=== PATIENT | female | born 1980 | race Caucasian/White ===

== ENCOUNTER 2024-04-02 07:48 | Emergency (ER) | payer MEDICAID, SELFPAY ==
--- NOTE | ~2024-04-02 | XR_ITS ---
EXAMINATION: PELVIS AND LEFT HIP AND LEFT KNEE CLINICAL INFORMATION: Pain and swelling COMPARISON: None available. TECHNIQUE: Single view pelvis with 2 additional views left hip, 4 views left knee FINDINGS: Some minimal degenerative changes are present in both hip joints with some mild suprapatellar acetabular sclerotic change. There is some subchondral cysts, right greater than left. Minimal sclerotic changes are seen at the SI joints. No fractures. There is some minimal narrowing of the medial compartment otherwise the radiographs are unremarkable. No joint effusion, fractures or chondrocalcinosis. XR/XR hip LT w PEL1V IMPRESSION: Mild degenerative changes in the hips and SI joints. No acute finding. Electronically signed by: Maicol Faulkner MD 04/02/2024 10:27 AM EDT
--- NOTE | ~2024-04-02 | XR_ITS ---
EXAMINATION: PELVIS AND LEFT HIP AND LEFT KNEE CLINICAL INFORMATION: Pain and swelling COMPARISON: None available. TECHNIQUE: Single view pelvis with 2 additional views left hip, 4 views left knee FINDINGS: Some minimal degenerative changes are present in both hip joints with some mild suprapatellar acetabular sclerotic change. There is some subchondral cysts, right greater than left. Minimal sclerotic changes are seen at the SI joints. No fractures. There is some minimal narrowing of the medial compartment otherwise the radiographs are unremarkable. No joint effusion, fractures or chondrocalcinosis. XR/XR knee LT 4V IMPRESSION: Mild degenerative changes in the hips and SI joints. No acute finding. Electronically signed by: Maicol Faulkner MD 04/02/2024 10:27 AM EDT
[2024-04-02 07:52] VITALS: BP 113/58; PULSE 91; RESP 18; TEMP 35.7; O2SAT 96; BMI 25.9
--- NOTE | 2024-04-02 09:04 | ED_ITS ---
HPI - General Adult General Chief complaint: General Medical Stated complaint: Hip pain Time Seen by Provider: 04/02/24 09:03 Source: patient Mode of arrival: ambulatory Limitations: no limitations History of Present Illness ED Provider: Julia Boswell PA-C HPI narrative: 43 yo female with history of fibromyalgia, opioid use disorder on Suboxone, history of hip arthritis who presents to the ER for evaulation of acute on chronic left lateral hip pain along with left knee pain. She reports the pain has been worsening over the last few weeks without any recent injury. She states she had x-rays done a few months ago that showed arthritis in her left hip. Her primary care was trying to get her a rolling walker because she was homeless and walking several miles per day. She now has a home as of last week and is walking much less. She states the pain in the left lateral hip radiates down the outside of the leg to the left knee. It is worse with flexion of the leg. She denies any swelling of the knee or leg. No weakness, numbness or tingling of the leg. Pain is worse with ambulation and when lying on the left side. She is not taking any medications for pain MD complaint: left hip pain and left knee pain Onset (ago): day(s) Location: left and lower extremity Radiation: distal Severity: severe Quality: aching and sharp Pain Consistency: constant Relieving factors: rest Exacerbating factors: movement Associated symptoms: denies other symptoms Treatments prior to arrival: none Related Data Previous Rx's ?Medication ?Instructions ?Recorded cyclobenzaprine 10 mg tablet 10 mg PO TID PRN muscle spasm #14 04/02/24 tabs ibuprofen 600 mg tablet 600 mg PO Q8H PRN pain #14 tabs 04/02/24 lidocaine 5 % topical patch 1 patch topical DAILY #15 ea 04/02/24 Allergies Allergy/AdvReac Type Severity Reaction Status Date / Time cephalexin [From Keflex] Allergy Anaphylaxis Verified 04/02/24 07:55 sulfamethoxazole Allergy Anaphylaxis Verified 04/02/24 07:55 [From Bactrim] trimethoprim [From Bactrim] Allergy Anaphylaxis Verified 04/02/24 07:55 Review of Systems Review of Systems: Yes all other systems are reviewed and are negative PMFSH Social History Social History Advance Directives: Yes Advance Directives Information Provided: Yes Advance Directives on File: No Do you have a plan to hurt others: No Plan Physical Exam ED Vital Signs: Vital Signs - 24 hr 04/02/24 07:52 04/02/24 10:59 04/02/24 11:24 Temperature 96.3 F L 0 F L Pulse Rate 91 53 53 Respiratory Rate 18 16 16 Blood Pressure 113/58 L 98/60 98/60 Pulse Oximetry 96 95 95 Oxygen Delivery Method Room Air Room Air Room Air BMI result Body Mass Index 25.9 Appearance: Alert. Oriented X3. No acute distress. HEENT: normal inspection CVS: Normal heart rate and rhythm. Pulses normal. Respiratory: No respiratory distress. Skin: Skin warm and dry. Normal skin color. Normal skin turgor. hyperpigmented scattered scarring on the lateral aspect of the left upper thigh, no erythema or tenderness. Extremities: no deformity. full passive ROM of the left hip with tenderness both anteriorly and laterally. tenderness of the left lateral thigh with palpable spasm. FROM of the left knee with pain upon full extension. no appreciated joint laxiety. tenderness along lateral joint line Neuro: Oriented X 3. No motor deficit. No sensory deficit. Medications Administered Discontinued Medications Generic Name Dose Route Start Last Admin Trade Name Freq PRN Reason Stop Dose Admin Acetaminophen 975 mg 04/02/24 09:31 04/02/24 11:00 Acetaminophen 325 Mg Tablet PO 04/02/24 09:32 975 mg ONCE ONE Administration Cyclobenzaprine HCl 10 mg 04/02/24 09:31 04/02/24 11:00 Cyclobenzaprine Hcl 10 Mg Tablet PO 04/02/24 09:32 10 mg ONCE ONE Administration Ketorolac Tromethamine 30 mg 04/02/24 09:31 04/02/24 11:00 Ketorolac Tromethamine 30 Mg/Ml Vial IM 04/02/24 09:32 30 mg ONCE ONE Administration Medical Decision Making Medical Decision Making MDM Narrative: 43 yo female with history of opiois use disorder on suboxone who presents to the ER for evaluation of atraumatic left hip pain radiating down to the knee for the last several weeks. FROM on exam today w/ soft tissue tenderness of left lateral thigh, possible IT band syndrome. XR showing mild OA of the hip. unremarkable left knee. will plan to start muscle relaxer, NSAID, foam rolling exercises to IT band and ortho follow up as well as PCP. stable for d/c home Differential Diagnosis Differential Diagnoses: The differential diagnosis associated with the presentation includes OA, RA, IT band syndrome, AVN, ligamentous injury to the knee Independent Interpretation I performed an independent interpretation of an: Plain X-Ray Interpretation: no acute fracture, agree w/ radiology read Radiology Impression Discussion of test interpretation with radiology: I have reviewed the radiologist's reading. Radiologist Impression: EXAMINATION: PELVIS AND LEFT HIP AND LEFT KNEE CLINICAL INFORMATION: Pain and swelling COMPARISON: None available. TECHNIQUE: Single view pelvis with 2 additional views left hip, 4 views left knee FINDINGS: Some minimal degenerative changes are present in both hip joints with some mild suprapatellar acetabular sclerotic change. There is some subchondral cysts, right greater than left. Minimal sclerotic changes are seen at the SI joints. No fractures. There is some minimal narrowing of the medial compartment otherwise the radiographs are unremarkable. No joint effusion, fractures or chondrocalcinosis. XR/XR knee LT 4V IMPRESSION: Mild degenerative changes in the hips and SI joints. No acute finding. Independent Historian Clinical information obtained from an independent historian. History obtained from or confirmed by: Spouse Prescription Management I considered prescription management with: Pain Medication Chronic Conditions Patient?s care impacted by: Other (OA) Critical Care Time Critical Care Time Critical Care Time: No Discharge Plan Discharge Clinical Impression: Hip pain, left Acute knee pain Qualifiers: Laterality: left Qualified Code(s): M25.562 - Pain in left knee Patient Disposition: Home, Self-Care Instructions: Knee Pain (ED), Hip Pain (ED) Additional Instructions: Follow-up with orthopedics for further evaluation and treatment. Call for an appointment. Name and number below Take the prescribed medications as needed for your symptoms. Recommend stretching and foam rolling of your IT band (band from the side of your hip down to your knee) Follow-up with your primary care doctor EXAMINATION: PELVIS AND LEFT HIP AND LEFT KNEE CLINICAL INFORMATION: Pain and swelling COMPARISON: None available. TECHNIQUE: Single view pelvis with 2 additional views left hip, 4 views left knee FINDINGS: Some minimal degenerative changes are present in both hip joints with some mild suprapatellar acetabular sclerotic change. There is some subchondral cysts, right greater than left. Minimal sclerotic changes are seen at the SI joints. No fractures. There is some minimal narrowing of the medial compartment otherwise the radiographs are unremarkable. No joint effusion, fractures or ch ondrocalcinosis. XR/XR knee LT 4V IMPRESSION: Mild degenerative changes in the hips and SI joints. No acute finding. Prescriptions: New cyclobenzaprine 10 mg tablet 10 mg PO TID PRN (Reason: muscle spasm) Qty: 14 0RF ibuprofen 600 mg tablet 600 mg PO Q8H PRN (Reason: pain) Qty: 14 0RF lidocaine 5 % adhesive patch,medicated 1 patch topical DAILY Qty: 15 0RF Rx Instructions: leave on most painful area for up to 12 hrs Referrals: [facility] [place] [place] [facility] [Provider Group] Stand Alone Forms: Work/School Release Interventions: ED Discharge Assessment Last Done: 04/02/24 11:24 Discharge Date/Time: 04/02/24 11:25 Print Language: Tristanian
--- NOTE | 2024-04-02 09:10 | PC.NURSE ---
Pt eating a burger and drinking leandra shantel at this time. Awaiting xray.
[2024-04-02 10:59] VITALS: BP 98/60; PULSE 53; RESP 16; O2SAT 95
[2024-04-02] MEDS: Cyclobenzaprine HCl 10 MG TABLET PO (11:00)
[2024-04-02] MEDS: Acetaminophen 325 MG TABLET 975 MG PO (11:00)
[2024-04-02] MEDS: Ketorolac Tromethamine 30 MG/ML VIAL IM (11:00)
[2024-04-02 11:24] VITALS: BP 98/60; PULSE 53; RESP 16; TEMP -17.7; TEMP 0; O2SAT 95
== END 2024-04-02 11:25 | disposition home or self-care (01) ==
PROVIDERS: Emergency Provider Emergency Medicine Emergency Medical Services
DX: M25.552 Pain in left hip (principal); M25.562 Pain in left knee
CPT/HCPCS: 73502; 73564; 96372; 99283; 99284; J1885

== ENCOUNTER 2024-05-21 09:42 | Emergency (ER) | payer MEDICAID, SELFPAY ==
[2024-05-21 09:50] VITALS: BP 136/78; PULSE 69; O2SAT 98
[2024-05-21 10:00] VITALS: BP 123/57; PULSE 51; RESP 16; TEMP 37; O2SAT 100; BMI 25.7
[2024-05-21] MEDS: Ondansetron ODT 4 MG TAB.RAPDIS TRANSLINGU (10:06)
== END 2024-05-21 18:20 | disposition left against medical advice (07) ==
PROVIDERS: Emergency Provider Emergency Medicine
DX: R11.2 Nausea with vomiting, unspecified (principal)
CPT/HCPCS: 99281

== ENCOUNTER 2024-07-05 14:03 | Emergency (ER) | payer MEDICAID, SELFPAY ==
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
--- NOTE | 2024-07-05 14:09 | ED.GENADULT ---
HPI - General Adult General Chief complaint: Extremity Injury, Upper Stated complaint: R Hand Swollen Fingers Injury 07/05/24 Related Data Previous Rx's ?Medication ?Instructions ?Recorded cyclobenzaprine 10 mg tablet 10 mg PO TID PRN muscle spasm #14 04/02/24 tabs ibuprofen 600 mg tablet 600 mg PO Q8H PRN pain #14 tabs 04/02/24 lidocaine 5 % topical patch 1 patch topical DAILY #15 ea 04/02/24 Allergies Allergy/AdvReac Type Severity Reaction Status Date / Time cephalexin [From Keflex] Allergy Anaphylaxis Verified 07/05/24 14:12 sulfamethoxazole Allergy Anaphylaxis Verified 07/05/24 14:12 [From Bactrim] trimethoprim [From Bactrim] Allergy Anaphylaxis Verified 07/05/24 14:12 [facility] Social History Social History Advance Directives: No Advance Directives Information Provided: No Do you have a plan to hurt others: No Plan Physical Exam ED Vital Signs: BMI result Body Mass Index 26.6 Course Course Course Narrative: This is an RME: Additional HPI, ROS, PE not included below will be deferred to primary provider. RME assessment and note performed by: Saundra Sullivan PA-C This is a [id number]-female who presents to the ER with a complaint of right hand pain s/p punching wall. Pt reports that she was previously prescribed lyrica and has missed several appointments and has been trying to wean herself down, reports that this has caused increased anger. She is here with partner. Reports that she would like to speak to someone about med management. Plan: xr hand, care team Reevaluation(s) Reevaluation #1: Patient left without completing treatment. Discharge Plan Discharge Clinical Impression: Hand pain Patient Disposition: Left W/O Completing Treatment Prescriptions: No Action cyclobenzaprine 10 mg tablet 10 mg PO TID PRN (Reason: muscle spasm) Qty: 14 0RF ibuprofen 600 mg tablet 600 mg PO Q8H PRN (Reason: pain) Qty: 14 0RF lidocaine 5 % adhesive patch,medicated 1 patch topical DAILY Qty: 15 0RF Rx Instructions: leave on most painful area for up to 12 hrs Discharge Date/Time: 07/05/24 21:25
[2024-07-05 14:10] VITALS: BP 127/78; PULSE 110; RESP 16; TEMP 36.7; O2SAT 94; BMI 26.6
--- OUTSIDE RECORDS SUMMARY | 2024-07-05 21:25 | XMS_ITS ---
Author Organization [facility] Address [address] [place], [place] [id number] Care Team Providers Care Block Operator Name Role Phone Vikki Spicer Primary Care Provider [facility], Nursing Unavailable [phone] Medications Medication SIG (Take, Route, Frequency, Duration) [...] Not-Taking Encounters Encounter Location Date Provider Diagnosis [facility] [address] [place], [place] [phone] 05/22/2024 Nursing [facility] Encounter for screening for COVID-19 Z11.52 Assessments Encounter Date Diagnosis (ICD Code) Assessment Notes Treatment Notes Treatment Clinical Notes 05/22/2024 Encounter for screening for COVID-19 [...] COVID-19. Progress Notes * Bello YUNGOB: [birth year] (43 yo F)Acc No.[id number]:05/22/2024 Progress Notes Patient:?Connie YUNG Provider:?Provider [facility] :1980???Age:43 Y???Sex:Female D ate:05/22/2024 Address:[address] [place], [place] [phone] Pcp:Vikki Spicer Subjective: * Chief Complaints: * ??? * HPI: ???General:? Symptom Screen: - Fever in the last [...] days? If so where and why?. * Medications:?Taking diclofen ac topical 3% gel 1 amanda applied topically [...] tab(s) orally twice a day Objective: * Vitals:? Assessment: * Assessment: 1.?Encounter for screening f or COVID-19 - Z11.52 (Primary)??? Plan: * Treatment: * Images: Billing Information: * Visit Code:? * Procedure Codes:? * Electronic signature of Buck jain [facility] on 07/05/2024 at 09:25 PM EST Sign off status: Pending * Provider:?Provider [facility] Date:?05/22/2024 Generated for Marilin johnson/Olivia/Beni on:?07/05/2024 09:25 PM EST
--- OUTSIDE RECORDS SUMMARY | 2024-07-05 21:26 | XMS_ITS | Patient Health Record ---
Author Organization [facility] Address [address], [place] [id number] Care Team Providers [facility] Manager Name Role Phone Kwame Spicer Primary Care Provider Jessie Ferrera Unavailable [phone] [facility], Nursing Unavailable [phone] No, PCP Unavailable Unavailable Niyah Maynard Unavailable [phone] Ingris Covarrubias Unavailable [phone] [facility], CHW Unavailable [phone] Allergies Allergen (clinical drug ingredient) Drug/Non Drug Allergy documented on EMR Reaction Allergy Type Onset Date Status Shellfish shellfish (uncoded) Unknown Allergy Active keflex (uncoded) anaphylaxis Allergy A ctive Results Component Value Reference Range Notes CBC Reviewed date:02/16/2024 09:29:41 AM Interpretation:Abnormal Performing Lab: Notes/Report: Original Ordering Provider: KWAME SPICER APRN WBC 5.5 4.8-10.8 x10-3/uL RBC 5.0 3.8-4.8 x10-6/uL HEMOGLOBIN 14.0 11.5-16.0 g/dL HEMATOCRIT 43.0 35-47 % MCV 86.9 79-98 fL MCH 28.3 27-32 pg MCHC 32.6 32-37 g/dL RDW 13.2 11-15 % PLT COUNT 292 130-400 x10-3/uL MEAN PLATELET VOLUME 10.3 7-11 fL NRBC % AUTO 0.0 <1 % NRBC # AUTO 0.00 <0.1 x10-3/uL COMPREHENSIVE METABOLIC PANE L Reviewed date:02/16/2024 09:29:29 AM Interpretation:Normal Performing Lab: Notes/Report: GLUCOSE 86 70-100 mg/dL Reference range applicable to fasting specimens only BUN 8 5-25 mg/dL CREAT 1.07 0.5-1.1 mg/dL GLOMERULAR FILTRATION RATE 67 >60 This eGFR result was calculated using the CKD-EPI 2020 Creatinine Equation SODIUM 140 135-145 mEq/L POTASSIUM 3.8 3.5-5.5 mmol/L CHLORIDE 105 96-110 mmol/L CO2 27 21-32 mmol/L ANION GAP 8 3-11 CALCIUM 10.2 8.5-10.5 mg/dL ALBUMIN 4.3 3.2-5.0 G/dL SGPT 37 10-60 U/L TOTAL PROTEIN 7.0 6.0-8.0 G/dL BILI,TOTAL 0.3 0.0-1.4 mg/dL SGOT 33 10-42 U/L ALK PHOS 68 42-121 U/L GLYCOHEMOGLOBIN PROFILE Reviewed date:02/16/2024 09:29:17 AM Interpretation:High Performing Lab: Notes/Report: Original Ordering Provider: KWAME SPICER APRN [employer], a member of [address] [address] Equipment Associate - Xin Guzman MD GLYCATED HEMOGLOBIN A1C 5.9 <6.5 % ESTIMATED AVERAGE GLUCOSE 123 HCV VIRAL LOAD Reviewed date:02/16/2024 12:05:03 PM Interpretation:detected Performing Lab: Notes/Report: Original Ordering Provider: KWAME SPICER APRN [employer], a member of [address] [address] Equipment Associate - Xin Guzman MD HCV VIRAL LOAD QUAL DETECTED NOT DETECT. HCV VIRAL LOAD QUANT 87472 <12 HCV VIRAL LOAD LOG 4.61 <1.08 HIV 1 AND 2 ANTIBODY SCREEN Reviewed date:02/16/2024 09:30:01 AM Interpretation:Negative Performing Lab: Notes/Report: [employer], a member of [address] [address] Equipment Associate - Xin Guzman MD HIV 1 AND 2 SCREEN NEGATIVE NEGATIVE This assay is a 4th generation assay allowing for earlier detection of HIV infection by detecting the presence of the HIV-1 p24 antigen as well as the traditional antibodies to HIV type 1 (including group O) and type 2. Use of a 4th generation assay is the current CDC recommendation for HIV screening. LEVETIRACETAM KEPPRA Reviewed date:02/19/2024 09:15:36 AM Interpretation:Normal Performing Lab: Notes/Report: Original Ordering Provider: KWAME SPICER APRN [employer] [address] Equipment Associate - Xin Guzman MD LEVETIRACETAM KEPPRA 47.5 3.0-60.0 ug/mL Steady state trough serum or plasma levels following doses of 1000 to 3000 mg/Day: 3 to 37 ug/mL. The same dosage regimen will typically result in peak levels of 10 to 60 ug/mL, at approximately 1.5 hours post dose. If applicable, any drug confirmation testing reported here was developed and the performance characteristics determined by [facility]. This confirmation testing has not been cleared or approved by the FDA. The laboratory is regulated under CLIA as qualified to perform high-complexity testing. This test is used for patient testing purposes. It should not be regarded as investigational or for research. Test performed at [facility], [facility] [place] [address] Marcia Raphael MD, PhD - Equipment Associate LIPID PROFILE Reviewed date:02/16/2024 10:01:24 AM Interpretation:2.7 % ASCVD 10-yr risk Performing Lab: Notes/Report: CHOLESTEROL 219 0-200 mg/dL TRIGLYCERIDES 173 0-150 mg/dL HDL CHOLESTEROL 53 >40 mg/dL LDL CALCULATED 132 0-100 mg/dL TC-HDLC RATIO 4.1 0-4.4 mg/dL TSH CASCADE Reviewed date:02/16/2024 09:29:48 AM Interpretation:Normal Performing Lab: Notes/Report: TSH CASCADE 1.22 0.40-4.00 uIU/ml QUANTIFERON(R)-TB GOLD PLUS, 1 TUBE Reviewed date:02/20/2024 09:09:40 PM Interpretation:Negative Performing Lab:NL2, [facility] [id number] Wil Veronica Notes/Report: NON-FASTING QUANTIFERON(R)-TB GOLD PLUS, 1 TUBE NEGATIVE NEGATIVE Negative test result. M. tuberculosis complex infection unlikely. NIL 0.10 MITOGEN-NIL 8.99 TB1-NIL 0.03 TB2-NIL 0.05 The Nil tube value reflects the background interferon gamma immune response of the patient's blood sample. This value has been subtracted from the patient's displayed TB and Mitogen results. Lower than expected results with the Mitogen tube prevent false-negative Quantiferon readings by detecting a patient with a potential immune suppressive condition and/or suboptimal pre-analytical specimen handling. The TB1 Antigen tube is coated with the M. tuberculosis-specific antigens designed to elicit responses from TB antigen primed CD4+ helper T-lymphocytes. The TB2 Antigen tube is coated with the M. tuberculosis-specific antigens designed to elicit responses from TB antigen primed CD4+ helper and CD8+ cytotoxic T-lymphocytes. For additional information, please refer to [email or web address] (This link is being provided for informational/ educational purposes only.) HEPATITIS A B C PROFILE Reviewed date:02/16/2024 09:28:37 AM Interpretation:+HCV;no hep A immunity Performing Lab: Notes/Report: HEPATITIS B SURFACE ANTIBODY POSITIVE NEGATIVE HEPATITIS B SURFACE ANTIGEN NEGATIVE NEGATIVE Over the counter supplements containing high doses of biotin may interfere with this assay. If interference is suspected, patients shoud be retested after refraining from biotin supplements for 72 hours. HEPATITIS C VIRUS DIAGNOSTIC POSITIVE NEGATIVE If confirmation of this positive HCV Ab screening test is needed, please redraw and order HCV Viral Load. Note--> This test may not be added on due to different specimen requirements. HEPATITIS B CORE ANTIBODY NEGATIVE NEGATIVE HEPATITIS A ANTIBODY TOTAL NEGATIVE NEGATIVE Over the counter supplements containing high doses of biotin may interfere with this assay. If interference is suspected, patients shoud be retested after refraining from biotin supplements for 72 hours. CBC Reviewed date:03/05/2024 09:51:06 PM Interpretation:Normal Performing Lab: Notes/Report: Normal HEMATOCRIT 39 HEMOGLOBIN 12.6 MCV 87 PLT COUNT 202 WBC 4.7 BASIC METABOLIC PANEL Reviewed date:03/05/2024 09:52:16 PM Interpretation:Glu 118 Performing Lab: Notes/Report: Glu 118 GLUCOSE 118 UREA NITROGEN (BUN) 19 CREATININE 0.9 SODIUM 139 POTASSIUM 4.4 CHLORIDE 105 CARBON DIOXIDE 22 CALCIUM 9.3 TSH Reviewed date:03/05/2024 09:53:26 PM Interpretation:Normal Performing Lab: Notes/Report: Normal TSH 1.14 CKMB PROFILE Reviewed date:03/05/2024 09:54:19 PM Interpretation:Normal Performing Lab: Notes/Report: Normal CREATINE KINASE (CK) 112 US Doppler Limited Study Reviewed date:03/05/2024 09:55:22 PM Interpretation:Negative Performing Lab: Notes/Report: Negative Reason For Referral Reason HS Dental routine exam Diagnosis 1 Unsheltered homeless ness (Z59.02) Referral Organization [facility] Referring Provider First Name CHW Referring Provider Last Name [facility] Referring Provider Speciality Family Pra ctice Referred Provider [facility], . Referral Priority Routine Reason [facility] [address] [facility] [place] [phone] evaluate for abnormal uterine bleeding Diagnosis 1 Abnormal uterine and vaginal bleeding, unspecified (N93.9) Referral Organization [facility] Referring Provider First Name Kwame Referring Provider Last Name Nayan Referring Provider Speciality Nurse Liana vitale Referred Provider [facility] Referred Provider Specialty OB - Gynecol ogy General Notes Amanda Polo 02/16/2024 03:36:21 PM > p/w faxed pending appt Desire Eric 02/29/2024 02:05:39 PM > pt is scheduled for 05/14/2024 @ 1pm with arrival of 12:45 at [facility], Desire Eric 05/13/2024 01:22:04 PM > pt wants to reschedule, she will call today and let us know after she have another date.Christ Katelyn 06/19/2024 09:39:20 AM EST > sent fax to check status of apptChrist Katelyn 06/19/2024 12:24:55 PM > pt no showed appt Referral Priority Routine Referral Appointment Date 05/14/2024 Reason Needs Wheeled Walker with Seat. Referral Organization [facility] Referring Provider First Name Kwame Referring Provider Last Name Nayan Referring Provider Speciality Nurse Liana vitale Referred Provider [facility] General Notes Kristen Mckay 2023 10:08:37 AM >Given to client with walker script. Referral Priority Routine Reason evaluate for lef t hip and left knee pain Diagnosis 1 Unilateral primary o steoarthritis, left hip (M16.12) Diagnosis 2 Pain in left knee (M 25.562) Referral Organization [facility] Referring Provider First Name Kwame Referring Provider Last Name Nayan Referring Provider Speciality Nurse Prac titioner Referred Provider [facility] Referred Provider Specialty Orthopedic S urgery General Notes Rhiannon Ferrer 02/2024 01:10:28 PM > Faxed notes to [phone],phone [phone], Brigitte Ayoub 05/13/2024 09:44:21 AM > received referral, contacted pt. on 03/16/24 with no response, Called and spoke with patient to call [facility] to schedule, pt. agrees Referral Priority Routine Medications Medication SIG (Take, Route, Frequency, Duration) Notes Start Date End Date Status Melatonin 5 mg 2 caps orally once a day (at bedtime) pt states its 3 tabs Active furosemide 20 mg 1 tab(s) orally twice a day Not-Taking buprenorphine-naloxone 8 mg-2 mg 2 film(s) sublingually daily Active propranolol 10 mg 1 tab(s) orally 2 times a day for 90 days Active Imitrex 25 mg 1 tab(s) orally once for 30 days As needed 02/16/2024 Active levothyroxine 25 mcg (0.025 mg) 1 tab(s) orally once a day for 90 days Active traZODone 50 mg 1 tab orally at bedtime As needed Not-Taking pantoprazole 40 mg 1 tab(s) orally once a day for 90 days Active hydrOXYzine hydrochloride 50 mg 2 tabs orally twice a day PRN Not-Taking Keppra 750 mg 1 tab(s) orally 2 times a day for 90 days Active ondansetron 4 mg 1 tab(s) orally twice a day PRN do not take more than 2 in a 24 hour period Not-Taking Lyrica 150 mg 1 cap(s) orally 2 times a day for 30 days 05/21/2024 Active omeprazole 20 mg 2 caps orally once a day pt states its BID Not-Taking naloxone 4 mg/0.1 mL 1 spray(s) intranasally once Not-Taking mirtazapine 15 mg 1 tab(s) orally once a day (at bedtime) Not-Taking diclofenac topical 3% 1 maanda applied topically 2 times a day for 30 days As needed 02/15/2024 Active cyclobenzaprine 10 mg 1 tab(s) orally every 8 hours PRN Not-Taking acetaminophen 500 mg 2 tab(s) orally every 8 hours As needed Active gabapentin 400 mg 1 cap(s) orally 3 times a day Not-Taking Immunizations Vaccine Route Administration Date Status Comme nts Moderna Covid-19 Vaccine Administration - First Dose (Single Dose 100MCG/0.5ML 1ST) Unknown 09/24/2020 Administered Moderna Covid-19 Vaccine Administration - Second Dose (Single Dose 100 MCG/0.5ML 2ND) Unknown 10/22/2020 Administered PCV 20 Unknown 03/06/2023 Administered MMR Unknown 03/10/1983 Administered PPSV 23 Unknown 08/04/2016 Administered Tdap Unknown 09/04/2014 Administered Social History Tobacco Use: Social History Observation Description Date Details (start date - stop date) Former Smoker NA - NA Tobacco Use Assessment MU Question Answer Notes What is your current smoking status? former smok er How long has it been since you last smoked? > 10 years Problems Problem Type SNOMED Code ICD Code Onset Dates Problem Status W/U Status Risk Notes Problem Chronic hepatitis C (439623105) Chronic viral hepatitis C (B18.2) Active confirmed Problem Hypothyroidism (31410045) Hypothyroidism, unspecified (E03.9) Active confirmed Problem Overweight (354951285) Overweight (E66.3) Active confirmed Problem Tobacco user (658180761) Nicotine dependence, cigarettes, uncomplicated (F17.210) Active confirmed Problem Anxiety disorder (041222583) Anxiety disorder, unspecified (F41.9) Active confirmed Problem Insomnia (157823259) Insomnia, unspecified (G47.00) Active confirmed Problem Gastro-esophageal reflux disease without esophagitis (010628635) Gastro-esophagea l reflux disease without esophagitis (K21.9) Active confirmed Problem Localized, primary osteoarthritis of the pelvic region and thigh (662015233) Unilateral primary osteoarthritis, left hip (M16.12) Active confirmed Problem Pain of left knee joint (finding) (861673308010062) Pain in left knee (M25.562) Active confirmed Problem Fibromyalgia (239780029) Fibromyalgia (M79.7) Active confirmed Problem Abnormal uterine bleeding (62876163561507) Abnormal uterine and vaginal bleeding, unspecified (N93.9) Active confirmed Problem Seizure (08820746) Unspecified convulsions (R56.9) Active confirmed Problem Nondependent opioid abuse in remission (488450008) Opioid abuse, in remission (F11.11) Active confirmed Problem Headache (77021626) Headache, unspecified (R51.9) Active confirmed Problem Unsheltered homelessness (443749702062640) Unsheltered homelessness (Z59.02) Active confirmed Problem Pain in unspecified knee (M25.569) Inactive confirmed Vital Signs Temperature 97.5 degrees Fahrenheit 02/15/2024 Blood pressure diastolic 87 02/15/2024 Oximetry 97 02/15/2024 Height 63 in 02/15/2024 Blood pressure systolic 118 02/15/2024 Weight 147.6 lbs 02/15/2024 BMI 26.14 kg/m2 02/15/2024 Encounters Encounter Location Date Provider Diagnosis [facility] [address] [place] [address] FOR [place]EL[place] [id number] 01/10/[address] [facility] Other specified counseling Z71.89 ; Unsheltered homelessness Z59.02 and Encounter for screening for depression Z13.[address] [id number] 02/15/2024 Kwame Spicer Encounter for general adult medical examination with abnormal findings Z00.01 ; Nicotine dependence, cigarettes, uncomplicated F17.210 ; Overweight E66.3 ; Encounter for screening mammogram for malignant neoplasm of breast Z12.31 ; Encounter for screening for infectious and parasitic diseases, unspecified Z11.9 ; Encounter for screening for cardiovascular disorders Z13.6 ; Pain in unspecified knee M25.569 ; Hypothyroidism, unspecified E03.9 ; Headache, unspecified R51.9 ; Opioid abuse, in remission F11.11 ; Unsheltered homelessness Z59.02 ; Unspecified convulsions R56.9 ; Abnormal uterine and vaginal bleeding, unspecified N93.9 and Gastro-esophageal reflux disease without esophagitis K21.9 [employer] [address] [place] [id number] 02/19/2024 Ingris Covarrubias [address] [id number] 02/29/2024 Eddieliza Casionan Fibromyalgia M79.7 ; Chronic viral hepatitis C B18.2 ; Person consulting for explanation of examination or test findings Z71.2 ; Unilateral primary osteoarthritis, left hip M16.12 and Pain in left knee M25.[address] [id number] 12/05/[address] [id number] 01/08/[address] [address] [id number] 01/10/[address] [id number] 01/10/2024 Eddieliza Casionan [address] [id number] 02/07/2024 Eddieliza Casionan [address] [id number] 02/07/2024 Jessie Ferrera Insomnia, unspecifie d G47.00 and Anxiety disorder, unspecified F41.9 [facility] [address] [address] 02/09/2024 Eddieliza Casionan [address] [id number] 02/09/2024 Eddieliza Casionan [address] [id number] 02/19/2024 Eddieliza Casionan Anxiety disorder, unspecified F41.[address] [id number] 02/26/2024 Eddieliza Casionan [address] [id number] 02/28/2024 Eddieliza Casionan [address] [id number] 03/05/2024 Eddieliza Casionan [address] [id number] 03/06/2024 Eddieliza Casionan [address] [id number] 03/15/2024 Eddieliza Casionan [address] [id number] 04/01/2024 Eddieliza Casionan [address] [id number] 04/03/2024 Eddieliza Casionan [address] [id number] 04/18/2024 Eddieliza Casionan Anxiety disorder, unspecified F41.[address] [id number] 04/22/2024 Eddieliza Casionan Anxiety disorder, unspecified F41.[address] [id number] 05/16/2024 Eddieliza Casionan Unspecified convulsions R56.9 ; Hypothyroidism, unspecified E03.9 and Gastro-esophageal reflux disease without esophagitis K21.[address] [id number] 12/27/2023 PCP No Assessments Encounter Date Diagnosis (ICD Code) Assessment Notes Treat ment Notes Treatment Clinical Notes 01/10/2024 Other specified counseling (ICD-10 - Z71.89) Discussed in detail with patient how to practice social distancing and reduce risk of manuela devi virus. This included avoiding public spaces, crowds, washing hands frequently, and limiting visitors at this time. Patient was encouraged wash hand frequently, cough into their elbow, and contact the clinic if they develop cough/SOB/Fever or have direct contact with someone with these symptoms. 01/10/2024 Unsheltered homelessness (ICD-10 - Z59.02) Medical, social and psych history reviewed and documented in ecw. [facility] records obtained and immunization history updated. Requested records from [facility] to update med list, once received will update. Pt scheduled to establish care with provider, encouraged to contact clinic with any issues or concerns prior to scheduled appt. 02/15/2024 Nicotine dependence, cigarettes, uncomplicated (ICD-10 - F17.210) vaping 02/15/2024 Encounter for general adult medical examination with abnormal findings (ICD-10 - Z00.01) Annual PE performed.General recommendation for good health made: brush/floss your teeth 2x per day. Eat a healthy diet and obtain 30 minutes of aerobic exercise 5/7 days per week. Maintain high in take of water and avoid soda and energy drinks. Get 8 hours of sleep every night. 02/29/2024 Chronic viral hepatitis C (ICD-10 - B18.2) denies past treatment. Agrees to come for lab draw for treatment 02/29/2024 Fibromyalgia (ICD-10 - M79.7) wrote a script for walker with seater Requests Iván restart 02/07/2024 Anxiety disorder, unspecified (ICD-10 - F41.9) 02/07/2024 Insomnia, unspecified (ICD-10 - G47.00) Client needs to return call so we can verify what she is taking for sleep, trazosone ids prn and not clear if she is taking melatonin. 02/19/2024 Anxiety disorder, unspecified (ICD-10 - F41.9) 04/18/2024 Anxiety disorder, unspecified (ICD-10 - F41.9) 04/22/2024 Anxiety disorder, unspecified (ICD-10 - F41.9) 05/16/2024 Unspecified convulsions (ICD-10 - R56.9) 01/10/2024 Encounter for screening for depression (ICD-10 - Z13.31) PHQ-9 assessed score was 11 moderate depression - pt currently not receiving tx but would like to be, TE sent to Niyah Maynard to initiate tx. Pt informed that staff will be contacting her by phone to schedule an appt. 02/15/2024 Overweight (ICD-10 - E66.3) Engaged discussion on maintaining healthy lifestyle: healthy diet low on fats and simple carbohydrates, and regular physical exercise of at least 30 minutes daily 02/29/2024 Person consulting for explanation of examination or test findings (ICD-10 - Z71.2) Reviewed results of recent diagnostic testing with client. Testing was (ab)normal. Future plan of action discussed. 05/16/2024 Hypothyroidism, unspecified (ICD-10 - E03.9) 02/15/2024 Encounter for screening mammogram for malignant neoplasm of breast (ICD-10 - Z12.31) Will have routine mammogram screening appt set up 02/29/2024 Unilateral primary osteoarthritis, left hip (ICD-10 - M16.12) agrees to see ortho 05/16/2024 Gastro-esophageal reflux disease without esophagitis (ICD-10 - K21.9) 02/15/2024 Encounter for screening for infectious and parasitic diseases, unspecified (ICD-10 - Z11.9) Covid screening is negative. Discussed in detail with patient how to practice social distancing by avoiding public spaces and crowds now, wearing a mask in public to keep nose and mouth covered, and washing hands frequently especially before eating and after using the bathroom. Return to clinic if you develop any symptoms of concern to be rescreened or go to the emergency room if you are having concerning symptoms for COVID-19. Screen for STI. TB and hepatitis 02/29/2024 Pain in left knee (ICD-10 - M25.562) agrees to see ortho 02/15/2024 Encounter for screening for cardiovascular disorders (ICD-10 - Z13.6) Screen for CV disorders 02/15/2024 Pain in unspecified knee (ICD-10 - M25.569) will trial NSAID cream 02/15/2024 Hypothyroidism, unspecified (ICD-10 - E03.9) will check thyroid profile 02/15/2024 Headache, unspecified (ICD-10 - R51.9) encouraged hydration 02/15/2024 Opioid abuse, in remission (ICD-10 - F11.11) reports staying on remission 02/15/2024 Unsheltered homelessness (ICD-10 - Z59.02) reports trying to get into a intermediate in [place] 02/15/2024 Unspecified convulsions (ICD-10 - R56.9) Appears stable on present treatment which we will continue. Will refer to neuro if seizures reoccur 02/15/2024 Abnormal uterine and vaginal bleeding, unspecified (ICD-10 - N93.9) wants referral to a [facility] 02/15/2024 Gastro-esophageal reflux disease without esophagitis (ICD-10 - K21.9) 02/20/2024 Other 02/27/2024 Other 03/13/2024 Other 05/07/2024 Other 05/14/2024 Other 05/22/2024 Other 01/10/2024 Other Pt agrees to dental referral - referral submitted to [facility] dental NOTE : TIME SPENT ON VISIT: 40 mins 02/15/2024 Other 02/29/2024 Other Time spent in visit: 10 minutes Plan Of Treatment Pending Test Test Name Order Date Homero Screening Digital 02/15/2024 HEPATITIS A,B,C PROFILE 02/15/2024 Insurance Providers Payer Name Payer Address Payer Phone Subscriber Number Group Number Insured Name Patient Relationship to Insured Coverage Start Date Coverage End Date [place] C3 [address] [place], [place] [id number] [employer] sushil Connie Self - patient is the insured 4 Medical (General) History Medical History History ICD Code stage 3 kidney disease hep c fibromyalgia degenerative disk disease depression anxiety seizures - has not had one in 2 years acid relux insomnia opiate abuse history Surgical History Surgery Date(Month/Year) exploratory surgeries of abd x 3 appendectomy in her 20's breast implants 13 years ago right foot - 2 procedures 11 years ago Hospitalization History Reason Date(Month/Year) Psych admit - [facility] 2023 Multiple psych admits when younger detox x 2 - [facility] stomach issues? 01/2024
--- OUTSIDE RECORDS SUMMARY | 2024-07-05 21:26 | XMS_ITS ---
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 Name Role Phone Vikki Spicer Primary Care Provider Jessie Ferrera Unavailable [phone] REASON FOR VISIT BH: initial intake, Symptom screening by [facility] staff pre entrance to clinic Encounters Encounter Location Date Provider Diagnosis [facility] [address], [place] [id number] 05/14/2024 Jessie Ferrera Encounter for screening for COVID-19 Z11.52 Assessments Encounter Date Diagnosis (ICD Code) Assessment Notes Treatment Notes Treatment Clinical Notes 05/14/2024 Encounter for screening for COVID-19 [...] * Bello YUNGOB: [birth year] (43 yo F)Acc No.[id number]:05/14/2024 Progress Notes Patient:?Connie YUNG Provider:?Jessie Ferrera PMHNP-BC :1980???Age:43 Y???Sex:Female D ate:05/14/2024 Address:[address] [place], [place] [id number] Pcp:Vikki Spicer Subjective: * Chief Complaints: * ???1. BH: initial intake. 2. Symptom screening by [facility] staff pre entrance to clinic. * HPI: ???General:? Symptom Screen: - Fever [...] days? If so where and why?. * ROS:?No acute C/P no acute SOB, No problem with urine, No heartburn or abdominal pain. Endorses being able to climb one fight of stairs without stopping due to SOB, Mood: stable, appetite: good, sleeping well. Denies new skin rashes. * Medical History:? Objective: * Vitals:? * Examination: ???Psychiatry: ?Assessment? Filled? Written? Sold? ID? Drug? QTY? Days? Prescriber? RX #? Dispenser? Refill? Daily Dose*? Pymt Type? 02/29/20 24 4 2 Preg abal in 150 Mg Caps ule 60 30 Ed Jered [id number] [facility] ( 05) 0/0 2.01 LMET Medicai d [place] .? Assessment: * Assessment: 1.?Encounter for screening f or COVID-19 - Z11.52 (Primary)??? Plan: * Treatment: * Images: Billing Information: * Visit Code:? * Procedure Codes:? Care Plan Details* * Electronic signature of JENNIFER Corrales on 07/05/2024 at 09:26 PM EST Sign off status: Pending * Provider:?SPENCER Walker Date:?1 Generated for Marilin johnson/Olivia/Beni on:?07/05/2024 09:26 PM EST History and Physical Notes * Examination Category Sub-Category Detail Notes Psychiatry Assessment Filled Written S old ID Drug QTY Days Prescriber RX # Dispenser Refill Daily Dose* Pymt Type SPRING FITTER //[id number] 150 Mg [id number] [id number] (9606) [place]
--- OUTSIDE RECORDS SUMMARY | 2024-07-05 21:26 | XMS_ITS ---
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 Role Phone Vikki Spicer Primary Care Provider REASON FOR VISIT Refill request Medications Medication SIG (Take, Route, Frequency, Duration) Notes Start Date End Date Status pantoprazole 40 mg 1 tab(s) orally once a day for 90 days Active levothyroxine 25 mcg (0.025 mg) 1 tab(s) orally once a day for 90 days Active Keppra 750 mg 1 tab(s) orally 2 ti mes a day for 90 days Active Encounters Encounter Location Date Provider Diagnosis [address] [id number] 05/16/2024 Vikki Spicer Unspecified convulsions R56.9 ; Hypothyroidism, unspecified E03.9 and Gastro-esophageal reflux disease without esophagitis K21.9 Assessments Encounter Date Diagnosis (ICD Code) Assessment Notes Treat ment Notes Treatment Clinical Notes 05/16/2024 Unspecified convulsions (ICD-10 - R56.9) 05/16/2024 Hypothyroidism, unspecified (ICD-10 - E03.9) 05/16/2024 Gastro-esophageal reflux disease without esophagitis (ICD-10 - K21.9) Plan Of Treatment Medication Medication Name Sig Start Date Stop Date Notes pantoprazole 40 mg 1 tab(s) orally once a day for 90 days levothyroxine 25 mcg (0.025 mg) 1 tab(s) orally once a day for 90 days Keppra 750 mg 1 tab(s) orally 2 ti mes a day for 90 days Progress Notes * Bello YUNGOB: [birth year] (43 yo F)Acc No.[id number]:05/16/2024 Patient:?LaurieroxyasmineConnie :1980???Age:43 Y???Sex:Female Address:[address] [place] [address] * Refills? Refill Keppra tablet, 750 mg, orally, 180, 1 tab(s), 2 times a day, 90 days, Refills=0 Refill levothyroxine tablet, 25 mcg (0.025 mg), orally, 90, 1 tab(s), once a day, 90 days, Refills=0 Refill pantoprazole delayed release tablet, 40 mg, orally, 90, 1 tab(s), once a day, 90 days, Refills=0 * true * Date:? Generated for Marilin johnson/Olivia/Javyitting on:?07/05/2024 09:25 PM EST
== END 2024-07-05 21:25 | disposition left against medical advice (07) ==
LOC: HO.ED 21:24
PROVIDERS: Emergency Provider Emergency Medicine
DX: S69.91XA Unspecified injury of right wrist, hand and finger(s), initial encounter (principal); M79.641 Pain in right hand; X58.XXXA Exposure to other specified factors, initial encounter; Y93.89 Activity, other specified; Y92.89 Other specified places as the place of occurrence of the external cause; Y99.8 Other external cause status
CPT/HCPCS: 73130; 99281; 99283

== ENCOUNTER 2024-08-14 09:58 | Emergency (ER) | payer MEDICAID, SELFPAY ==
--- NOTE | ~2024-08-14 | US_ITS ---
EXAMINATION: US LOWER EXTREMITY VEINS LIMITED FOLLOW UP LEFT HISTORY: pain and swelling to thigh COMPARISON: There are no prior studies for comparison. TECHNIQUE: Duplex and color Doppler sonographic examination of the deep venous system of the left lower extremity was performed. FINDINGS: The common femoral, superficial femoral, and popliteal veins are patent demonstrating normal compressibility, spontaneous flow, and augmentation. There is a normal color and spectral Doppler waveform appearance of the visualized deep venous system above the knee. The posterior tibial and peroneal veins are patent. Incidental note is made of a cystic structure in the right groin measuring 2.4 x 2.8 x 0.8 cm when imaging the right common femoral vein. US/US venous duplex LE LT IMPRESSION: No evidence of acute DVT in the left lower extremity. Electronically signed by: Arie Mack MD 08/14/2024 03:00 PM [facility]
[2024-08-14 10:22] VITALS: BP 139/92; PULSE 125; RESP 16; TEMP 36.1; O2SAT 97; BMI 25.9
--- NOTE | 2024-08-14 10:30 | ED_ITS ---
HPI - General Adult General Chief complaint: General Medical Stated complaint: Vomiting L Side Leg Pain Time Seen by Provider: 08/14/24 10:29 Source: patient, RN notes reviewed and old records reviewed Mode of arrival: ambulatory Limitations: no limitations History of Present Illness ED Provider: Andria MIRANDA narrative: Patient is a 43-year-old female with history of hepatitis-C, CKD stage 3, seizures, hypothyroidism presenting to the emergency department stating that she recently moved to the area, does not have a primary care provider. She is currently living at [facility] and they have been unable to help her establish care with a PCP. She states she is about to run out of her Keppra and levothyroxine as well as pantoprazole. Also reports that she was prescribed promethazine by her PCP in the past for ulcers. Is requesting prescription for this as well. States that beginning last week she has been having intermittent nausea and vomiting with associated diaphoresis. Has been able to tolerate some fluids. Denies diarrhea. Denies hematemesis. Boyfriend sick with similar symptoms as well. She denies fevers, chills, body aches. Also complaining of left thigh pain for the past few months. States pain is worse at night and causes difficulty sleeping. Requesting test as well, unsure LMP. MD complaint: nausea and vomiting, leg pain Related Data Previous Rx's ?Medication ?Instructions ?Recorded cyclobenzaprine 10 mg tablet 10 mg PO TID PRN muscle spasm #14 04/02/24 tabs ibuprofen 600 mg tablet 600 mg PO Q8H PRN pain #14 tabs 04/02/24 lidocaine 5 % topical patch 1 patch topical DAILY #15 ea 04/02/24 cyclobenzaprine 10 mg tablet 10 mg PO TID PRN muscle spasm #10 08/14/24 tabs levetiracetam 750 mg tablet 750 mg PO BID 30 days #60 tabs 08/14/24 levothyroxine 25 mcg capsule 25 mcg PO DAILY #30 caps 08/14/24 lidocaine 5 % topical patch 1 patch topical DAILY #30 ea 08/14/24 pantoprazole 40 mg tablet,delayed 40 mg PO DAILY #30 tabs 08/14/24 release promethazine 12.5 mg tablet 12.5 mg PO Q6H PRN nausea and 08/14/24 vomiting #30 tabs Allergies Allergy/AdvReac Type Severity Reaction Status Date / Time cephalexin [From Keflex] Allergy Anaphylaxis Verified 08/14/24 10:25 sulfamethoxazole Allergy Anaphylaxis Verified 08/14/24 10:25 [From Bactrim] trimethoprim [From Bactrim] Allergy Anaphylaxis Verified 08/14/24 10:25 Review of Systems 2 Review of Systems: As per HPI Yes all other systems are reviewed and are negative Constitutional: Constitutional: Reports as per HPI [facility] Social History Social History Advance Directives: No Advance Directives Information Provided: Yes Do you have a plan to hurt others: No Plan Physical Exam ED Vital Signs: Vital Signs - 24 hr 08/14/24 10:22 Temperature 97 F Pulse Rate 125 H Respiratory Rate 16 Blood Pressure 139/92 H Pulse Oximetry 97 Oxygen Delivery Method Room Air BMI result Body Mass Index 25.9 Vital signs have been reviewed and appear to be correct. Blood pressure normal. Heart rate tachycardic. Respiratory rate normal. Temperature normal. Oxygen saturation normal. Const General: cooperative, healthy appearing and no acute distress Orientation/consciousness: oriented to person, oriented to place, oriented to time and patient oriented x3 Limitations: no limitations [facility] Head: Yes normocephalic and Yes atraumatic Ears: external ears normal General nose exam: Normal external nose present Face and sinus: Yes face symmetric Mouth: oropharynx normal and moist mucous membranes Throat: Yes uvula midline Eyes Pupils: Equal, round and reactive pupils present Neck Neck: Yes normal visual inspection and Yes supple Resp Effort & Inspection: normal respiratory effort and able to speak in complete sentences Auscultation: clear to auscultation bilaterally Cardio Rate: regular rate Rhythm: regular rhythm Heart sounds: S1 normal heart sound present and S2 normal heart sound present GI Palpation (GI): Soft to palpation and nontender Auscultation: normoactive bowel sounds General: Yes no CVA tenderness Back/Spine/Pelvis Back: no CVA tenderness Skin General skin exam: elasticity normal and turgor normal Neuro General: oriented to person, oriented to place, oriented to time, patient oriented x3, moves all extremities, no focal motor deficits and CN's II-XI intact bilaterally Cranial nerves: Yes Equal, round and reactive pupils present Cognition (Neuro): normal cognition Extrem General: Yes full ROM, Yes no pedal edema and Yes no calf tenderness Left lower extremity: hip/thigh Details: tenderness Location: of the mid upper leg Location: laterally, swelling (mild swelling to lateral thigh) and normal ROM; no unusual warmth and foot Details: vascular exam Details: dorsalis pedis pulse present, posterior tibial pulse present and normal capillary refill Psych Mental Status: mental status grossly normal Affect: normal affect Thought process: Normal thought process present Medical Decision Making Medical Decision Making [facility] Narrative: Patient is a 43-year-old female with history of hepatitis-C, CKD stage 3, seizures, hypothyroidism presenting to the emergency department stating that she recently moved to the area, does not have a primary care provider. On exam patient is awake, A+Ox3, VS WNL, afebrile, normal neurological exam without focal deficits, physical exam findings as above. Given reported symptoms and physical exam findings, initial differential includes but is not limited to left lower extremity DVT, viral illness, gastroenteritis, electrolyte abnormality, NAWAF, . Labs notable for no leukocytosis, no anemia, no significant electrolyte abnormalities, no evidence of NAWAF, normal transaminases. Urine negative. Urinalysis notable for trace leukocytes, 11-20 wbc's, 3+ bacteria, however greater than 20 epithelials. Will wait for culture prior to treatment with antibiotics as patient denies urinary symptoms. Viral serology negative. Ultrasound of left lower extremity notable for no evidence of DVT. My interpretation is in agreement with the radiologist's interpretation. Patient updated on results and all questions answered. Will send 30 day refills of prescriptions. Patient provided with resources for establishing care with a primary care provider. Return precautions discussed. Patient verbalized understanding of and agreement with plan. Differential Diagnosis Differential Diagnoses: The differential diagnosis associated with the presentation includes As per [facility] Admission/Observation Consideration of admission/observation: Escalation of care including admission/observation considered Patient would have been admitted to the hospital had their work up had any findings where hospital admission was appropriate and their clinical presentation warranted hospital admission. Lab Data [facility] Lab Attestation statement: I reviewed the patient's lab results. As per [facility] 08/14/24 14:34 08/14/24 14:34 Labs: Lab Results 08/14/24 08/14/24 Range/Units 11:10 14:34 WBC 10.6 (4.8-10.8) X10*3/uL RBC 4.90 (4.20-5.50) X10*6/uL Hgb 14.4 (12.0-16.0) g/dl Hct 41.9 (37.0-47.0) % MCV 85.5 (80.0-98.0) fL MCH 29.4 (27.0-33.0) pg MCHC 34.4 (31.0-35.0) g/dl RDW 13.2 (11.0-16.0) % Plt Count 224 (160-400) X10*3/uL MPV 10.0 (9.4-12.3) fL Immature Gran % (Auto) 0.3 (0.0-0.4) % Neut % (Auto) 63.4 (45-73) % Lymph % (Auto) 26.8 (20-40) % [place] % (Auto) 8.6 (2-11) % Eos % (Auto) 0.6 (0-4) % Baso % (Auto) 0.3 (0-2) % Lymph # (Auto) 2.8 (1.2-4.9) X10*3/uL [place] # (Auto) 0.9 (0.1-1.2) X10*3/uL Eos # (Auto) 0.1 (0.0-0.4) X10*3/uL Baso # (Auto) 0.0 (0.0-0.2) X10*3/uL Abs Immat Gran (auto) 0.03 (0.00-0.03) X10*3/uL Absolute Neuts (auto) 6.7 (2.0-8.3) x10*3/uL Absolute Nucleated RBC 0.000 (0.0-0.012) X10*3/uL Nucleated RBC % (auto) 0.0 (0.0-0.2) /100WBC PT 11.9 (10.9-12.4) SEC INR 1.0 (0.9-1.1) Sodium 139 (135-145) mmol/L Potassium 3.9 (3.3-5.1) mmol/L Chloride 108 (96-108) mmol/L Carbon Dioxide 21 L (22-29) mmol/L Anion Gap 14 (12-20) BUN 17 H (9-16) mg/dL Creatinine 0.97 (0.5-1.4) mg/dL Estim Creat Clear Calc 69.0 Estimated GFR > 60 Random Glucose 96 (60-115) mg/dL Calcium 8.9 (8.4-10.2) mg/dL Total Bilirubin 0.3 (0.0-1.0) mg/dL AST 24 (5-31) U/L ALT 31 (0-31) U/L Alkaline Phosphatase 50 (39-117) U/L Total Protein 6.9 (6.5-8.0) g/dL Albumin 4.1 (3.5-5.0) g/dL Urine Color Dark Yellow Urine Appearance Cloudy Urine pH 5.5 (5.0-9.0) Ur Specific [place] >= 1.030 H (1.005-1.025) Urine Protein 300 (3+) H (Neg-Trace) mg/dL Urine Glucose (UA) Negative (Negative) mg/dL Urine Ketones Trace (Negative) mg/dL Urine Blood Trace H (Negative) Urine Nitrite Negative (Negative) Ur Leukocyte Esterase Trace H (Negative) Urine RBC 3-5 H (0-2) /HPF Urine WBC 11-20 H (0-5) /HPF Ur Squamous Epith Cells >20 (0-2) /HPF Calcium Oxalate Crystal Present Urine Bacteria 3+ (None Seen) Hyaline Casts >20 (0-2) /LPF Urine Test NEGATIVE (NEGATIVE) Influenza Type A (PCR) NEGATIVE (Negative) Influenza Type B (PCR) NEGATIVE (Negative) RSV RNA Qual (PCR) NEGATIVE (Negative) SARS-CoV-2 RNA (RT-PCR) NEGATIVE (Negative) Independent Interpretation I performed an independent interpretation of an: Ultrasound Interpretation: No evidence of DVT left lower extremity Radiology Impression Discussion of test interpretation with radiology: I have reviewed the radiologist's reading. Radiologist Impression: US/US venous duplex LE LT IMPRESSION: No evidence of acute DVT in the left lower extremity. Independent Historian Clinical information obtained from an independent historian. History obtained from or confirmed by: Spouse External Record Review External record reviewed: Inpatient record, Office record and Outpatient record Prescription Management I considered prescription management with: Other Discharge Plan Discharge Clinical Impression: Medication refill, Nausea & vomiting Patient Disposition: Home, Self-Care Instructions: Acute Nausea and Vomiting (ED) Additional Instructions: You were evaluated in the emergency department today for multiple complaints. Your ultrasound did not show evidence of a DVT, also known as a blood clot, in your leg. Your nausea and vomiting is likely due to a viral illness. Be sure to get plenty of rest and drink plenty of fluids. Your labs were reassuring. Your test was negative. Your urine is being sent out for further testing and you will be contacted if any treatment is needed. Your medication refills were sent to the pharmacy. You are also being prescribed topical lidocaine patches for your leg pain. Use the attached list of primary care offices to attempt to establish care with a primary care provider. Return to the emergency department with any new or concerning symptoms. Prescriptions: New levothyroxine 25 mcg capsule 25 mcg PO DAILY Qty: 30 0RF levetiracetam 750 mg tablet 750 mg PO BID 30 Days Qty: 60 0RF pantoprazole 40 mg tablet,delayed release (DR/EC) 40 mg PO DAILY Qty: 30 0RF promethazine 12.5 mg tablet 12.5 mg PO Q6H PRN (Reason: nausea and vomiting) Qty: 30 0RF lidocaine 5 % adhesive patch,medicated 1 patch topical DAILY Qty: 30 0RF Rx Instructions: leave on most painful area for up to 12 hrs cyclobenzaprine 10 mg tablet 10 mg PO TID PRN (Reason: muscle spasm) Qty: 10 0RF No Action cyclobenzaprine 10 mg tablet 10 mg PO TID PRN (Reason: muscle spasm) Qty: 14 0RF ibuprofen 600 mg tablet 600 mg PO Q8H PRN (Reason: pain) Qty: 14 0RF lidocaine 5 % adhesive patch,medicated 1 patch topical DAILY Qty: 15 0RF Rx Instructions: leave on most painful area for up to 12 hrs Referrals: [facility] Family Medicine [Provider Group] [facility] Primary Care, Young [Provider Group] [facility] Primary Care,Ray [Provider Group] [facility] Walk In Care [Provider Group] Print Language: Tamazight
[2024-08-14 11:18] LABS: Appearance Urine Cloudy; Color Urine Dark Yellow; Glucose Urine UA Negative (Negative); Leukocyte Esterase Urine Trace (Negative); Nitrite Urine Negative (Negative); PH 5.5 (5.0-9.0); Specific Gravity - Urine >= 1.030 (1.005-1.025); UMIC TRIGGER UACC YES; Urine Blood Trace (Negative); Urine Ketones Trace mg/dL (Negative); Urine Protein 300 (3+) mg/dL (Neg-Trace)
[2024-08-14 11:20] LABS: UPreg QC Valid YES; Urine Pregnancy NEGATIVE (NEGATIVE)
[2024-08-14 11:32] LABS: Bacteria Urine 3+ (None Seen); Calcium Oxalate Crystals Urine Present; Hyaline Casts Urine >20 /LPF (0-2); Squamous Epithelial Cell Urine >20 /HPF (0-2); UACC Culture Trigger YES
--- NOTE | 2024-08-14 14:26 | PC.NURSE ---
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
[2024-08-14 14:39] LABS: MANUAL DIFF FLAG NO
[2024-08-14 14:41] LABS: Basophils Percent Auto 0.3 % (0-2); Eosinophils Absolute Auto 0.1 X10*3/uL (0.0-0.4); Eosinophils Percent Auto 0.6 % (0-4); Hematocrit 41.9 % (37.0-47.0); Hemoglobin 14.4 g/dl (12.0-16.0); Imm Gran Abs Auto 0.03 X10*3/uL (0.00-0.03); Imm Gran Pct Auto 0.3 % (0.0-0.4); Lymphocytes Absolute Auto 2.8 X10*3/uL (1.2-4.9); Lymphocytes Percent Auto 26.8 % (20-40); Mean Corpuscular HGB Conc 34.4 g/dl (31.0-35.0); Mean Corpuscular Hemoglobin 29.4 pg (27.0-33.0); Mean Corpuscular Volume 85.5 fL (80.0-98.0); Monocytes Absolute Auto 0.9 X10*3/uL (0.1-1.2); Monocytes Percent Auto 8.6 % (2-11); Neutrophils Absolute Auto 6.7 x10*3/uL (2.0-8.3); Neutrophils Percent Auto 63.4 % (45-73); Platelet Count 224 X10*3/uL (160-400); Red Cell Distribution Width 13.2 % (11.0-16.0); White Blood Count 10.6 X10*3/uL (4.8-10.8)
[2024-08-14 14:47] LABS: Prothrombin Time 11.9 SEC (10.9-12.4)
[2024-08-14 14:55] LABS: Alanine Aminotransferase 31 U/L (0-31); Albumin Level 4.1 g/dL (3.5-5.0); Alkaline Phosphatase 50 U/L (39-117); Anion Gap 14 (12-20); Aspartate Amino Transferase 24 U/L (5-31); Bilirubin Total 0.3 mg/dL (0.0-1.0); Blood Urea Nitrogen 17 mg/dL (9-16); Calcium 8.9 mg/dL (8.4-10.2); Carbon Dioxide 21 mmol/L (22-29); Chloride 108 mmol/L (96-108); Estimated Glomerular Filt Rate > 60; Glucose Random 96 mg/dL (60-115); Potassium 3.9 mmol/L (3.3-5.1); Sodium 139 mmol/L (135-145); Total Protein 6.9 g/dL (6.5-8.0)
[2024-08-14 15:20] LABS: Influenza A PCR NEGATIVE (Negative); Influenza B PCR NEGATIVE (Negative); Resp Syncy Virus RNA Qual PCR NEGATIVE (Negative); SARS COV2 PCR INHOUSE NEGATIVE (Negative)
[2024-08-14 15:36] VITALS: BP 132/82; PULSE 90; RESP 18; TEMP 36.3; O2SAT 95
[2024-08-14 15:37] VITALS: BP 132/82; PULSE 90; RESP 18; TEMP 36.3; O2SAT 95
== END 2024-08-14 15:37 | disposition home or self-care (01) ==
PROVIDERS: Registered Nurse Emergency; Emergency Provider Student in an Organized Health Care Education/Training Program
DX: R11.2 Nausea with vomiting, unspecified (principal); M79.605 Pain in left leg; R60.0 Localized edema; Z03.818 Encounter for observation for suspected exposure to other biological agents ruled out; Z76.0 Encounter for issue of repeat prescription; Z79.899 Other long term (current) drug therapy
CPT/HCPCS: 0241U; 36415; 80053; 81001; 81025; 85025; 85610; 87086; 93971; 99284

== ENCOUNTER → 2024-08-14 13:12 | Outpatient (BNV) | payer MEDICAID, SELFPAY | PROVIDERS: Emergency Provider Student in an Organized Health Care Education/Training Program; Visit Provider Radiology Diagnostic Radiology | DX: R22.42 Localized swelling, mass and lump, left lower limb (principal) | CPT/HCPCS: 93971 ==

== ENCOUNTER 2024-10-24 09:22 | Emergency (ER) | payer MEDICAID, SELFPAY ==
--- NOTE | ~2024-10-24 | CT_ITS ---
EXAMINATION: CT ABDOMEN AND PELVIS WITH CONTRAST CLINICAL INFORMATION: Lower abdominal pain. Nausea, vomiting, diarrhea. COMPARISON: None available. TECHNIQUE: Multidetector volumetric images were obtained from the superior aspect of the liver through the pubic symphysis following administration 85 mL of Omnipaque 350 intravenous contrast. Sagittal and coronal reformatted images were obtained on the technologist's workstation. Oral contrast: No This CT examination was performed using dose optimization techniques as appropriate, variously including the following: *Automated exposure control *Adjustment of mA and/or kV according to patient size (this includes techniques or standardized protocols for targeted exams where dose is matched to indication/reason for exam; i.e. extremities or head) *Use of iterative reconstruction technique. DLP: 509 mGy centimeter. FINDINGS: LUNG BASES: No acute airspace disease or discrete pulmonary nodules. LIVER, GALLBLADDER, AND BILIARY TREE: Liver measures 17 cm. No focal lesion. Portal veins, hepatic veins and intrahepatic portion of the IVC are patent. No intrahepatic biliary ductal dilatation. No pericholecystic fluid collection or gallbladder wall thickening. Common bile duct measures 4 mm. PANCREAS: No focal lesion. Ductal dilatation. No peripancreatic fluid collections. SPLEEN: 11 cm. No focal lesion. ADRENAL GLANDS: No nodular lesions mild soft tissue fullness left adrenal gland. KIDNEYS AND URETERS: No hydronephrosis. No gross nephrolithiasis. No gross renal mass. Subcentimeter cyst, left kidney. BLADDER: Fluid-filled. GASTROINTESTINAL TRACT: Status post appendectomy. Abundant stool. No intestinal obstruction pattern. There are 3 cm gas and fluid-filled large diverticula in the second portion of the duodenum. No ascites. No pneumatosis intestinalis. No pneumoperitoneum. ABDOMINAL WALL: Small fat-containing umbilical hernia. LYMPH NODES: No lymphadenopathy, mesenteric or retroperitoneal. VASCULAR: No aneurysm or dissection, abdominal aorta. Focal calcified plaques in the infrarenal distal abdominal aorta. Retroaortic trajectory of the left main renal vein. PELVIC VISCERA: There is a 4 cm heterogeneously enhancing mass in the subserosal right side of the uterine body. OSSEOUS STRUCTURES: Degenerative changes in the coxofemoral joints. Mild multilevel lower thoracic and lower lumbar spine. CT/CT abdomen pelvis w IV con IMPRESSION: No intestinal obstruction pattern. 4 cm uterine fibroid. Duodenum diverticula. Hepatomegaly, mild. Fleischner guidelines were followed. Electronically signed by: Justice Garcia MD 10/24/2024 12:27 PM EDT RP
[2024-10-24 09:41] VITALS: BP 112/85; PULSE 107; RESP 16; TEMP 36.9; O2SAT 98; BMI 26.7
[2024-10-24 10:05] LABS: MANUAL DIFF FLAG NO
[2024-10-24 10:07] LABS: UPreg QC Valid YES; Urine Pregnancy NEGATIVE (NEGATIVE)
[2024-10-24 10:09] LABS: Appearance Urine Clear; Color Urine Yellow; Glucose Urine UA Negative (Negative); Leukocyte Esterase Urine Negative (Negative); Nitrite Urine Negative (Negative); Urine Blood Negative (Negative); Urine Ketones Negative (Negative); Urine Protein Negative (Neg-Trace)
[2024-10-24 10:19] LABS: Basophils Absolute Auto 0.1 X10*3/uL (0.0-0.2); Basophils Percent Auto 1.1 % (0-2); Eosinophils Absolute Auto 0.3 X10*3/uL (0.0-0.4); Eosinophils Percent Auto 5.7 % (0-4); Hematocrit 40.6 % (37.0-47.0); Hemoglobin 13.7 g/dl (12.0-16.0); Imm Gran Abs Auto 0.01 X10*3/uL (0.00-0.03); Imm Gran Pct Auto 0.2 % (0.0-0.4); Lymphocytes Absolute Auto 1.2 X10*3/uL (1.2-4.9); Lymphocytes Percent Auto 24.4 % (20-40); Mean Corpuscular HGB Conc 33.7 g/dl (31.0-35.0); Mean Corpuscular Hemoglobin 30.4 pg (27.0-33.0); Mean Corpuscular Volume 90.2 fL (80.0-98.0); Mean Platelet Volume 9.7 fL (9.4-12.3); Monocytes Absolute Auto 0.3 X10*3/uL (0.1-1.2); Monocytes Percent Auto 5.7 % (2-11); Neutrophils Percent Auto 62.9 % (45-73); Platelet Count 233 X10*3/uL (160-400); Red Cell Distribution Width 12.8 % (11.0-16.0); White Blood Count 4.8 X10*3/uL (4.8-10.8)
[2024-10-24 10:22] LABS: Alanine Aminotransferase 43 U/L (0-31); Albumin Level 4.4 g/dL (3.5-5.0); Alkaline Phosphatase 55 U/L (39-117); Anion Gap 10 (12-20); Aspartate Amino Transferase 42 U/L (5-31); Bilirubin Direct 0.1 mg/dL (0.0-0.5); Bilirubin Total 0.4 mg/dL (0.0-1.0); Blood Urea Nitrogen 11 mg/dL (9-16); Calcium 9.2 mg/dL (8.4-10.2); Carbon Dioxide 28 mmol/L (22-29); Chloride 107 mmol/L (96-108); Estimated Glomerular Filt Rate 59; Glucose Random 87 mg/dL (60-115); Lipase 9 U/L (8-78); Potassium 4.5 mmol/L (3.3-5.1); Sodium 140 mmol/L (135-145); Total Protein 7.6 g/dL (6.5-8.0)
--- NOTE | 2024-10-24 10:58 | ED.ABDPAIN ---
HPI - Abdominal Pain General Chief Complaint: Abdominal Pain Stated Complaint: vomiting and diarrhea Time Seen by Provider: 10/24/24 10:57 Source: patient, RN notes reviewed and old records reviewed Mode of arrival: ambulatory History of Present Illness ED Provider: Mariangel Amos PA-C HPI narrative: 43-year-old female with a past medical history of CKD presenting to the ED complaining of lower abdominal pain, nausea, nonbloody vomiting, and diarrhea since yesterday. States currently reside in [facility] prison and the water is yellow, supposed to receive bottled water however they are having difficulty with housing staff. State they are being discriminated against by prison, and has been without fresh water for few days. Denies fever, chills, travel, dysuria /hematuria, melena Related Data Previous Rx's ?Medication ?Instructions ?Recorded cyclobenzaprine 10 mg tablet 10 mg PO TID PRN muscle spasm #14 04/02/24 tabs ibuprofen 600 mg tablet 600 mg PO Q8H PRN pain #14 tabs 04/02/24 lidocaine 5 % topical patch 1 patch topical DAILY #15 ea 04/02/24 cyclobenzaprine 10 mg tablet 10 mg PO TID PRN muscle spasm #10 08/14/24 tabs levetiracetam 750 mg tablet 750 mg PO BID 30 days #60 tabs 08/14/24 levothyroxine 25 mcg capsule 25 mcg PO DAILY #30 caps 08/14/24 lidocaine 5 % topical patch 1 patch topical DAILY #30 ea 08/14/24 pantoprazole 40 mg tablet,delayed 40 mg PO DAILY #30 tabs 08/14/24 release promethazine 12.5 mg tablet 12.5 mg PO Q6H PRN nausea and 08/14/24 vomiting #30 tabs Allergies Allergy/AdvReac Type Severity Reaction Status Date / Time cephalexin [From Keflex] Allergy Anaphylaxis Verified 10/24/24 09:48 sulfamethoxazole Allergy Anaphylaxis Verified 10/24/24 09:48 [From Bactrim] trimethoprim [From Bactrim] Allergy Anaphylaxis Verified 10/24/24 09:48 Review of Systems Review of Systems Yes all other systems are reviewed and are negative Constitutional: Reports as per HPI [facility] Past Medical History Attestation statement: The following information was validated with the patient. Source: old records reviewed Social History Social History Advance Directives: No Advance Directives Information Provided: Yes Physical Exam ED Vital Signs: Vital Signs - 24 hr 10/24/24 09:41 10/24/24 12:48 Temperature 98.4 F 98.1 F Pulse Rate 107 H 61 Respiratory Rate 16 16 Blood Pressure 112/85 122/92 H Pulse Oximetry 98 100 Oxygen Delivery Method Room Air Room Air BMI result Body Mass Index 26.7 Const General: cooperative, healthy appearing and no acute distress Orientation/consciousness: patient oriented x3 Limitations: no limitations HENMT Head: Yes normal to inspection and Yes atraumatic Ears: hearing grossly normal bilaterally General nose exam: Normal external nose present Face and sinus: Yes normal facial exam Eyes General: appearance normal, both eyes and all related structures EOM: EOMs intact bilaterally Neck Neck: Yes normal visual inspection and Yes no meningeal signs Resp Effort & Inspection: normal respiratory effort and no respiratory distress Cardio Rate: regular rate GI Inspection: Yes normal to inspection Palpation (GI): Soft to palpation, Tenderness to palpation present (GI) in the LLQ and in the RLQ; with no rebound tenderness, no guarding and not rigid General: Yes no CVA tenderness Back/Spine/Pelvis Back: no CVA tenderness Skin Rashes: no rashes Wounds: no wounds Neuro General: patient oriented x3, tone normal and no meningeal signs Cranial nerves: Yes CN's II-XII intact bilaterally Gait exam (Neuro): Normal gait present Extrem General: Yes normal to inspection Course Course Course Narrative: -1234-- labs reassuring. Viral testing negative - UA and negative CT abdomen pelvis w IV con IMPRESSION: No intestinal obstruction pattern. 4 cm uterine fibroid. Duodenum diverticula. Hepatomegaly, mild. Fleischner guidelines were followed. -1330-- C diff testing unable to be performed as patient provided formed stool. Stool culture/ steady sent. Those will not result today. Patient is safe for discharge home at this time Results discussed with patient including worrisome signs and symptoms and strict return precautions, and when to return to the emergency department. They verbalized understanding and feel safe for discharge at this time. Medical Decision Making Medical Decision Making MDM Narrative: 43-year-old female with a past medical history of CKD presenting to the ED complaining of lower abdominal pain, nausea, vomiting, and diarrhea since yesterday. on exam mildly tachycardic, NAD, nontoxic appearing, abdomen is soft with lower tenderness, no rebound or guarding, no CVAT. Concern for gastroenteritis vs contaminated water source vs food poisoning vs appendicitis/diverticulitis. Lower suspicion for renal stone, ovarian torsion/ TOA or pancreatitis/cholecystitis / lithiasis Plan: Labs, UA, , CT AP, IVF, stool studies, C diff Please refer to course for remaining clinical decision making, interpretation of labs/imaging results, and discussions with consultants and/or family members. Differential Diagnosis Differential Diagnoses: The differential diagnosis associated with the presentation includes As above Admission/Observation Consideration of admission/observation: Escalation of care including admission/observation considered Lab Data MDM Lab Attestation statement: I reviewed the patient's lab results. 10/24/24 09:58 10/24/24 09:58 Labs: Lab Results 10/24/24 10/24/24 10/24/24 Range/Units 09:58 11:18 13:04 WBC 4.8 (4.8-10.8) X10*3/uL RBC 4.50 (4.20-5.50) X10*6/uL Hgb 13.7 (12.0-16.0) g/dl Hct 40.6 (37.0-47.0) % MCV 90.2 (80.0-98.0) fL MCH 30.4 (27.0-33.0) pg MCHC 33.7 (31.0-35.0) g/dl RDW 12.8 (11.0-16.0) % Plt Count 233 (160-400) X10*3/uL MPV 9.7 (9.4-12.3) fL Immature Gran % (Auto) 0.2 (0.0-0.4) % Neut % (Auto) 62.9 (45-73) % Lymph % (Auto) 24.4 (20-40) % [place] % (Auto) 5.7 (2-11) % Eos % (Auto) 5.7 H (0-4) % Baso % (Auto) 1.1 (0-2) % Lymph # (Auto) 1.2 (1.2-4.9) X10*3/uL [place] # (Auto) 0.3 (0.1-1.2) X10*3/uL Eos # (Auto) 0.3 (0.0-0.4) X10*3/uL Baso # (Auto) 0.1 (0.0-0.2) X10*3/uL Abs Immat Gran (auto) 0.01 (0.00-0.03) X10*3/uL Absolute Neuts (auto) 3.0 (2.0-8.3) x10*3/uL Absolute Nucleated RBC 0.000 (0.0-0.012) X10*3/uL Nucleated RBC % (auto) 0.0 (0.0-0.2) /100WBC Sodium 140 (135-145) mmol/L Potassium 4.5 (3.3-5.1) mmol/L Chloride 107 (96-108) mmol/L Carbon Dioxide 28 (22-29) mmol/L Anion Gap 10 L (12-20) BUN 11 (9-16) mg/dL Creatinine 1.03 (0.5-1.4) mg/dL Estim Creat Clear Calc 66.0 Estimated GFR 59 Random Glucose 87 (60-115) mg/dL Calcium 9.2 (8.4-10.2) mg/dL Magnesium 2.0 (1.6-2.6) mg/dL Total Bilirubin 0.4 (0.0-1.0) mg/dL Direct Bilirubin 0.1 (0.0-0.5) mg/dL AST 42 H (5-31) U/L ALT 43 H (0-31) U/L Alkaline Phosphatase 55 (39-117) U/L Total Protein 7.6 (6.5-8.0) g/dL Albumin 4.4 (3.5-5.0) g/dL Lipase 9 (8-78) U/L Beta HCG, Quant < 2 mIU/mL Urine Color Yellow Urine Appearance Clear Urine pH 6.0 (5.0-9.0) Ur Specific [place] 1.010 (1.005-1.025) Urine Protein Negative (Neg-Trace) mg/dL Urine Glucose (UA) Negative (Negative) mg/dL Urine Ketones Negative (Negative) mg/dL Urine Blood Negative (Negative) Urine Nitrite Negative (Negative) Ur Leukocyte Esterase Negative (Negative) Urine Test NEGATIVE (NEGATIVE) C. difficile Tox B Gene TNP Influenza Type A (PCR) NEGATIVE (Negative) Influenza Type B (PCR) NEGATIVE (Negative) RSV RNA Qual (PCR) NEGATIVE (Negative) SARS-CoV-2 RNA (RT-PCR) NEGATIVE (Negative) Radiology Impression Discussion of test interpretation with radiology: I have reviewed the radiologist's reading. External Record Review External record reviewed: Inpatient record, Office record, Outpatient record, Prior outpatient labs, Prior outpatient radiology, Primary care record and Outside ED record Tests considered The following testing was considered but not selected: As above Medications Administered Discontinued Medications Generic Name Dose Route Start Last Admin Trade Name Freq PRN Reason Stop Dose Admin Acetaminophen 650 mg 10/24/24 12:10 10/24/24 12:22 Acetaminophen 325 Mg Tablet PO 10/24/24 12:11 650 mg ONCE ONE Administration Sodium Chloride 1,000 mls @ 999 mls/hr 10/24/24 11:15 10/24/24 11:56 Ns IV 10/24/24 12:15 999 mls/hr .Q1H1M CHRIS Administration Iohexol 85 ml 10/24/24 12:08 10/24/24 12:08 Iohexol 350 Mg/Ml 75 Ml Infus..Btl IV 10/24/24 12:09 85 ml ONCE ONE Administration Discharge Plan Discharge Clinical Impression: Uterine fibroid, Gastroenteritis Patient Disposition: Home, Self-Care Prescriptions: No Action levothyroxine 25 mcg capsule 25 mcg PO DAILY Qty: 30 0RF levetiracetam 750 mg tablet 750 mg PO BID 30 Days Qty: 60 0RF pantoprazole 40 mg tablet,delayed release (DR/EC) 40 mg PO DAILY Qty: 30 0RF promethazine 12.5 mg tablet 12.5 mg PO Q6H PRN (Reason: nausea and vomiting) Qty: 30 0RF lidocaine 5 % adhesive patch,medicated 1 patch topical DAILY Qty: 30 0RF Rx Instructions: leave on most painful area for up to 12 hrs cyclobenzaprine 10 mg tablet 10 mg PO TID PRN (Reason: muscle spasm) Qty: 10 0RF cyclobenzaprine 10 mg tablet 10 mg PO TID PRN (Reason: muscle spasm) Qty: 14 0RF ibuprofen 600 mg tablet 600 mg PO Q8H PRN (Reason: pain) Qty: 14 0RF lidocaine 5 % adhesive patch,medicated 1 patch topical DAILY Qty: 15 0RF Rx Instructions: leave on most painful area for up to 12 hrs Print Language: Belarusian
[2024-10-24 11:47] LABS: HCG Quantitative < 2 mIU/mL
[2024-10-24] MEDS: 0.9 % Sodium Chloride 1,000 ML 999 ML IV (11:56)
[2024-10-24] MEDS: iohexoL 350 MG/ML 75 ML INFUS..BTL 85 ML IV (12:08)
[2024-10-24 12:19] LABS: Influenza A PCR NEGATIVE (Negative); Influenza B PCR NEGATIVE (Negative); Resp Syncy Virus RNA Qual PCR NEGATIVE (Negative); SARS COV2 PCR INHOUSE NEGATIVE (Negative)
[2024-10-24] MEDS: Acetaminophen 325 MG TABLET 650 MG PO (12:22)
[2024-10-24 12:48] VITALS: BP 122/92; PULSE 61; RESP 16; TEMP 36.7; O2SAT 100
[2024-10-24 14:01] VITALS: BP 122/92; PULSE 61; RESP 16; TEMP 36.7; O2SAT 100
[2024-10-24 15:10] LABS: Adenovirus F 40/41 Not Detected (Not Detect.); Astrovirus Not Detected (Not Detect.); Campylobacter Not Detected (Not Detect.); Cryptosporidium Not Detected (Not Detect.); Cyclospora cayetanensis Not Detected (Not Detect.); E. coli EAEC Not Detected (Not Detect.); E. coli EPEC Not Detected (Not Detect.); E. coli ETEC Not Detected (Not Detect.); E. coli STEC Not Detected (Not Detect.); Entamoeba histolytica Not Detected (Not Detect.); Giardia lamblia Not Detected (Not Detect.); Norovirus GI/GII Not Detected (Not Detect.); Plesiomonas shigelloides Not Detected (Not Detect.); Rotavirus A Not Detected (Not Detect.); Salmonella Not Detected (Not Detect.); Sapovirus Not Detected (Not Detect.); Shigella sp./EIEC Not Detected (Not Detect.); Vibrio Not Detected (Not Detect.); Vibrio Cholerae Not Detected (Not Detect.); Yersinia enterocolitica Not Detected (Not Detect.)
== END 2024-10-24 14:01 | disposition home or self-care (01) ==
PROVIDERS: Physician Assistant; Emergency Provider Emergency Medicine
DX: D25.2 Subserosal leiomyoma of uterus (principal); K52.9 Noninfective gastroenteritis and colitis, unspecified; R11.2 Nausea with vomiting, unspecified; R00.0 Tachycardia, unspecified; Z79.899 Other long term (current) drug therapy; Z03.818 Encounter for observation for suspected exposure to other biological agents ruled out
CPT/HCPCS: 0241U; 36415; 74177; 80048; 80076; 81003; 81025; 83690; 83735; 84702; 85025; 87507; 99284; Q9967

== ENCOUNTER → 2024-10-24 11:07 | Outpatient (BNV) | payer MEDICAID, SELFPAY | PROVIDERS: Emergency Provider Emergency Medicine; Visit Provider Radiology Diagnostic Radiology | DX: D25.9 Leiomyoma of uterus, unspecified (principal); K57.10 Diverticulosis of small intestine without perforation or abscess without bleeding | CPT/HCPCS: 74177 ==

== ENCOUNTER 2025-01-31 08:23 | Emergency (ER) | payer MEDICAID, SELFPAY ==
--- OUTSIDE RECORDS SUMMARY | 2024-05-14 10:00 | XMS_ITS ---
Author Organization [facility] Address [address] [place], [place] [phone] Care Team Providers Care Steamer Operator Name Role Phone Vikki Spicer Primary Care Provider Jessie Ferrera Unavailable [phone] REASON FOR VISIT BH: initial intake, Symptom screening by [facility] staff pre entrance to clinic Encounters Encounter Location Date Provider Diagnosis [facility] [address] [place], [place] [phone] 05/14/2024 Jessie Ferrera Encounter for screening for [...] * Bello YUNGOB: [birth year] (44 yo F)Acc No.[id number]:05/14/2024 Progress Notes Patient: Connie MENDEZ Provider: Evangelista Ferrera PMHNP-BC :1980 A ge:43 Y S ex:Female Date:05/14/2024 Address:[address] [place] [address] Pcp:Vikki Spicer Subjective: * Chief Complaints: * 1 . BH: initial intake. 2. Symptom screening by [facility] staff pre entrance to clinic. * [...] Mg Caps ule 60 30 Ed Jered [id number] Wal (26 05) 0/0 2.01 LMET Medicai d [place] .? Assessment: * Assessment: 1. E ncounter for screening for COVID-19 - Z11.52 (Primary) Plan: * Treatment: * Images: Billing Information: * Visit Code: * Procedure Codes: Care Plan Details* * Electronic signature of JENNIFER Corrales on 01/31/2025 at 09:55 AM EDT Sign off status: Pending * Provider: Evangelista Ferrera PMHNP-BC Date: 1 Generated for Marilin johnson/Olivia/Javyitting on: 0 01/31/2025 09:55 AM EDT History and Physical Notes * Examination Category Sub-Category Detail Notes Category Not es Psychiatry Assessment Filled Written S old ID Drug QTY Days Prescriber RX # Dispenser Refill Daily Dose* Pymt Type SAND CUTTING MACHINE OPERATOR //95847Jutjwdhfji 150 Mg [id number] (2605) [place]icaid[place]
--- NOTE | ~2025-01-31 | XR_ITS ---
EXAMINATION: XR BILATERAL HIPS WITH AP PELVIS CLINICAL INFORMATION: known OA, worsening pain COMPARISON: 04/02/2024. TECHNIQUE: AP view of the pelvis and 2 views of each hip were obtained. FINDINGS: No fracture, dislocation, or suspicious bone lesion. Pelvis is intact. The sacrum and SI joints appear normal. The lower lumbar spine appears normal. Right hip demonstrates normal alignment. There is mild to moderate osteoarthrosis present with mild joint space narrowing, subchondral sclerosis and mild cystic changes. There are small subcapital osteophytes present. Normal femoral head contour. No evidence of AVN. Left hip demonstrates normal alignment. There is mild osteoarthrosis present. Normal femoral head contour. No evidence of AVN. No soft tissue abnormalities. XR/XR hip BI w PEL1V IMPRESSION: 1. No acute bony abnormalities. 2. Mild to moderate right and mild left hip joint osteoarthrosis. No significant progression from 04/02/2024. Electronically signed by: Bryon Guzman MD 01/31/2025 10:40 AM EDT
[2025-01-31 08:34] VITALS: BP 176/101; PULSE 88; RESP 16; TEMP 36.2; O2SAT 96; BMI 25.9
--- NOTE | 2025-01-31 09:21 | ED.GENADULT ---
HPI - General Adult General Chief complaint: General Medical Stated complaint: throat pain/ swelling, Arthritis in hip and knee Time Seen by Provider: 01/31/25 09:21 Source: patient, RN notes reviewed and old records reviewed Mode of arrival: ambulatory Limitations: no limitations History of Present Illness ED Provider: Andria HPI narrative: Patient is a 44-year-old female with history of hepatitis-C, CKD stage 3, seizures, hypothyroidism presenting to the emergency department with complaint of right submandibular pain as well as foul tasting discharge in her mouth for the past few days. Denies sore throat or difficulty swallowing. States she was recently treated for a dental infection around a month ago with a penicillin but felt this did not improve her symptoms. Also complaining of acute on chronic hip pain with known osteoarthritis. Difficulty sleeping last night due to pain. Also requesting prescription for her keppra, states she is almost out. MD complaint: submandibular pain, hip pain Related Data Previous Rx's ?Medication ?Instructions ?Recorded cyclobenzaprine 10 mg tablet 10 mg PO TID PRN muscle spasm #14 04/02/24 tabs ibuprofen 600 mg tablet 600 mg PO Q8H PRN pain #14 tabs 04/02/24 lidocaine 5 % topical patch 1 patch topical DAILY #15 ea 04/02/24 cyclobenzaprine 10 mg tablet 10 mg PO TID PRN muscle spasm #10 08/14/24 tabs levetiracetam 750 mg tablet 750 mg PO BID 30 days #60 tabs 08/14/24 levothyroxine 25 mcg capsule 25 mcg PO DAILY #30 caps 08/14/24 lidocaine 5 % topical patch 1 patch topical DAILY #30 ea 08/14/24 pantoprazole 40 mg tablet,delayed 40 mg PO DAILY #30 tabs 08/14/24 release promethazine 12.5 mg tablet 12.5 mg PO Q6H PRN nausea and 08/14/24 vomiting #30 tabs amoxicillin 875 mg-potassium 1 tab PO BID #14 tabs 01/31/25 clavulanate 125 mg tablet diclofenac sodium 1 % topical gel 4 g topical QID #50 grams 01/31/25 levetiracetam 750 mg tablet 750 mg PO BID #14 tabs 01/31/25 Allergies Allergy/AdvReac Type Severity Reaction Status Date / Time cephalexin (From Keflex) Allergy Anaphylaxis Verified 01/31/25 08:34 sulfamethoxazole (From Allergy Anaphylaxis Verified 01/31/25 08:34 Bactrim) trimethoprim (From Bactrim) Allergy Anaphylaxis Verified 01/31/25 08:34 Review of Systems Review of Systems: As per MDM Yes all other systems are reviewed and are negative Constitutional: Constitutional: Reports as per HPI [facility] Social History Social History Substance Use Type: Marijuana Physical Exam ED Vital Signs: Vital Signs - 24 hr 01/31/25 08:34 01/31/25 09:27 Temperature 97.2 F Pulse Rate 88 73 Respiratory Rate 16 16 Blood Pressure 176/101 H 107/66 Pulse Oximetry 96 100 Oxygen Delivery Method Room Air Room Air BMI result Body Mass Index 25.9 Vital signs have been reviewed and appear to be correct. Blood pressure elevated. Heart rate normal. Respiratory rate normal. Temperature normal. Oxygen saturation normal. Const General: cooperative, healthy appearing and no acute distress Orientation/consciousness: oriented to person, oriented to place, oriented to time and patient oriented x3 Limitations: no limitations [facility]: Yes normocephalic and Yes atraumatic Ears: external ears normal General nose exam: Normal external nose present Face and sinus: Yes face symmetric Mouth: Normal oral and palatal mucosa present, lip normal, tongue normal, oropharynx normal, moist mucous membranes, no audible dysphonia, no drooling, Abnormal salivary glands and ducts right Schuyler's (submandibular) discharge (small amount of purulent discharge); no masses and not occluded and no trismus Teeth and gingiva: abnormal tooth and associated gingiva lower right and poor dentition Teeth image:  1. significant caries, no gingival erythema, edema, fluctuance or drainage Throat: Yes posterior oropharynx normal, Yes uvula midline and No uvular edema Eyes Pupils: Equal, round and reactive pupils present Neck Neck: Yes normal visual inspection, Yes no lymphadenopathy and Yes supple Resp Effort & Inspection: normal respiratory effort and able to speak in complete sentences Auscultation: clear to auscultation bilaterally Cardio Rate: regular rate Rhythm: regular rhythm Heart sounds: S1 normal heart sound present and S2 normal heart sound present GI Palpation (GI): Soft to palpation and nontender Auscultation: normoactive bowel sounds General: Yes no CVA tenderness Back/Spine/Pelvis Back: no CVA tenderness Skin General skin exam: elasticity normal and turgor normal Neuro General: oriented to person, oriented to place, oriented to time, patient oriented x3, moves all extremities, no focal motor deficits and CN's II-XI intact bilaterally Cranial nerves: Yes Equal, round and reactive pupils present Cognition (Neuro): normal cognition Extrem General: Yes full ROM, Yes no pedal edema and Yes no calf tenderness Right lower extremity: hip/thigh Details: normal to inspection and normal ROM (pain with ROM); no tenderness and no unusual warmth Left lower extremity: hip/thigh Details: normal to inspection and normal ROM (pain with ROM); no tenderness, no deformity and no unusual warmth Psych Mental Status: mental status grossly normal Affect: normal affect Thought process: Normal thought process present Medical Decision Making Medical Decision Making MDM Narrative: Patient is a 44-year-old female with history of hepatitis-C, CKD stage 3, seizures, hypothyroidism presenting to the emergency department with complaint of right submandibular pain as well as foul tasting discharge in her mouth for the past few days. On exam patient is awake, A+Ox3, VS WNL, afebrile, normal neurological exam without focal deficits, physical exam findings as above. Given reported symptoms, initial differential includes but is not limited to sialadenitis, dental infection, dental abscess, osteoarthritis of hips. Do not suspect Aron's angina. Do not suspect hip fracture or dislocation. Do not suspect dental abscess or infection after physical exam. Labs unremarkable. X-ray hips and pelvis notable for [id number] osteoarthritis unchanged from prior exam. My interpretation is in agreement with the radiologist's interpretation. Strep and viral serology negative. Results discussed with patient all questions answered. Will treat for sialoadenitis with Augmentin. Will prescribe diclofenac gel for acute exacerbation of osteoarthritis of hips. Will send 7 day prescription for Keppra and advised patient to follow up with her PCP today. Will provide patient with list of dental clinics as tooth number 32 likely needs removal. Return precautions discussed. Patient verbalized understanding of and agreement with plan. Differential Diagnosis Differential Diagnoses: The differential diagnosis associated with the presentation includes as per mdm Admission/Observation Consideration of admission/observation: Escalation of care including admission/observation considered Patient would have been admitted to the hospital had their work up had any findings where hospital admission was appropriate and their clinical presentation warranted hospital admission. Lab Data MDM Lab Attestation statement: I reviewed the patient's lab results. as per [facility] 01/31/25 09:22 01/31/25 09:22 Labs: Lab Results 01/31/25 Range/Units 09:22 WBC 6.4 (4.8-10.8) X10*3/uL RBC 4.03 L (4.20-5.50) X10*6/uL Hgb 12.5 (12.0-16.0) g/dl Hct 36.6 L (37.0-47.0) % MCV 90.8 (80.0-98.0) fL MCH 31.0 (27.0-33.0) pg MCHC 34.2 (31.0-35.0) g/dl RDW 12.6 (11.0-16.0) % Plt Count 259 (160-400) X10*3/uL MPV 9.5 (9.4-12.3) fL Immature Gran % (Auto) 0.2 (0.0-0.4) % Neut % (Auto) 60.8 (45-73) % Lymph % (Auto) 24.4 (20-40) % [place] % (Auto) 6.1 (2-11) % Eos % (Auto) 7.3 H (0-4) % Baso % (Auto) 1.2 (0-2) % Lymph # (Auto) 1.6 (1.2-4.9) X10*3/uL [place] # (Auto) 0.4 (0.1-1.2) X10*3/uL Eos # (Auto) 0.5 H (0.0-0.4) X10*3/uL Baso # (Auto) 0.1 (0.0-0.2) X10*3/uL Abs Immat Gran (auto) 0.01 (0.00-0.03) X10*3/uL Absolute Neuts (auto) 3.9 (2.0-8.3) x10*3/uL Absolute Nucleated RBC 0.000 (0.0-0.012) X10*3/uL Nucleated RBC % (auto) 0.0 (0.0-0.2) /100WBC Sodium 139 (135-145) mmol/L Potassium 4.0 (3.3-5.1) mmol/L Chloride 109 H (96-108) mmol/L Carbon Dioxide 23 (22-29) mmol/L Anion Gap 11 L (12-20) BUN 18 H (9-16) mg/dL Creatinine 1.06 (0.5-1.4) mg/dL Estim Creat Clear Calc 62.6 Estimated GFR 57 Random Glucose 63 (60-115) mg/dL Calcium 9.2 (8.4-10.2) mg/dL Total Bilirubin 0.2 (0.0-1.0) mg/dL AST 27 (5-31) U/L ALT 25 (0-31) U/L Alkaline Phosphatase 48 (39-117) U/L Total Protein 6.5 (6.5-8.0) g/dL Albumin 4.2 (3.5-5.0) g/dL Influenza Type A (PCR) NEGATIVE (Negative) Influenza Type B (PCR) NEGATIVE (Negative) RSV RNA Qual (PCR) NEGATIVE (Negative) SARS-CoV-2 RNA (RT-PCR) NEGATIVE (Negative) S. pyogenes GrpA JOSÉ MIGUEL Negative (Negative) Radiology Impression Discussion of test interpretation with radiology: I have reviewed the radiologist's reading. Radiologist Impression: XR/XR hip BI w PEL1V IMPRESSION: 1. No acute bony abnormalities. 2. Mild to moderate right and mild left hip joint osteoarthrosis. No significant progression from 04/02/2024. External Record Review External record reviewed: Inpatient record, Office record and Outpatient record Prescription Management I considered prescription management with: Pain Medication and Antibiotic Discharge Plan Discharge Clinical Impression: Acute sialoadenitis, Dental caries Osteoarthritis Qualifiers: Osteoarthritis location: hip Osteoarthritis type: unspecified Laterality: bilateral Qualified Code(s): M16.0 - Bilateral primary osteoarthritis of hip Patient Disposition: Home, Self-Care Instructions: Osteoarthritis (DC), Sialoadenitis (ED) Additional Instructions: You are being treated for an infection of your salivary gland with antibiotics, complete the full course as prescribed. Your x-ray showed mild to moderate osteoarthritis of both hips, unchanged from prior x-ray imaging. You are being prescribed diclofenac gel which you can apply as directed to painful areas. Follow up with your primary care provider as needed. Return to the emergency department with new or concerning symptoms. Follow up with one of the dentists listed for further evaluation of your tooth. Call or visit any of the clinics below to establish care with a dentist: [facility] [address] [place] [address] [facility] [address] [facility], [address] [address] [place] [address] [facility] [address] [facility] [address] [place] [address] [facility] [address] [place] [address] [place] [address] [place] [address] Prescriptions: New diclofenac sodium 1 % gel 4 g topical QID Qty: 50 0RF Rx Instructions: apply to hips amoxicillin-pot clavulanate 875-125 mg tablet 1 tab PO BID Qty: 14 0RF levetiracetam 750 mg tablet 750 mg PO BID Qty: 14 0RF No Action levothyroxine 25 mcg capsule 25 mcg PO DAILY Qty: 30 0RF levetiracetam 750 mg tablet 750 mg PO BID 30 Days Qty: 60 0RF pantoprazole 40 mg tablet,delayed release (DR/EC) 40 mg PO DAILY Qty: 30 0RF promethazine 12.5 mg tablet 12.5 mg PO Q6H PRN (Reason: nausea and vomiting) Qty: 30 0RF lidocaine 5 % adhesive patch,medicated 1 patch topical DAILY Qty: 30 0RF Rx Instructions: leave on most painful area for up to 12 hrs cyclobenzaprine 10 mg tablet 10 mg PO TID PRN (Reason: muscle spasm) Qty: 10 0RF cyclobenzaprine 10 mg tablet 10 mg PO TID PRN (Reason: muscle spasm) Qty: 14 0RF ibuprofen 600 mg tablet 600 mg PO Q8H PRN (Reason: pain) Qty: 14 0RF lidocaine 5 % adhesive patch,medicated 1 patch topical DAILY Qty: 15 0RF Rx Instructions: leave on most painful area for up to 12 hrs Referrals: [facility] [Provider Group] Print Language: Azeri
[2025-01-31 09:27] VITALS: BP 107/66; PULSE 73; RESP 16; O2SAT 100
[2025-01-31 09:28] LABS: MANUAL DIFF FLAG NO
[2025-01-31 09:30] LABS: Basophils Absolute Auto 0.1 X10*3/uL (0.0-0.2); Basophils Percent Auto 1.2 % (0-2); Eosinophils Absolute Auto 0.5 X10*3/uL (0.0-0.4); Eosinophils Percent Auto 7.3 % (0-4); Hematocrit 36.6 % (37.0-47.0); Hemoglobin 12.5 g/dl (12.0-16.0); Imm Gran Abs Auto 0.01 X10*3/uL (0.00-0.03); Imm Gran Pct Auto 0.2 % (0.0-0.4); Lymphocytes Absolute Auto 1.6 X10*3/uL (1.2-4.9); Lymphocytes Percent Auto 24.4 % (20-40); Mean Corpuscular HGB Conc 34.2 g/dl (31.0-35.0); Mean Corpuscular Volume 90.8 fL (80.0-98.0); Mean Platelet Volume 9.5 fL (9.4-12.3); Monocytes Absolute Auto 0.4 X10*3/uL (0.1-1.2); Monocytes Percent Auto 6.1 % (2-11); Neutrophils Absolute Auto 3.9 x10*3/uL (2.0-8.3); Neutrophils Percent Auto 60.8 % (45-73); Platelet Count 259 X10*3/uL (160-400); Red Blood Count 4.03 X10*6/uL (4.20-5.50); Red Cell Distribution Width 12.6 % (11.0-16.0); White Blood Count 6.4 X10*3/uL (4.8-10.8)
--- NOTE | 2025-01-31 09:33 | PC.NURSE ---
Patient presents from home with several complaints. States she had a right tooth issue several months ago and was prescribed PCN which did not work. c/o throat pain, sob and bilat hip pain from what patient states is arthritis. Per radiology exam, patient has some degenerative changes to bilat hips and SI joint. Alert and oriented. Lungs clear bilat. Respirations even and non-labored. Abdomen soft, non-tender with positive bowel sounds. Positive pedal pulses with no edema.
[2025-01-31 09:43] LABS: Alanine Aminotransferase 25 U/L (0-31); Albumin Level 4.2 g/dL (3.5-5.0); Alkaline Phosphatase 48 U/L (39-117); Anion Gap 11 (12-20); Aspartate Amino Transferase 27 U/L (5-31); Bilirubin Total 0.2 mg/dL (0.0-1.0); Blood Urea Nitrogen 18 mg/dL (9-16); Calcium 9.2 mg/dL (8.4-10.2); Carbon Dioxide 23 mmol/L (22-29); Chloride 109 mmol/L (96-108); Creatinine Clr Calc Pharmacy 62.6; Estimated Glomerular Filt Rate 57; Glucose Random 63 mg/dL (60-115); Sodium 139 mmol/L (135-145); Total Protein 6.5 g/dL (6.5-8.0)
[2025-01-31 10:06] LABS: IDNOW Serial# 55D5AD1C; Strep A Nucleic Acid Negative (Negative)
[2025-01-31 10:08] LABS: Influenza A PCR NEGATIVE (Negative); Influenza B PCR NEGATIVE (Negative); Resp Syncy Virus RNA Qual PCR NEGATIVE (Negative); SARS COV2 PCR INHOUSE NEGATIVE (Negative)
[2025-01-31 11:18] VITALS: BP 118/89; PULSE 70; RESP 15; TEMP 36.9; O2SAT 100
[2025-01-31 11:20] VITALS: BP 118/89; PULSE 70; RESP 15; TEMP 36.9; O2SAT 100
== END 2025-01-31 11:21 | disposition home or self-care (01) ==
PROVIDERS: Emergency Provider Emergency Medicine; PCP Emergency Medicine
DX: K11.21 Acute sialoadenitis (principal); M16.0 Bilateral primary osteoarthritis of hip; M25.552 Pain in left hip; M25.551 Pain in right hip; K02.9 Dental caries, unspecified; Z03.818 Encounter for observation for suspected exposure to other biological agents ruled out
CPT/HCPCS: 0241U; 73521; 80053; 85025; 87651; 99283; 99284

== ENCOUNTER → 2025-01-31 09:54 | Outpatient (BNV) | payer MEDICAID, SELFPAY | PROVIDERS: Emergency Provider Emergency Medicine; PCP Emergency Medicine; Visit Provider Radiology Diagnostic Radiology | DX: M16.0 Bilateral primary osteoarthritis of hip (principal) | CPT/HCPCS: 73521 ==

== ENCOUNTER 2025-02-06 08:00 | Emergency (ER) | payer MEDICAID, SELFPAY ==
--- NOTE | 2025-02-06 08:11 | ED.GENADULT ---
HPI - General Adult General Chief complaint: General Medical Stated complaint: Infection, facial swelling Time Seen by Provider: 02/06/25 08:11 Source: patient Mode of arrival: ambulatory Limitations: no limitations History of Present Illness ED Provider: ROSITA DUNCAN PA-C HPI narrative: 44 year old female with pmhx significant for hepatitic-C, stage 3 CKD, seizures, hypothyroidism presents to the ED today for evaluation of worsening facial swelling/ pain x24 hours. Patient was evaluated at our facility on 01/31/25 for right submandibular pain. She was diagnosed with sialodenitis and discharged home on Augmentin. She has been taking this as prescribed without much improvement. She took her last dose this morning. She reports facial swelling/ pain worsened yesterday. Denies any odynophagia, dysphagia, fever, chills, shortness of breath. Related Data Previous Rx's ?Medication ?Instructions ?Recorded cyclobenzaprine 10 mg tablet 10 mg PO TID PRN muscle spasm #14 04/02/24 tabs ibuprofen 600 mg tablet 600 mg PO Q8H PRN pain #14 tabs 04/02/24 lidocaine 5 % topical patch 1 patch topical DAILY #15 ea 04/02/24 cyclobenzaprine 10 mg tablet 10 mg PO TID PRN muscle spasm #10 08/14/24 tabs levetiracetam 750 mg tablet 750 mg PO BID 30 days #60 tabs 08/14/24 levothyroxine 25 mcg capsule 25 mcg PO DAILY #30 caps 08/14/24 lidocaine 5 % topical patch 1 patch topical DAILY #30 ea 08/14/24 pantoprazole 40 mg tablet,delayed 40 mg PO DAILY #30 tabs 08/14/24 release promethazine 12.5 mg tablet 12.5 mg PO Q6H PRN nausea and 08/14/24 vomiting #30 tabs amoxicillin 875 mg-potassium 1 tab PO BID #14 tabs 01/31/25 clavulanate 125 mg tablet diclofenac sodium 1 % topical gel 4 g topical QID #50 grams 01/31/25 levetiracetam 750 mg tablet 750 mg PO BID #14 tabs 01/31/25 acetaminophen 300 mg-codeine 30 mg 1 tab PO Q8H PRN pain (scale score 02/06/25 tablet 7-10) #9 tabs clindamycin HCl 150 mg capsule 450 mg (3 x 150 mg) PO Q8H 7 days 02/06/25 (Cleocin HCl) #63 caps Allergies Allergy/AdvReac Type Severity Reaction Status Date / Time cephalexin (From Keflex) Allergy Anaphylaxis Verified 02/06/25 08:17 sulfamethoxazole (From Allergy Anaphylaxis Verified 02/06/25 08:17 Bactrim) trimethoprim (From Bactrim) Allergy Anaphylaxis Verified 02/06/25 08:17 Review of Systems Review of Systems: Constitutional: No fever, chills, fatigue, night sweats, weight changes ENT/Mouth: No ear pain, hearing loss, nasal congestion, sinus pain, rhinorrhea, sore throat, +dental pain Eyes: No eye pain, swelling, redness, vision changes, discharge Cardio: No chest pain, palpitations, RAMIREZ, orthopnea, peripheral edema Pulm: No SOB, cough, sputum, wheezing, dyspnea, hemoptysis GI: No nausea, vomiting, hematemesis, abdominal pain, diarrhea, constipation, hematochezia, melena : No irregular bleeding, dysuria, frequency, urgency, hesitancy, hematuria, flank pain, urinary flow changes, urinary incontinence or retention MSK: No back pain, neck pain, joint pain, myalgias Skin: No lesions, rashes Neuro: No weakness, numbness, paresthesias, LOC, dizziness, headache Psych: No anxiety/panic, depression, SI/HI, AH/VH All other systems reviewed and are negative. [facility] Past Medical History Attestation statement: The following information was validated with the patient. Source: old records reviewed and nursing notes reviewed Social History Social History Smoked in Last 30 Days: No Use of substances other than those prescribed or required for medical reasons: No Substance Use Type: Marijuana Advance Directives: No Advance Directives Information Provided: Yes Do you have a plan to hurt others: No Plan Patient : No Physical Exam ED Vital Signs: Vital Signs - 24 hr 02/06/25 08:16 02/06/25 10:18 02/06/25 10:18 Temperature 98.0 F 98.0 F 98.0 F Pulse Rate 80 67 67 Respiratory Rate 18 18 18 Blood Pressure 100/54 L 95/59 L 95/59 L Pulse Oximetry 97 96 96 Oxygen Delivery Method Room Air Room Air Room Air BMI result Body Mass Index 25.7 Vital signs stable, afebrile General: Well appearing, in no acute distress. Skin: Warm, dry, intact. No rashes or lesions. Head: Normocephalic, atraumatic. EENT: Hearing is intact b/l. Conjunctiva clear. Sclera is anicteric. PERRLA. EOM intact. Moist mucous membranes.? + No facial edema or overlying skin changes. Tongue and lips wnl + multiple dental caries and poor dentition and missing teeth. Minimal swelling to gingiva of right lower mouth. No pointing. No active bleeding/ discharge. TTP. No palpable fluctuance. + No edema to buccal mucosa. posterior oropharynx without erythema/edema. Uvula midline. Controlling secretions and speaking in complete sentences + No submandublar, submental or cervical LAD. no anterior neck swelling. Cardiac: Chest wall symmetric. RRR Lungs: Normal respiratory effort without accessory muscle use. CTA bilaterally Back: No midline spinous or paraspinal tenderness. No step off deformity. Ext: Upper and lower extremities atraumatic, without tenderness, deformity, swelling or erythema Neuro: AOx3. Normal speech. Ambulating with steady gait Course Course Course Narrative: Patient noted to have dental infection. Labs are unremarkable. There is no evidence of abscess that warrants drainage at this time. No need for imaging. Will treat patient's pain and patient will be discharged home on clindamycin to ensure there is no worsening infection for follow-up with dentist. Patient advised to follow up with dentist this week. A referral has been provided. Patient has remained stable throughout ED visit today. I discussed worrisome signs and symptoms and when to return to the ED. All questions answered at this time. Patient is agreeable with disposition and stable for discharge. Medical Decision Making Medical Decision Making MDM Narrative: 44 year old female with pmhx significant for hepatitic-C, stage 3 CKD, seizures, hypothyroidism presents to the ED today for evaluation of worsening facial swelling/ pain x24 hours. Afebrile, vitals stable. on exam, No facial edema or overlying skin changes. Tongue and lips wnl, multiple dental caries and poor dentition and missing teeth. Minimal swelling to gingiva of right lower mouth. No pointing. No active bleeding/ discharge. TTP. No palpable fluctuance. No edema to buccal mucosa. posterior oropharynx without erythema/edema. Uvula midline. Controlling secretions and speaking in complete sentences. No submandublar, submental or cervical LAD. no anterior neck swelling. Differential includes dental/ periapical abscess/infection. Unlikely mono, herpes, sialadenitis, sialolithiasis, [employer], retropharyngeal abscess, deep neck infection, osteomyelitis, facial cellulitis/ abscess, lymphoma. Plan for pain control and discharge home with antibiotics and dentist follow up. Differential Diagnosis Differential Diagnoses: The differential diagnosis associated with the presentation includes sialodenitis, dental infection, ludwigs angina, cellultis, tooth ache Admission/Observation not indicated. Lab Data MDM Lab Attestation statement: I reviewed the patient's lab results. as above. 02/06/25 08:51 02/06/25 08:51 Labs: Lab Results 02/06/25 Range/Units 08:51 WBC 5.1 (4.8-10.8) X10*3/uL RBC 3.65 L (4.20-5.50) X10*6/uL Hgb 11.3 L (12.0-16.0) g/dl Hct 33.4 L (37.0-47.0) % MCV 91.5 (80.0-98.0) fL MCH 31.0 (27.0-33.0) pg MCHC 33.8 (31.0-35.0) g/dl RDW 12.6 (11.0-16.0) % Plt Count 181 D (160-400) X10*3/uL MPV 9.7 (9.4-12.3) fL Immature Gran % (Auto) 0.0 (0.0-0.4) % Neut % (Auto) 49.2 (45-73) % Lymph % (Auto) 30.0 (20-40) % [place] % (Auto) 5.8 (2-11) % Eos % (Auto) 13.8 H (0-4) % Baso % (Auto) 1.2 (0-2) % Lymph # (Auto) 1.5 (1.2-4.9) X10*3/uL [place] # (Auto) 0.3 (0.1-1.2) X10*3/uL Eos # (Auto) 0.7 H (0.0-0.4) X10*3/uL Baso # (Auto) 0.1 (0.0-0.2) X10*3/uL Abs Immat Gran (auto) 0.00 (0.00-0.03) X10*3/uL Absolute Neuts (auto) 2.5 (2.0-8.3) x10*3/uL Absolute Nucleated RBC 0.000 (0.0-0.012) X10*3/uL Nucleated RBC % (auto) 0.0 (0.0-0.2) /100WBC Sodium 140 (135-145) mmol/L Potassium 4.3 (3.3-5.1) mmol/L Chloride 114 H (96-108) mmol/L Carbon Dioxide 23 (22-29) mmol/L Anion Gap 7 L (12-20) BUN 16 (9-16) mg/dL Creatinine 1.25 (0.5-1.4) mg/dL Estim Creat Clear Calc 52.9 Estimated GFR 47 Random Glucose 84 (60-115) mg/dL Calcium 8.1 L D (8.4-10.2) mg/dL Total Bilirubin 0.1 (0.0-1.0) mg/dL AST 25 (5-31) U/L ALT 20 (0-31) U/L Alkaline Phosphatase 51 (39-117) U/L Total Protein 5.5 L (6.5-8.0) g/dL Albumin 3.6 (3.5-5.0) g/dL Independent Historian Clinical information obtained from an independent historian. History obtained from or confirmed by: Spouse External Record Review External record reviewed: Inpatient record Tests considered The following testing was considered but not selected: I considered obtaining a CT of the soft tissues neck however these is no evidence of ludwigs angina or concern for deep tissue infection. Not warranted at this time. Prescription Management I considered prescription management with: Pain Medication and Antibiotic (Clindamycin) Chronic Conditions Patient?s care impacted by: Other (Dental caries) Social Determinants Patient?s care significantly limited by Social Determinants of Health including: Other Social Determinant of Health Critical Care Time Critical Care Time Critical Care Time: No Discharge Plan Discharge Clinical Impression: Dental infection Patient Disposition: Home, Self-Care Instructions: Toothache (ED) Additional Instructions: You have a dental infection. Your blood work is reassuring. Clindamycin is an antibiotic that has been sent to your pharmacy for treatment. Take this as prescribed and do not skip any doses. Take this to completion or the infection may persist or worsen. Tylenol 3 is a pain medication that has been sent to your pharmacy for you to take for break-through pain. Use this with caution. YOU NEED TO FOLLOW UP WITH A DENTIST. You have been provided with a referral to [facility]. They are currently taking new clients. Call them to make an appointment. They will not call you. Follow up with your primary care provider as scheduled on March 11. Return with new or worsening symptoms. In the case of an emergency call 241. [facility]: [phone] [id number] [facility] [id number] Prescriptions: New acetaminophen-codeine 300-30 mg tablet 1 tab PO Q8H PRN (Reason: pain (scale score 7-10)) Qty: 9 0RF clindamycin HCl [Cleocin HCl] 150 mg capsule 450 mg PO Q8H 7 Days Qty: 63 0RF No Action levothyroxine 25 mcg capsule 25 mcg PO DAILY Qty: 30 0RF levetiracetam 750 mg tablet 750 mg PO BID 30 Days Qty: 60 0RF pantoprazole 40 mg tablet,delayed release (DR/EC) 40 mg PO DAILY Qty: 30 0RF promethazine 12.5 mg tablet 12.5 mg PO Q6H PRN (Reason: nausea and vomiting) Qty: 30 0RF lidocaine 5 % adhesive patch,medicated 1 patch topical DAILY Qty: 30 0RF Rx Instructions: leave on most painful area for up to 12 hrs cyclobenzaprine 10 mg tablet 10 mg PO TID PRN (Reason: muscle spasm) Qty: 10 0RF cyclobenzaprine 10 mg tablet 10 mg PO TID PRN (Reason: muscle spasm) Qty: 14 0RF ibuprofen 600 mg tablet 600 mg PO Q8H PRN (Reason: pain) Qty: 14 0RF lidocaine 5 % adhesive patch,medicated 1 patch topical DAILY Qty: 15 0RF Rx Instructions: leave on most painful area for up to 12 hrs diclofenac sodium 1 % gel 4 g topical QID Qty: 50 0RF Rx Instructions: apply to hips amoxicillin-pot clavulanate 875-125 mg tablet 1 tab PO BID Qty: 14 0RF levetiracetam 750 mg tablet 750 mg PO BID Qty: 14 0RF Referrals: Morteza Chaudhary MD [Primary Care Provider, Medical] Interventions: ED Discharge Assessment Last Done: 02/06/25 10:18 Discharge Date/Time: 02/06/25 10:19 Print Language: Ukrainian
[2025-02-06 08:16] VITALS: BP 100/54; PULSE 80; RESP 18; TEMP 36.7; O2SAT 97; BMI 25.7
[2025-02-06 08:54] LABS: MANUAL DIFF FLAG NO
[2025-02-06 08:57] LABS: Hematocrit 33.4 % (37.0-47.0); Hemoglobin 11.3 g/dl (12.0-16.0); Imm Gran Abs Auto 0.00 X10*3/uL (0.00-0.03); Imm Gran Pct Auto 0.0 % (0.0-0.4); Lymphocytes Absolute Auto 1.5 X10*3/uL (1.2-4.9); Mean Corpuscular HGB Conc 33.8 g/dl (31.0-35.0); Mean Corpuscular Hemoglobin 31.0 pg (27.0-33.0); Mean Corpuscular Volume 91.5 fL (80.0-98.0); NRBC Abs Auto 0.000 X10*3/uL (0.0-0.012); NRBC Pct Auto 0.0 /100WBC (0.0-0.2); Platelet Count 181 X10*3/uL (160-400); Red Blood Count 3.65 X10*6/uL (4.20-5.50); White Blood Count 5.1 X10*3/uL (4.8-10.8)
--- NOTE | 2025-02-06 09:14 | PC.NURSE ---
Pt brought back to room 15 from ED waiting room. A/ox3, respirations even and unlabored, speaking in full sentences, airway patent, maintaining O2 sats >92% on RA. No signs of respiratory distress. Call brown within reach, all needs met at this time.
[2025-02-06 09:17] LABS: Alanine Aminotransferase 20 U/L (0-31); Albumin Level 3.6 g/dL (3.5-5.0); Alkaline Phosphatase 51 U/L (39-117); Anion Gap 7 (12-20); Aspartate Amino Transferase 25 U/L (5-31); Blood Urea Nitrogen 16 mg/dL (9-16); Calcium 8.1 mg/dL (8.4-10.2); Carbon Dioxide 23 mmol/L (22-29); Chloride 114 mmol/L (96-108); Creatinine Clr Calc Pharmacy 52.9; Estimated Glomerular Filt Rate 47; Potassium 4.3 mmol/L (3.3-5.1); Sodium 140 mmol/L (135-145); Total Protein 5.5 g/dL (6.5-8.0)
[2025-02-06 10:18] VITALS: BP 95/59; PULSE 67; RESP 18; TEMP 36.7; O2SAT 96
== END 2025-02-06 10:19 | disposition home or self-care (01) ==
PROVIDERS: Physician Assistant Medical; Emergency Provider Emergency Medicine Emergency Medical Services; PCP Internal Medicine
DX: K04.7 Periapical abscess without sinus (principal); K11.5 Sialolithiasis
CPT/HCPCS: 36415; 80053; 85025; 99283; 99284

== ENCOUNTER 2025-03-13 18:33 | Emergency (ER) | payer MEDICAID, SELFPAY ==
--- NOTE | ~2025-03-13 | CT_ITS ---
CLINICAL HISTORY: diffusely tender abdomen CT ABDOMEN AND PELVIS WITH CONTRAST COMPARISON: 10/24/2024. FINDINGS: Images of the lung bases demonstrate no acute infiltrate or pleural effusion. Breast implants are noted. Deformity of the right breast implant is partially visualized on axial image 1. No focal liver lesion. Focal fatty infiltration is noted adjacent to the falciform ligament and gallbladder fossa. No visible gallstone. No pericholecystic inflammation. Stomach is underdistended which precludes accurate assessment. Duodenal diverticula are again noted. No CT evidence of acute pancreatitis. Spleen is unremarkable. Thickening of the right adrenal gland is again noted. Thickening/nodularity of the left adrenal gland is again noted. Some contrast is noted within the proximal renal collecting systems, limiting assessment. Subcentimeter low-attenuation lesion in the left kidney is too small to characterize. Both kidneys are otherwise unremarkable. No hydronephrosis. Urinary bladder is unremarkable. Approximately 4.1 cm subserosal fibroid arises from the right aspect of the uterine body and does not appear to be significantly changed. Follicle in the left ovary measures 1.7 cm on axial image 566 of series 4. There is a tiny amount of pelvic free fluid, likely physiologic. Abdominal aorta is normal in caliber without evidence of an aneurysm or dissection. No evidence of a bowel obstruction or free air. Portions of the colon are underdistended which limits assessment. No pericolonic inflammation. Colonic diverticula are noted without evidence of acute diverticulitis. Post appendectomy changes are noted. No lymphadenopathy or loculated fluid collection. No evidence of a bowel containing hernia. Tiny fat containing umbilical hernia is again noted. Bone windows demonstrate no acute abnormalities. Mild degenerative changes are noted in the bilateral hips. IMPRESSION: 1. Unremarkable CT abdomen/pelvis. This document has been electronically signed by: Jeffery Sofia M.D. on 03/14/2025 01:34:14
--- NOTE | ~2025-03-13 | XR_ITS ---
CLINICAL HISTORY: chest pain Chest Radiographs, 2 views Comparison: None available Findings: No cardiomegaly. Normal mediastinal contours. No pneumothorax. No opacity. No pleural effusion. Normal upper abdomen. No acute fracture. Impression: No acute findings. This document has been electronically signed by: Dulce Maria Berkowitz MD on 03/13/2025 19:15:45
[2025-03-13 18:43] VITALS: BP 130/90; PULSE 70; PULSE 83; RESP 20; O2SAT 100; O2SAT 93; BMI 26.6
--- NOTE | 2025-03-13 18:45 | ECG_ITS ---
Test Reason : CP Blood Pressure : */* mmHG Vent. Rate : 68 BPM Atrial Rate : 68 BPM P-R Int : 102 ms QRS Dur : 86 ms QT Int : 410 ms P-R-T Axes : 40 75 57 degrees QTcB Int : 435 ms Sinus rhythm with sinus arrhythmia with short MO T wave abnormality, consider anterior ischemia Abnormal ECG No previous ECGs available Referred By: Florencia Hernandez Electronically Signed By: DARRIN SALAZAR
[2025-03-13 18:50] VITALS: BP 118/97; PULSE 83; RESP 20; TEMP 37.7; O2SAT 93
--- NOTE | 2025-03-13 19:12 | ED.CHESTPAIN ---
HPI - Chest Pain General Chief Complaint: Chest Pain Stated Complaint: Chest pressure x1 hour Time Seen by Provider: 03/13/25 18:55 Source: patient, RN notes reviewed and old records reviewed Mode of arrival: ambulatory Limitations: no limitations History of Present Illness ED Provider: Ginny Griffiths PA-C HPI narrative: 44-year-old female with history of hepatitis-C, CKD stage 3, seizures, hypothyroidism, gastric ulcers diagnosed few years ago, GERD, opiate dependence on suboxone presenting for evaluation of epigastric pain that has been present for the last 2 days. Reports use of marijuana vape pen which helps usually calm her stomach but it has not. She reports several episodes of vomiting and diarrhea for the last 2 days. She did see her PCP 2 days ago before this all started when she got home she did not go for any blood work instead she felt nauseous entirely experiences episodes. Today when she vomited she noticed specks of blood in the vomit. She has not seen a shredded filler hopper feeder but does report that when she saw her PCP on Monday she was referred and reestablishing with a local salvage inspector as well as Gastroenterology. Patient denies any fevers or chills T-max of 99.5 degrees today. She denies any respiratory symptoms. Denies any EtOH use. Patient reports being on Suboxone but if I ?wanted to give (me) her any only by pain medications (I) she can have it . Reports history of cyclic vomiting years ago and feel strongly that this is not what is happening now. She denies any travel or sick contacts. She reports tolerating fluids to some degree. She tried eating earlier today and slept for a few hours but then when she woke back up vomited again. Pt admits to smoking marijuana prior to arrival. MD complaint: chest pain Related Data Previous Rx's ?Medication ?Instructions ?Recorded cyclobenzaprine 10 mg tablet 10 mg PO TID PRN muscle spasm #14 04/02/24 tabs ibuprofen 600 mg tablet 600 mg PO Q8H PRN pain #14 tabs 04/02/24 lidocaine 5 % topical patch 1 patch topical DAILY #15 ea 04/02/24 cyclobenzaprine 10 mg tablet 10 mg PO TID PRN muscle spasm #10 08/14/24 tabs levetiracetam 750 mg tablet 750 mg PO BID 30 days #60 tabs 08/14/24 levothyroxine 25 mcg capsule 25 mcg PO DAILY #30 caps 08/14/24 lidocaine 5 % topical patch 1 patch topical DAILY #30 ea 08/14/24 pantoprazole 40 mg tablet,delayed 40 mg PO DAILY #30 tabs 08/14/24 release promethazine 12.5 mg tablet 12.5 mg PO Q6H PRN nausea and 08/14/24 vomiting #30 tabs amoxicillin 875 mg-potassium 1 tab PO BID #14 tabs 01/31/25 clavulanate 125 mg tablet diclofenac sodium 1 % topical gel 4 g topical QID #50 grams 01/31/25 levetiracetam 750 mg tablet 750 mg PO BID #14 tabs 01/31/25 acetaminophen 300 mg-codeine 30 mg 1 tab PO Q8H PRN pain (scale score 02/06/25 tablet 7-10) #9 tabs clindamycin HCl 150 mg capsule 450 mg (3 x 150 mg) PO Q8H 7 days 02/06/25 (Cleocin HCl) #63 caps acetaminophen 500 mg capsule 1,000 mg (2 x 500 mg) PO .q8 PRN 03/14/25 fever or pain #30 caps ibuprofen 600 mg tablet 600 mg PO Q8H PRN fever or pain 03/14/25 #30 tabs ondansetron 4 mg disintegrating 4 mg PO Q8H PRN nausea and 03/14/25 tablet vomiting #14 tabs Allergies Allergy/AdvReac Type Severity Reaction Status Date / Time cephalexin (From Keflex) Allergy Anaphylaxis Verified 03/13/25 18:45 sulfamethoxazole (From Allergy Anaphylaxis Verified 03/13/25 18:45 Bactrim) trimethoprim (From Bactrim) Allergy Anaphylaxis Verified 03/13/25 18:45 Review of Systems Review of Systems: Yes all other systems are reviewed and are negative PMFSH Past Medical History Attestation statement: The following information was validated with the patient. Source: old records reviewed and nursing notes reviewed Social History Social History Substance Use Type: Marijuana Physical Exam Exam: Exam: General: Appears in no acute distress, appears well nourished body habitus is normal, appears stated age. No septic or ill-appearing but appears disshelved. Vitals reviewed normal, PMH/Social and Surgical hx reviewed including allergies and current medications. Head: Normocephalic, no obvious trauma or skin lesions noted. Eyes: EOMI, pupils dilated, word salad present, rocking side to side but speech is coherent ENMT: dry oral mucosa Neck: trachea midline Cardiovascular: peripheral perfusion normal, Regular heart rate, regular rate Respiratory: no respiratory distress, lungs ctab Abdomen: nondistended, diffusely tender Extremities: warm and moving without difficulty Psych: Cooperative, anxious Neuro: Alert and oriented. Vital Signs: Vital Signs: Last Vital Signs Temp 98.6 F 03/14/25 02:13 Pulse 86 03/14/25 02:13 Resp 16 03/14/25 02:13 BP 121/73 03/14/25 02:13 Pulse Ox 97 03/14/25 02:13 O2 Del Method Room Air 03/14/25 02:13 BMI result Body Mass Index 26.6 Course Reevaluation(s) Reevaluation #1: 9:52 PM 03/13/2025 (Nimisha DIAMOND): Patient was signed out to this provider at shift change, in summary the patient is a 44-year-old female presenting to the ED for evaluation of chest pressure with associated nausea and vomiting with a history of cannabis hyperemesis syndrome. The patient's initial laboratory evaluation is reassuring, patient was signed out pending repeat troponin and CT abdomen and pelvis to rule out acute intra-abdominal pathology. At this time RN has advised patient is having persistent vomiting in his requesting Haldol for abdominal pain and vomiting as it has been effective for her previously. We will give 10 mg IM Haldol and reassess. 1:43 AM 03/14/2025 (Nimisha DIAMOND): The patient's CT abdomen and pelvis has resulted and shows no acute intra-abdominal pathology. Review of the patient's workup reveals no leukocytosis, anemia, electrolyte abnormality, NAWAF, or significant LFT abnormality. Lipase is normal. Patient is not . Viral swabs are negative. Chest x-ray negative. Troponin negative. Patient's vital signs are currently stable, no hypotension, tachycardia, or hypoxia. Patient is afebrile. Patient likely suffering from viral GI illness versus cannabis hyperemesis, patient will be discharged with supportive care. Medications Administered Discontinued Medications Generic Name Dose Route Start Last Admin Trade Name Freq PRN Reason Stop Dose Admin Al Hydroxide/Mg Hydroxide 30 ml 03/14/25 00:24 03/14/25 00:33 Magnesium Hydrox/Alum Hydrox 30 Ml Oral.Susp PO 03/14/25 00:25 30 ml ONCE ONE Administration Diphenhydramine HCl 50 mg 03/13/25 19:24 03/13/25 20:03 Diphenhydramine Hcl 50 Mg/Ml Vial IVPUSH 03/13/25 19:25 50 mg ONCE ONE Administration Famotidine 20 mg 03/14/25 00:24 03/14/25 00:33 Famotidine 20 Mg Tablet PO 03/14/25 00:25 20 mg ONCE ONE Administration Haloperidol Lactate 10 mg 03/13/25 21:50 03/13/25 22:06 Haloperidol Lactate 5 Mg/Ml Vial IM 03/13/25 21:51 10 mg STAT STA Administration Lactated Ringer's 1,000 mls @ 999 mls/hr 03/13/25 19:24 03/14/25 00:20 Lr IV 03/13/25 20:24 Infused .Q1H1M ONE Infusion Acetaminophen 1,000 mg in 100 mls @ 400 mls/hr 03/13/25 19:24 03/14/25 00:20 Ofirmev IV 03/13/25 19:38 Infused ONCE ONE Infusion Iohexol 85 ml 03/14/25 00:14 03/14/25 00:14 Iohexol 350 Mg/Ml 100 Ml Infus..Btl IV 03/14/25 00:15 85 ml ONCE ONE Administration Lidocaine HCl 15 ml 03/14/25 00:24 03/14/25 00:33 Lidocaine Hcl Viscous 2 % 15 Ml Solution PO 03/14/25 00:25 15 ml ONCE ONE Administration Ondansetron HCl 4 mg 03/14/25 00:24 03/14/25 00:33 Ondansetron Hcl 4 Mg/2 Ml Vial IVPUSH 03/14/25 00:25 4 mg ONCE ONE Administration Pantoprazole Sodium 40 mg 03/13/25 19:24 03/13/25 20:03 Pantoprazole Sodium 40 Mg/10 Ml Vial IVPUSH 03/13/25 19:25 40 mg ONCE ONE Administration Procedures Procedure Narrative Procedure Narrative: Ultrasound Guided Peripheral Intravenous Catheter Placement Indication: Intravenous Access Location: Left ??Vascular Location of Catheter Tip: Basilic Provider: Osman Silvestre MD I was approached by nursing staff and informed that multiple unsuccessful attempts had been made to establish IV access in the patient. The patients arm was surveyed with the ultrasound for verification of vessel collapsibility, patency, depth and caliber, as well as identification of nearby structures. The target area was prepped with chlorhexidine. A tourniquet was placed proximally on the extremity. Under real-time ultrasound guidance, an 20 G 2.25 inch AccuCath nontunneled catheter ? was advanced into the target vein. Dark blood was visualized in the flash chamber. The catheter was easily advanced into the vein. The catheter was evacuated of air and flushed with sterile saline. The catheter was secured in place with a tegaderm. The patient tolerated the procedure well and there were no complications. Estimated Blood Loss: 1mL Total Time for Procedure: 5min Images Stored CPT: 00106; 80813 Medical Decision Making Medical Decision Making MDM Narrative: 44-year-old female with history and physical above presenting to emergency department today for evaluation of GI symptoms including nausea vomiting diarrhea. Given her report of not emesis IV Protonix with fluids and Benadryl given in the setting of her being opioid dependent on Suboxone we will avoid stronger pain medicine at this time. She is afebrile and nontoxic or ill appearing. Abdominal labs including EKG and CT abdomen and pelvis are ordered. Differentials this time includes gastroenteritis, colitis, withdrawal, cannabis use disorder, dehydration. EKG obtained- it shows nonspecific ST-T changes. No prior for comparison here. Report of EKG from [facility] reviewed, but image not available: sinus arrhythmia with sinus rhythm 61 bpm; QTc 442 ms EKG here with 68 bpm sinus rhythm with sinus arrhythmia with short MN, T wave abnormality (appears inverted in anterior lateral leads). QTc is 435 ms. Trending troponins. No chest pain reported at this time. Chest x-ray without evidence of cardiomegaly, wide mediastinum, pleural effusion opacities pneumothorax fractures. NO luekocytosis noted or anemia. CKD III known- at baseline no NAWAF. Mild elevation of liver enzyme but not three times upper limit of normal, known Hep C. UA without evidence of infection. NO electrolyte imbalance. Initial troponin is negative. Second to be drawn at 2249. 2100: At this time patient's presentation seems ML due to viral gastroenteritis. No continuous vomiting. Will continue to monitor CT abd/pelvis pending. Case will be signed out to the evening physician talent assistant Bryon Luo pending CTabd pelvis results and 2nd trop. Ideally if CT abdomen and pelvis is unremarkable patient to be sent home with GI follow-up as she already has a planned endoscopy given she can tolerate p.o. fluids. Patient is stable at this time no changes in care at this time. Differential Diagnosis Differential Diagnoses: The differential diagnosis associated with the presentation includes See [facility] Admission/Observation Consideration of admission/observation: Escalation of care including admission/observation considered Lab Data [facility] Lab Attestation statement: I reviewed the patient's lab results. 03/13/25 19:49 03/13/25 19:49 Labs: Lab Results 03/13/25 Range/Units 19:49 WBC 9.9 (4.8-10.8) X10*3/uL RBC 5.04 D (4.20-5.50) X10*6/uL Hgb 15.2 D (12.0-16.0) g/dl Hct 45.2 D (37.0-47.0) % MCV 89.7 (80.0-98.0) fL MCH 30.2 (27.0-33.0) pg MCHC 33.6 (31.0-35.0) g/dl RDW 12.2 (11.0-16.0) % Plt Count 300 D (160-400) X10*3/uL MPV 9.8 (9.4-12.3) fL Immature Gran % (Auto) 0.3 (0.0-0.4) % Neut % (Auto) 77.2 H (45-73) % Lymph % (Auto) 16.6 L (20-40) % [place] % (Auto) 5.4 (2-11) % Eos % (Auto) 0.2 (0-4) % Baso % (Auto) 0.3 (0-2) % Lymph # (Auto) 1.6 (1.2-4.9) X10*3/uL [place] # (Auto) 0.5 (0.1-1.2) X10*3/uL Eos # (Auto) 0.0 (0.0-0.4) X10*3/uL Baso # (Auto) 0.0 (0.0-0.2) X10*3/uL Abs Immat Gran (auto) 0.03 (0.00-0.03) X10*3/uL Absolute Neuts (auto) 7.6 (2.0-8.3) x10*3/uL Absolute Nucleated RBC 0.000 (0.0-0.012) X10*3/uL Nucleated RBC % (auto) 0.0 (0.0-0.2) /100WBC Sodium 139 (135-145) mmol/L Potassium 3.8 (3.3-5.1) mmol/L Chloride 98 (96-108) mmol/L Carbon Dioxide 27 (22-29) mmol/L Anion Gap 18 (12-20) BUN 26 H (9-16) mg/dL Creatinine 1.05 (0.5-1.4) mg/dL Estim Creat Clear Calc 63.9 Estimated GFR 57 Random Glucose 143 H (60-115) mg/dL Calcium 10.0 D (8.4-10.2) mg/dL Magnesium 2.2 (1.6-2.6) mg/dL Total Bilirubin 0.5 (0.0-1.0) mg/dL AST 37 H (5-31) U/L ALT 48 H (0-31) U/L Alkaline Phosphatase 52 (39-117) U/L Troponin I High Sens < 2.7 (<3.5-17.0) ng/L Total Protein 8.4 H (6.5-8.0) g/dL Albumin 5.1 H (3.5-5.0) g/dL Lipase 10 (8-78) U/L Beta HCG, Quant < 2 mIU/mL Influenza Type A (PCR) NEGATIVE (Negative) Influenza Type B (PCR) NEGATIVE (Negative) RSV RNA Qual (PCR) NEGATIVE (Negative) SARS-CoV-2 RNA (RT-PCR) NEGATIVE (Negative) Independent Interpretation I performed an independent interpretation of an: EKG and Plain X-Ray Radiology Impression Discussion of test interpretation with radiology: I have reviewed the radiologist's reading. External Record Review External record reviewed: Inpatient record Tests considered The following testing was considered but not selected: CTA had there been concerns of dissection/ PE- not consistent with presentation Chronic Conditions Patient?s care impacted by: Other (HEP C, GERD, opiate use, correction marijuana use) Social Determinants Patient?s care significantly limited by Social Determinants of Health including: Other Social Determinant of Health Discharge Plan Discharge Clinical Impression: Atypical chest pain, Vomiting Patient Disposition: Home, Self-Care Instructions: Acute Nausea and Vomiting (ED), Noncardiac Chest Pain (ED) Additional Instructions: Thank you for choosing [facility]'s Emergency Department for your care today. Thankfully your chest x-ray, abdominal CT scan, EKG, laboratory workup, viral swab, and exam showed no evidence of any acute cardiac, pulmonary, bacterial, metabolic, or surgical intra-abdominal cause for your symptoms. At this time there is no indication for admission to the hospital or continued ED observation, and it is safe to discharge you home. The exact cause of your vomiting and pain is not entirely clear, it may be due to a viral illness or secondary to use of cannabis products. You may take alternating (staggered) doses of ibuprofen 600mg and Tylenol 1000mg every 4 hours as needed for any additional pain. Please take Zofran as needed for any additional nausea or vomiting. Please stay well hydrated and get plenty of rest. Please follow up with your primary care physician for re-evaluation, additional management of your symptoms, and continued preventative care. If you do not have a primary care physician, please call the [facility] at [phone] to establish a new primary care physician. While waiting to establish your new primary care physician, you can call our [facility] at [phone] for non-emergency needs. Please return to the emergency department if you develop a severe or sudden change in your symptoms, a fever over 100.4 that does not improve with Tylenol or Ibuprofen, recurrent vomiting, or any other new or worsening symptoms or concerns. Prescriptions: New ibuprofen 600 mg tablet 600 mg PO Q8H PRN (Reason: fever or pain) Qty: 30 0RF acetaminophen 500 mg capsule 1,000 mg PO .q8 PRN (Reason: fever or pain) Qty: 30 0RF ondansetron 4 mg tablet,disintegrating 4 mg PO Q8H PRN (Reason: nausea and vomiting) Qty: 14 0RF No Action levothyroxine 25 mcg capsule 25 mcg PO DAILY Qty: 30 0RF levetiracetam 750 mg tablet 750 mg PO BID 30 Days Qty: 60 0RF pantoprazole 40 mg tablet,delayed release (DR/EC) 40 mg PO DAILY Qty: 30 0RF promethazine 12.5 mg tablet 12.5 mg PO Q6H PRN (Reason: nausea and vomiting) Qty: 30 0RF lidocaine 5 % adhesive patch,medicated 1 patch topical DAILY Qty: 30 0RF Rx Instructions: leave on most painful area for up to 12 hrs cyclobenzaprine 10 mg tablet 10 mg PO TID PRN (Reason: muscle spasm) Qty: 10 0RF cyclobenzaprine 10 mg tablet 10 mg PO TID PRN (Reason: muscle spasm) Qty: 14 0RF ibuprofen 600 mg tablet 600 mg PO Q8H PRN (Reason: pain) Qty: 14 0RF lidocaine 5 % adhesive patch,medicated 1 patch topical DAILY Qty: 15 0RF Rx Instructions: leave on most painful area for up to 12 hrs diclofenac sodium 1 % gel 4 g topical QID Qty: 50 0RF Rx Instructions: apply to hips amoxicillin-pot clavulanate 875-125 mg tablet 1 tab PO BID Qty: 14 0RF levetiracetam 750 mg tablet 750 mg PO BID Qty: 14 0RF acetaminophen-codeine 300-30 mg tablet 1 tab PO Q8H PRN (Reason: pain (scale score 7-10)) Qty: 9 0RF clindamycin HCl [Cleocin HCl] 150 mg capsule 450 mg PO Q8H 7 Days Qty: 63 0RF Interventions: ED Discharge Assessment Last Done: 03/14/25 02:13 Discharge Date/Time: 03/14/25 02:18 Print Language: Danish
[2025-03-13 19:53] LABS: MANUAL DIFF FLAG NO
[2025-03-13] MEDS: Lactated Ringers 1,000 ML 999 ML IV (20:03)
[2025-03-13 20:10] LABS: Hematocrit 45.2 % (37.0-47.0); Hemoglobin 15.2 g/dl (12.0-16.0); Imm Gran Abs Auto 0.03 X10*3/uL (0.00-0.03); Imm Gran Pct Auto 0.3 % (0.0-0.4); Lymphocytes Absolute Auto 1.6 X10*3/uL (1.2-4.9); Mean Corpuscular HGB Conc 33.6 g/dl (31.0-35.0); Mean Corpuscular Hemoglobin 30.2 pg (27.0-33.0); Mean Corpuscular Volume 89.7 fL (80.0-98.0); NRBC Abs Auto 0.000 X10*3/uL (0.0-0.012); NRBC Pct Auto 0.0 /100WBC (0.0-0.2); Platelet Count 300 X10*3/uL (160-400); Red Blood Count 5.04 X10*6/uL (4.20-5.50); White Blood Count 9.9 X10*3/uL (4.8-10.8)
[2025-03-13 20:13] LABS: Alanine Aminotransferase 48 U/L (0-31); Albumin Level 5.1 g/dL (3.5-5.0); Alkaline Phosphatase 52 U/L (39-117); Anion Gap 18 (12-20); Aspartate Amino Transferase 37 U/L (5-31); Blood Urea Nitrogen 26 mg/dL (9-16); Calcium 10.0 mg/dL (8.4-10.2); Carbon Dioxide 27 mmol/L (22-29); Chloride 98 mmol/L (96-108); Creatinine Clr Calc Pharmacy 63.9; Estimated Glomerular Filt Rate 57; Lipase 10 U/L (8-78); Magnesium 2.2 mg/dL (1.6-2.6); Potassium 3.8 mmol/L (3.3-5.1); Sodium 139 mmol/L (135-145); Total Protein 8.4 g/dL (6.5-8.0)
[2025-03-13 20:21] LABS: Troponin-I High Sensitivity < 2.7 ng/L (<3.5-17.0)
[2025-03-13 20:33] LABS: Resp Syncy Virus RNA Qual PCR NEGATIVE (Negative); SARS COV2 PCR INHOUSE NEGATIVE (Negative)
[2025-03-13 20:41] VITALS: BP 142/95; PULSE 84; RESP 20; TEMP 37.1; O2SAT 100
[2025-03-13 22:46] VITALS: BP 137/71; PULSE 85; RESP 12; TEMP 36.7; O2SAT 98
--- NOTE | 2025-03-13 23:23 | PC.NURSE ---
notified by [employer] that pt line is not able to be flushed despite currently IV meds infusing. Awaiting provider to placed US guided line
[2025-03-14] MEDS: iohexoL 350 MG/ML 100 ML INFUS..BTL 85 ML IV (00:14)
[2025-03-14] MEDS: Magnesium Hydrox/Alum Hydrox 30 ML ORAL.SUSP PO (00:33)
[2025-03-14] MEDS: Lidocaine HCl Viscous 2 % 15 ML SOLUTION PO (00:33)
[2025-03-14 01:52] VITALS: BP 121/71; PULSE 74; RESP 16; O2SAT 97
[2025-03-14 02:13] VITALS: BP 121/73; PULSE 86; RESP 16; TEMP 37; O2SAT 97
== END 2025-03-14 02:18 | disposition home or self-care (01) ==
PROVIDERS: Physician Assistant Medical; Emergency Provider Emergency Medicine; PCP Internal Medicine
DX: R07.89 Other chest pain (principal); R11.2 Nausea with vomiting, unspecified; R10.2 Pelvic and perineal pain; I49.8 Other specified cardiac arrhythmias; F12.90 Cannabis use, unspecified, uncomplicated; Z03.818 Encounter for observation for suspected exposure to other biological agents ruled out; Z79.899 Other long term (current) drug therapy
CPT/HCPCS: 36410; 71046; 74177; 76937; 80053; 83690; 83735; 84484; 84702; 85025; 87637; 93005; 96365; 96366; 96372; 96375; 99285; J0131; J1200; J1630; J2405; J2470; J7120; Q9967

== ENCOUNTER → 2025-03-13 18:45 | Outpatient (BNV) | payer MEDICAID, SELFPAY | PROVIDERS: Emergency Provider Emergency Medicine; PCP Internal Medicine; Visit Provider Internal Medicine | DX: I49.9 Cardiac arrhythmia, unspecified (principal) | CPT/HCPCS: 93010 ==

== ENCOUNTER → 2025-03-13 18:47 | Outpatient (BNV) | payer MEDICAID, SELFPAY | PROVIDERS: Emergency Provider Emergency Medicine; PCP Internal Medicine; Visit Provider Radiology Diagnostic Radiology | DX: R07.9 Chest pain, unspecified (principal) | CPT/HCPCS: 71046 ==

== ENCOUNTER → 2025-03-14 23:13 | Outpatient (BNV) | payer MEDICAID, SELFPAY | PROVIDERS: Emergency Provider Emergency Medicine; PCP Internal Medicine; Visit Provider Radiology Diagnostic Radiology | DX: D25.2 Subserosal leiomyoma of uterus (principal) | CPT/HCPCS: 74177 ==

== ENCOUNTER 2025-04-11 07:37 | Emergency (ER) | payer MEDICAID, SELFPAY ==
--- OUTSIDE RECORDS SUMMARY | 2024-04-24 07:45 | XMS_ITS ---
Author Organization [facility] Address [address] [place] [address] Care Team Providers Care Bioinformatics Technician Name Role Phone Vikki Spicer Primary Care Provider REASON FOR VISIT Office: [facility] paperwork Medications Medication SIG (Take, Route, Frequency, Duration) Notes Start Date End Date Status furosemide 20 mg 1 tab(s) orally twice a day Not-Taking gabapentin 400 mg 1 cap(s) orally 3 times a day Not-Taking cyclobenzaprine 10 mg 1 tab(s) orally every 8 hours PRN Not-Taking propranolol 10 mg 1 tab(s) orally 2 times a day for 90 days Active Lyrica 150 mg 1 cap(s) orally 2 times a day for 30 days 02/29/2024 Active omeprazole 20 mg 2 caps orally once a day pt states its BID Not-Taking ondansetron 4 mg 1 tab(s) orally twice a day PRN do not take more than 2 in a 24 hour period Not-Taking mirtazapine 15 mg 1 tab(s) orally once a day (at bedtime) Not-Taking naloxone 4 mg/0.1 mL 1 spray(s) intranasally once Not-Taking hydrOXYzine hydrochloride 50 mg 2 tabs orally twice a day PRN Not-Taking levothyroxine 25 mcg (0.025 mg) 1 tab(s) orally once a day for 90 days Active Imitrex 25 mg 1 tab(s) orally once for 30 days As needed 02/16/2024 Active Lyrica 150 mg 1 cap(s) orally 2 times a day Not-Taking pantoprazole 40 mg 1 tab(s) orally once a day for 90 days Active traZODone 50 mg 1 tab orally at bedtime As needed Not-Taking Keppra 750 mg 1 tab(s) orally 2 times a day for 90 days Active acetaminophen 500 mg 2 tab(s) orally every 8 hours As needed Active diclofenac topical 3% 1 amanda applied topically 2 times a day for 30 days As needed 02/15/2024 Active buprenorphine-naloxone 8 mg-2 mg 2 film(s) sublingually daily Active Melatonin 5 mg 2 caps orally once a day (at bedtime) pt states its 3 tabs Active Encounters Encounter Location Date Provider Diagnosis [address] [address] 04/24/2024 Vikki Spicer Chronic viral hepatitis C [...] * Bello YUNGOB: [birth year] (44 yo F)Acc No.[id number]:04/24/2024 Progress Notes Patient: Claudia ESTRELLA Connie Provider: NIKOS Saunders :1980 A ge:43 Y S ex:Female Date:04/24/2024 Address:[address] [place] [address] Subjective: * Chief Complaints: * 1 . Office: [facility] paperwork. * Medical History: * Medications: T aking diclofenac topical 3% gel 1 amanda applied topically 2 times a day As needed, Taking acetaminophen 500 mg tablet 2 tab(s) orally every 8 hours As needed, Taking Melatonin 5 mg capsule 2 caps orally once a day (at bedtime) , Notes to Pharmacist: pt states its 3 tabs, Taking buprenorphine-naloxone 8 mg-2 mg film 2 film(s) sublingually daily , Taking Keppra 750 mg tablet 1 tab(s) orally 2 times a day , Taking levothyroxine 25 mcg (0.025 mg) tablet 1 tab(s) orally once a day , Taking Imitrex 25 mg tablet 1 tab(s) orally once As needed, Taking pantoprazole 40 mg delayed release tablet 1 tab(s) orally once a day , Taking Lyrica 150 mg capsule 1 cap(s) orally 2 times a day , Taking propranolol 10 mg tablet 1 tab(s) orally 2 times a day , Not-Taking/PRN Lyrica 150 mg capsule 1 cap(s) orally 2 times a day , Not-Taking/PRN traZODone 50 mg tablet 1 tab orally at bedtime As needed, Not-Taking/PRN hydrOXYzine hydrochloride 50 mg tablet 2 tabs orally twice a day PRN , Not-Taking/PRN ondansetron 4 mg tablet 1 tab(s) orally twice a day PRN do not take more than 2 in a 24 hour period , Not-Taking/PRN omeprazole 20 mg delayed release capsule 2 caps orally once a day , Notes to Pharmacist: pt states its BID, Not-Taking/PRN naloxone 4 mg/0.1 mL spray 1 spray(s) intranasally once , Not-Taking/PRN mirtazapine 15 mg tablet 1 tab(s) orally once a day (at bedtime) , Not-Taking/PRN cyclobenzaprine 10 mg tablet 1 tab(s) orally every 8 hours PRN , Not-Taking/PRN gabapentin 400 mg capsule 1 cap(s) orally 3 times a day , Not-Taking/PRN furosemide 20 mg tablet 1 tab(s) orally twice a day Objective: * Vitals: Assessment: * Assessment: 1. C hronic viral hepatitis C - B18.2 Plan: * Treatment: * Images: Billing Information: * Visit Code: * Procedure Codes: Care Plan Details* * Electronic signature of Zaire Spicer on 04/11/2025 at 09:02 AM EDT Sign off status: Pending * Provider: NIKOS Saunders Date: 04/24/2024 Generated for Marilin johnson/Olivia/Beni on: 04/11/2025 09:02 AM EDT
--- OUTSIDE RECORDS SUMMARY | 2024-05-07 06:00 | XMS_ITS ---
Author Organization [facility] Address [address] [place] [address] Care Team Providers Care Tire Rebuilder Name Role Phone Vikki Spicer Primary Care Provider [phone] REASON FOR VISIT [facility] paperwork Encounters Encounter Location Date Provider Diagnosis [facility] [address] [place], [place] [phone] 05/07/2024 Vikki Spicer Encounter for screening for [...] * Bello YUNGOB: [birth year] (44 yo F)Acc No.[id number]:05/07/2024 Progress Notes Patient: Connie MENDEZ Provider: NIKOS Saunders :1980 A ge:43 Y S ex:Female Date:05/07/2024 Address:[address] [place] [address] Subjective: * Chief Complaints: * 1 . [facility] paperwork. * HPI: G eneral: [...] signature of Zaire Spicer on 04/11/2025 at 09:03 AM EDT Sign off status: Pending * Provider: NIKOS Saunders Date: 1 Generated for Marilin johnson/Olivia/Beni on: 0 04/11/2025 09:03 AM EDT
--- OUTSIDE RECORDS SUMMARY | 2024-05-14 10:00 | XMS_ITS ---
Author Organization [facility] Address [address] [place] [address] Care Team Providers Care Club Steward Name Role Phone Vikki Spicer Primary Care Provider Jessie Ferrera Unavailable [phone] REASON FOR VISIT BH: initial intake, Symptom screening by [facility] staff pre entrance to clinic Encounters Encounter Location Date Provider Diagnosis [facility] [address] [place] [address] 05/14/2024 Jessie Ferrera Encounter for screening for [...] * Bello YUNGOB: [birth year] (44 yo F)Acc No.[id number]:05/14/2024 Progress Notes Patient: Connie MENDEZ Provider: DANIEL MooreHNP-BC :1980 A ge:43 Y S ex:Female Date:05/14/2024 Address:[address] [place], [place] [address] Pcp:Vikki Spicer Subjective: * Chief Complaints: * 1 . BH: initial intake. 2. Symptom screening by [facility] staff pre entrance to clinic. * HPI: [...] Mg Caps ule 60 30 Ed Jered [id number] Wal (30 12) 0/0 2.01 LMET Medicai d [place] .? Assessment: * Assessment: 1. E ncounter for screening for COVID-19 - Z11.52 (Primary) Plan: * Treatment: * Images: Billing Information: * Visit Code: * Procedure Codes: Care Plan Details* * Electronic signature of JENNIFER Corrales on 04/11/2025 at 09:02 AM EDT Sign off status: Pending * Provider: Evangelista Ferrera PMHNP-BC Date: 1 Generated for Marilin johnson/Olivia/Javyitting on: 0 04/11/2025 09:02 AM EDT History and Physical Notes * Examination Category Sub-Category Detail Notes Category Not es Psychiatry Assessment Filled Written S old ID Drug QTY Days Prescriber RX # Dispenser Refill Daily Dose* Pymt Type REFRACTIVE SURGEON //66877Faajvywmzk 150 Mg [id number] (2605) [place]Medicaid[place]
--- OUTSIDE RECORDS SUMMARY | 2024-05-22 07:00 | XMS_ITS ---
Author Organization [facility] Address [address] [place] [address] Care Team Providers Care Commercial Real Estate Broker Name Role Phone Vikki Spicer Primary Care Provider [phone] [facility], Nursing Unavailable [phone] Medications Medication SIG (Take, Route, Frequency, Duration) Notes Start Date End Date Status Melatonin 5 mg 2 caps orally once a day (at bedtime) pt states its 3 tabs Active buprenorphine-naloxone 8 mg-2 mg 2 film(s) sublingually daily Active Imitrex 25 mg 1 tab(s) orally once for 30 days As needed 02/16/2024 Active diclofenac topical 3% 1 amanda applied topically 2 times a day for 30 days As needed 02/15/2024 Active acetaminophen 500 mg 2 tab(s) orally every 8 hours As needed Active propranolol 10 mg 1 tab(s) orally 2 times a day for 90 days Active levothyroxine 25 mcg (0.025 mg) 1 tab(s) orally once a day for 90 days Active pantoprazole 40 mg 1 tab(s) orally once a day for 90 days Active Keppra 750 mg 1 tab(s) orally 2 times a day for 90 days Active Lyrica 150 mg 1 cap(s) orally 2 times a day for 30 days 05/21/2024 Active furosemide 20 mg 1 tab(s) orally twice a day Not-Taking naloxone 4 mg/0.1 mL 1 spray(s) intranasally once Not-Taking mirtazapine 15 mg 1 tab(s) orally once a day (at bedtime) Not-Taking cyclobenzaprine 10 mg 1 tab(s) orally every 8 hours PRN Not-Taking gabapentin 400 mg 1 cap(s) orally 3 times a day Not-Taking traZODone 50 mg 1 tab orally at bedtime As needed Not-Taking hydrOXYzine hydrochloride 50 mg 2 tabs orally twice a day PRN Not-Taking ondansetron 4 mg 1 tab(s) orally twice a day PRN do not take more than 2 in a 24 hour period Not-Taking omeprazole 20 mg 2 caps orally once a day pt states its BID Not-Taking Encounters Encounter Location Date Provider Diagnosis [facility] [address] [place] [address] 05/22/2024 Nursing [facility] Encounter for screening for COVID-19 Z11.52 [...] * Bello YUNGOB: [birth year] (44 yo F)Acc No.[id number]:05/22/2024 Progress Notes Patient: Claudia Connie DE LA ROSA Provider: Chavez giles [facility] :1980 A ge:43 Y S ex:Female Date:05/22/2024 Address:[address] [place], [place] [id number] Pcp:Vikki Spicer Subjective: * Chief Complaints: * [...] where and why?. * Medications: T aking diclofenac topical 3% [...] film 2 film(s) sublingually daily , Taking Imitrex 25 mg tablet 1 tab(s) orally once As needed, Taking propranolol 10 mg tablet 1 tab(s) orally 2 times a day , Taking levothyroxine 25 mcg (0.025 mg) tablet 1 tab(s) orally once a day , Taking pantoprazole 40 mg delayed release tablet 1 tab(s) orally once a day , Taking Keppra 750 mg tablet 1 tab(s) orally 2 times a day , Taking Lyrica 150 mg [...] Codes: * Electronic signature of Buck jain [facility] on 04/11/2025 at 09:03 AM EDT Sign off status: Pending * Provider: Chavez giles [facility] Date: 1 Generated for Marilin johnson/Olivia/Beni on: 0 04/11/2025 09:03 AM EDT
--- NOTE | ~2025-04-11 | CT_ITS ---
EXAMINATION: CT HEAD WITHOUT CONTRAST CLINICAL INFORMATION: severe worsening headache, hx of seizure COMPARISON: None available. TECHNIQUE: Contiguous axial imaging was performed from the skull base to vertex without intravenous administration of contrast. This CT examination was performed using dose optimization techniques as appropriate, variously including the following: *Automated exposure control *Adjustment of mA and/or kV according to patient size (this includes techniques or standardized protocols for targeted exams where dose is matched to indication/reason for exam; i.e. extremities or head) *Use of iterative reconstruction technique DLP: 558 mGy-cm FINDINGS: No acute intracranial hemorrhage, mass effect, midline shift, hydrocephalus or herniation. Hollis-white matter differentiation is normal. Sellar/suprasellar region demonstrated no gross masses. Posterior cranial fossa contents demonstrated no gross masses or hemorrhage. Normal position of the cerebellar tonsils. 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 No air-fluid levels in the paranasal sinuses. Tympanic cavities and mastoid cells are aerated. CT/CT head/brain wo IV con IMPRESSION: No acute brain abnormality by CT. Electronically signed by: Justice Garcia MD 04/11/2025 10:27 AM EDT
[2025-04-11 07:41] VITALS: BP 130/88; BP 134/86; PULSE 102; PULSE 98; RESP 18; TEMP 36.8; O2SAT 97; O2SAT 98; BMI 26.6
--- NOTE | 2025-04-11 07:44 | ED.GENADULT ---
HPI - General Adult General Chief complaint: General Medical Stated complaint: SMITH X2D,H/O SZ & MIGRAINES PER EMS Time Seen by Provider: 04/11/25 07:43 Source: patient, EMS, RN notes reviewed and old records reviewed Mode of arrival: EMS Limitations: no limitations History of Present Illness ED Provider: Cornelio Tate PA-C HPI narrative: 44-year-old female with history of hepatitis-C, CKD stage 3, seizures, hypothyroidism, gastric ulcers diagnosed few years ago, GERD, cyclical vomiting, opiate dependence on suboxone since ED due to 2 days of constant migraine headache. Patient states she has been experiencing flu-like symptoms including nausea, vomiting and diarrhea that began on Monday but has been steadily improving. Patient states headache started Monday on the right side of her head with her flu-like symptoms and has been intermittent throbbing ache. Patient reports 2 days ago headache became constant and has now traveled to the left side behind the eye and restorationist and is exacerbated by light and denies aura. Patient states she was laying down resting when SMITH started on monday, denies injury/trauma/falls. Patient reports taking 3 extra strength Tylenol/caffeine without effect. Denies fevers, chills, chest pain, black/tarry stool, urinary symptoms, lightheadedness, dizziness, syncope MD complaint: migraine headache Related Data Previous Rx's ?Medication ?Instructions ?Recorded cyclobenzaprine 10 mg tablet 10 mg PO TID PRN muscle spasm #14 04/02/24 tabs ibuprofen 600 mg tablet 600 mg PO Q8H PRN pain #14 tabs 04/02/24 lidocaine 5 % topical patch 1 patch topical DAILY #15 ea 04/02/24 cyclobenzaprine 10 mg tablet 10 mg PO TID PRN muscle spasm #10 08/14/24 tabs levetiracetam 750 mg tablet 750 mg PO BID 30 days #60 tabs 08/14/24 levothyroxine 25 mcg capsule 25 mcg PO DAILY #30 caps 08/14/24 lidocaine 5 % topical patch 1 patch topical DAILY #30 ea 08/14/24 pantoprazole 40 mg tablet,delayed 40 mg PO DAILY #30 tabs 08/14/24 release promethazine 12.5 mg tablet 12.5 mg PO Q6H PRN nausea and 08/14/24 vomiting #30 tabs amoxicillin 875 mg-potassium 1 tab PO BID #14 tabs 01/31/25 clavulanate 125 mg tablet diclofenac sodium 1 % topical gel 4 g topical QID #50 grams 01/31/25 levetiracetam 750 mg tablet 750 mg PO BID #14 tabs 01/31/25 acetaminophen 300 mg-codeine 30 mg 1 tab PO Q8H PRN pain (scale score 02/06/25 tablet 7-10) #9 tabs clindamycin HCl 150 mg capsule 450 mg (3 x 150 mg) PO Q8H 7 days 02/06/25 (Cleocin HCl) #63 caps acetaminophen 500 mg capsule 1,000 mg (2 x 500 mg) PO .q8 PRN 03/14/25 fever or pain #30 caps ibuprofen 600 mg tablet 600 mg PO Q8H PRN fever or pain 03/14/25 #30 tabs ondansetron 4 mg disintegrating 4 mg PO Q8H PRN nausea and 03/14/25 tablet vomiting #14 tabs sumatriptan succinate 50 mg tablet 50 mg PO Q2-4H PRN migraine 04/11/25 headache #16 tabs Allergies Allergy/AdvReac Type Severity Reaction Status Date / Time cephalexin (From Keflex) Allergy Anaphylaxis Verified 04/11/25 07:45 sulfamethoxazole (From Allergy Anaphylaxis Verified 04/11/25 07:45 Bactrim) trimethoprim (From Bactrim) Allergy Anaphylaxis Verified 04/11/25 07:45 acetaminophen (From Vicodin) AdvReac Nausea and Verified 04/11/25 07:46 Vomiting hydrocodone (From Vicodin) AdvReac Nausea and Verified 04/11/25 07:46 Vomiting Review of Systems Review of Systems: CONST: Negative for fever, body aches and chills. HENT: Negative for neck pain/stiffness, headache, congestion, sore throat, swelling. POS L sided throbbing headache EYES: Negative for discharge/pain or vision changes. RESP: Negative for cough/hemoptysis and shortness of breath. CV: Negative chest pain, difficulty breathing, palpitations. ABD: Negative pain, nausea, vomiting. POS nausea : Negative increase frequency, dysuria, blood in urine or stool. MUSC: Negative for muscle aches, edema. SKIN: Negative rash, lesions/sores. NEURO: Negative headache, dizziness, weakness. Yes all other systems are reviewed and are negative PMFSH Past Medical History Attestation statement: The following information was validated with the patient. Source: old records reviewed and nursing notes reviewed Social History Social History Unable to assess alcohol history related to: Unknown Substance Use Type: Marijuana Physical Exam ED Vital Signs: Vital Signs - 24 hr 04/11/25 07:41 04/11/25 09:27 04/11/25 09:48 Temperature 98.3 F 98.9 F Pulse Rate 98 64 65 Respiratory Rate 18 13 Blood Pressure 130/88 149/67 H 142/85 H Pulse Oximetry 98 99 Oxygen Delivery Method Room Air Room Air BMI result Body Mass Index 26.6 GENERAL APPEARANCE: ?AxOx4, no acute distress. HEENT: ?NC, AT. MMM. EOMI, clear conjunctiva, oropharynx clear. NECK: ?Supple without lymphadenopathy.? No stiffness or restricted ROM. Negative Kernig's and Brudzinski sign HEART:? Normal rate and regular rhythm, normal S1/S2, no m/r/g LUNGS:? CTAB, moving air well. No crackles or wheezes are heard. ABDOMEN: ?Soft, no rigidity, no guarding, nondistended, negative Lovell's sign, no rebound tenderness, TTP of the suprapubic region, no overlying skin changes BACK: No CVAT, no obvious deformity. EXTREMITIES: ?Without cyanosis, clubbing or edema. NEUROLOGICAL: ?Grossly nonfocal. Alert and oriented, moving all 4 extremities. Observed to ambulate with normal gait. Skin: ?Warm and dry without any rash. Medications Administered Discontinued Medications Generic Name Dose Route Start Last Admin Trade Name Freq PRN Reason Stop Dose Admin Diphenhydramine HCl 25 mg 04/11/25 07:57 04/11/25 08:32 Diphenhydramine Hcl 50 Mg/Ml Vial IVPUSH 04/11/25 07:58 25 mg ONCE ONE Administration Lactated Ringer's 1,000 mls @ 999 mls/hr 04/11/25 07:57 04/11/25 11:26 Lr IV 04/11/25 08:57 Infused .Q1H1M ONE Infusion Metoclopramide HCl 10 mg 04/11/25 07:57 04/11/25 08:32 Metoclopramide Hcl 10 Mg/2 Ml Vial IVPUSH 04/11/25 07:58 10 mg ONCE ONE Administration Sumatriptan Succinate 6 mg 04/11/25 08:42 04/11/25 09:11 Sumatriptan Succinate 6 Mg/0.5 Ml Vial SUBCUT 04/11/25 08:43 6 mg ONCE ONE Administration Medical Decision Making Medical Decision Making [facility] Narrative: 44-year-old female with history of hepatitis-C, CKD stage 3, seizures, hypothyroidism, gastric ulcers diagnosed few years ago, GERD, cyclical vomiting, opiate dependence on suboxone since ED due to 2 days of constant migraine headache. VS on initial observation-normotensive with BP 130/88, pulse rate of 98, respiratory rate of 18, afebrile with oral temp of 98.3?, O2 saturation 98% on room air. Physical exam without focal neurological deficits, patient without antalgic/ataxic gait. Patient is wearing dark sunglasses and sleeping mask due to the light aggravating her headache. Abdomen is soft, nonrigid, nondistended, is a mildly tender of the suprapubic region. No rashes present. This headache not associated with any red flag symptoms- started while patient was resting, not worst headache of life and has not changed in quality or intensity of past migraines, afebrile, patient with history of opiate use by means of fentanyl patch, no history of IVDU, no meningeal signs, this headache is not associated with seizure, patient states her last seizure was ?years ago?. I do not think advanced imaging is necessary at this time.- less likely meningitis, SAH There is no rash on the head or temporal region, no erythema or tenderness to palpation of the temporal or scalp- less likely herpes zoster/temporal arteritis Plan: Labs, viral serology, UA Patient being medicated with IV fluids, 10 mg metoclopramide, 25 mg diphenhydramine for relief of headache. Patient already took 3 extra strength Tylenol/caffeine medication, has history of gastric ulcers can not medicate with Toradol. Course 11:09- Labs without leukocytosis/leukopenia, H&H stable, no electrolyte abnormality, labs completely unremarkable. Viral serology negative. Patient was medicated with metoclopramide, diphenhydramine, and IV fluids without effect on headache. Patient was given 6 mg subcu sumatriptan and stated her headache was now worse and moving to the right side. I ordered CT head/brain to evaluate for ICH or mass which was negative for any acute intracranial processes. Patient now states she is feeling somewhat better, it is ready to go home for self-care. I encouraged patient to follow up with her primary care, patient states she also has follow up with [facility] next month for further evaluation. Patient is in agreement with the plan, I counseled her on strict return precautions. Differential Diagnosis Differential Diagnoses: The differential diagnosis associated with the presentation includes Meningitis Subarachnoid hemorrhage Herpes Zoster Temporal arteritis Electrolyte abnormality Dehydration Migraine Admission/Observation Consideration of admission/observation: Escalation of care including admission/observation considered Lab Data MDM Lab Attestation statement: I reviewed the patient's lab results. 04/11/25 08:26 04/11/25 09:27 Labs: Lab Results 04/11/25 04/11/25 04/11/25 Range/Units 08:26 08:29 09:27 WBC 8.0 (4.8-10.8) X10*3/uL RBC 4.44 (4.20-5.50) X10*6/uL Hgb 13.3 (12.0-16.0) g/dl Hct 38.2 (37.0-47.0) % MCV 86.0 (80.0-98.0) fL MCH 30.0 (27.0-33.0) pg MCHC 34.8 (31.0-35.0) g/dl RDW 12.4 (11.0-16.0) % Plt Count 317 (160-400) X10*3/uL MPV 9.4 (9.4-12.3) fL Immature Gran % (Auto) 0.4 (0.0-0.4) % Neut % (Auto) 52.5 (45-73) % Lymph % (Auto) 34.3 (20-40) % Mcintosh % (Auto) 5.9 (2-11) % Eos % (Auto) 6.2 H (0-4) % Baso % (Auto) 0.7 (0-2) % Lymph # (Auto) 2.8 (1.2-4.9) X10*3/uL Mcintosh # (Auto) 0.5 (0.1-1.2) X10*3/uL Eos # (Auto) 0.5 H (0.0-0.4) X10*3/uL Baso # (Auto) 0.1 (0.0-0.2) X10*3/uL Abs Immat Gran (auto) 0.03 (0.00-0.03) X10*3/uL Absolute Neuts (auto) 4.2 (2.0-8.3) x10*3/uL Absolute Nucleated RBC 0.000 (0.0-0.012) X10*3/uL Nucleated RBC % (auto) 0.0 (0.0-0.2) /100WBC Sodium 140 (135-145) mmol/L Potassium 3.7 (3.3-5.1) mmol/L Chloride 107 (96-108) mmol/L Carbon Dioxide 25 (22-29) mmol/L Anion Gap 12 (12-20) BUN 11 (9-16) mg/dL Creatinine 0.96 (0.5-1.4) mg/dL Estim Creat Clear Calc 70.0 Estimated GFR > 60 Random Glucose 94 (60-115) mg/dL Calcium 9.1 D (8.4-10.2) mg/dL Magnesium 1.9 (1.6-2.6) mg/dL Total Bilirubin 0.3 (0.0-1.0) mg/dL AST 31 (5-31) U/L ALT 31 (0-31) U/L Alkaline Phosphatase 48 (39-117) U/L Total Protein 6.9 (6.5-8.0) g/dL Albumin 4.5 (3.5-5.0) g/dL Urine Color Yellow Urine Appearance Clear Urine pH 6.0 (5.0-9.0) Ur Specific [place] >= 1.030 H (1.005-1.025) Urine Protein Trace (Neg-Trace) mg/dL Urine Glucose (UA) Negative (Negative) mg/dL Urine Ketones Trace (Negative) mg/dL Urine Blood Negative (Negative) Urine Nitrite Negative (Negative) Ur Leukocyte Esterase Negative (Negative) COVID-19 (HEBER) Negative (Negative) COVID-19 Clin Com See Note Influenza Type A (JOSÉ MIGUEL) Negative (Negative) Influenza Type B (JOSÉ MIGUEL) Negative (Negative) Influenza A & B Note See Note Independent Interpretation I performed an independent interpretation of an: CT Scan Interpretation: I personally interpreted the CT head/brain which was negative for any acute intracranial abnormality, I agree with the radiologist's interpretation Radiology Impression Discussion of test interpretation with radiology: I have reviewed the radiologist's reading. Radiologist Impression: CT head/brain FINDINGS: No acute intracranial hemorrhage, mass effect, midline shift, hydrocephalus or herniation. Hollis-white matter differentiation is normal. Sellar/suprasellar region demonstrated no gross masses. Posterior cranial fossa contents demonstrated no gross masses or hemorrhage. Normal position of the cerebellar tonsils. 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 No air-fluid levels in the paranasal sinuses. Tympanic cavities and mastoid cells are aerated. CT/CT head/brain wo IV con IMPRESSION: No acute brain abnormality by CT. Electronically signed by: Justice Gacria MD 04/11/2025 10:27 AM EDT RP Independent Historian Clinical information obtained from an independent historian. History obtained from or confirmed by: Spouse (Significant other at bedside corroborating history) External Record Review External record reviewed: Inpatient record Prescription Management I considered prescription management with: Other (Toradol, Tylenol) I considered treating with Toradol but patient has history of gastric ulcers and hepatitis, this is an contraindication. I considered treated with Tylenol however patient took 3 extra strength Tylenol prior to arrival for pain management. Chronic Conditions Patient?s care impacted by: Other (CKD, hepatitis-C, hypothyroidism, gastric ulcers, GERD, cyclical vomiting, opiate dependence on Suboxone) Social Determinants Patient?s care significantly limited by Social Determinants of Health including: Other Social Determinant of Health Discharge Plan Discharge Clinical Impression: Migraine Patient Disposition: Home, Self-Care Instructions: Migraine Headache (ED) Additional Instructions: You were evaluated in the ED due to nausea, vomiting, migraine headache today. Your labs were reassuring as they were completely unremarkable without any abnormalities. The CT head/brain was negative for bleed, fracture, masses. You stated you were out of your home sumatriptan, I will prescribe you 30 day supply. I encourage you to follow up with your primary care provider and make sure you go to your appointment with [facility] for further evaluation and intervention of your migraine headaches. Please return to the emergency department if you experience worsening headache, changes in vision, fevers over 100.4?, or any new/concerning/worsening symptoms Prescriptions: New sumatriptan succinate 50 mg tablet 50 mg PO Q2-4H PRN (Reason: migraine headache) Qty: 16 0RF Rx Instructions: do not exceed 4 doses per 24 hrs No Action levothyroxine 25 mcg capsule 25 mcg PO DAILY Qty: 30 0RF levetiracetam 750 mg tablet 750 mg PO BID 30 Days Qty: 60 0RF pantoprazole 40 mg tablet,delayed release (DR/EC) 40 mg PO DAILY Qty: 30 0RF promethazine 12.5 mg tablet 12.5 mg PO Q6H PRN (Reason: nausea and vomiting) Qty: 30 0RF lidocaine 5 % adhesive patch,medicated 1 patch topical DAILY Qty: 30 0RF Rx Instructions: leave on most painful area for up to 12 hrs cyclobenzaprine 10 mg tablet 10 mg PO TID PRN (Reason: muscle spasm) Qty: 10 0RF cyclobenzaprine 10 mg tablet 10 mg PO TID PRN (Reason: muscle spasm) Qty: 14 0RF ibuprofen 600 mg tablet 600 mg PO Q8H PRN (Reason: pain) Qty: 14 0RF lidocaine 5 % adhesive patch,medicated 1 patch topical DAILY Qty: 15 0RF Rx Instructions: leave on most painful area for up to 12 hrs diclofenac sodium 1 % gel 4 g topical QID Qty: 50 0RF Rx Instructions: apply to hips amoxicillin-pot clavulanate 875-125 mg tablet 1 tab PO BID Qty: 14 0RF levetiracetam 750 mg tablet 750 mg PO BID Qty: 14 0RF acetaminophen-codeine 300-30 mg tablet 1 tab PO Q8H PRN (Reason: pain (scale score 7-10)) Qty: 9 0RF clindamycin HCl [Cleocin HCl] 150 mg capsule 450 mg PO Q8H 7 Days Qty: 63 0RF ibuprofen 600 mg tablet 600 mg PO Q8H PRN (Reason: fever or pain) Qty: 30 0RF acetaminophen 500 mg capsule 1,000 mg PO .q8 PRN (Reason: fever or pain) Qty: 30 0RF ondansetron 4 mg tablet,disintegrating 4 mg PO Q8H PRN (Reason: nausea and vomiting) Qty: 14 0RF Interventions: ED Discharge Assessment Last Done: 04/11/25 11:36 Discharge Date/Time: 04/11/25 11:39 Print Language: Kosovan
--- NOTE | 2025-04-11 07:52 | PC.NURSE ---
Pt BIBA for c/o migraine x 2 days. Pt reports hx of migraines and sz. Sz precautions in place, pads to bed rails. Pt A/O x 3, ambulating with steady gait. Reports stomach bug since Monday with N/V and abd pain. #22 placed to R hand.
[2025-04-11] MEDS: Lactated Ringers 1,000 ML 999 ML IV (08:32)
[2025-04-11 08:35] LABS: MANUAL DIFF FLAG NO
[2025-04-11 08:38] LABS: Appearance Urine Clear; Glucose Urine UA Negative (Negative); PH 6.0 (5.0-9.0); Specific Gravity - Urine >= 1.030 (1.005-1.025)
[2025-04-11 08:42] LABS: Hematocrit 38.2 % (37.0-47.0); Hemoglobin 13.3 g/dl (12.0-16.0); Imm Gran Abs Auto 0.03 X10*3/uL (0.00-0.03); Imm Gran Pct Auto 0.4 % (0.0-0.4); Lymphocytes Absolute Auto 2.8 X10*3/uL (1.2-4.9); Mean Corpuscular HGB Conc 34.8 g/dl (31.0-35.0); Mean Corpuscular Hemoglobin 30.0 pg (27.0-33.0); Mean Corpuscular Volume 86.0 fL (80.0-98.0); NRBC Abs Auto 0.000 X10*3/uL (0.0-0.012); NRBC Pct Auto 0.0 /100WBC (0.0-0.2); Platelet Count 317 X10*3/uL (160-400); Red Blood Count 4.44 X10*6/uL (4.20-5.50); White Blood Count 8.0 X10*3/uL (4.8-10.8)
[2025-04-11 08:54] LABS: COVID-19 Test Negative (Negative); IDNOW Serial# 55D5AD1C; IDNOW Serial# 58CA691E; Influenza B2 Negative (Negative)
--- OUTSIDE RECORDS SUMMARY | 2025-04-11 09:02 | XMS_ITS | Encounter Summary ---
Author Organization [facility] [employer] Address [address] [place] [address] Care Team Providers Care Hooker Operator Name Role Phone Morteza Chaudhary MD Primary Care Prov ider Patrick Palacios RN Unavailable Camron Palacios Unavailable Reason for Visit * Reason Comments Care Management C3CM- initial assess ment/ enrollment. Not available. Encounter Details Date Type Department Care Team (Late st Contact Info) Description 04/10/2025 Patient Outreach [facility] [address] [place] [address] Morteza Chaudhary MD [address] [place], [place] [id number] Care Management (C3CM- initial assessment/ enrollment. Not available.) Social History Tobacco Use Types Packs/Day Years Used Date Smoking Tobacco: Every Day Smokeless Tobacco: Never Alcohol Use Standard Drinks/Week Comments Never 0 (1 standard drink = 0.6 oz pur e alcohol) Depression Answer Date Recorded Patient Health Questionnaire-9 Score 18 11/04/2024 Patient Health Questionnaire-9 Score 18 11/04/2024 Last PHQ-9: Questionnaire Data Not on file 0 11/04/2024 Housing Stability Answer Date Recorded What is your housing situation today? I have bethanie steve 11/04/[address] you li ve. Do you have problems with any of the following? None of the above 11/04/2024 Food Insecurity Answer Date Recorded Within the past 12 months, y ou worried that your food would run out before you got money to buy more: Sometimes True 2024 Within the past 12 months,th e food you bought just didn't last and you didn't have enough money to get more: Sometimes True 03/27/2025 Transportation Answer Date Recorded In the past 12 months, has l ack of transportation kept you from medical appts, meetings, work or from getting things needed for daily living? Yes, it has kept me from medical appointments or getting medications. 03/27/2025 Utilities Answer Date Recorded In the past 12 months, has t he electric, gas, oil or water company threatened to shut off services in your home? No 11/04/2024 Depression Answer Date Recorded Patient Health Questionnaire-2 Score 6 11/04/2024 Internet Access Answer Date Recorded Internet Access Q1 Yes 11/04/2024 Internet Access Q2 Not on file 11/04/2024 Comments Unknown Sex and Gender Information Value Date Recorded Sex Assigned at Female 10/30/2024 1:14 PM EDT Legal Sex Female 9:26 AM EDT Gender Identity Female 10/30/2024 1:14 PM EDT Sexual Orientation Straight 10/30/2024 1: 58 PM EDT documented as of this encounter Progress Notes * Patrick Palacios RN - 04/10/2025 2:28 PM EDT CM contacted patient for the agreed upon initial assessment/ enrollment to the C3 Care Management Program. Patient states she is not available at this time and requested to be contacted at 2:00pm. Call returned to patient as requested. Per patient, not available at this time and is requesting carito for another date/time. LYUBOV advised a message will be sent to DONNA Lyon to outreach nito. Patient agrees. documented in this encounter Plan of Treatment Not on file documented as of this encounter Visit Diagnoses Not on filedocumented in this encounter Additional Health Concerns Assessment Noted Time PHQ-9 Depression Total Score: 18 025 8:44 AM EDT documented as of this encounter Care Teams Hooker Operator Relationship Specialty Start Date End Date Morteza Chaudhary MD [address] [place] [address] [phone] PCP - General Internal Medicine 11/04/24 Patrick Palacios RN [address] [place] [id number] Registered Nurse Family Medicine 03/14/25 Camron Palacios 03/14/25 documented as of this encounter
--- OUTSIDE RECORDS SUMMARY | 2025-04-11 09:02 | XMS_ITS | Encounter Summary ---
Author Organization [employer] Address [address] [facility] [address] [place] [address] Care Team Providers Care Business Administration Teacher Name Role Phone Morteza Chaudhary MD Primary Care Prov ider Patrick Palacios RN Unavailable [phone] Camron Palacios Unavailable Reason for Visit * Reason Comments Care Coordination C3CM/MONTY NicoleLVMKUNAL Complex Care Initial Assessment Appt Reminder Encounter Details Date Type Department Care Team (Latest Contact Info) Description 04/09/2025 Patient Outreach [facility] [address] [place] [address] Morteza Chaudhary MD [address] [place] [address] Care Coordination ([place]/MONTY IbarraLVPARESH Complex Care Initial Assessment Appt Reminder) Social History Tobacco Use Types Packs/Day Years [...] is your housing situation today? I have bethanieisabella steve 11/04/[address] you [...] as of this encounter Progress Notes * Camron Palacios - 04/09/2025 4:08 PM EDT CHW Camron Palacios, placed outbound call to patient in regards to remind patient of CM Complex Care program initial assessment appt for tomorrow 04/10/2025 @10AM via telephone with CM Patrick Ga. No answer, therefore CHW LVM with appt details as well as CHW contact information [phone] r equesting call back. Patient's and address was not confirmed. documented in this encounter Plan of Treatment Not on file documented as of this encounter Visit Diagnoses Not on filedocumented in this encounter Additional Health Concerns Assessment Noted Time PHQ-9 Depression Total Score: 18 025 8:44 AM EDT documented as of this encounter Care Teams Business Administration Teacher Relationship Specialty Start Date End Date Morteza Chaudhary MD [address] [place] [address] PCP - General Internal Medicine 11/04/24 Patrick Palacios RN [address] [place] [address] Registered Nurse Family Medicine 03/14/25 Camron Palacios 03/14/25 documented as of this encounter
--- OUTSIDE RECORDS SUMMARY | 2025-04-11 09:03 | XMS_ITS ---
Author Organization [facility] Address [address] [facility] [address] [place] [address] Care Team Providers Care Rib Trim Separator Name Role Phone Morteza Chaudhary MD Primary Care Prov ider Patrick Palacios RN Unavailable [phone] Camron Palacios Unavailable CM Complex Status:Outreach In Progress (Enrolling) Start date:03/14/2025 Enrollment reason:ADT Feed Overview ED- Pt went to [facility] ED on 03/13/25. Case Team Name Relationship Phone Patrick Palacios RN(Responsible Staff) Registered Nurse [phone] Continued Care and Services Coordination
--- OUTSIDE RECORDS SUMMARY | 2025-04-11 09:03 | XMS_ITS | Clinical Summary ---
Author Organization [employer] Address [address] [place] [address] Care Team Providers Care Management Analyst Name Role Phone Morteza Chaudhary MD Primary Care Prov ider Patrick Palacios RN Unavailable Camron Palacios Unavailable Allergies Active Allergy Reactions Criticality Noted Date Comments Sulfamethoxazole-Trimethoprim Anaphylaxis High 10/30 Throat swelling Cephalexin Anaphylaxis High 10/30/2024 Throat swelling Shellfish-Derived Products Itching 5 Medications * This document contains information received from the source organization and may not represent a complete record from that organization. nicotine (Nicoderm CQ) 14 MG/24HR patch Place 1 patch on the skin 1 (one) time each day at the same time. 42 patch 10/31/19 25 Active buprenorphine- naloxone (Suboxone) 8-[address] 1 tablet under the tongue Once per day. Active propranolol (Inderal) 10 MG tablet Take 1 tablet (10 mg) by mouth 2 times daily. 180 tablet 3 11/05/19 25 026 Active levothyroxine (Synthroid, Levoxyl) 25 MCG tablet TAKE 1 TABLET BY MOUTH EVERY DAY 90 tablet 02/27/20 25 Active hydrOXYzine HCl (Atarax) 50 MG tablet TAKE 1 TABLET BY MOUTH EVERY TWELVE HOURS NEEDED FOR ANXIETY 90 tablet 03/10/20 25 Active promethazine (Phenergan) 25 MG tablet TAKE 1 TABLET BY MOUTH EVERY 6 HOURS NEEDED FOR NAUSEA AND VOMITING 90 tablet 03/10/20 25 Active Melatonin 5 MG capsule Take 2 capsules (10 mg) by mouth at bedtime. 180 capsule 3 03/10/20 25 026 Active omeprazole (PriLOSEC) [address] capsule Take 1 capsule (20 mg) by mouth Once per day. 90 capsule 3 03/11/20 25 Active ondansetron (Zofran) 4 MG tablet Take 4 mg by mouth every 8 (eight) hours if needed for nausea or vomiting. Active levETIRAcetam (Keppra) 750 MG tablet TAKE 1 TABLET BY MOUTH TWICE A DAY 180 tablet 03/31/20 25 Active nicotine polacrilex (Commit) 2 MG lozenge DISSOLVE 1 LOZENGE IN MOUTH EVERY 2 HOURS NEEDED SMOKING CESSATION 72 lozenge 04/05/20 25 Active nicotine (Nicoderm, Step 3) 7 MG/24HR patch APPLY 1 PATCH TOPICALLY TO THE SKIN IN THE MORNING *DO NOT SMOKE WHILE USING PATCH* 14 patch 04/05/20 25 Active cyclobenzaprin e (Flexeril) 10 MG tablet TAKE 1 TABLET BY MOUTH EVERY 8 HOURS NEEDED FOR MUSCLE SPASMS 30 tablet 04/05/20 25 Active SUMAtriptan (Imitrex) 50 MG tablet TAKE 1 TABLET BY MOUTH AT ONSET OF MIGRAINE. MAY REPEAT ONCE AFTER 2 HOURS IF NEEDED DO NOT EXCEED 2 DOSES IN 24 HOURS 9 tablet 04/05/20 25 Active sucralfate (Carafate) 1 g tablet TAKE 1 TABLET BY MOUTH FOUR TIMES DAILY BEFORE BREAKFAST, BEFORE LUNCH, BEFORE SUPPER FOR ABDOMINAL AT BEDTIME 120 tablet 04/09/20 25 Active mirtazapine (Remeron) 15 MG tablet TAKE 1 TABLET BY MOUTH EVERY DAY AT BEDTIME 30 tablet 04/09/20 25 Active levETIRAcetam (Keppra) 750 MG tablet TAKE 1 TABLET BY MOUTH TWICE A DAY 180 tablet 02/13/20 25 025 Discontinued(Re order (will not trigger notification to Pharmacy)) SUMAtriptan (Imitrex) 50 MG tablet TAKE 1 TABLET BY MOUTH AT ONSET OF MIGRAINE. MAY REPEAT ONCE AFTER 2 HOURS IF NEEDED. DO NOT EXCEED 2 DOSES IN 24 HOURS. 9 tablet 03/10/20 25 025 Discontinued nicotine (Nicoderm, Step 3) 7 MG/24HR patch APPLY 1 PATCH TOPICALLY TO THE SKIN IN THE MORNING. DO NOT SMOKE WHILE USING PATCH. 14 patch 03/10/20 25 025 Discontinued nicotine polacrilex (Commit) 2 MG lozenge Dissolve 1 lozenge (2 mg) in the mouth every 2 (two) hours if needed for smoking cessation. 72 lozenge 03/10/20 25 025 Discontinued cyclobenzaprin e (Flexeril) 10 MG tablet TAKE 1 TABLET(10 MG) BY MOUTH EVERY 8 HOURS NEEDED FOR MUSCLE SPASMS 30 tablet 03/10/20 025 Discontinued mirtazapine (Remeron) 15 MG tablet Take 1 tablet (15 mg) by mouth at bedtime. 30 tablet 03/11/20 025 Discontinued sucralfate (Carafate) 1 g tablet Take 1 tablet (1 g) by mouth before breakfast, before lunch, before evening meal, and at bedtime. 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 Asthma, seizures, anxiety/panic disorder, PTSD, MDD Pshx: breast augmentation 2007, foot surgery 2009, appendectomy 1999, EGD 1999, All: keflex/septra/shellfish Meds: as above Seizure disorder 10/31/2024 Assessment & Plan (03/11/2025 4:40 PM EDT): On keppra, will refer to neurology for follow up Anxiety and depression 10/31/2024 Assessment & Plan (03/11/2025 4:41 PM EDT): No suicidal/homicidal ideas, followed by Assessment & Plan (11/04/2024 10:12 AM EDT): Will refer to , no suicidal/homicidal ideas Migraines 10/31/2024 Fibromyalgia 10/31/2024 Opioid use disorder 10/31/2024 Peptic ulcer disease 10/31/2024 Assessment & Plan (03/11/2025 4:39 PM EDT): Will refer to GI for follow up Nicotine dependence, uncomplicated 10/31/2024 History of appendectomy 10/31/2024 History of augmentation of both breasts 11/01/19 25 History of esophagogastroduodenoscopy (EGD) 10/06 History of ankle surgery 10/31/2024 Encounters Date Type Department Care Team Description 04/10/2025 Patient Outreach [address] [address] Morteza Chaudhary MD Care Management (C3CM- initial assessment/ enrollment. Not available.) 04/09/2025 Patient Outreach [address] [address] Morteza Chaudhary MD Care Coordination ([place]/ZAID Ibarra-LVM-CM Complex Care Initial Assessment Appt Reminder) 04/08/[address] [facility] [address] [place] [address] Morteza Chaudhary MD 04/04/[address] [facility] [address] [place] [address] Morteza Chaudhary MD 04/03/2025 Patient Outreach [address] [address] Morteza Chaudhary MD Care Coordination (C3CM/ZAID Ibarra- Follow up on Neurology Appt) 03/27/2025 Patient Outreach [address] [address] Morteza Chaudhary MD Care Coordination (C3/W ZAID Kim-ADT Outreach-Agrees to participate in CM Complex Care Program) 03/25/2025 Telephone [facility] [address] [place] [address] Morteza Chaudhary MD Med Refill 03/24/[address] [facility] [address] [place] [phone] Mani Mojica MD 03/24/2025 Patient Outreach [address] [address] Morteza Chaudhary MD 03/18/2025 1:00 PM EDT Telemedicine [facility] [address] [place] [address] Yolanda Gutierrez RN Peptic ulcer disease [K27.9] 03/18/2025 Travel 03/14/2025 Patient Outreach [address] [address] Morteza Chaudhary MD Care Coordination (C3/W ZAID Kim#1- ADT Outreach-[facility]) 03/14/2025 Patient Outreach [address] [address] Morteza Chaudhary MD Care Coordination (C3/José Miguel Palacios, Chart Review) 03/14/2025 Patient Outreach [address] [address] Morteza Chaudhary MD 03/14/2025 Patient Outreach [address] [address] Morteza Chaudhary MD Care Management (C3- chart review) 03/14/2025 Patient Outreach [address] [address] Morteza Chaudhary MD 03/13/2025 Orders Only [facility] External Provider, [facility] 03/11/2025 1:30 PM EDT Office Visit [facility] [address] [place] [address] Morteza Chaudhary MD Migraine without status migrainosus, not intractable, unspecified migraine type (Primary Dx); Anxiety and depression; Peptic ulcer disease; Seizure disorder ([facility]/HCC); Pelvic pain; Muscle pain 03/11/2025 Travel 03/07/[address] [facility] [address] [place] [phone] Morteza Chaudhary MD Med Refill 03/06/[address] [facility] [address] [place] [address] Morteza Chaudhary MD 02/28/[address] [facility] [address] [place] [address] Morteza Chaudhary MD 02/25/[address] [facility] [address] [place] [address] Mani Mojica MD 02/14/[address] [facility] [address] [place] [address] Morteza Chaudhary MD 02/12/[address] [facility] [address] [place] [address] Morteza Chaudhary MD 02/11/2025 Population Health Risk Score [facility] () Department [address] [place] [phone] Provider, Population Health Generic 02/10/[address] [facility] [address] [place] [phone] Morteza Chaudhary MD 02/10/[address] [facility] [address] [place] [phone] Elaine Holt MD 02/10/[address] [facility] [address] [place] [address] Morteza Chaudhary MD 02/06/2025 Orders Only GENERIC EXTERNAL DATA DEPARTMENT Provider, Generic External Data 02/04/[address] [facility] [address] [place] [address] Morteza Chaudhary MD 01/31/2025 Orders Only [facility] External Provider, [facility] 01/16/2025 Refill [facility] [address] [place] [address] Mani Mojica MD 01/16/2025 Refill [facility] [address] [place] [address] Morteza Chaudhary MD from Last 3 Months Family History Medical History Relation Name Comments No Known Problems Father COPD Mother Fibromyalgia Mother Relation Name Status Comments Father Mother Social History Tobacco Use Types Packs/Day Years Used Date Smoking Tobacco: Every Day Smokeless Tobacco: Never Tobacco Cessation:Ready to Q uit: Yes; Counseling Given: Yes Alcohol Use Standard Drinks/Week Comments Never 0 [...] Orientation Straight 10/30/2024 1: 58 PM EDT Last Filed Vital Signs Vital Sign Reading Time Taken Comments Blood Pressure 115/78 03/11/2025 1:16 PM EDT Pulse 108 03/11/2025 1:16 PM EDT Temperature 36.3 C (97.3 F) 03/11/2025 1:16 PM EDT Respiratory Rate 16 03/11/2025 1:16 PM EDT Oxygen Saturation 96% 03/11/2025 1:16 PM EDT Inhaled Oxygen Concentration - - Weight 67.6 kg (149 lb) 03/11/2025 1:16 PM EDT Height 160 cm (5' 3 ) 03/11/2025 1:16 PM EDT Body Mass Index 26.39 03/11/2025 1:16 PM EDT Plan of Treatment Health Maintenance Due Date Last Done Comments HIV Screening 1980 Lipid Panel 1980 Disability Screening 1980 Family Planning (PISQ) 1996 HPV Vaccines (1 - 3-dose series) 1996 Hepatitis C Screening 11/28/1999 DTaP/Tdap/Td Vaccines (1 - Tdap) 2000 Hepatitis B Vaccines (1 of 3 - 19+ 3-dose series) 2000 Pneumococcal Vaccine: Pediatrics (0 to 5 Years) and At-Risk Patients (6 to 49) Years (1 of 2 - PCV) 2000 Pap Smear 2002 Cervical Cancer Screening 11/28/2011 HPV/Cotest 11/28/2011 Mammogram 2021 COVID-19 Vaccine (1 - 2023-2 5 season) 2025 Influenza Vaccine (#1) 2025 Depression Monitoring 05/06/2025 11/04/2024 , 11/04/2024 Alcohol/Substance Use Screening 11/04/2025 11/04/2024 Tobacco Screening 11/04/2025 11/04/2024 SDOH Screening 03/27/2026 03/27/2025 Zoster Vaccines (1 of 2) 11/28/2031 RSV Patients and Patients Aged 60 years or older (1 - 1-dose 75+ series) 2056 HIB Vaccines Aged Out No longer eligi ble based on patient's age to complete this topic Hepatitis A Vaccines Aged Out No long er eligible based on patient's age to complete this topic IPV Vaccines Aged Out No longer eligi ble based on patient's age to complete this topic Meningococcal B Vaccine Aged Out No l onger eligible based on patient's age to complete this topic Meningococcal Vaccine Aged Out No daly tean eligible based on patient's age to complete this topic RSV under 20 months Aged Out No longe r eligible based on patient's age to complete this topic Rotavirus Vaccines Aged Out No longer eligible based on patient's age to complete this topic Procedures Procedure Name Priority Date/Time Associated Diagnosis Comments CT ABDOMEN PELVIS W CONTRAST Routine 03/14/2025 1:34 AM EDT CBC WITH AUTO DIFFERENTIAL Routine 02/06/2025 8:51 AM EDT COMPREHENSIVE METABOLIC PANEL Routine 02/06/2025 8:51 AM EDT XR HIP BILATERAL WITH PELVIS 1 VIEW Routine 01/31/2025 10:20 AM EDT from Last 3 Months Results * CT Abdomen Pelvis w/ Contrast (03/14/2025 1:34 AM EDT) Anatomical Region Laterality Modality Body, Pelvis, Abdomen Computed T omography 03/14/2025 1:34 AM EDT Narrative 03/14/2025 1:36 AM EDT [address] [address] [address] Scan Report Signed Patient: Connie Valdez MR#: [id number] : 1980 Acct:[id number] Age/Sex: 44 / F ADM Date: 03/13/25 Loc: HO.ED Attending Dr: Ordering Physician: Ginny Griffiths PA-C Date of Service: 03/14/25 Procedure(s): CT abdomen pelvis w IV con Accession Number(s): [id number] cc: Morteza Chaudhary MD; Ginny Griffiths PA-C Report Number: [id number]: Total DLP = 409.00 mGy-cm CLINICAL HISTORY: diffusely tender abdomen CT ABDOMEN AND PELVIS WITH CONTRAST COMPARISON: 10/24/2024. FINDINGS: Images of the lung bases demonstrate no acute infiltrate or pleural effusion. Breast implants are noted. Deformity of the right breast implant is partially visualized on axial image 1. No focal liver lesion. Focal fatty infiltration is noted adjacent to the falciform ligament and gallbladder fossa. No visible gallstone. No pericholecystic inflammation. Stomach is underdistended which precludes accurate assessment. Duodenal diverticula are again noted. No CT evidence of acute pancreatitis. Spleen is unremarkable. Thickening of the right adrenal gland is again noted. Thickening/nodularity of the left adrenal gland is again noted. Some contrast is noted within the proximal renal collecting systems, limiting assessment. Subcentimeter low-attenuation lesion in the left kidney is too small to characterize. Both kidneys are otherwise unremarkable. No hydronephrosis. Urinary bladder is unremarkable. Approximately 4.1 cm subserosal fibroid arises from the right aspect of the uterine body and does not appear to be significantly changed. Follicle in the left ovary measures 1.7 cm on axial image 566 of series 4. There is a tiny amount of pelvic free fluid, likely physiologic. Abdominal aorta is normal in caliber without evidence of an aneurysm or dissection. No evidence of a bowel obstruction or free air. Portions of the colon are underdistended which limits assessment. No pericolonic inflammation. Colonic diverticula are noted without evidence of acute diverticulitis. Post appendectomy changes are noted. No lymphadenopathy or loculated fluid collection. No evidence of a bowel containing hernia. Tiny fat containing umbilical hernia is again noted. Bone windows demonstrate no acute abnormalities. Mild degenerative changes are noted in the bilateral hips. IMPRESSION: 1. Unremarkable CT abdomen/pelvis. This document has been electronically signed by: Jeffery Sofia M.D. 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: Procedure Note Donotuseinterpreter, Image - 03/14/[address] [address] [address] Scan Report Signed Patient: Connie Valdez AMR#: [id number] : 1980Acct:[id number] Age/Sex: 44 / FADM Date: 03/13/25 Loc: HO.ED Attending Dr: Ordering Physician: Ginny Griffiths PA-C Date of Service: 03/14/25 Procedure(s): CT abdomen pelvis w IV con Accession Number(s): [id number] cc: Morteza Chaudhary MD; Ginny Griffiths PA-C Report Number: [id number]: Total DLP = 409.00 mGy-cm CLINICAL HISTORY: diffusely tender abdomen CT ABDOMEN AND PELVIS WITH CONTRAST COMPARISON: 10/24/2024. FINDINGS: Images of the lung bases demonstrate no acute infiltrate or pleural effusion. Breast implants are noted. Deformity of the right breast implant is partially visualized on axial image 1. No focal liver lesion. Focal fatty infiltration is noted adjacent to the falciform ligament and gallbladder fossa. No visible gallstone. No pericholecystic inflammation. Stomach is underdistended which precludes accurate assessment. Duodenal diverticula are again noted. No CT evidence of acute pancreatitis. Spleen is unremarkable. Thickening of the right adrenal gland is again noted. Thickening/nodularity of the left adrenal gland is again noted. Some contrast is noted within the proximal renal collecting systems, limiting assessment. Subcentimeter low-attenuation lesion in the left kidney is too small to characterize. Both kidneys are otherwise unremarkable. No hydronephrosis. Urinary bladder is unremarkable. Approximately 4.1 cm subserosal fibroid arises from the right aspect of the uterine body and does not appear to be significantly changed. Follicle in the left ovary measures 1.7 cm on axial image 566 of series 4. There is a tiny amount of pelvic free fluid, likely physiologic. Abdominal aorta is normal in caliber without evidence of an aneurysm or dissection. No evidence of a bowel obstruction or free air. Portions of the colon are underdistended which limits assessment. No pericolonic inflammation. Colonic diverticula are noted without evidence of acute diverticulitis. Post appendectomy changes are noted. No lymphadenopathy or loculated fluid collection. No evidence of a bowel containing hernia. Tiny fat containing umbilical hernia is again noted. Bone windows demonstrate no acute abnormalities. Mild degenerative changes are noted in the bilateral hips. IMPRESSION: 1. Unremarkable CT abdomen/pelvis. This document has been electronically signed by: Jeffery Sofia M.D. 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: [facility] External Provider IMG CT PROCEDURES Final Result * (ABNORMAL) CBC auto differential (02/06/2025 8:51 AM EDT) White Blood Count 5.1 4.8 - 10.8 X10*3/uL [facility] Red Blood Count 3.65(L) 4.20 - 5.50 X10*6/uL [facility] Hemoglobin 11.3(L) 12.0 - 16.0 g/dl [facility] Hematocrit 33.4(L) 37.0 - 47.0 % [facility] Mean Corpuscular Volume 91.5 80.0 - 98.0 fL [facility] Mean Corpuscular Hemoglobin 31.0 27.0 - 33.0 pg [facility] Mean Corpuscular HGB Conc 33.8 31.0 - 35.0 g/dl [facility] Red Cell Distribution Width 12.6 11.0 - 16.0 % [facility] Platelet Count 181 160 - 400 X10*3/uL [facility] Mean Platelet Volume 9.7 9.4 - 12.3 fL [facility] Neutrophils Percent Auto 49.2 45 - 73 % [facility] Imm Gran Pct Auto 0.0 0.0 - 0.4 % [facility] Lymphocytes Percent Auto 30.0 20 - 40 % [facility] Monocytes Percent Auto 5.8 2 - 11 % [facility] Eosinophils Percent Auto 13.8(H) 0 - 4 % [facility] Basophils Percent Auto 1.2 0 - 2 % [facility] NRBC Pct Auto 0.0 0.0 - 0.2 /100WBC [facility] Neutrophils Absolute Auto 2.5 2.0 - 8.3 x10*3/uL [facility] Imm Gran Abs Auto 0.00 0.00 - 0.03 X10*3/uL [facility] Lymphocytes Absolute Auto 1.5 1.2 - 4.9 X10*3/uL [facility] Monocytes Absolute Auto 0.3 0.1 - 1.2 X10*3/uL [facility] Eosinophils Absolute Auto 0.7(H) 0.0 - 0.4 X10*3/uL [facility] Basophils Absolute Auto 0.1 0.0 - 0.2 X10*3/uL [facility] NRBC Abs Auto 0.000 0.0 - 0.012 X10*3/uL [facility] 02/06/2025 8:51 AM EDT 02/06/2025 8:53 AM EDT us Generic External Data Provider LAB BLOOD ORDERAB LES Final Result [facility] [address] [place] [address] [phone] * (ABNORMAL) Comprehensive Metabolic Panel (02/06/2025 8:51 AM EDT) Sodium 140 135 - 145 mmol/L [facility] Potassium 4.3 3.3 - 5.1 mmol/L [facility] Chloride 114(H) 96 - 108 mmol/L [facility] Carbon Dioxide 23 22 - 29 mmol/L [facility] Anion Gap 7(L) 12 - 20 [facility] Urea Nitrogen (BUN) 16 9 - 16 mg/dL [facility] Creatinine, Serum 1.25 0.5 - 1.4 mg/dL [facility] Creatinine Clr Calc Pharmacy 52.9 [facility] Comment:Provided height and weight: 160.02 cm,65.771 kg.eGFR (calculated from the MDRD study equation) and eCrCl(calculated from the Cockcroft-Gault equation) are based ondifferent parameters and may not yield comparable results.If eCrCl result is absurd, please check patient'sheight/weight. Estimated Glomerular Filt Rate 47 [facility] Comment:Chronic Kidney Disea se: Estimated GFR < 60 mL/min/1.32f8Bcpnho Kidney Disease: Estimated GFR < 15 mL/min/1.73m2 Glucose 84 60 - 115 mg/dL [facility] Calcium 8.1(L) 8.4 - 10.2 mg/dL [facility] Bilirubin, Total 0.1 0.0 - 1.0 mg/dL [facility] Aspartate Amino Transferase 25 5 - 31 U/L [facility] Alanine Aminotransferase 20 0 - 31 U/L [facility] Total Protein 5.5(L) 6.5 - 8.0 g/dL [facility] Albumin Level 3.6 3.5 - 5.0 g/dL [facility] Alkaline Phosphatase 51 39 - 117 U/L [facility] 02/06/2025 8:51 AM EDT 02/06/2025 8:53 AM EDT us Generic External Data Provider LAB BLOOD ORDERAB LES Final Result [facility] [address] [place] [phone] * XR Hips Bilateral with Pelvis 1 view (01/31/2025 10:20 AM EDT) Anatomical Region Laterality Modality Lower Extremities, Hip Bilateral Radiograp hic Imaging 01/31/2025 10:2 0 AM EDT Narrative 01/31/2025 10:42 AM EDT [address] [address] XRay Report Signed Patient: Connie Valdez MR#: [id number] : 1980 Acct:[id number] Age/Sex: 44 / F ADM Date: 01/31/25 Loc: HO.ED Attending Dr: Ordering Physician: Mimi Ayers NP Date of Service: 01/31/25 Procedure(s): XR hip BI w PEL1V Accession Number(s): [id number] cc: MANI MOJICA MD; Mimi Ayers NP EXAMINATION: XR BILATERAL HIPS WITH AP PELVIS CLINICAL INFORMATION: known OA, worsening pain COMPARISON: 04/02/2024. TECHNIQUE: AP view of the pelvis and 2 views of each hip were obtained. FINDINGS: No fracture, dislocation, or suspicious bone lesion. Pelvis is intact. The sacrum and SI joints appear normal. The lower lumbar spine appears normal. Right hip demonstrates normal alignment. There is mild to moderate osteoarthrosis present with mild joint space narrowing, subchondral sclerosis and mild cystic changes. There are small subcapital osteophytes present. Normal femoral head contour. No evidence of AVN. Left hip demonstrates normal alignment. There is mild osteoarthrosis present. Normal femoral head contour. No evidence of AVN. No soft tissue abnormalities. XR/XR hip BI w PEL1V IMPRESSION: 1. No acute bony abnormalities. 2. Mild to moderate right and mild left hip joint osteoarthrosis. No significant progression from 04/02/2024. 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 TECHNIQUE: AP view of the pelvis and 2 views of each hip were obtained. FINDINGS: No fracture, dislocation, or suspicious bone lesion. Pelvis is intact. The sacrum and SI joints appear normal. The lower lumbar spine appears normal. Right hip demonstrates normal alignment. There is mild to moderate osteoarthrosis present with mild joint space narrowing, subchondral sclerosis and mild cystic changes. There are small subcapital osteophytes present. Normal femoral head contour. No evidence of AVN. Left hip demonstrates normal alignment. There is mild osteoarthrosis present. Normal femoral head contour. No evidence of AVN. No soft tissue abnormalities. XR/XR hip BI w PEL1V IMPRESSION: 1. No acute bony abnormalities. 2. Mild to moderate right and mild left hip joint osteoarthrosis. No significant progression from 04/02/2024. 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
--- OUTSIDE RECORDS SUMMARY | 2025-04-11 09:03 | XMS_ITS | Encounter Summary ---
Author Organization [employer] Address [address] [place] [address] Care Team Providers Care Utility Worker [employer] Name Role Phone Morteza Chaudhary MD Primary Care Prov ider Patrick Palacios RN Unavailable [phone] Camron Palacios Unavailable Reason for Visit * Reason Comments Med Refill Encounter Details Date Type Department Care Team ([facility] st Contact Info) Description 02/14/2025 Refill [facility] [address] [place] [address] Morteza Chaudhary MD [address] [place], [place] [phone] Social History Tobacco Use Types Packs/Day Years [...] your housing situation today? I have bethanie power 11/04/[address] you li ve. Do you have problems with any of the following? None of the above 11/04/2024 Food Insecurity Answer Date Recorded Within the past 12 months, y ou worried that your food would run out before you got money to buy more: Never True 11/04/2024 Within the past 12 months,th e food you bought just didn't last and you didn't have enough money to get more: Never True Transportation Answer Date Recorded In the past 12 months, has l ack of transportation kept you from medical appts, meetings, work or from getting things needed for daily living? No 11/04/2024 Utilities Answer Date Recorded In the past [...] PM EDT documented as of this encounter Plan of Treatment Not on file documented as of this encounter Visit Diagnoses Not on filedocumented in this encounter Additional Health Concerns Assessment Noted Time PHQ-9 Depression Total Score: 18 025 8:44 AM EDT documented as of this encounter Care Teams Utility Worker [employer] Relationship Specialty Start Date End Date Morteza Chaudhary MD [address] [place] [address] PCP - General Internal Medicine 11/04/24 Patrick Palacios RN [address] [place] [address] Registered Nurse Family Medicine 03/14/25 Camron Palacios 03/14/25 documented as of this encounter
--- OUTSIDE RECORDS SUMMARY | 2025-04-11 09:03 | XMS_ITS | Patient Health Record ---
Author Organization [facility] Address [address] [place] [address] Care Team Providers Care Section Hand Helper Name Role Phone Vikki Spicer Primary Care Provider Jessie Ferrera Unavailable [phone] [facility], Nursing Unavailable [phone] Allergies Allergen (clinical drug ingredient) Drug/Non Drug Allergy documented on EMR Reaction Allergy Type Onset Date Status Shellfish shellfish (uncoded) Unknown Allergy Active keflex (uncoded) anaphylaxis Allergy A ctive Reason For Referral No Information Medications Medication SIG (Take, Route, Frequency, Duration) [...] (at bedtime) Not-Taking diclofenac topical 3% 1 amanda applied topically [...] Status Risk Notes Problem Chronic hepatitis C (344327194) Chronic viral hepatitis C (B18.2) Active confirmed Problem Hypothyroidism (70510391) Hypothyroidism, unspecified (E03.9) Active confirmed Problem Overweight (238435868) Overweight (E66.3) Active confirmed Problem Tobacco user (883755480) Nicotine dependence, cigarettes, uncomplicated (F17.210) Active confirmed Problem Anxiety disorder (529107895) Anxiety disorder, unspecified (F41.9) Active confirmed Problem Insomnia (198918122) Insomnia, unspecified (G47.00) Active confirmed Problem Gastro-esophageal reflux disease without esophagitis (935659982) Gastro-esophagea l reflux disease without esophagitis (K21.9) Active confirmed Problem Localized, primary osteoarthritis of the pelvic region and thigh (478307646) Unilateral primary osteoarthritis, left hip (M16.12) Active confirmed Problem Pain of left knee joint (finding) (672721875857050) Pain in left knee (M25.562) Active confirmed Problem Fibromyalgia (159553629) Fibromyalgia (M79.7) Active confirmed Problem Abnormal uterine bleeding (25819924024344) Abnormal uterine and vaginal bleeding, unspecified (N93.9) Active confirmed Problem Seizure (09030548) Unspecified convulsions (R56.9) Active confirmed Problem Nondependent opioid abuse in remission (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) Opioid abuse, in remission (F11.11) Active confirmed Problem Headache (75245795) Headache, unspecified (R51.9) Active confirmed Problem Unsheltered homelessness (842021252587928) Unsheltered homelessness (Z59.02) Active confirmed Problem Pain of knee region (finding) (4106028391) Pain in unspecified knee (M25.569) Inactive confirmed Encounters Encounter Location Date Provider Diagnosis [address] [address] 04/18/2024 Eddieliza Casionan Anxiety disorder, unspecified F41.[address] [address] 04/22/2024 Eddieliza Casionan Anxiety disorder, unspecified F41.[address] [address] 05/16/2024 Eddieliza Casionan Unspecified convulsions R56.9 ; Hypothyroidism, unspecified E03.9 and Gastro-esophageal reflux disease without esophagitis K21.9 Assessments Encounter Date Diagnosis (ICD Code) Assessment Notes Treatment Notes Treatment Clinical Notes Section Notes 04/18/2024 Anxiety disorder, unspecified (ICD-10 - F41.9) 04/22/2024 Anxiety disorder, unspecified (ICD-10 - F41.9) 05/16/2024 Unspecified convulsions (ICD-10 - R56.9) 05/16/2024 Hypothyroidism, unspecified (ICD-10 - E03.9) 05/16/2024 Gastro-esophagea l reflux disease without esophagitis (ICD-10 - K21.9) 05/07/2024 Other 05/14/2024 Other 05/22/2024 Other Plan Of Treatment Pending Test Test Name Order Date Homero Screening Digital 02/15/2024 HEPATITIS A,B,C PROFILE 02/15/2024 Insurance Providers Payer Name Payer Address Payer Phone Subscriber Number Group Number Insured Name Patient Relationship to Insured Coverage Start Date Coverage End Date [place] Medicaid C3 [address] [place], [place] [id number] Isela ling Connie Self - patient is the insured [...] Hospitalization History Reason Date(Month/Year) Psych admit - [facility] 2023 Multiple psych admits when younger detox x 2 - [facility] stomach issues? 01/2024
--- OUTSIDE RECORDS SUMMARY | 2025-04-11 09:03 | XMS_ITS ---
Author Organization [employer] Address [address] [place] [address] Care Team Providers Care Solar Installation Foreman Name Role Phone Morteza Chaudhary MD Primary Care Prov ider Patrick Palacios RN Unavailable [phone] Camron Palacios Unavailable [facility] Status:Outreach In Progress (Enrolling) Start date:03/14/2025 Enrollment reason:ADT Feed Overview ED- Pt went to [facility] ED on 03/13/25 Please outreach for enrollment. Case Team Name Relationship Phone Camron Palacios(Responsible Staff) [phone] Continued Care and Services Coordination
--- OUTSIDE RECORDS SUMMARY | 2025-04-11 09:03 | XMS_ITS | Encounter Summary ---
Author Organization [employer] Address [address] [place] [address] Care Team Providers Care Rivet Catcher Name Role Phone Morteza Chaudhary MD Primary Care Prov ider Patrick Palacios RN Unavailable Camron Palacios Unavailable Reason for Visit * Reason Comments Med Refill Encounter Details Date Type Department Care Team ([facility] st Contact Info) Description 02/28/[address] [facility] [address] [place] [address] Morteza Chaudhary MD [address] [place], [place] [phone] Social History Tobacco Use Types Packs/Day Years [...] documented as of this encounter Care Teams Rivet Catcher Relationship Specialty Start Date End Date Morteza Chaudhary MD [address] [place] [address] PCP - General Internal Medicine 11/04/24 Patrick Palacios RN [address] [place] [address] Registered Nurse Family Medicine 03/14/25 Camron Palacios 03/14/25 documented as of this encounter
--- OUTSIDE RECORDS SUMMARY | 2025-04-11 09:03 | XMS_ITS | Encounter Summary ---
Author Organization [employer] Address [address] [place] [address] Care Team Providers Care District Manager Major Accounts Sales Name Role Phone Morteza Chaudhary MD Primary Care Prov ider Patrick Palacios RN Unavailable [phone] Camron Palacios Unavailable Reason for Visit * Reason Onset Date Comments Med Refill 03/25/2025 Encounter Details Date Type Department Care Team ([facility] st Contact Info) Description 03/25/2025 Telephone [facility] [address] [place], [place] [phone] Morteza Chaudhary MD [address] [place], [place] [phone] Med Refill Social History Tobacco Use Types Packs/Day Years [...] PM EDT documented as of this encounter Miscellaneous Notes * Telephone Encounter - Sobeida Gamboa LPN - 03/25/2025 9:47 AM EDT Medication to soon for refill script was sent to [facility] #[id number] on 02/12/25 90 day supply. * Telephone Encounter - Evelyn Brantley - 03/25/2025 9:44 AM EDT TC from pt requesting medication refill. Medications needing refill : levETIRAcetam (Keppra) 750 MG tablet To be sent to: [id number] - [place]UZ [address] [facility] Pt stated has upcoming appointment with neurologist documented in this encounter Plan of Treatment Not on file documented as of this encounter Visit Diagnoses Not on filedocumented in this encounter Additional Health Concerns Assessment Noted Time PHQ-9 Depression Total Score: 18 025 8:44 AM EDT documented as of this encounter Care Teams District Manager Major Accounts Sales Relationship Specialty Start Date End Date Morteza Chaudhary MD [address] [place] [address] PCP - General Internal Medicine 11/04/24 Patrick Palacios RN [address] [place] [address] Registered Nurse Family Medicine 03/14/25 Camron Palacios 03/14/25 documented as of this encounter
--- OUTSIDE RECORDS SUMMARY | 2025-04-11 09:03 | XMS_ITS | Encounter Summary ---
Author Organization [employer] Address [address] [place] [address] Care Team Providers Care Residential Instructor Name Role Phone Morteza Chaudhary MD Primary Care Prov ider Patrick Palacios RN Unavailable [phone] Camron Palacios Unavailable Reason for Visit * Reason Comments Med Refill Encounter Details Date Type Department Care Team ([facility] st Contact Info) Description 04/08/2025 Refill [facility] [address] [place], [place] [phone] Morteza Chaudhary MD [address] [place], [place] [phone] Social History Tobacco Use Types Packs/Day Years [...] documented as of this encounter Care Teams Residential Instructor Relationship Specialty Start Date End Date Morteza Chaudhary MD [address] [place] [address] PCP - General Internal Medicine 11/04/24 Patrick Palacios RN [address] [place] [address] Registered Nurse Family Medicine 03/14/25 Camron Palacios 03/14/25 documented as of this encounter
--- OUTSIDE RECORDS SUMMARY | 2025-04-11 09:03 | XMS_ITS | Encounter Summary ---
Author Organization [employer] Address [address] [place] [address] Care Team Providers Care Sales Representative Printing Paper Name Role Phone Morteza Chaudhary MD Primary Care Prov ider Patrick Palacios RN Unavailable [phone] Camron Palacios Unavailable Reason for Visit * Reason Comments Med Refill Encounter Details Date Type Department Care Team (Late st Contact Info) Description 01/16/2025 Refill [facility] [address] [place], [place] [phone] Mani Mojica MD [address] [place], [place] [phone] Social History Tobacco Use Types Packs/Day Years [...] documented as of this encounter Care Teams Sales Representative Printing Paper Relationship Specialty Start Date End Date MorganMorteza Orosco MD [address] [place] [address] PCP - General Internal Medicine 11/04/24 Patrick Palacios RN [address] [place] [address] Registered Nurse Family Medicine 03/14/25 Camron Palacios 03/14/25 documented as of this encounter
[2025-04-11 09:27] VITALS: BP 149/67; PULSE 64; RESP 13; TEMP 37.2; O2SAT 99
[2025-04-11 09:48] VITALS: BP 142/85; PULSE 65
--- NOTE | 2025-04-11 09:48 | PC.NURSE ---
Pt reports headache feels worse . MARNIE notified and at bedside, plans for pt to go to CT..
[2025-04-11 09:53] LABS: Alanine Aminotransferase 31 U/L (0-31); Albumin Level 4.5 g/dL (3.5-5.0); Alkaline Phosphatase 48 U/L (39-117); Anion Gap 12 (12-20); Aspartate Amino Transferase 31 U/L (5-31); Blood Urea Nitrogen 11 mg/dL (9-16); Calcium 9.1 mg/dL (8.4-10.2); Carbon Dioxide 25 mmol/L (22-29); Chloride 107 mmol/L (96-108); Creatinine Clr Calc Pharmacy 70.0; Estimated Glomerular Filt Rate > 60; Magnesium 1.9 mg/dL (1.6-2.6); Potassium 3.7 mmol/L (3.3-5.1); Sodium 140 mmol/L (135-145); Total Protein 6.9 g/dL (6.5-8.0)
[2025-04-11 11:35] VITALS: BP 113/76; PULSE 92; RESP 18; TEMP 36.6; O2SAT 98
[2025-04-11 11:36] VITALS: BP 113/76; PULSE 92; RESP 18; TEMP 36.6; O2SAT 98
== END 2025-04-11 11:39 | disposition home or self-care (01) ==
PROVIDERS: Emergency Provider Emergency Medicine
DX: G43.909 Migraine, unspecified, not intractable, without status migrainosus (principal); R11.2 Nausea with vomiting, unspecified; N18.30 Chronic kidney disease, stage 3 unspecified; Z79.899 Other long term (current) drug therapy
CPT/HCPCS: 36415; 70450; 80053; 81003; 83735; 85025; 87502; 87635; 96361; 96372; 96374; 96375; 99284; J1200; J2765; J3030; J7120

== ENCOUNTER → 2025-04-11 09:50 | Outpatient (BNV) | payer MEDICAID, SELFPAY | PROVIDERS: Emergency Provider Emergency Medicine; Visit Provider Radiology Diagnostic Radiology | DX: R51.9 Headache, unspecified (principal) | CPT/HCPCS: 70450 ==

== ENCOUNTER 2025-04-15 07:59 | Observation (INO) | payer MEDICAID, SELFPAY ==
--- OUTSIDE RECORDS SUMMARY | 2024-04-24 07:45 | XMS_ITS ---
Author Organization [facility] Address [address] [place] [address] Care Team Providers Care Hoistman Name Role Phone Vikki Spicer Primary Care Provider REASON FOR VISIT Office: [facility] paperwork Medications Medication SIG (Take, [...] Active Encounters Encounter Location Date Provider Diagnosis [address] [address] 04/24/2024 Vikki Spicer Chronic viral hepatitis C [...] * Bello YUNGOB: [birth year] (44 yo F)Acc No.[id number]:04/24/2024 Progress Notes Patient: Claudia ESTRELLA Connie Provider: NIKOS Saunders :1980 A ge:43 Y S ex:Female Date:04/24/2024 Address:[address] [place] [address] Subjective: * Chief Complaints: * 1 . Office: [facility] paperwork. * Medical History: * [...] * Electronic signature of Zaire Spicer on 04/15/2025 at 09:22 AM EDT Sign off status: Pending * Provider: NIKOS Saunders Date: 04/24/2024 Generated for Marilin johnson/Olivia/Beni on: 04/15/2025 09:22 AM EDT
--- OUTSIDE RECORDS SUMMARY | 2024-05-07 06:00 | XMS_ITS ---
Author Organization [facility] Address [address] [place] [address] Care Team Providers Care Graduate Teaching Assistant Name Role Phone Vikki Spicer Primary Care Provider [phone] REASON FOR VISIT [facility] paperwork Encounters Encounter Location Date Provider Diagnosis [facility] [address] [place], [place] [phone] 05/07/2024 Vikki Spicer Encounter for screening for [...] * Bello YUNGOB: [birth year] (44 yo F)Acc No.[id number]:05/07/2024 Progress Notes Patient: Connie MENDEZ Provider: NIKOS Saunders :1980 A ge:43 Y S ex:Female Date:05/07/2024 Address:[address] [place] [address] Subjective: * Chief Complaints: * 1 . [facility] paperwork. * HPI: G eneral: Symptom Screen: [...] signature of Zaire Spicer on 04/15/2025 at 09:23 AM EDT Sign off status: Pending * Provider: NIKOS Saunders Date: 1 Generated for Marilin johnson/Olivia/Royasmedmund on: 0 04/15/2025 09:23 AM EDT
--- OUTSIDE RECORDS SUMMARY | 2024-05-14 10:00 | XMS_ITS ---
Author Organization [facility] Address [address] [place] [address] Care Team Providers Care Cover Machine Operator Name Role Phone Vikki Spicer Primary Care Provider [phone] Jessie Ferrera Unavailable [phone] REASON FOR VISIT BH: initial intake, Symptom screening by [facility] staff pre entrance to clinic Encounters Encounter Location Date Provider Diagnosis [facility] [address] [place] [address] 05/14/2024 Jessie Ferrera Encounter for screening for [...] * Bello YUNGOB: [birth year] (44 yo F)Acc No.[id number]:05/14/2024 Progress Notes Patient: Connie MENDEZ Provider: DANIEL MooreHNP-BC :1980 A ge:43 Y S ex:Female Date:05/14/2024 Address:[address] [place], [place] [phone] Pcp:Vikki Spicer Subjective: * Chief Complaints: * [...] Mg Caps ule 60 30 Ed Jered [id number] Wal ( 05) 0/0 2.01 LMET Medicai d [place] .? Assessment: * Assessment: 1. E ncounter for screening for COVID-19 - Z11.52 (Primary) Plan: * Treatment: * Images: Billing Information: * Visit Code: * Procedure Codes: Care Plan Details* * Electronic signature of JENNIFER Corrales on 04/15/2025 at 09:22 AM EDT Sign off status: Pending * Provider: Evangelista Ferrera PMHNP-BC Date: 1 Generated for Marilin johnson/Olivia/Javyitting on: 0 04/15/2025 09:22 AM EDT History and Physical Notes * Examination Category Sub-Category Detail Notes Category Not es Psychiatry Assessment Filled Written S old ID Drug QTY Days Prescriber RX # Dispenser Refill Daily Dose* Pymt Type HEALTH CENTER ASSISTANT //70037Kruvpjouix 150 Mg [id number] (2605) [place]icaid[place]
--- OUTSIDE RECORDS SUMMARY | 2024-05-22 07:00 | XMS_ITS ---
Author Organization [facility] Address [address] [place] [address] Care Team Providers Care Water Quality Analyst Name Role Phone Vikki Spicer Primary Care Provider [phone] [facility], Nursing Unavailable [phone] Medications Medication SIG (Take, Route, Frequency, Duration) [...] Not-Taking Encounters Encounter Location Date Provider Diagnosis [facility] [address] [place] [address] 05/22/[address] [facility] Encounter for screening for COVID-19 Z11.52 Assessments [...] * Bello YUNGOB: [birth year] (44 yo F)Acc No.[id number]:05/22/2024 Progress Notes Patient: Claudia Connie DE LA ROSA Provider: Chavez giles [facility] :1980 A ge:43 Y S ex:Female Date:05/22/2024 Address:[address] [place], [place] [phone] Pcp:Vikki Spicer Subjective: * Chief Complaints: * [...] Codes: * Electronic signature of Buck jain [facility] on 04/15/2025 at 09:23 AM EDT Sign off status: Pending * Provider: Chavez giles [facility] Date: 1 Generated for Marilin johnson/Olivia/Beni on: 0 04/15/2025 09:23 AM EDT
[2025-04-15] VITALS (10 sets, daily range): BP systolic 115–158; BP diastolic 73–97; PULSE 65–100; RESP 14–20; TEMP 36.1–36.9; O2SAT 92–100; BMI 27.1; BMI 27.3
--- NOTE | 2025-04-15 08:04 | ECG_ITS ---
Test Reason : chest pain Blood Pressure : */* mmHG Vent. Rate : 71 BPM Atrial Rate : 71 BPM P-R Int : 114 ms QRS Dur : 72 ms QT Int : 386 ms P-R-T Axes : 55 78 64 degrees QTcB Int : 419 ms Sinus rhythm with marked sinus arrhythmia Nonspecific T wave abnormality Abnormal ECG When compared with ECG of 13-Mar-2025 19:35, No significant change was found Referred By: Mimi Ayers Electronically Signed By: CITLALI SU MD
--- NOTE | 2025-04-15 08:16 | ED.GENADULT ---
HPI - General Adult General Chief complaint: Nausea/Vomiting/Diarrhea Stated complaint: ABD AND CHEST PAIN Time Seen by Provider: 04/15/25 08:04 Source: patient, EMS, RN notes reviewed and old records reviewed Mode of arrival: EMS Limitations: no limitations History of Present Illness ED Provider: Andria HPI narrative: Patient is a 44-year-old female with history of hepatitis-C, CKD stage 3, seizures, hypothyroidism, gastric ulcers diagnosed few years ago, GERD, cyclical vomiting, opiate dependence on suboxone presenting to the emergency department with complaint of epigastric and chest pain, nausea and vomiting for the past week. Seen here on 04/11, states symptoms have not improved or resolved since. Reports significant anxiety about her symptoms. States has not been able to tolerate fluids. Denies hematemesis, hematochezia, melena. Denies fevers. Related Data Previous Rx's ?Medication ?Instructions ?Recorded cyclobenzaprine 10 mg tablet 10 mg PO TID PRN muscle spasm #14 04/02/24 tabs ibuprofen 600 mg tablet 600 mg PO Q8H PRN pain #14 tabs 04/02/24 lidocaine 5 % topical patch 1 patch topical DAILY #15 ea 04/02/24 cyclobenzaprine 10 mg tablet 10 mg PO TID PRN muscle spasm #10 08/14/24 tabs levetiracetam 750 mg tablet 750 mg PO BID 30 days #60 tabs 08/14/24 levothyroxine 25 mcg capsule 25 mcg PO DAILY #30 caps 08/14/24 lidocaine 5 % topical patch 1 patch topical DAILY #30 ea 08/14/24 pantoprazole 40 mg tablet,delayed 40 mg PO DAILY #30 tabs 08/14/24 release promethazine 12.5 mg tablet 12.5 mg PO Q6H PRN nausea and 08/14/24 vomiting #30 tabs amoxicillin 875 mg-potassium 1 tab PO BID #14 tabs 01/31/25 clavulanate 125 mg tablet diclofenac sodium 1 % topical gel 4 g topical QID #50 grams 01/31/25 levetiracetam 750 mg tablet 750 mg PO BID #14 tabs 01/31/25 acetaminophen 300 mg-codeine 30 mg 1 tab PO Q8H PRN pain (scale score 02/06/25 tablet 7-10) #9 tabs clindamycin HCl 150 mg capsule 450 mg (3 x 150 mg) PO Q8H 7 days 02/06/25 (Cleocin HCl) #63 caps acetaminophen 500 mg capsule 1,000 mg (2 x 500 mg) PO .q8 PRN 03/14/25 fever or pain #30 caps ibuprofen 600 mg tablet 600 mg PO Q8H PRN fever or pain 03/14/25 #30 tabs ondansetron 4 mg disintegrating 4 mg PO Q8H PRN nausea and 03/14/25 tablet vomiting #14 tabs sumatriptan succinate 50 mg tablet 50 mg PO Q2-4H PRN migraine 04/11/25 headache #16 tabs Allergies Allergy/AdvReac Type Severity Reaction Status Date / Time cephalexin (From Keflex) Allergy Anaphylaxis Verified 04/15/25 08:14 sulfamethoxazole (From Allergy Anaphylaxis Verified 04/15/25 08:14 Bactrim) trimethoprim (From Bactrim) Allergy Anaphylaxis Verified 04/15/25 08:14 acetaminophen (From Vicodin) AdvReac Nausea and Verified 04/15/25 08:14 Vomiting hydrocodone (From Vicodin) AdvReac Nausea and Verified 04/15/25 08:14 Vomiting Review of Systems Review of Systems: as per hpi Yes all other systems are reviewed and are negative Constitutional: Constitutional: Reports as per HPI [facility] Social History Social History Unable to assess alcohol history related to: Unknown Smoked in Last 30 Days: Yes Substance Use Type: Marijuana Advance Directives: Yes Advance Directives Information Provided: Yes Advance Directives on File: No Physical Exam ED Vital Signs: Vital Signs - 24 hr 04/15/25 08:11 04/15/25 08:23 04/15/25 10:00 Temperature 97.0 F Pulse Rate 81 65 81 Respiratory Rate 20 20 18 Blood Pressure 131/90 H 150/94 H 158/97 H Pulse Oximetry 98 100 98 Oxygen Delivery Method Room Air Room Air Room Air BMI result Body Mass Index 27.1 Vital signs have been reviewed and appear to be correct. Blood pressure normal. Heart rate normal. Respiratory rate normal. Temperature normal. Oxygen saturation normal. Const General: cooperative and no acute distress Nutritional Appearance: average body habitus Orientation/consciousness: oriented to person, oriented to place, oriented to time and patient oriented x3 HENMT Head: Yes normocephalic and Yes atraumatic Ears: external ears normal General nose exam: Normal external nose present Face and sinus: Yes face symmetric Mouth: oropharynx normal and moist mucous membranes Throat: Yes uvula midline Eyes Pupils: Equal, round and reactive pupils present Neck Neck: Yes normal visual inspection and Yes supple Resp Effort & Inspection: normal respiratory effort and able to speak in complete sentences Auscultation: clear to auscultation bilaterally Cardio Rate: regular rate Rhythm: regular rhythm Heart sounds: S1 normal heart sound present and S2 normal heart sound present GI Palpation (GI): Soft to palpation, Tenderness to palpation present (GI) in the epigastrum, no guarding and No Rebound tenderness present Auscultation: normoactive bowel sounds General: Yes no CVA tenderness Back/Spine/Pelvis Back: no CVA tenderness Skin General skin exam: elasticity normal and turgor normal Neuro General: oriented to person, oriented to place, oriented to time, patient oriented x3, moves all extremities, no focal motor deficits and CN's II-XI intact bilaterally Cranial nerves: Yes Equal, round and reactive pupils present Cognition (Neuro): normal cognition Extrem General: Yes full ROM, Yes no pedal edema and Yes no calf tenderness Psych Mental Status: mental status grossly normal Affect: normal affect Thought process: Normal thought process present Medications Administered Discontinued Medications Generic Name Dose Route Start Last Admin Trade Name Xavierq PRN Reason Stop Dose Admin Diazepam 5 mg 04/15/25 10:16 04/15/25 10:25 Diazepam 10 Mg/2 Ml Cartridge IVPUSH 04/15/25 10:17 5 mg STAT STA Administration Diphenhydramine HCl 25 mg 04/15/25 13:05 04/15/25 13:16 Diphenhydramine Hcl 50 Mg/Ml Vial IVPUSH 04/15/25 13:06 25 mg ONCE ONE Administration Droperidol 0.625 mg 04/15/25 08:47 04/15/25 09:29 Droperidol 5 Mg/2 Ml Vial IVPUSH 04/15/25 08:48 0.625 mg ONCE ONE Administration Sodium Chloride 500 mls @ 999 mls/hr 04/15/25 09:00 04/15/25 10:30 Ns IV 04/15/25 09:30 Infused .Q31M CHRIS Infusion Prochlorperazine Edisylate 10 mg 04/15/25 12:05 04/15/25 12:28 Prochlorperazine Edisylate 10 Mg/2 Ml Vial IVPUSH 04/15/25 12:06 10 mg ONCE ONE Administration Medical Decision Making Medical Decision Making [facility] Narrative: Patient is a 44-year-old female with past medical history of hepatitis-C, CKD stage 3, seizures, hypothyroidism, gastric ulcers diagnosed few years ago, GERD, cyclical vomiting, opiate dependence on suboxone presenting to the emergency department with complaint of epigastric and chest pain, nausea and vomiting for the past week. On exam patient is awake, A+Ox3, VS WNL, afebrile, normal neurological exam without focal deficits, physical exam findings as above. Given reported symptoms and physical exam findings, initial differential includes but is not limited to PUD, gastritis, GERD, cyclical vomiting, electrolyte abnormality, dehydration. Less likely ACS given nature and ongoing time of symptoms. EKG shows sinus rhythm with sinus arrhythmia. Labs notable for slight leukocytosis, no anemia, no significant electrolyte abnormalities, no evidence of NAWAF, negative troponin, negative HCG. Notified by RN that patient complains of ongoing nausea and is still dry heaving after droperidol, will try Valium. RN reporting that patient continues to have nausea and dry heaving despite treatment with droperidol and Valium. Will try Compazine. Notified by nursing that patient now complaining of tongue feeling swollen after receiving compazine. IV Benadryl ordered, possible mild tongue swelling noted, no uvula edema, no lip edema, patient managing secretions without difficulty but still complains of ongoing nausea as well. Case discussed with Dr. Inman who accepts admission to medicine for intractable vomiting. Differential Diagnosis Differential Diagnoses: The differential diagnosis associated with the presentation includes as per [facility] Admission/Observation Consideration of admission/observation: Escalation of care including admission/observation considered Consult Healthcare Provider Management of the patient was discussed with: Hospitalist Lab Data [facility] Lab Attestation statement: I reviewed the patient's lab results. as per [facility] 04/15/25 08:56 04/15/25 08:56 Labs: Lab Results 04/15/25 04/15/25 Range/Units 08:56 11:08 WBC 11.5 H (4.8-10.8) X10*3/uL RBC 4.84 (4.20-5.50) X10*6/uL Hgb 14.5 (12.0-16.0) g/dl Hct 42.6 (37.0-47.0) % MCV 88.0 (80.0-98.0) fL MCH 30.0 (27.0-33.0) pg MCHC 34.0 (31.0-35.0) g/dl RDW 12.6 (11.0-16.0) % Plt Count 271 (160-400) X10*3/uL MPV 9.5 (9.4-12.3) fL Immature Gran % (Auto) 0.4 (0.0-0.4) % Neut % (Auto) 76.5 H (45-73) % Lymph % (Auto) 15.9 L (20-40) % Collier % (Auto) 3.9 (2-11) % Eos % (Auto) 2.5 (0-4) % Baso % (Auto) 0.8 (0-2) % Lymph # (Auto) 1.8 (1.2-4.9) X10*3/uL Collier # (Auto) 0.5 (0.1-1.2) X10*3/uL Eos # (Auto) 0.3 (0.0-0.4) X10*3/uL Baso # (Auto) 0.1 (0.0-0.2) X10*3/uL Abs Immat Gran (auto) 0.05 H (0.00-0.03) X10*3/uL Absolute Neuts (auto) 8.8 H (2.0-8.3) x10*3/uL Absolute Nucleated RBC 0.000 (0.0-0.012) X10*3/uL Nucleated RBC % (auto) 0.0 (0.0-0.2) /100WBC PT 10.3 L (10.9-12.4) SEC INR 0.9 (0.9-1.1) Sodium 143 (135-145) mmol/L Potassium 3.4 (3.3-5.1) mmol/L Chloride 107 (96-108) mmol/L Carbon Dioxide 26 (22-29) mmol/L Anion Gap 13 (12-20) BUN 16 (9-16) mg/dL Creatinine 1.01 (0.5-1.4) mg/dL Estim Creat Clear Calc 67.1 Estimated GFR 60 Random Glucose 114 (60-115) mg/dL Calcium 9.4 (8.4-10.2) mg/dL Magnesium 2.1 (1.6-2.6) mg/dL Total Bilirubin 0.3 (0.0-1.0) mg/dL AST 25 (5-31) U/L ALT 26 (0-31) U/L Alkaline Phosphatase 67 (39-117) U/L Troponin I High Sens < 2.7 (<3.5-17.0) ng/L Total Protein 7.3 (6.5-8.0) g/dL Albumin 4.7 (3.5-5.0) g/dL Lipase 25 (8-78) U/L Beta HCG, Quant < 2 mIU/mL Urine Color Yellow Urine Appearance Turbid Urine pH 7.5 (5.0-9.0) Ur Specific [place] 1.025 (1.005-1.025) Urine Protein Negative (Neg-Trace) mg/dL Urine Glucose (UA) Negative (Negative) mg/dL Urine Ketones Negative (Negative) mg/dL Urine Blood Negative (Negative) Urine Nitrite Negative (Negative) Ur Leukocyte Esterase Negative (Negative) Urine Opiates Screen Not Detected (Not Detect) Ur Buprenorphine Scrn Positive H (Not Detect) ng/mL Ur Oxycodone Screen Not Detected (Not Detect) ng/mL Urine Methadone Screen Not Detected (Not Detect) ng/mL Urine Fentanyl Screen Not Detected (Not Detect) Ur Barbiturates Screen Not Detected (Not Detect) Ur Phencyclidine Scrn Not Detected (Not Detect) Ur Amphetamines Screen Not Detected (Not Detect) U Benzodiazepines Scrn Not Detected (Not Detect) Urine Cocaine Screen Not Detected (Not Detect) U Marijuana (THC) Screen POSITIVE H (Not Detect) Ethyl Alcohol < 10 mg/dL Independent Interpretation I performed an independent interpretation of an: EKG (sinus rhythm with sinus arrhythmia, rate 71bpm, normal FL interval and QTc, inverted T waves in V2+3) External Record Review External record reviewed: Inpatient record, Office record and Outpatient record Critical Care Time Critical Care Time Critical Care Time: Yes Total Critical Care Time: 47 Attestation: I have personally provided critical care time exclusive of time spent on separately billable procedures. Time includes review of lab data, radiology results, discussion with consultants, and monitoring for potential decompensation. Intervention performed as documented. Discharge Plan Discharge Patient Disposition: Admitted As Inpatient Print Language: Czech
[2025-04-15 08:59] LABS: MANUAL DIFF FLAG NO
[2025-04-15 09:03] LABS: Hematocrit 42.6 % (37.0-47.0); Hemoglobin 14.5 g/dl (12.0-16.0); Imm Gran Abs Auto 0.05 X10*3/uL (0.00-0.03); Imm Gran Pct Auto 0.4 % (0.0-0.4); Lymphocytes Absolute Auto 1.8 X10*3/uL (1.2-4.9); Mean Corpuscular HGB Conc 34.0 g/dl (31.0-35.0); Mean Corpuscular Hemoglobin 30.0 pg (27.0-33.0); Mean Corpuscular Volume 88.0 fL (80.0-98.0); NRBC Abs Auto 0.000 X10*3/uL (0.0-0.012); NRBC Pct Auto 0.0 /100WBC (0.0-0.2); Platelet Count 271 X10*3/uL (160-400); Red Blood Count 4.84 X10*6/uL (4.20-5.50); White Blood Count 11.5 X10*3/uL (4.8-10.8)
[2025-04-15 09:06] LABS: INTERNATIONAL NORM RATIO 0.9 (0.9-1.1); Prothrombin Time 10.3 SEC (10.9-12.4)
[2025-04-15 09:21] LABS: Alanine Aminotransferase 26 U/L (0-31); Albumin Level 4.7 g/dL (3.5-5.0); Alkaline Phosphatase 67 U/L (39-117); Anion Gap 13 (12-20); Aspartate Amino Transferase 25 U/L (5-31); Blood Urea Nitrogen 16 mg/dL (9-16); Calcium 9.4 mg/dL (8.4-10.2); Carbon Dioxide 26 mmol/L (22-29); Chloride 107 mmol/L (96-108); Creatinine Clr Calc Pharmacy 67.1; Estimated Glomerular Filt Rate 60; Lipase 25 U/L (8-78); Magnesium 2.1 mg/dL (1.6-2.6); Potassium 3.4 mmol/L (3.3-5.1); Sodium 143 mmol/L (135-145); Total Protein 7.3 g/dL (6.5-8.0)
[2025-04-15 09:23] LABS: Troponin-I High Sensitivity < 2.7 ng/L (<3.5-17.0)
--- OUTSIDE RECORDS SUMMARY | 2025-04-15 09:23 | XMS_ITS | Encounter Summary ---
Author Organization [employer] Address [address] [place] [address] Care Team Providers Care Naturopathic Physician Name Role Phone Morteza Chaudhary MD Primary Care Prov ider Patrick Palacios RN Unavailable Camron Palacios Unavailable Reason for Visit * Reason Comments Med Refill Encounter Details Date Type Department Care Team ([facility] st Contact Info) Description 02/28/2025 Refill [facility] [address] [place] [address] Morteza Chaudhary MD [address] [place], [place] [phone] Social History Tobacco Use Types Packs/Day Years [...] documented as of this encounter Care Teams Naturopathic Physician Relationship Specialty Start Date End Date Morteza Chaudhary MD [address] [place] [address] PCP - General Internal Medicine 11/04/24 Patrick Palacios RN [address] [place] [address] Registered Nurse Family Medicine 03/14/25 Camron Palacios 03/14/25 documented as of this encounter
--- OUTSIDE RECORDS SUMMARY | 2025-04-15 09:23 | XMS_ITS | Encounter Summary ---
Author Organization [employer] Address [address]t [place] [address] Care Team Providers Care Assembler Production Line Name Role Phone Morteza Chaudhary MD Primary Care Prov ider Patrick Palacios RN Unavailable [phone] Camron Palacios Unavailable Reason for Visit * Reason Onset Date Comments Med Refill 03/25/2025 Encounter Details Date Type Department Care Team ([facility] st Contact Info) Description 03/25/2025 Telephone [facility]ED[facility] [address] [place], [place] [phone] Morteza Chaudhary MD [address] [place], [place] [phone] Med Refill Social History Tobacco Use Types [...] soon for refill script was sent to [id number] on 02/12/25 90 day supply. * Telephone Encounter - Evelyn Brantley - 03/25/2025 9:44 AM EDT TC from pt requesting medication refill. Medications needing refill : levETIRAcetam (Keppra) 750 MG tablet To be sent to: [id number] - [place] CRUZ [address] [facility] Pt stated has upcoming appointment with neurologist documented in this encounter Plan of Treatment Not on file documented as of this encounter Visit Diagnoses Not on filedocumented in this encounter Additional Health Concerns Assessment Noted Time PHQ-9 Depression Total Score: 18 025 8:44 AM EDT documented as of this encounter Care Teams Assembler Production Line Relationship Specialty Start Date End Date Morteza Chaudhary MD [address] [place] [address] PCP - General Internal Medicine 11/04/24 Patrick Palacios RN [address] [place] [address] Registered Nurse Family Medicine 03/14/25 Camron Palacios 03/14/25 documented as of this encounter
--- OUTSIDE RECORDS SUMMARY | 2025-04-15 09:23 | XMS_ITS | Encounter Summary ---
Author Organization [employer] Address [address] [place] [address] Care Team Providers Care Cv/Cvn Cv Tsc System Operator Name Role Phone Morteza Chaudhary MD Primary Care Prov ider Patrick Palacios RN Unavailable [phone] Camron Palacios Unavailable Reason for Visit * Reason Comments Med Refill Encounter Details Date Type Department Care Team ([facility] st Contact Info) Description 04/08/[address] [facility] MED [facility] PEDS [address] [place], [place] [phone] Morteza Chaudhary MD [address] [place], [place] [phone] Social History Tobacco Use Types Packs/Day Years [...] documented as of this encounter Care Teams Cv/Cvn Cv Tsc System Operator Relationship Specialty Start Date End Date Morteza Chaudhary MD [address] [place] [address] PCP - General Internal Medicine 11/04/24 Patrick Palacios RN [address] [place] [address] Registered Nurse Family Medicine 03/14/25 Camron Palacios 03/14/25 documented as of this encounter
--- OUTSIDE RECORDS SUMMARY | 2025-04-15 09:23 | XMS_ITS | Encounter Summary ---
Author Organization [facility] [employer] Address [address] [place] [address] Care Team Providers Care Oil Well Cable Tool Driller Name Role Phone Morteza Chaudhary MD Primary Care Prov ider Patrick Palacios RN Unavailable [phone] Camron Palacios Unavailable Reason for Visit * Reason Comments Med Refill Encounter Details Date Type Department Care Team (Late st Contact Info) Description 01/16/[address] [facility] [address] [place], [place] [phone] Mani Mojica MD [address] [place], [place] [phone] Social History Tobacco Use Types Packs/Day Years [...] documented as of this encounter Care Teams Oil Well Cable Tool Driller Relationship Specialty Start Date End Date MorganMorteza Orosco MD [address] [place] [address] PCP - General Internal Medicine 11/04/24 Patrick Palacios RN [address] [place] [address] Registered Nurse Family Medicine 03/14/25 Camron Palacios 03/14/25 documented as of this encounter
--- OUTSIDE RECORDS SUMMARY | 2025-04-15 09:23 | XMS_ITS ---
Author Organization [employer] Address [address]t [place] [address] Care Team Providers Care E Commerce Retailer Name Role Phone Morteza Chaudhary MD Primary Care Prov ider Patrick Palacios RN Unavailable [phone] Camron Palacios Unavailable CM Complex Status:Outreach In Progress (Enrolling) Start date:03/14/2025 Enrollment reason:ADT Feed Overview ED- Pt went [place] [facility] on [place]13[place]25. Case Team Name Relationship Phone Patrick Palacios RN(Responsible Staff) Registered Nurse [phone] Continued Care and Services Coordination
--- OUTSIDE RECORDS SUMMARY | 2025-04-15 09:23 | XMS_ITS | Encounter Summary ---
Author Organization [employer] Address [address] [facility] [address] [place] [address] Care Team Providers Care Supervisor Fiberglass Boat Assembly Name Role Phone Morteza Chaudhary MD Primary Care Prov ider Patrick Palacios RN Unavailable [phone] Camron Palacios Unavailable Reason for Visit * Reason Comments Care Management C3CM- initial assess ment/ enrollment. Not available. Encounter Details Date Type Department Care Team (Late st Contact Info) Description 04/10/2025 Patient Outreach [facility] [address] [place] [address] Morteza Chaudhary MD [address] [place], [place] [phone] Care Management (C3CM- initial assessment/ enrollment. Not [...] documented as of this encounter Care Teams Supervisor Fiberglass Boat Assembly Relationship Specialty Start Date End Date Morteza Chaudhary MD [address] [place] [phone] PCP - General Internal Medicine 11/04/24 Patrick Palacios RN [address] [place] [address] Registered Nurse Family Medicine 03/14/25 Camron Palacios 03/14/25 documented as of this encounter
--- OUTSIDE RECORDS SUMMARY | 2025-04-15 09:23 | XMS_ITS | Encounter Summary ---
Author Organization [employer] Address [address] [facility] 7[address] [place] [address] Care Team Providers Care Electronics Maintenance Technician Name Role Phone Morteza Chaudhary MD Primary Care Prov ider Patrick Palacios RN Unavailable [phone] Camron Palacios Unavailable Reason for Visit * Reason Comments Care Coordination C3CM/ZAID Nicole#1- Attempt to R/S missed IA-LVM Encounter Details Date Type Department Care Team (Latest Contact Info) Description 04/14/2025 Patient Outreach [facility] [address] [place] [address] Morteza Chaudhary MD [address] [place] [address] Care Coordination (C3LYUBOV/ZAID Ibarra#1- Attempt to R/S missed IA-LVM) Social History Tobacco Use Types Packs/Day Years [...] encounter Progress Notes * Camron Palacios - 04/14/2025 5:00 PM EDT CHW Carmon Palacios, [facility] to [facility]dule missed initial assessment appt on 04/10/2025 for CM/CHW program services. No answer at this time. CHW LVM introducing herself from [facility] CM Department with CHW's name, department and direct contact number requesting call back. Will re-attempt to contact within 5 days. and address not confirmed. documented in this encounter Plan of Treatment Not on file documented as of this encounter Visit Diagnoses Not on filedocumented in this encounter Additional Health Concerns Assessment Noted Time PHQ-9 Depression Total Score: 18 025 8:44 AM EDT documented as of this encounter Care Teams Electronics Maintenance Technician Relationship Specialty Start Date End Date Morteza Chaudhary MD [address] [place] [address] PCP - General Internal Medicine 11/04/24 Patrick Palacios RN [address] [place] [address] Registered Nurse Family Medicine 03/14/25 Camron Palacios 03/14/25 documented as of this encounter
--- OUTSIDE RECORDS SUMMARY | 2025-04-15 09:23 | XMS_ITS ---
Author Organization [employer] Address [address] [facility] 7t [place] [address] Care Team Providers Care Gum Machine Filler Name Role Phone Morteza Chaudhary MD Primary Care Prov ider Patrick Palacios RN Unavailable [phone] Camron Palacios Unavailable CHW Complex Status:Outreach In Progress (Enrolling) Start date:03/14/2025 Enrollment reason:ADT Feed Overview ED- Pt went [place] [facility] [place] 03[place]13[place]25 Please outreach for enrollment. Case Team Name Relationship Phone Camron Palacios(Responsible Staff) [phone] Continued Care and Services Coordination
--- OUTSIDE RECORDS SUMMARY | 2025-04-15 09:23 | XMS_ITS | Encounter Summary ---
Author Organization [employer] Address [address] [place] [address] Care Team Providers Care Construction Plumber Name Role Phone Morteza Chaudhary MD Primary Care Prov ider Patrick Palacios RN Unavailable [phone] Camron Palacios Unavailable Reason for Visit * Reason Comments Med Refill Encounter Details Date Type Department Care Team ([facility] st Contact Info) Description 02/14/2025 Refill [facility] [address] [place] [address] Morteza Chaudhary MD [address] [place], [place] [phone] Social History Tobacco Use Types Packs/Day Years [...] documented as of this encounter Care Teams Construction Plumber Relationship Specialty Start Date End Date Morteza Chaudhary MD [address] [place] [address] PCP - General Internal Medicine 11/04/24 Patrick Palacios RN [address] [place] [address] Registered Nurse Family Medicine 03/14/25 Camron Palacios 03/14/25 documented as of this encounter
--- OUTSIDE RECORDS SUMMARY | 2025-04-15 09:23 | XMS_ITS | Clinical Summary ---
Author Organization [employer] Address [address] [place] [address] Care Team Providers Care Seo Assistant Name Role Phone Morteza Chaudhary MD Primary Care Prov ider Patrick Palacios RN Unavailable [phone] Camron Palacios Unavailable Allergies Active Allergy Reactions [...] of pain on intercourse, will refer to dairy laboratory technician for evaluation Muscle pain 03/11/2025 Assessment & [...] Encounters Date Type Department Care Team Description 04/14/2025 Patient Outreach [facility] [address] [place] [address] Morteza Chaudhary MD Care Coordination (C3/ZAID Ibarra#1- Attempt to R/S missed IA-LVM) 04/10/2025 Patient Outreach [address] [address] Morteza Chaudhary MD Care Management (C3CM- initial assessment/ enrollment. Not available.) 04/09/2025 Patient Outreach [facility] [address] [place] [address] Morteza Chaudhary MD Care Coordination (C3CM/ZAID Ibarra-LVM-CM Complex Care Initial Assessment Appt Reminder) 04/08/2025 Refill [facility] [address] [place], [place] [phone] Morteza Chaudhary MD 04/04/2025 Refill [facility] [address] [place], [place] [phone] Morteza Chaudhary MD 04/03/2025 Patient Outreach [address] [address] Morteza Chaudhary MD Care Coordination (C3/ZAID Ibarra- Follow up on Neurology Appt) 03/27/2025 Patient Outreach [address] [address] Morteza Chaudhary MD Care Coordination (Eloy/ZAID Ibarra-ADT Outreach-Agrees to participate in CM Complex Care Program) 03/25/2025 Telephone [facility] [address] [place] [address] Morteza Chaudhary MD Med Refill 03/24/2025 Refill [facility] [address] [place] [address] Mani Mojica MD 03/24/2025 Patient Outreach [address] [address] Morteza Chaudhary MD 03/18/2025 1:00 PM EDT Telemedicine [facility] [address] [place] [address] Yolanda Gutierrez RN Peptic ulcer disease [K27.9] 03/18/2025 Travel 03/14/2025 Patient Outreach [address] [address] Morteza Chaudhary MD Care Coordination (Eloy/ZAID Ibarra#1- ADT Outreach-LV) 03/14/2025 Patient Outreach [address] [address] Morteza Chaudhary MD Care Coordination ([place]/DONNA Palacios, Chart Review) 03/14/2025 Patient Outreach [address] [address] Morteza Chaudhary MD 03/14/2025 Patient Outreach [address] [address] Morteza Chaudhary MD Care Management (C3- chart review) 03/14/2025 Patient Outreach [facility] [address] [place] [address] Morteza Chaudhary MD 03/13/2025 Orders Only External Provider, [facility] 03/11/2025 1:30 PM EDT Office Visit [facility] [address] [place] [address] Morteza Chaudhary MD Migraine without status migrainosus, not intractable, unspecified migraine type (Primary Dx); Anxiety and depression; Peptic ulcer disease; Seizure disorder (CMS/HCC); Pelvic pain; Muscle pain 03/11/2025 Travel 03/07/2025 Telephone [facility] [address] [place] [address] Morteza Chaudhary MD Med Refill 03/06/2025 Refill [facility] [address] [place] [address] Morteaz Chaudhary MD 02/28/2025 Refill [facility] [address] [place] [address] Morteza Chaudhary MD 02/25/2025 Refill [facility] [address] [place] [address] Mani Mojica MD 02/14/2025 Refill [facility] [address] [place] [address] Morteza Chaudhary MD 02/12/2025 Refill [facility] [address] [place] [address] Morteza Chaudhary MD 02/11/2025 Population Health Risk Score [facility] (C3) Department [address] [place] [phone] Provider, Population Health Generic 02/10/2025 Refill [facility] [address] [place] [address] Morteza Chaudhary MD 02/10/2025 Refill [facility] [address] [place] [address] Elaine Holt MD 02/10/2025 Refill [facility] [address] [place] [address] Morteza Chaudhary MD 02/06/2025 Orders Only GENERIC EXTERNAL DATA DEPARTMENT Provider, Generic External Data 02/04/2025 Refill [facility] [address] [place] [address] Morteza Chaudhary MD 01/31/2025 Orders Only External Provider, [facility] 01/16/2025 Refill [facility] [address] [place] [address] Mani Mojica MD 01/16/2025 Refill [facility] [address] [place] [address] Morteza Chaudhary MD from Last 3 Months [...] topic Meningococcal Vaccine Aged Out No daly tena eligible based on patient's age to complete [...] AM EDT Narrative 03/14/2025 1:36 AM EDT [address] [address] [address] Scan Report Signed Patient: Connie Valdez MR#: [id number] : 1980 Acct:[id number] Age/Sex: 44 / F ADM Date: 03/13/25 Loc: HO.ED Attending Dr: Ordering Physician: Ginny Griffiths PA-C Date of Service: 03/14/25 Procedure(s): CT abdomen pelvis w IV con Accession Number(s): [id number] cc: Morteza Chaudhary MD; Gniny Griffiths PA-C Report Number: [id number]: Total DLP = 409.00 mGy-cm CLINICAL HISTORY: [...] in OV> 03/14/25134 DD/ 3 TD/TT: 03/14/25133 Environmental Designer: Procedure Note Donotuseinterpreter, Image - 03/14/[address] [address] [address] Scan Report Signed Patient: Connie Valdez AMR#: [id number] : 1980Acct:[id number] Age/Sex: 44 / FADM Date: 03/13/25 Loc: HO.ED Attending Dr: Ordering Physician: Ginny Griffiths PA-C Date of Service: 03/14/25 Procedure(s): CT abdomen pelvis w IV con Accession Number(s): [id number] cc: Morteza Chaudhary MD; Ginny Griffiths PA-C Report Number: [id number]: Total DLP = 409.00 mGy-cm CLINICAL HISTORY: [...] in OV> 03/14/25134 DD/ 3 TD/TT: 03/14/25133 Environmental Designer: [facility] External Provider IMG CT PROCEDURES Final Result * (ABNORMAL) CBC auto differential (02/06/2025 8:51 AM EDT) White Blood Count 5.1 4.8 - 10.8 X10*3/uL LABS Red Blood Count 3.65(L) 4.20 - 5.50 X10*6/uL LABS Hemoglobin 11.3(L) 12.0 - 16.0 g/dl LABS Hematocrit 33.4(L) 37.0 - 47.0 % LABS Mean Corpuscular Volume 91.5 80.0 - 98.0 fL LABS Mean Corpuscular Hemoglobin 31.0 27.0 - 33.0 pg LABS Mean Corpuscular HGB Conc 33.8 31.0 - 35.0 g/dl LABS Red Cell Distribution Width 12.6 11.0 - 16.0 % LABS Platelet Count 181 160 - 400 X10*3/uL LABS Mean Platelet Volume 9.7 9.4 - 12.3 fL LABS Neutrophils Percent Auto 49.2 45 - 73 % LABS Imm Gran Pct Auto 0.0 0.0 - 0.4 % LABS Lymphocytes Percent Auto 30.0 20 - 40 % LABS Monocytes Percent Auto 5.8 2 - 11 % LABS Eosinophils Percent Auto 13.8(H) 0 - 4 % LABS Basophils Percent Auto 1.2 0 - 2 % LABS NRBC Pct Auto 0.0 0.0 - 0.2 /100WBC LABS Neutrophils Absolute Auto 2.5 2.0 - 8.3 x10*3/uL LABS Imm Gran Abs Auto 0.00 0.00 - 0.03 X10*3/uL LABS Lymphocytes Absolute Auto 1.5 1.2 - 4.9 X10*3/uL LABS Monocytes Absolute Auto 0.3 0.1 - 1.2 X10*3/uL LABS Eosinophils Absolute Auto 0.7(H) 0.0 - 0.4 X10*3/uL LABS Basophils Absolute Auto 0.1 0.0 - 0.2 X10*3/uL LABS NRBC Abs Auto 0.000 0.0 - 0.012 X10*3/uL LABS 02/06/2025 8:51 AM EDT 02/06/2025 8:53 AM EDT us Generic External Data Provider LAB BLOOD ORDERAB LES Final Result LABS [address] [place], [place] [phone] * (ABNORMAL) Comprehensive Metabolic Panel (02/06/2025 8:51 AM EDT) Sodium 140 135 - 145 mmol/L LABS Potassium 4.3 3.3 - 5.1 mmol/L LABS Chloride 114(H) 96 - 108 mmol/L LABS Carbon Dioxide 23 22 - 29 mmol/L LABS Anion Gap 7(L) 12 - 20 LABS Urea Nitrogen (BUN) 16 9 - 16 mg/dL LABS Creatinine, Serum 1.25 0.5 - 1.4 mg/dL LABS Creatinine Clr Calc Pharmacy 52.9 LABS Comment:Provided height and weight: 160.02 cm,65.771 kg.eGFR (calculated from the MDRD study equation) and eCrCl(calculated from the Cockcroft-Gault equation) are based ondifferent parameters and may not yield comparable results.If eCrCl result is absurd, please check patient'sheight/weight. Estimated Glomerular Filt Rate 47 LABS Comment:Chronic Kidney Disea se: Estimated GFR < 60 mL/min/1.48e2Gdmjhq Kidney Disease: Estimated GFR < 15 mL/min/1.73m2 Glucose 84 60 - 115 mg/dL LABS Calcium 8.1(L) 8.4 - 10.2 mg/dL LABS Bilirubin, Total 0.1 0.0 - 1.0 mg/dL LABS Aspartate Amino Transferase 25 5 - 31 U/L LABS Alanine Aminotransferase 20 0 - 31 U/L LABS Total Protein 5.5(L) 6.5 - 8.0 g/dL LABS Albumin Level 3.6 3.5 - 5.0 g/dL LABS Alkaline Phosphatase 51 39 - 117 U/L LABS 02/06/2025 8:51 AM EDT 02/06/2025 8:53 AM EDT us Generic External Data Provider LAB BLOOD ORDERAB LES Final Result LABS [address] [place] [address] [phone] * XR Hips Bilateral with Pelvis 1 view (01/31/2025 10:20 AM EDT) Anatomical Region Laterality Modality Lower Extremities, Hip Bilateral Radiograp hic Imaging 01/31/2025 10:2 0 AM EDT Narrative 01/31/2025 10:42 AM EDT [address] [address] XRay Report Signed Patient: Connie Valdez MR#: [id number] : 1980 Acct:[id number] Age/Sex: 44 / F ADM Date: 01/31/25 Loc: HO.ED Attending Dr: Ordering Physician: Mimi Ayers NP Date of Service: 01/31/25 Procedure(s): XR hip BI w PEL1V Accession Number(s): [id number] cc: MANI MOJICA MD; Mimi Ayers NP [...] 01/31/25 1040 DD/ 1020 TD/TT: 01/31/25 1033 Environmental Designer: Procedure Note Donotuseinterpreter, Image - 01/31/[address] [address] XRay Report Signed Patient: Connie Valdez [facility]#: [id number] : 1980Acct:[id number] Age/Sex: 44 / FADM Date: 01/31/25 Loc: HO.ED Attending Dr: Ordering Physician: Mimi Ayers NP Date of Service: 01/31/25 Procedure(s): XR hip BI w PEL1V Accession Number(s): [id number] cc: MANI MOJICA MD; Mimi Ayers NP [...] 01/31/25 1040 DD/ 1020 TD/TT: 01/31/25 1033 Environmental Designer: [facility] External Provider IMG XR PROCEDURES Edited Result - Final from Last 3 Months [facility] Care Teams Seo Assistant Relationship Specialty Start Date End Date Morteza Chaudhary MD [address] [place] [address] PCP - General Internal Medicine 11/04/24 Patrick Palacios RN [address] [place] [address] Registered Nurse Family Medicine 03/14/25 Camron Palacios 03/14/25
--- OUTSIDE RECORDS SUMMARY | 2025-04-15 09:23 | XMS_ITS | Patient Health Record ---
Author Organization [facility] Address [address] [place] [address] Care Team Providers Care Development Planner Name Role Phone Vikki Spicer Primary Care Provider Jessie Ferrera Unavailable [phone] [facility], Nursing Unavailable [phone] Allergies Allergen (clinical drug ingredient) Drug/Non Drug Allergy documented on EMR Reaction Allergy Type Onset Date Status keflex (uncoded) anaphylaxis Allergy A ctive Shellfish shellfish (uncoded) Unknown Allergy Active Reason For Referral No Information Medications Medication [...] Status Risk Notes Problem Chronic hepatitis C (607467843) Chronic viral hepatitis C (B18.2) Active confirmed Problem Hypothyroidism (84711757) Hypothyroidism, unspecified (E03.9) Active confirmed Problem Overweight (618056453) Overweight (E66.3) Active confirmed Problem Tobacco user (331111551) Nicotine dependence, cigarettes, uncomplicated (F17.210) Active confirmed Problem Anxiety disorder (719094833) Anxiety disorder, unspecified (F41.9) Active confirmed Problem Insomnia (731984930) Insomnia, unspecified (G47.00) Active confirmed Problem Gastro-esophageal reflux disease without esophagitis (133304815) Gastro-esophagea l reflux disease without esophagitis (K21.9) Active confirmed Problem Localized, primary osteoarthritis of the pelvic region and thigh (219484701) Unilateral primary osteoarthritis, left hip (M16.12) Active confirmed Problem Pain of left knee joint (finding) (138571940693463) Pain in left knee (M25.562) Active confirmed Problem Fibromyalgia (573774164) Fibromyalgia (M79.7) Active confirmed Problem Abnormal uterine bleeding (54898092331379) Abnormal uterine and vaginal bleeding, unspecified (N93.9) Active confirmed Problem Seizure (94814104) Unspecified convulsions (R56.9) Active confirmed Problem Nondependent opioid abuse in remission (906127462) Opioid abuse, in remission (F11.11) Active confirmed Problem Headache (83563387) Headache, unspecified (R51.9) Active confirmed Problem Unsheltered homelessness (937410589636086) Unsheltered homelessness (Z59.02) Active confirmed Problem Pain of knee region (finding) (6880969202) Pain in unspecified knee (M25.569) Inactive confirmed Encounters Encounter Location Date Provider Diagnosis [address] [address] 04/18/2024 Eddieliza Casionan Anxiety disorder, unspecified F41.[address] [address] 04/22/2024 Eddieliza Casionan Anxiety disorder, unspecified F41.[address] [address] 05/16/2024 Eddieliza Casionan Unspecified convulsions R56.9 ; [...] End Date [place] Medicaid C3 [address] [place], [place] [id number] Isela ling Connie Self - patient is [...] Hospitalization History Reason Date(Month/Year) Psych admit - [facility] 2023 Multiple psych admits when younger detox x 2 - [facility] stomach issues? 01/2024
--- NOTE | 2025-04-15 09:45 | PC.NURSE ---
Patient is a 44-year-old female with history of hepatitis-C, CKD stage 3, seizures, hypothyroidism, gastric ulcers diagnosed few years ago, GERD, cyclical vomiting, opiate dependence on suboxone presenting to the emergency department with complaint of epigastric and chest pain, nausea and vomiting for the past week. Seen here on 04/11, states symptoms have not improved or resolved since then. Patient alert and oriented but restless. Lungs clear bilat. Respirations even and non-labored. Abdomen soft wit positive bowel sounds. frequent dyr heaving noted. c/o generalized abdominal pain and left sided chest pain under breast. Positive pedal pulses with no edema noted.
[2025-04-15] MEDS: diazePAM 10 MG/2 ML CARTRIDGE 5 MG IVPUSH (10:25)
[2025-04-15 11:16] LABS: Appearance Urine Turbid; Glucose Urine UA Negative (Negative); PH 7.5 (5.0-9.0); Specific Gravity - Urine 1.025 (1.005-1.025)
[2025-04-15 11:27] LABS: Cannabinoid Screen Urine POSITIVE (Not Detect)
[2025-04-15] MEDS: Lactated Ringers 1,000 ML 100 ML IVCONT ×2 (14:42→23:44)
--- NOTE | 2025-04-15 17:53 | PM.IMHP ---
History of Present Illness Date of Service: 04/15/25 Chief Complaint: nausea and vomiting 44 year old female with hypothyroidism, migraine Headaches here with intractable nausea and vomiting with epigastric pain, left sided chest pain ongoing since last week and more pronounced today. She smokes canabis, no prior history. Utox positive for canabis and Buprenorphine. She was hydrated and a given antiemetics including compazine which she thought made her tongue bigger. She is been observed in the hospital in light of intractable N/V and not able to keep PO down Review of Systems Review of Systems: Gen: no fever Resp: no sob, no cough CV: no chest, no RAMIREZ, no leg edema GI: +n/v, no abd pain Neuro: No confusion Yes all other systems are reviewed and are negative PMFSH Social History Unable to assess alcohol history related to: Unknown Patient Tobacco Use Status: Current everyday Tobacco user Tobacco use type: Smokeless Tobacco Smoked in Last 30 Days: Yes e-Cigarette/Vaping Use: Currently Using Patient Interested in Nicotine Replacement: Yes Patient Given Instructions on How to Stop Smoking: No Second Hand Smoke Exposure: Yes Substance Use Type: Marijuana Currently Displaying Signs/Symptoms of Drug Intoxication Withdrawal: No Advance Directives: Yes Advance Directives Information Provided: Yes Advance Directives on File: No Advance Directives Date on File: 04/15/25 Meds Allergies Allergy/AdvReac Type Severity Reaction Status Date / Time cephalexin (From Keflex) Allergy Anaphylaxis Verified 04/15/25 08:14 sulfamethoxazole (From Allergy Anaphylaxis Verified 04/15/25 08:14 Bactrim) trimethoprim (From Bactrim) Allergy Anaphylaxis Verified 04/15/25 08:14 acetaminophen (From Vicodin) AdvReac Nausea and Verified 04/15/25 08:14 Vomiting hydrocodone (From Vicodin) AdvReac Nausea and Verified 04/15/25 08:14 Vomiting prochlorperazine (From AdvReac swollen Verified 04/16/25 09:56 Compazine) tongue Active Medications: Current Medications Acetaminophen (Acetaminophen 325 Mg Tablet) 650 mg PO Q6H PRN PRN Reason: Pain, Mild 1-3,fever,headache Al Hydroxide/Mg Hydroxide (Magnesium Hydrox/Alum Hydrox 30 Ml Oral.Susp) 30 ml PO Q4H PRN PRN Reason: Heartburn Calcium Carbonate (Calcium Carbonate 750 Mg Tab.Chew) 750 mg PO Q4H PRN PRN Reason: Heartburn Lactated Ringer's (Lr) 1,000 mls @ 100 mls/hr IVCONT .Q10H [facility] Last Admin: 04/15/25 14:42 Dose: 100 mls/hr Magnesium Hydroxide (Milk Of Magnesia 30 Ml Oral.Susp) 30 ml PO DAILY PRN PRN Reason: Constipation Melatonin (Melatonin 3 Mg Tablet) 6 mg PO BEDTIME PRN PRN Reason: Insomnia Ondansetron HCl (Ondansetron Hcl 4 Mg/2 Ml Vial) 4 mg IVPUSH Q8H PRN PRN Reason: Nausea and Vomiting Sodium Chloride (0.9 % Sodium Chloride Flush 3 Ml Syringe) 3 ml IVFLUSH QSHIFT [facility] Last Admin: 04/15/25 15:37 Dose: Not Given Home Medications ?Medication ?Instructions ?Recorded ?Confirmed ?Last Taken ?Type acetaminophen 500 mg capsule 1,000 mg PO Q8H PRN fever or pain 04/15/25 04/15/25 Unknown History buprenorphine 2 mg-naloxone 0.5 mg 1.5 film buccal DAILY 04/15/25 Unknown History sublingual film (Suboxone) hydroxyzine HCl 50 mg tablet 50 mg PO Q12H PRN anxiety 04/15/25 04/15/25 Unknown History levothyroxine 25 mcg capsule 25 mcg PO DAILY@0500 04/15/25 04/15/25 04/14/25 History lidocaine 5 % topical patch 1 patch topical DAILY PRN Pain 04/15/25 04/15/25 Unknown History melatonin 5 mg tablet 10 mg PO BEDTIME 04/15/25 04/15/25 04/14/25 History mirtazapine 15 mg tablet 15 mg PO BEDTIME 04/15/25 04/15/25 04/14/25 History nicotine (polacrilex) 2 mg buccal 2 mg PO Q2H PRN Nicotine Cravings 04/15/25 04/15/25 Unknown History lozenge omeprazole 20 mg capsule,delayed 20 mg PO DAILY@0630 04/15/25 04/15/25 04/14/25 History release promethazine 25 mg tablet 25 mg PO Q6H PRN nausea/vomiting 04/15/25 04/15/25 Unknown History propranolol 10 mg tablet 10 mg PO BID 04/15/25 04/15/25 04/14/25 History sucralfate 1 gram tablet 1 g PO QID 04/15/25 04/15/25 04/14/25 History Physical Exam Vital Signs and Narrative: Vital Signs: Last Vital Signs Temp 97.0 F 04/15/25 08:11 Pulse 95 04/15/25 16:00 Resp 16 04/15/25 16:00 BP 131/86 04/15/25 16:00 Pulse Ox 96 04/15/25 16:00 O2 Del Method Room Air 04/15/25 16:00 BMI result Body Mass Index 27.1 Results Labs 04/15/25 08:56 04/15/25 08:56 Labs: Laboratory Results - last 24 hr 04/15/25 04/15/25 08:56 11:08 MCV 88.0 MCH 30.0 MCHC 34.0 RDW 12.6 Plt Count 271 MPV 9.5 Immature Gran % (Auto) 0.4 Neut % (Auto) 76.5 H Lymph % (Auto) 15.9 L [place] % (Auto) 3.9 Eos % (Auto) 2.5 Baso % (Auto) 0.8 Lymph # (Auto) 1.8 [place] # (Auto) 0.5 Eos # (Auto) 0.3 Baso # (Auto) 0.1 Abs Immat Gran (auto) 0.05 H Absolute Neuts (auto) 8.8 H Absolute Nucleated RBC 0.000 Nucleated RBC % (auto) 0.0 PT 10.3 L INR 0.9 Anion Gap 13 Estim Creat Clear Calc 67.1 Estimated GFR 60 Random Glucose 114 Calcium 9.4 Magnesium 2.1 Total Bilirubin 0.3 AST 25 ALT 26 Alkaline Phosphatase 67 Total Protein 7.3 Albumin 4.7 Lipase 25 Beta HCG, Quant < 2 Urine Color Yellow Urine Appearance Turbid Urine pH 7.5 Ur Specific [place] 1.025 Urine Protein Negative Urine Glucose (UA) Negative Urine Ketones Negative Urine Blood Negative Urine Nitrite Negative Ur Leukocyte Esterase Negative Urine Opiates Screen Not Detected Ur Buprenorphine Scrn Positive H Ur Oxycodone Screen Not Detected Urine Methadone Screen Not Detected Urine Fentanyl Screen Not Detected Ur Barbiturates Screen Not Detected Ur Phencyclidine Scrn Not Detected Ur Amphetamines Screen Not Detected U Benzodiazepines Scrn Not Detected Urine Cocaine Screen Not Detected U Marijuana (THC) Screen POSITIVE H Ethyl Alcohol < 10 Assessment and Plan (1) Intractable vomiting: Status: Acute Plan 44/F with intractable N/V, abd pain likely from canabis related hyperemesis and possible gastritis plan: IVF, antiemetics, canabis consumption is discouraged. hypothyroidism--leveothyroxine dvt prophylaxis: low risk, early ambulation, anticipate dc by tomorrow Quality Stroke Does the patient have a stroke diagnosis?: No VTE Prior VTE?: No VTE Risk Level:: Medical - low VTE Device Contraindication: Treatment Not Indicated VTE Drug Contraindication: Treatment Not Indicated
--- NOTE | 2025-04-15 21:16 | PHA.MEDREC ---
Addendum entered by Rowena Gutiérrez [facility] 04/15/25 21:33: Reviewed by pharmacist Original Note: Pharmacy Consult ? Medication Reconciliation Pharmacy has completed the medication reconciliation. Patient was able to name all of her medications. Patient is very adamant about not being able to take Compazine and Ibuprofen. Patient states she is no longer taking Cyclobenzaprine 10 mg, and Topiramate 50 mg. Patient reported she takes Suboxone 3 mg films daily from [facility] [phone]. Will have morning med rec team follow up to confirm dose because there are no claims. Patient states she last had her medications last night.
[2025-04-16] MEDS: Lidocaine 4 % Patch ADH..PATCH 2 PATCH TRANSDERMA ×2 (00:20→07:40)
[2025-04-16] MEDS: Nicotine Polacrilex Lozenge 2 MG LOZENGE BUCCAL ×2 (00:32→07:39)
[2025-04-16 03:41] VITALS: BP 138/89; PULSE 79; RESP 18; TEMP 36.7; O2SAT 96
--- NOTE | 2025-04-16 07:20 | PC.NURSE ---
Patient not vomiting overnight, did not request antiemetic. Drank several gingerale and eating saltines. In good spirits.
[2025-04-16 07:21] VITALS: BP 137/96; PULSE 81; RESP 16; TEMP 36.9; O2SAT 97
[2025-04-16] MEDS: 0.9 % Sodium Chloride Flush 3 ML SYRINGE IVFLUSH (07:42)
[2025-04-16] MEDS: Buprenorphine/Naloxone 2/0.5mg FILM 1 FILM SUBLINGUAL (09:34)
--- NOTE | 2025-04-16 10:10 | P.DS_ITS ---
DS: Providers Provider Date of Service: 04/16/25 Date of admission: 04/15/25 13:36 Date of discharge: 04/16/25 Primary care physician: Morteza Faust MD DS: Diagnosis Discharge Diagnosis (1) Intractable vomiting: Status: Acute DS: Summary Hospital Course Hospital Course: Chief Complaint: nausea and vomiting 44 year old female with hypothyroidism, migraine Headaches here with intractable nausea and vomiting with epigastric pain, left sided chest pain ongoing since last week and more pronounced today. She smokes canabis, no prior history. Utox positive for canabis and Buprenorphine. She was hydrated and a given antiemetics including compazine which she thought made her tongue bigger. She is been observed in the hospital in light of intractable N/V and not able to keep PO down Hospital course: Patient was observed in the hospital overnight hydrated with IV fluid and given antiemetics for nausea and vomiting, she made a rapid recovery and her diet has been advanced thus far and tolerating well she is advised about continuing use of cannabis product not been good for her health she understand and will avoid this. 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 Time Attestation Discharge Coordination Time (in mins): 35 Quality: Safe Use of Opioids Does Pt have an Active Cancer Diagnosis on the Problem List?: No Quality: Stroke Does the patient have a stroke diagnosis?: No Physical Exam Vital Signs: Vital Signs: Last Vital Signs Temp 98.4 F 04/16/25 07:21 Pulse 81 04/16/25 07:21 Resp 16 04/16/25 07:21 BP 137/96 H 04/16/25 07:21 Pulse Ox 97 04/16/25 07:21 O2 Del Method Room Air 04/16/25 07:21 BMI result Body Mass Index 27.3 Const: Other: General: AO X 3, no acute distress Resp: CTA bilateral CVS: S1,S2,RRR GI: +BS, NT, no distention Skin: No rash Neuro: motor grossly intact Psych: appropriate affect DS: Data Data Completed and Pending Labs on day of discharge: Laboratory Results - last 24 hr 04/15/25 11:08 Urine Color Yellow Urine Appearance Turbid Urine pH 7.5 Ur Specific [place] 1.025 Urine Protein Negative Urine Glucose (UA) Negative Urine Ketones Negative Urine Blood Negative Urine Nitrite Negative Ur Leukocyte Esterase Negative Urine Opiates Screen Not Detected Ur Buprenorphine Scrn Positive H Ur Oxycodone Screen Not Detected Urine Methadone Screen Not Detected Urine Fentanyl Screen Not Detected Ur Barbiturates Screen Not Detected Ur Phencyclidine Scrn Not Detected Ur Amphetamines Screen Not Detected U Benzodiazepines Scrn Not Detected Urine Cocaine Screen Not Detected U Marijuana (THC) Screen POSITIVE H Discharge Plan Discharge Anticipated Discharge Date/Time: 04/16/25 09:55 Patient Disposition: Home, Self-Care Discharge Diagnosis: Canabis associated hyperemesis Referrals: Morteza Chaudhary MD [Primary Care Provider, Medical] - 1 Week Discharge Medications: Continued sucralfate 1 gram tablet 1 g PO QID propranolol 10 mg tablet 10 mg PO BID promethazine 25 mg tablet 25 mg PO Q6H PRN (Reason: nausea/vomiting) omeprazole 20 mg capsule,delayed release(DR/EC) 20 mg PO DAILY@0630 melatonin 5 mg tablet 10 mg PO BEDTIME levothyroxine 25 mcg capsule 25 mcg PO DAILY@0500 hydroxyzine HCl 50 mg tablet 50 mg PO Q12H PRN (Reason: anxiety) mirtazapine 15 mg tablet 15 mg PO BEDTIME nicotine (polacrilex) 2 mg lozenge 2 mg PO Q2H PRN (Reason: Nicotine Cravings) lidocaine 5 % adhesive patch,medicated 1 patch topical DAILY PRN (Reason: Pain) Rx Instructions: leave on most painful area for up to 12 hrs acetaminophen 500 mg capsule 1,000 mg PO Q8H PRN (Reason: fever or pain) buprenorphine-naloxone [Suboxone] 2-0.5 mg Film 1.5 film BUCCAL DAILY Rx Instructions: place 1 strip/tab under (each) side of tongue diclofenac sodium 1 % gel 4 g topical QID Qty: 50 0RF Rx Instructions: apply to hips levetiracetam 750 mg tablet 750 mg PO BID Qty: 14 0RF sumatriptan succinate 50 mg tablet 50 mg PO Q2-4H PRN (Reason: migraine headache) Qty: 16 0RF Rx Instructions: do not exceed 4 doses per 24 hrs Discharge Orders: Discharge Order (Routine); Ordered 04/16/25 Ordered By: Tucker hernan Diet: Advance to usual diet Activity on Discharge: As tolerated Stand Alone Forms: Patient Portal Discharge page Print Language: Gibraltarian Care Plan Goals: Recovery from hyperemesis from marijuana use Health Concerns: Cyclical vomiting from marijuana use Plan of Treatment: Avoid cannabis products Drink plenty of fluid Follow-up with your primary care doctor within a week Assessment: See above
[2025-04-16 10:34] VITALS: BP 136/92; PULSE 80; RESP 16; TEMP 37.3
--- NOTE | 2025-04-16 11:07 | MHC.CM.PN ---
PT LEFT [facility] WITHOUT BEING SEEN BY CM.
== END 2025-04-16 10:38 | disposition home or self-care (01) ==
LOC: HO.ED 13:25 → HO.EDOVER 14:04 → HO.S3 21:56
PROVIDERS: Registered Nurse Emergency; Admitting Provider Internal Medicine; Emergency Provider Emergency Medicine; PCP Internal Medicine; Visit Provider Internal Medicine
DX: R11.2 Nausea with vomiting, unspecified (principal); R10.13 Epigastric pain; R19.7 Diarrhea, unspecified; R07.9 Chest pain, unspecified; N18.31 Chronic kidney disease, stage 3a; E03.9 Hypothyroidism, unspecified; R94.31 Abnormal electrocardiogram [ECG] [EKG]; I49.9 Cardiac arrhythmia, unspecified; G40.909 Epilepsy, unspecified, not intractable, without status epilepticus; F17.200 Nicotine dependence, unspecified, uncomplicated; F12.988 Cannabis use, unspecified with other cannabis-induced disorder; Z71.6 Tobacco abuse counseling; Z79.899 Other long term (current) drug therapy
CPT/HCPCS: 36415; 80053; 80307; 81003; 83690; 83735; 84484; 84702; 85025; 85610; 93005; 96361; 96374; 96375; 99221; 99285; J0737; J1200; J1790; J2405; J3360; J7120

== ENCOUNTER → 2025-04-15 08:04 | Outpatient (BNV) | payer MEDICAID, SELFPAY | PROVIDERS: Emergency Provider Emergency Medicine; PCP Internal Medicine; Visit Provider Internal Medicine Cardiovascular Disease | DX: I49.9 Cardiac arrhythmia, unspecified (principal) | CPT/HCPCS: 93010 ==

== ENCOUNTER → 2025-04-15 13:36 | Outpatient (BNV) | payer MEDICAID, SELFPAY | PROVIDERS: Admitting Provider Internal Medicine; Emergency Provider Emergency Medicine; PCP Internal Medicine; Visit Provider Internal Medicine | DX: R11.10 Vomiting, unspecified (principal) | CPT/HCPCS: 99222; 99239 ==

== ENCOUNTER 2025-04-24 16:09 | Emergency (ER) | payer MEDICAID, SELFPAY ==
--- NOTE | 2025-04-24 | ECG_ITS ---
Test Reason : CHEST PAIN Blood Pressure : */* mmHG Vent. Rate : 78 BPM Atrial Rate : 78 BPM P-R Int : 118 ms QRS Dur : 72 ms QT Int : 350 ms P-R-T Axes : 53 73 56 degrees QTcB Int : 399 ms Normal sinus rhythm Normal ECG When compared with ECG of 15-Apr-2025 08:23, T wave inversion no longer evident in Anterior leads Referred By: Generic ED Physician Electronically Signed By: DARRIN SALAZAR
--- NOTE | ~2025-04-24 | XR_ITS ---
EXAMINATION: XR CHEST CLINICAL INFORMATION palpitation COMPARISON: March 13, 2025 TECHNIQUE: Frontal views of the chest was obtained. FINDINGS: No significant abnormality is noted involving the heart, lungs, mediastinum, bony thorax or soft tissues. XR/XR chest 1V IMPRESSION: No acute disease Electronically signed by: Ray Beth MD 04/24/2025 04:48 PM EDT RP
[2025-04-24 16:19] VITALS: BMI 28.1
[2025-04-24 16:24] VITALS: BP 129/88; PULSE 103; PULSE 95; RESP 16; TEMP 36.9; O2SAT 99
--- NOTE | 2025-04-24 16:24 | ED.ARRPALP ---
HPI - Arrhythmia/Palpitations General Chief Complaint: Arrhythmia/Palpitations Stated Complaint: CP palpitations feel like heart is skipping beat Time Seen by Provider: 04/24/25 16:16 Source: patient and EMS Mode of arrival: EMS Limitations: no limitations History of Present Illness ED Provider: DR. Bob HPI narrative: 44-year-old female history of hypothyroidism, migraine headache presented by EMS for evaluation of palpitation for 2 days, patient recently discharged from the hospital for intractable vomiting secondary to cannabis use, patient feels skipping beats of her heart, no CP, no syncope, no feeling lightheadedness, no shortness of breath. Declined using alcohol, coffee, or caffeinated drinks. Related Data Home Medications ?Medication ?Instructions ?Recorded ?Confirmed acetaminophen 500 mg capsule 1,000 mg PO Q8H PRN fever or pain 04/15/25 04/15/25 buprenorphine 2 mg-naloxone 0.5 mg 1.5 film buccal DAILY 04/15/25 sublingual film (Suboxone) hydroxyzine HCl 50 mg tablet 50 mg PO Q12H PRN anxiety 04/15/25 04/15/25 levothyroxine 25 mcg capsule 25 mcg PO DAILY@0500 04/15/25 04/15/25 lidocaine 5 % topical patch 1 patch topical DAILY PRN Pain 04/15/25 04/15/25 melatonin 5 mg tablet 10 mg PO BEDTIME 04/15/25 04/15/25 mirtazapine 15 mg tablet 15 mg PO BEDTIME 04/15/25 04/15/25 nicotine (polacrilex) 2 mg buccal 2 mg PO Q2H PRN Nicotine Cravings 04/15/25 04/15/25 lozenge omeprazole 20 mg capsule,delayed 20 mg PO DAILY@0630 04/15/25 04/15/25 release promethazine 25 mg tablet 25 mg PO Q6H PRN nausea/vomiting 04/15/25 04/15/25 propranolol 10 mg tablet 10 mg PO BID 04/15/25 04/15/25 sucralfate 1 gram tablet 1 g PO QID 04/15/25 04/15/25 Previous Rx's ?Medication ?Instructions ?Recorded diclofenac sodium 1 % topical gel 4 g topical QID #50 grams 01/31/25 levetiracetam 750 mg tablet 750 mg PO BID #14 tabs 01/31/25 sumatriptan succinate 50 mg tablet 50 mg PO Q2-4H PRN migraine 04/11/25 headache #16 tabs Allergies Allergy/AdvReac Type Severity Reaction Status Date / Time cephalexin (From Keflex) Allergy Anaphylaxis Verified 04/24/25 16:22 sulfamethoxazole (From Allergy Anaphylaxis Verified 04/24/25 16:22 Bactrim) trimethoprim (From Bactrim) Allergy Anaphylaxis Verified 04/24/25 16:22 acetaminophen (From Vicodin) AdvReac Nausea and Verified 04/24/25 16:22 Vomiting hydrocodone (From Vicodin) AdvReac Nausea and Verified 04/24/25 16:22 Vomiting prochlorperazine (From AdvReac swollen Verified 04/24/25 16:22 Compazine) tongue Review of Systems Review of Systems: All other systems are reviewed and are negative Constitutional: Reports as per HPI and Reports no additional constitutional complaints Eyes: Reports as per HPI and Reports no additional eye complaints Reports system reviewed and no additional complaints, except as documented Cardiovascular: Reports as per HPI and Reports no additional cardiovascular complaints Respiratory: Reports as per HPI and Reports no additional respiratory complaints Gastrointestinal: Reports as per HPI and Reports no additional gastrointestinal complaints Genitourinary: Reports no additional female genitourinary complaints Musculoskeletal: Reports no additional musculoskeletal complaints Skin/Breast: Reports system reviewed and no additional complaints, except as docu Psychiatric: Reports no additional psychiatric complaints Endocrine: Reports no additional endocrine complaints Hematologic/Lymphatic: Reports no additional hematologic/lymphatic complaints Allergic/Immunologic: Reports no additional allergic/immunologic complaints Reports system reviewed and no additional complaints, except as documented and Reports Abnormal speech present [facility] Social History Social History Unable to assess alcohol history related to: Unknown Patient Tobacco Use Status: Current everyday Tobacco user Tobacco use type: Smokeless Tobacco e-Cigarette/Vaping Use: Currently Using Second Hand Smoke Exposure: Yes Substance Use Type: Marijuana Advance Directives Date on File: 04/15/25 Physical Exam Vital Signs: Vital Signs: Last Vital Signs Temp 98.1 F 04/24/25 19:56 Pulse 89 04/24/25 19:56 Resp 17 04/24/25 19:56 BP 119/76 04/24/25 19:56 Pulse Ox 98 04/24/25 19:56 O2 Del Method Room Air 04/24/25 19:56 BMI result Body Mass Index 28.1 Vital signs have been reviewed and appear to be correct. Blood pressure elevated. Heart rate normal. Respiratory rate normal. Temperature normal. Oxygen saturation normal. Appearance: Alert. Oriented X3. No acute distress. Head: Normal external exam. Normocephalic. Atraumatic. No Osorio signs noted. No raccoon eyes noted Eyes: PERRLA. EOMI. Conjunctiva and sclera normal. Eyelids normal. ENT: TM's Normal. Pharynx normal. Uvula midline. Moist mucous membranes. No trismus noted. No drooling noted. No muffled voice noted. Neck: Normal inspection. Neck supple. FROM. No adenopathy. Thyroid Normal. No meningeal signs. No neck mass noted. CVS: Normal heart rate and rhythm. Heart sound normal. No murmurs noted. Pulses normal throughout. Respiratory: No respiratory distress. Painless inspiration. Breath sounds normal. No wheezes/rales/rhonchi noted. Chest nontender. No accessory muscle usage noted or decreased air movement noted. Abdomen: Soft and nontender. Bowel sounds normal in all 4 quadrants. No distention noted. No organomegaly noted. No visible injury noted. Back: No CVA tenderness. Full range of motion noted. Skin: Skin warm and dry. Normal skin color. Normal skin turgor. No rashes/lesions/lacerations noted. Extremities: No lower extremity edema. Extremities exhibit normal range of motion. Extremities nontender. Neuro: Oriented X 3. Cranial nerve exam: II-XII are grossly intact No motor deficit. No sensory deficit. Reflexes normal. 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 To arrange for a follow-up with hardener helper. Time: 18:42 Medical Decision Making Differential Diagnosis Differential Diagnoses: The differential diagnosis associated with the presentation includes (SVT, ventricular dysrhythmia, PVCs, PACs, electrolyte derangement, severe anemia.) Admission/Observation Consideration of admission/observation: Escalation of care including admission/observation considered Lab Data MDM Lab Attestation statement: I reviewed the patient's lab results. 04/24/25 16:45 04/24/25 16:45 Labs: Lab Results 04/24/25 04/24/25 Range/Units 16:45 17:01 WBC 9.4 (4.8-10.8) X10*3/uL RBC 4.47 (4.20-5.50) X10*6/uL Hgb 13.7 (12.0-16.0) g/dl Hct 39.1 (37.0-47.0) % MCV 87.5 (80.0-98.0) fL MCH 30.6 (27.0-33.0) pg MCHC 35.0 (31.0-35.0) g/dl RDW 12.6 (11.0-16.0) % Plt Count 254 (160-400) X10*3/uL MPV 9.2 L (9.4-12.3) fL Immature Gran % (Auto) 0.2 (0.0-0.4) % Neut % (Auto) 61.5 (45-73) % Lymph % (Auto) 26.6 (20-40) % Giles % (Auto) 7.3 (2-11) % Eos % (Auto) 3.4 (0-4) % Baso % (Auto) 1.0 (0-2) % Lymph # (Auto) 2.5 (1.2-4.9) X10*3/uL Giles # (Auto) 0.7 (0.1-1.2) X10*3/uL Eos # (Auto) 0.3 (0.0-0.4) X10*3/uL Baso # (Auto) 0.1 (0.0-0.2) X10*3/uL Abs Immat Gran (auto) 0.02 (0.00-0.03) X10*3/uL Absolute Neuts (auto) 5.8 (2.0-8.3) x10*3/uL Absolute Nucleated RBC 0.000 (0.0-0.012) X10*3/uL Nucleated RBC % (auto) 0.0 (0.0-0.2) /100WBC Sodium 139 (135-145) mmol/L Potassium 3.4 (3.3-5.1) mmol/L Chloride 106 (96-108) mmol/L Carbon Dioxide 25 (22-29) mmol/L Anion Gap 11 L (12-20) BUN 13 (9-16) mg/dL Creatinine 0.99 (0.5-1.4) mg/dL Estim Creat Clear Calc 69.6 Estimated GFR > 60 Random Glucose 114 (60-115) mg/dL Calcium 9.8 (8.4-10.2) mg/dL Phosphorus 3.9 (2.7-4.5) mg/dL Magnesium 2.1 (1.6-2.6) mg/dL Total Bilirubin 0.3 (0.0-1.0) mg/dL Direct Bilirubin 0.1 (0.0-0.5) mg/dL AST 35 H (5-31) U/L ALT 36 H (0-31) U/L Alkaline Phosphatase 58 (39-117) U/L Troponin I High Sens < 2.7 (<3.5-17.0) ng/L Total Protein 7.0 (6.5-8.0) g/dL Albumin 4.4 (3.5-5.0) g/dL Lipase 23 (8-78) U/L Urine Color Yellow Urine Appearance Clear Urine pH 6.0 (5.0-9.0) Ur Specific [place] 1.010 (1.005-1.025) Urine Protein Negative (Neg-Trace) mg/dL Urine Glucose (UA) Negative (Negative) mg/dL Urine Ketones Negative (Negative) mg/dL Urine Blood Negative (Negative) Urine Nitrite Negative (Negative) Ur Leukocyte Esterase Negative (Negative) Independent Interpretation I performed an independent interpretation of an: EKG (Normal sinus rhythm at 78 beats per minutes, normal intervals, no ST-T changes, when compared with old EKG marked sinus arrhythmia was resolved.) and Plain X-Ray (Chest: No acute disease.) Radiology Impression Discussion of test interpretation with radiology: I have reviewed the radiologist's reading. Procedures Procedure Narrative Procedure Narrative: Ultrasound-guided IV 20 gauge 1-3/4 inch IV placed in left upper extremity. Adequate blood return, flushes well secured with Tegaderm, performed by Rosie Hope PA-C Discharge Plan Discharge Clinical Impression: Palpitations Patient Disposition: Home, Self-Care Instructions: Heart Palpitations (ED) Additional Instructions: Refrain from drinking caffeinated drinks, chocolate. Prescriptions: No Action sucralfate 1 gram tablet 1 g PO QID propranolol 10 mg tablet 10 mg PO BID promethazine 25 mg tablet 25 mg PO Q6H PRN (Reason: nausea/vomiting) omeprazole 20 mg capsule,delayed release(DR/EC) 20 mg PO DAILY@0630 melatonin 5 mg tablet 10 mg PO BEDTIME levothyroxine 25 mcg capsule 25 mcg PO DAILY@0500 hydroxyzine HCl 50 mg tablet 50 mg PO Q12H PRN (Reason: anxiety) mirtazapine 15 mg tablet 15 mg PO BEDTIME nicotine (polacrilex) 2 mg lozenge 2 mg PO Q2H PRN (Reason: Nicotine Cravings) lidocaine 5 % adhesive patch,medicated 1 patch topical DAILY PRN (Reason: Pain) Rx Instructions: leave on most painful area for up to 12 hrs acetaminophen 500 mg capsule 1,000 mg PO Q8H PRN (Reason: fever or pain) buprenorphine-naloxone [Suboxone] 2-0.5 mg Film 1.5 film BUCCAL DAILY Rx Instructions: place 1 strip/tab under (each) side of tongue diclofenac sodium 1 % gel 4 g topical QID Qty: 50 0RF Rx Instructions: apply to hips levetiracetam 750 mg tablet 750 mg PO BID Qty: 14 0RF sumatriptan succinate 50 mg tablet 50 mg PO Q2-4H PRN (Reason: migraine headache) Qty: 16 0RF Rx Instructions: do not exceed 4 doses per 24 hrs Referrals: Morteza Chaudhary MD [Primary Care Provider, Medical] Rigoberto Saeed MD [Physician, Cardiology] Interventions: ED Discharge Assessment Last Done: 04/24/25 19:56 Discharge Date/Time: 04/24/25 19:58 Print Language: [place]
[2025-04-24 16:50] LABS: MANUAL DIFF FLAG NO
[2025-04-24 16:51] LABS: Hematocrit 39.1 % (37.0-47.0); Hemoglobin 13.7 g/dl (12.0-16.0); Imm Gran Abs Auto 0.02 X10*3/uL (0.00-0.03); Imm Gran Pct Auto 0.2 % (0.0-0.4); Lymphocytes Absolute Auto 2.5 X10*3/uL (1.2-4.9); Mean Corpuscular HGB Conc 35.0 g/dl (31.0-35.0); Mean Corpuscular Hemoglobin 30.6 pg (27.0-33.0); Mean Corpuscular Volume 87.5 fL (80.0-98.0); NRBC Abs Auto 0.000 X10*3/uL (0.0-0.012); NRBC Pct Auto 0.0 /100WBC (0.0-0.2); Platelet Count 254 X10*3/uL (160-400); Red Blood Count 4.47 X10*6/uL (4.20-5.50); White Blood Count 9.4 X10*3/uL (4.8-10.8)
[2025-04-24 17:06] LABS: Alanine Aminotransferase 36 U/L (0-31); Albumin Level 4.4 g/dL (3.5-5.0); Alkaline Phosphatase 58 U/L (39-117); Anion Gap 11 (12-20); Aspartate Amino Transferase 35 U/L (5-31); Blood Urea Nitrogen 13 mg/dL (9-16); Calcium 9.8 mg/dL (8.4-10.2); Carbon Dioxide 25 mmol/L (22-29); Chloride 106 mmol/L (96-108); Creatinine Clr Calc Pharmacy 69.6; Estimated Glomerular Filt Rate > 60; Lipase 23 U/L (8-78); Magnesium 2.1 mg/dL (1.6-2.6); Potassium 3.4 mmol/L (3.3-5.1); Sodium 139 mmol/L (135-145); Total Protein 7.0 g/dL (6.5-8.0)
[2025-04-24 17:18] LABS: Troponin-I High Sensitivity < 2.7 ng/L (<3.5-17.0)
[2025-04-24 17:24] LABS: Appearance Urine Clear; Glucose Urine UA Negative (Negative); PH 6.0 (5.0-9.0); Specific Gravity - Urine 1.010 (1.005-1.025)
--- OUTSIDE RECORDS SUMMARY | 2025-04-24 17:24 | XMS_ITS | Encounter Summary ---
Author Organization [employer] Address [address] [place] [address] Care Team Providers Care Deburrer Machine Name Role Phone Morteza Chaudhary MD Primary Care Prov ider Patrick Palacios RN Unavailable [phone] Camron Palacios Unavailable Reason for Visit * Reason Comments Med Refill Encounter Details Date Type Department Care Team (Late st Contact Info) Description 01/16/2025 Refill [facility] [address] [place], [place] [phone] Mani Mojica MD [address] [place], [place] [phone] Social History Tobacco Use Types Packs/Day Years [...] documented as of this encounter Care Teams Deburrer Machine Relationship Specialty Start Date End Date MorganMorteza Orosco MD [address] [place] [address] PCP - General Internal Medicine 11/04/24 Patrick Palacios RN [address] [place] [address] Registered Nurse Family Medicine 03/14/25 Camron Palacios 03/14/25 documented as of this encounter
--- OUTSIDE RECORDS SUMMARY | 2025-04-24 17:24 | XMS_ITS | Encounter Summary ---
Author Organization [employer] Address [address] [place] [address] Care Team Providers Care Claims Director Name Role Phone Morteza Chaudhary MD Primary Care Prov ider Patrick Palacios RN Unavailable [phone] Camron Palacios Unavailable Encounter Details Date Type Department Care Team (Late st Contact Info) Description 04/24/2025 Patient Outreach [facility] [address] [place] [address] Morteza Chaudhary MD [address] [place] [address] Social History Tobacco Use Types Packs/Day Years [...] encounter Progress Notes * Camron Palacios - 04/24/2025 4:50 PM EDT CHW Camron Palacios, [facility]bound [facility] to reschedule missed initial assessment appt on 04/10/2025 for CM/CHW program services. No answer at this time. CHW LVM introducing herself from [facility] CM Department with CHW's name, department and [...] documented as of this encounter Care Teams Claims Director Relationship Specialty Start Date End Date Morteza Chaudhary MD [address] [place] [id number] PCP - General Internal Medicine 11/04/24 Patrick Palacios, RN [address] [place] [id number] Registered Nurse Family Medicine 03/14/25 Camron Palacios 03/14/25 documented as of this encounter
--- OUTSIDE RECORDS SUMMARY | 2025-04-24 17:24 | XMS_ITS | Encounter Summary ---
Author Organization [employer] Address [address] [place] [address] Care Team Providers Care Cigarette Packer Name Role Phone Morteza Chaudhary MD Primary Care Prov ider Patrick Palacios RN Unavailable [phone] Camron Palacios Unavailable Reason for Visit * Reason Onset Date Comments Med Refill 03/25/2025 Encounter Details Date Type Department Care Team ([facility] st Contact Info) Description 03/25/2025 Telephone [facility] [address] [place], [place] [phone] Morteza Chaudhary MD [address] [place], [place] [phone] Med Refill Social History Tobacco Use Types [...] soon for refill script was sent to [id number] on 02/12/25 90 day supply. * Telephone Encounter - Evelyn Brantley - 03/25/2025 9:44 AM EDT TC from pt requesting medication refill. Medications needing refill : levETIRAcetam (Keppra) 750 MG tablet To be sent to: [id number] - [place]UZ [id number] [facility] Pt stated has upcoming appointment with neurologist documented in this encounter Plan of Treatment Not on file documented as of this encounter Visit Diagnoses Not on filedocumented in this encounter Additional Health Concerns Assessment Noted Time PHQ-9 Depression Total Score: 18 025 8:44 AM EDT documented as of this encounter Care Teams Cigarette Packer Relationship Specialty Start Date End Date Morteza Chaudhary MD [address] [place] [address] PCP - General Internal Medicine 11/04/24 Patrick Palacios RN [address] [place] [address] Registered Nurse Family Medicine 03/14/25 Camron Palacios 03/14/25 documented as of this encounter
--- OUTSIDE RECORDS SUMMARY | 2025-04-24 17:24 | XMS_ITS | Encounter Summary ---
Author Organization [employer] Address [address] [place] [address] Care Team Providers Care Dock Pumper Name Role Phone Morteza Chaudhary MD Primary Care Prov ider Patrick Palacios RN Unavailable [phone] Camron Palacios Unavailable Reason for Visit * Reason Comments Med Refill Encounter Details Date Type Department Care Team ([facility] st Contact Info) Description 04/20/2025 Refill [facility] [address] [place] [address] Morteza Chaudhary MD [address] [place], [place] [phone] Social History Tobacco Use Types Packs/Day Years [...] documented as of this encounter Care Teams Dock Pumper Relationship Specialty Start Date End Date Morteza Chaudhary MD [address] [place] [address] PCP - General Internal Medicine 11/04/24 Patrick Palacios RN [address] [place] [address] Registered Nurse Family Medicine 03/14/25 Camron Palacios 03/14/25 documented as of this encounter
--- OUTSIDE RECORDS SUMMARY | 2025-04-24 17:24 | XMS_ITS | Clinical Summary ---
Author Organization [email or web address] Address [address] [place] [address] Care Team Providers Care Rotary Peel Oven Tender Name Role Phone Morteza Chaudhary MD Primary Care Prov ider Patrick Palacios RN Unavailable [phone] Camron Palacios Unavailable Allergies Active Allergy Reactions [...] EVERY DAY 90 tablet 02/27/20 25 Active Melatonin 5 MG capsule Take [...] AT BEDTIME 30 tablet 04/09/20 25 Active promethazine (Phenergan) 25 MG tablet TAKE 1 TABLET BY MOUTH EVERY 6 HOURS NEEDED FOR NAUSEA AND VOMITING 90 tablet 04/22/20 25 Active hydrOXYzine HCl (Atarax) 50 MG tablet TAKE 1 TABLET BY MOUTH EVERY TWELVE HOURS NEEDED FOR ANXIETY 90 tablet 04/22/20 25 Active levETIRAcetam (Keppra) 750 MG tablet TAKE 1 TABLET BY MOUTH TWICE A DAY 180 tablet 02/13/20 25 025 Discontinued(Re order (will not trigger notification to Pharmacy)) hydrOXYzine HCl (Atarax) 50 MG tablet TAKE 1 TABLET BY MOUTH EVERY TWELVE HOURS NEEDED FOR ANXIETY 90 tablet 03/10/20 25 025 Discontinued promethazine (Phenergan) 25 MG tablet TAKE 1 TABLET BY MOUTH EVERY 6 HOURS NEEDED FOR NAUSEA AND VOMITING 90 tablet 03/10/20 25 025 Discontinued SUMAtriptan (Imitrex) 50 MG tablet TAKE 1 [...] needed for smoking cessation. 72 lozenge 03/10/20 025 Discontinued cyclobenzaprin e (Flexeril) 10 MG tablet TAKE 1 TABLET(10 MG) BY MOUTH EVERY 8 HOURS NEEDED FOR MUSCLE SPASMS 30 tablet 03/10/20 025 Discontinued mirtazapine (Remeron) 15 MG tablet Take 1 tablet (15 mg) by mouth at bedtime. 30 tablet 03/11/20 25 025 Discontinued sucralfate (Carafate) 1 g tablet Take 1 tablet (1 g) by mouth before breakfast, before lunch, before evening meal, and at bedtime. 120 tablet 03/11/20 025 Discontinued Active Problems Problem Noted Date Diagnosed Date Pelvic pain 03/11/2025 Assessment & Plan (03/11/2025 4:42 PM EDT): Chronic, patient followed due to uterine fibroid, complains of pain on intercourse, will refer to contracts representative for evaluation Muscle pain 03/11/2025 Assessment & [...] History of augmentation of both breasts 11/01/19 History of esophagogastroduodenoscopy (EGD) 10/06 History of ankle surgery 10/31/2024 Encounters Date Type Department Care Team Description 04/24/2025 Patient Outreach [facility] [address] [place] [address] Morteza Chaudhary MD 04/20/2025 Refill [facility] [address] [place] [address] Morteza Chaudhary MD 04/15/2025 Orders Only GENERIC EXTERNAL DATA DEPARTMENT Provider, Generic External Data 04/14/2025 Patient Outreach [facility] [address] [place] [address] Morteza Chaudhary MD Care Coordination ([facility]/W ZAID Kim#1- Attempt to R/S missed IA-LVM) 04/10/2025 Patient Outreach [facility] [address] [place] [address] Morteza Chaudhary MD Care Management ([facility]- initial assessment/ enrollment. Not available.) 04/09/2025 Patient Outreach [facility] [address] [place] [address] Morteza Chaudhary MD Care Coordination (C3/ZAID Ibarra-LVM-CM Complex Care Initial Assessment Appt Reminder) 04/08/2025 Refill [facility] [address] [place] [address] Morteza Chaudhary MD 04/04/2025 Refill [facility] [address] [place] [address] Morteza Chaudhary MD 04/03/2025 Patient Outreach [address] [address] Morteza Chaudhary MD Care Coordination (C3/ZAID Chowdhury- Follow up on Neurology Appt) 03/27/2025 Patient Outreach [address] [address] Morteza Chaudhary MD Care Coordination (C3/ZAID Ibarra-ADT Outreach-Agrees to participate in CM Complex Care Program) 03/25/2025 Telephone [facility] [address] [place] [address] Morteza Chaudhary MD Med Refill 03/24/2025 Refill [facility] [address] [place] [address] Mani Mojica MD 03/24/2025 Patient Outreach [address] [address] Morteza Chaudhary MD 03/18/2025 1:00 PM EDT Telemedicine [facility] [address] [place] [address] Yolanda Gutierrez RN Peptic ulcer disease [K27.9] 03/18/2025 Travel 03/14/2025 Patient Outreach [address] [address] Morteza Chaudhary MD Care Coordination ([facility] Camron Palacios, #1- ADT Outreach-[facility]) 03/14/2025 Patient Outreach [address] [address] Morteza Chaudhary MD Care Coordination ([facility] Camron Palacios, Chart Review) 03/14/2025 Patient Outreach [address] [address] Morteza Chaudhary MD 03/14/2025 Patient Outreach [address] [address] Morteza Chaudhary MD Care Management ([facility]- chart review) 03/14/2025 Patient Outreach [address] [address] Morteza Chaudhary MD 03/13/2025 Orders Only [facility] External Provider, [facility] 03/11/2025 1:30 PM EDT Office Visit [facility] [address] [place] [address] Morteza Chaudhary MD Migraine without status migrainosus, not intractable, unspecified migraine type (Primary Dx); Anxiety and depression; Peptic ulcer disease; Seizure disorder ([facility]); Pelvic pain; Muscle pain 03/11/2025 Travel 03/07/2025 Telephone [facility] [address] [place] [address] Morteza Chaudhary MD Med Refill 03/06/2025 Refill [facility] [address] [place] [address] Morteza Chaudhary MD 02/28/2025 Refill [facility] [address] [place] [address] Morteza Chaudhary MD 02/25/2025 Refill [facility] [address] [place] [address] Mani Mojica MD 02/14/2025 Refill [facility] [address] [place] [address] Morteza Chaudhary MD 02/12/2025 Refill [facility] [address] [place] [address] Morteza Chaudhary MD 02/11/2025 Population Health Risk Score [facility] Department [address] [phone] Provider, Population Health Generic 02/10/2025 Refill [facility] [address] [place] [address] Morteza Chaudhary MD 02/10/2025 Refill [facility] [address] [place] [address] Elaine Holt MD 02/10/2025 Refill [facility] [address] [place] [address] Morteza Chaudhary MD 02/06/2025 Orders Only GENERIC EXTERNAL DATA DEPARTMENT Provider, Generic External Data 02/04/2025 Refill [facility] [address] [place] [address] Morteza Chaudhary MD 01/31/2025 Orders Only [facility] External Provider, [facility] from Last 3 Months Family History Medical [...] Procedure Name Priority Date/Time Associated Diagnosis Comments XR CHEST 1 VIEW Routine 04/24/2025 4:35 PM EDT DRUG MONITOR, PANEL 1, SCREEN, URINE Routine 04/15/2025 11:08 AM EDT URINALYSIS WITH REFLEX MICROSCOPIC Routine 04/15/2025 11:[address] ABDOMEN PELVIS W CONTRAST Routine 03/14/2025 1:34 AM EDT CBC WITH AUTO DIFFERENTIAL Routine 02/06/2025 8:51 AM EDT COMPREHENSIVE METABOLIC PANEL Routine 02/06/2025 8:51 AM EDT XR HIP BILATERAL WITH PELVIS 1 VIEW Routine 01/31/2025 10:20 AM EDT from Last 3 Months Results * XR Chest 1 View (04/24/2025 4:35 PM EDT) Anatomical Region Laterality Modality Chest Radiographic Kimberly ging 04/24/2025 4:35 PM EDT Narrative 04/24/2025 4:51 PM EDT [address] [address] XRay Report Signed Patient: Connie Valdez MR#: [id number] : 1980 Acct:[id number] Age/Sex: 44 / F ADM Date: 04/24/25 Loc: HO.ED Attending Dr: Ordering Physician: Suzi Bob MD Date of Service: 04/24/25 Procedure(s): XR chest 1V Accession Number(s): [id number] cc: Morteza Chaudhary MD; Suzi Bob MD Reason for Exam: palpitation EXAMINATION: XR CHEST CLINICAL INFORMATION palpitation COMPARISON: March 13, 2025 TECHNIQUE: Frontal views of the chest was obtained. FINDINGS: No significant abnormality is noted involving the heart, lungs, mediastinum, bony thorax or soft tissues. XR/XR chest 1V IMPRESSION: No acute disease Electronically signed by: Ray Beth MD 04/24/2025 04:48 PM EDT RP Dictated By: Ray Beth MD Signed By: <Electronically signed by Ray Beth MD in OV> 04/24/25 1648 DD/ 1635 TD/TT: 04/24/25 1645 Hostel Parent: Procedure Note Donotuseinterpreter, Image - 04/24/[address] [address] XRay Report Signed Patient: Connie Valdez [facility]#: [id number] : 1980Acct:[id number] Age/Sex: 44 / FADM Date: 04/24/25 Loc: .ED Attending Dr: Ordering Physician: Suzi Bob MD Date of Service: 04/24/25 Procedure(s): XR chest 1V Accession Number(s): [id number] cc: Morteza Chaudhary MD; Suzi Bob MD Reason for Exam: palpitation EXAMINATION: XR CHEST CLINICAL INFORMATION palpitation COMPARISON: March 13, 2025 TECHNIQUE: Frontal views of the chest was obtained. FINDINGS: No significant abnormality is noted involving the heart, lungs, mediastinum, bony thorax or soft tissues. XR/XR chest 1V IMPRESSION: No acute disease Electronically signed by: Ray Beth MD 04/24/2025 04:48 PM EDT RP Dictated By: Ray Beth MD Signed By: <Electronically signed by Ray Beth MD in OV> 04/24/25 1648 DD/ 1635 TD/TT: 04/24/25 1645 Hostel Parent: [facility] External Provider IMG XR PROCEDURES Final Result * (ABNORMAL) Drug Monitoring, Panel 1, Screen, Urine (04/15/2025 11:08 AM EDT) Opiate Screen Urine Not Detected Not Detect [facility] Comment:Opiate cut-off is 30 0 ng/mL.Positive results are unconfirmed and should not be used fornon-medical purposes. Barbiturates, Urine Not Detected Not Detect [facility] Comment:Barbiturate cut-off is 200 ng/mL.Positive results are unconfirmed and should not be used fornon-medical purposes. Phencyclidine Screen Urine Not Detected Not Detect [facility] Comment:Phencyclidine cut-of f is 25 ng/mL.Positive results are unconfirmed and should not be used fornon-medical purposes. Amphetamine Screen Urine Not Detected Not Detect [facility] Comment:Amphetamine cut-off is 1000 ng/mL.Positive results are unconfirmed and should not be used fornon-medical purposes. Benzodiazepines Screen Urine Not Detected Not Detect [facility] Comment:Benzodiazepine cut-o ff is 200 ng/mL.Positive results are unconfirmed and should not be used fornon-medical purposes. Cocaine Screen Urine Not Detected Not Detect [facility] Comment:Cocaine cut-off is 3 00 ng/mL.Positive results are unconfirmed and should not be used fornon-medical purposes. Cannabinoid Screen Urine POSITIVE(A) Not Detect [facility] Comment:Cannabinoid cut-off is 50 ng/mL.Positive results are unconfirmed and should not be used fornon-medical purposes. Methadone Screen, Urine Not Detected Not Detect ng/mL [facility] Comment:Methadone cut-off is 300 ng/mL.Positive results are unconfirmed and should not be used fornon-medical purposes. FENTANYL URINE Not Detected Not Detect [facility] Comment:Fentanyl cut-off is 1 ng/mL.Positive results are unconfirmed and should not be used fornon-medical purposes. Oxycodone Urine Screen Not Detected Not Detect ng/mL [facility] Comment:Oxycodone cut-off is 100 ng/mL.Positive results are unconfirmed and should not be used fornon-medical purposes. Buprenorphine Screen Positive(A) Not Detect ng/mL [facility] Comment:Buprenorphine cut-of f is 5 ng/mL.Positive results are unconfirmed and should not be used fornon-medical purposes. 04/15/2025 11:0 8 AM EDT 04/15/2025 11:12 AM EDT us Generic External Data Provider LAB URINE ORDERAB LES Final Result [facility] [address] [place] [address] [phone] * Urinalysis w/reflex microscopic (04/15/2025 11:08 AM EDT) Color Urine Yellow [facility] Appearance Urine Turbid [facility] PH 7.5 5.0 - 9.0 [facility] Glucose Urine UA Negative Negative mg/dL [facility] Urine Blood Negative Negative [facility] Specific Scarbro - Urine 1.025 1.005 - 1.025 [facility] Urine Protein Negative Neg-Trace mg/dL [facility] Urine Ketones Negative Negative mg/dL [facility] Nitrite Urine Negative Negative [facility] Leukocyte Esterase Urine Negative Negative [facility] 04/15/2025 11:0 8 AM EDT 04/15/2025 11:12 AM EDT Narrative [facility] - 04/15/2025 11:22 AM EDT Urine, Clean Catch us Generic External Data Provider LAB URINE ORDERAB LES Final Result Performing Organization Address City/State/[facility] de Phone Number [facility] [address] [place] [phone] * CT Abdomen Pelvis w/ Contrast (03/14/2025 1:34 AM EDT) Anatomical Region Laterality Modality Body, Pelvis, Abdomen Computed T omography 03/14/2025 1:34 AM EDT Narrative 03/14/2025 1:36 AM EDT [place] [address] CT Scan Report Signed Patient: Connie Valdez MR#: [id number] : 1980 Acct:[id number] Age/Sex: 44 / F ADM Date: 03/13/25 Loc: HO.ED Attending Dr: Ordering Physician: Ginny Griffiths PA-C Date of Service: 03/14/25 Procedure(s): CT abdomen pelvis w IV con Accession Number(s): [id number] cc: Morteza Chaudhary MD; Ginny Griffiths PA-C Report Number: [id number]: Total DLP = 409.00 mGy-cm CLINICAL HISTORY: [...] in OV> 03/14/25134 DD/ 3 TD/TT: 03/14/25133 Hostel Parent: Procedure Note Donotuseinterpreter, Image - 03/14/[address] [address] [address] Scan Report Signed Patient: Connie Valdez [facility]#: [id number] : 1980Acct:[id number] Age/Sex: 44 / FADM Date: 03/13/25 Loc: HO.ED Attending Dr: Ordering Physician: Ginny Griffiths PA-C Date of Service: 03/14/25 Procedure(s): CT abdomen pelvis w IV con Accession Number(s): [id number] cc: Morteza Chaudhary MD; Ginny Griffiths PA-C Report Number: [id number]: Total DLP = 409.00 mGy-cm CLINICAL HISTORY: [...] in OV> 03/14/25134 DD/ 3 TD/TT: 03/14/25133 Hostel Parent: [facility] External Provider IMG CT PROCEDURES Final Result * (ABNORMAL) CBC auto differential (02/06/2025 8:51 AM EDT) White Blood Count 5.1 4.8 - 10.8 X10*3/uL [facility] Red Blood Count 3.65(L) 4.20 - 5.50 X10*6/uL [facility] Hemoglobin 11.3(L) 12.0 - 16.0 g/dl [facility] Hematocrit 33.4(L) 37.0 - 47.0 % [facility] Mean Corpuscular Volume 91.5 80.0 - 98.0 fL [facility] Mean Corpuscular Hemoglobin 31.0 27.0 - 33.0 pg [facility] Mean Corpuscular HGB Conc 33.8 31.0 - 35.0 g/dl [facility] Red Cell Distribution Width 12.6 11.0 - 16.0 % [facility] Platelet Count 181 160 - 400 X10*3/uL [facility] Mean Platelet Volume 9.7 9.4 - 12.3 fL [facility] Neutrophils Percent Auto 49.2 45 - 73 % [facility] Imm Gran Pct Auto 0.0 0.0 - 0.4 % [facility] Lymphocytes Percent Auto 30.0 20 - 40 % [facility] Monocytes Percent Auto 5.8 2 - 11 % [facility] Eosinophils Percent Auto 13.8(H) 0 - 4 % [facility] Basophils Percent Auto 1.2 0 - 2 % [facility] NRBC Pct Auto 0.0 0.0 - 0.2 /100WBC [facility] Neutrophils Absolute Auto 2.5 2.0 - 8.3 x10*3/uL [facility] Imm Gran Abs Auto 0.00 0.00 - 0.03 X10*3/uL [facility] Lymphocytes Absolute Auto 1.5 1.2 - 4.9 X10*3/uL [facility] Monocytes Absolute Auto 0.3 0.1 - 1.2 X10*3/uL [facility] Eosinophils Absolute Auto 0.7(H) 0.0 - 0.4 X10*3/uL [facility] Basophils Absolute Auto 0.1 0.0 - 0.2 X10*3/uL [facility] NRBC Abs Auto 0.000 0.0 - 0.012 X10*3/uL [facility] 02/06/2025 8:51 AM EDT 02/06/2025 8:53 AM EDT us Generic External Data Provider LAB BLOOD ORDERAB LES Final Result [facility] [address] [place] [address] [phone] * (ABNORMAL) Comprehensive Metabolic Panel (02/06/2025 8:51 AM EDT) Sodium 140 135 - 145 mmol/L [facility] Potassium 4.3 3.3 - 5.1 mmol/L [facility] Chloride 114(H) 96 - 108 mmol/L [facility] Carbon Dioxide 23 22 - 29 mmol/L [facility] Anion Gap 7(L) 12 - 20 [facility] Urea Nitrogen (BUN) 16 9 - 16 mg/dL [facility] Creatinine, Serum 1.25 0.5 - 1.4 mg/dL [facility] Creatinine Clr Calc Pharmacy 52.9 [facility] Comment:Provided height and weight: 160.02 cm,65.771 kg.eGFR (calculated from the MDRD study equation) and eCrCl(calculated from the Cockcroft-Gault equation) are based ondifferent parameters and may not yield comparable results.If eCrCl result is absurd, please check patient'sheight/weight. Estimated Glomerular Filt Rate 47 [facility] Comment:Chronic Kidney Disea se: Estimated GFR < 60 mL/min/1.51w3Evyeyr Kidney Disease: Estimated GFR < 15 mL/min/1.73m2 Glucose 84 60 - 115 mg/dL [facility] Calcium 8.1(L) 8.4 - 10.2 mg/dL [facility] Bilirubin, Total 0.1 0.0 - 1.0 mg/dL [facility] Aspartate Amino Transferase 25 5 - 31 U/L [facility] Alanine Aminotransferase 20 0 - 31 U/L [facility] Total Protein 5.5(L) 6.5 - 8.0 g/dL [facility] Albumin Level 3.6 3.5 - 5.0 g/dL [facility] Alkaline Phosphatase 51 39 - 117 U/L [facility] 02/06/2025 8:51 AM EDT 02/06/2025 8:53 AM EDT us Generic External Data Provider LAB BLOOD ORDERAB LES Final Result [facility] [address] [place] [phone] * XR Hips Bilateral with Pelvis 1 view (01/31/2025 10:20 AM EDT) Anatomical Region Laterality Modality Lower Extremities, Hip Bilateral Radiograp hic Imaging 01/31/2025 10:2 0 AM EDT Narrative 01/31/2025 10:42 AM EDT [address] [address] XRay Report Signed Patient: Connie Valdez MR#: [id number] : 1980 Acct:[id number] Age/Sex: 44 / F ADM Date: 01/31/25 Loc: HO.ED Attending Dr: Ordering Physician: Mimi Ayers NP Date of Service: 01/31/25 Procedure(s): XR hip BI w PEL1V Accession Number(s): [id number] cc: MANI MOJICA MD; Mimi Ayers NP [...] 01/31/25 1040 DD/ 1020 TD/TT: 01/31/25 1033 Hostel Parent: Procedure Note Donotuseinterpreter, Image - 01/31/[address] [address] XRay Report Signed Patient: Connie Valdez [facility]#: [id number] : 1980Acct:[id number] Age/Sex: 44 / FADM Date: 01/31/25 Loc: HO.ED Attending Dr: Ordering Physician: Mimi Ayers NP Date of Service: 01/31/25 Procedure(s): XR hip BI w PEL1V Accession Number(s): [id number] cc: MANI MOJICA MD; Mimi Ayers NP [...] significant progression from 04/02/2024. Electronically signed by: Bryno Guzman MD 01/31/2025 10:40 AM EDT Dictated By: Bryon Guzman MD Signed By: <Electronically signed by Bryon Guzman MD in OV> 01/31/25 1040 DD/ 1020 TD/TT: 01/31/25 1033 Hostel Parent: [facility] External Provider IMG XR PROCEDURES Edited Result - Final from Last 3 Months Insurance [facility] C3 Care Teams Rotary Peel Oven Tender Relationship Specialty Start Date End Date Morteza Chaudhary MD [address] [place] [address] [place] [address] PCP - General Internal Medicine 11/04/24 Patrick Palacios RN [address] [place] [address] Registered Nurse Family Medicine 03/14/25 Camron Palacios 03/14/25
--- OUTSIDE RECORDS SUMMARY | 2025-04-24 17:24 | XMS_ITS | Encounter Summary ---
Author Organization [employer] Address [address] [place] [address] Care Team Providers Care Sleeping Car Porter Name Role Phone Morteza Chaudhary MD Primary Care Prov ider Patrick Palacios RN Unavailable [phone] Camron Palacios Unavailable Reason for Visit * Reason Comments Med Refill Encounter Details Date Type Department Care Team ([facility] st Contact Info) Description 02/14/2025 Refill [facility] [address] [place] [address] Morteza Chaudhary MD [address] [place], [place] [phone] Social History Tobacco Use Types Packs/Day Years [...] documented as of this encounter Care Teams Sleeping Car Porter Relationship Specialty Start Date End Date Morteza Chaudhary MD [address] [place] [address] PCP - General Internal Medicine 11/04/24 Patrick Palacios RN [address] [place] [address] Registered Nurse Family Medicine 03/14/25 Camron Palacios 03/14/25 documented as of this encounter
--- OUTSIDE RECORDS SUMMARY | 2025-04-24 17:24 | XMS_ITS ---
Author Organization [employer] Address [address] [facility] [address]t [place] [address] Care Team Providers Care Elevator Builder Name Role Phone Morteza Chaudhary MD Primary Care Prov ider Patrick Palacios RN Unavailable [phone] Camron Palacios Unavailable CHW Complex Status:Outreach In Progress (Enrolling) Start date:03/14/2025 Enrollment reason:ADT Feed Overview ED- Pt went [place] [facility] on 03[facility]13[place]25 Please outreach for enrollment. Case Team Name Relationship Phone Camron Palacios(Responsible Staff) [phone] Continued Care and Services Coordination
--- OUTSIDE RECORDS SUMMARY | 2025-04-24 17:24 | XMS_ITS ---
Author Organization [employer] Address [address] [place] [address] Care Team Providers Care Customer Complaint Clerk Name Role Phone Morteza Chaudhary MD Primary Care Prov ider Patrick Palacios RN Unavailable [phone] Camron Palacios Unavailable CM Complex Status:Outreach In Progress (Enrolling) Start date:03/14/2025 Enrollment reason:ADT Feed Overview ED- Pt went to [facility] ED on 03/13/25. Case Team Name Relationship Phone Patrick Palacios RN(Responsible Staff) Registered Nurse [phone] Continued Care and Services Coordination
--- OUTSIDE RECORDS SUMMARY | 2025-04-24 17:24 | XMS_ITS | Encounter Summary ---
Author Organization [employer] Address [address] [place] [address] Care Team Providers Care Administrative Resident Name Role Phone Morteza Chaudhary MD Primary Care Prov ider Patrick Palacios RN Unavailable [phone] Camron Palacios Unavailable Reason for Visit * Reason Comments Med Refill Encounter Details Date Type Department Care Team ([facility] st Contact Info) Description 02/28/2025 Refill [facility] [address] [place] [address] Morteza Chaudhary MD [address] [place], [place] [phone] Social History Tobacco Use Types Packs/Day Years [...] documented as of this encounter Care Teams Administrative Resident Relationship Specialty Start Date End Date Morteza Chaudhary MD [address] [place] [address] PCP - General Internal Medicine 11/04/24 Patrick Palacios RN [address] [place] [address] Registered Nurse Family Medicine 03/14/25 Camron Palacios 03/14/25 documented as of this encounter
[2025-04-24 19:56] VITALS: BP 119/76; PULSE 89; RESP 17; TEMP 36.7; O2SAT 98
== END 2025-04-24 19:58 | disposition home or self-care (01) ==
PROVIDERS: Emergency Provider Emergency Medicine; PCP Internal Medicine
DX: R00.2 Palpitations (principal); I49.9 Cardiac arrhythmia, unspecified; R51.9 Headache, unspecified; F12.90 Cannabis use, unspecified, uncomplicated; Z79.899 Other long term (current) drug therapy; F17.210 Nicotine dependence, cigarettes, uncomplicated
CPT/HCPCS: 36415; 71045; 80048; 80076; 81003; 83690; 83735; 84100; 84484; 85025; 93005; 99284; 99285

== ENCOUNTER → 2025-04-24 16:18 | Outpatient (BNV) | payer MEDICAID, SELFPAY | PROVIDERS: Emergency Provider Emergency Medicine; PCP Internal Medicine; Visit Provider Internal Medicine | DX: R07.9 Chest pain, unspecified (principal) | CPT/HCPCS: 93010 ==

== ENCOUNTER → 2025-04-24 16:22 | Outpatient (BNV) | payer MEDICAID, SELFPAY | PROVIDERS: Emergency Provider Emergency Medicine; PCP Internal Medicine; Visit Provider Radiology Diagnostic Radiology | DX: R00.2 Palpitations (principal) | CPT/HCPCS: 71045 ==

== ENCOUNTER 2025-04-28 08:13 | Outpatient (AMB) | payer MEDICAID, SELFPAY ==
--- OUTSIDE RECORDS SUMMARY | 2024-05-07 06:00 | XMS_ITS ---
Author Organization [facility] Address [address] [place] [address] Care Team Providers Care Primer Assembler Name Role Phone Vikki Spicer Primary Care Provider [phone] REASON FOR VISIT [facility] paperwork Encounters Encounter Location Date Provider Diagnosis [facility] [address] [place], [place] [phone] 05/07/2024 Vikki Spicer Encounter for screening for [...] * Bello YUNGOB: [birth year] (44 yo F)Acc No.[id number]:05/07/2024 Progress Notes Patient: Connie MENDEZ Provider: NIKOS Saunders :1980 A ge:43 Y S ex:Female Date:05/07/2024 Address:[address] [place] [address] Subjective: * Chief Complaints: * 1 . [facility] paperwork. * HPI: G eneral: Symptom Screen: [...] * Electronic signature of Zaire Spicer on 04/28/2025 at 09:11 AM EDT Sign off status: Pending * Provider: NIKOS Saunders Date: 1 Generated for Marilin johnson/Olivia/Royasmedmund on: 0 04/28/2025 09:11 AM EDT
--- OUTSIDE RECORDS SUMMARY | 2024-05-14 10:00 | XMS_ITS ---
Author Organization [facility] Address [address] [place] [address] Care Team Providers Care Dog Barber Name Role Phone Vikki Spicer Primary Care Provider Jessie Ferrera Unavailable [phone] REASON FOR VISIT BH: initial intake, Symptom screening by [facility] staff pre entrance to clinic Encounters Encounter Location Date Provider Diagnosis [facility] [address] [place] [address] 05/14/2024 Jessie Ferrera Encounter for screening for [...] * Bello YUNGOB: [birth year] (44 yo F)Acc No.[id number]:05/14/2024 Progress Notes Patient: Connie MENDEZ Provider: DANIEL MooreHNP-BC :1980 A ge:43 Y S ex:Female Date:05/14/2024 Address:[address] [place], [place] [phone] Pcp:Vikki Spicer Subjective: * Chief Complaints: * 1 . BH: initial intake. 2. Symptom screening by [facility] staff pre entrance to clinic. * [...] Mg Caps ule 60 30 Ed Jered [id number] Wal (26 05) 0/0 2.01 LMET Medicai d [place] .? Assessment: * Assessment: 1. E ncounter for screening for COVID-19 - Z11.52 (Primary) Plan: * Treatment: * Images: Billing Information: * Visit Code: * Procedure Codes: Care Plan Details* * Electronic signature of JENNIFER Corrales on 04/28/2025 at 09:10 AM EDT Sign off status: Pending * Provider: Evangelista Ferrera PMHNP-BC Date: 1 Generated for Marilin johnson/Olivia/Javyitting on: 0 04/28/2025 09:10 AM EDT History and Physical Notes * Examination Category Sub-Category Detail Notes Category Not es Psychiatry Assessment Filled Written S old ID Drug QTY Days Prescriber RX # Dispenser Refill Daily Dose* Pymt Type MS SQL DEVELOPER //70719Xnbdxtfvko 150 Mg [id number] (2605) [place]MedicaidMA
--- OUTSIDE RECORDS SUMMARY | 2024-05-22 07:00 | XMS_ITS ---
Author Organization [facility] Address [address] [place] [address] Care Team Providers Care Accelerator Operator Name Role Phone Vikki Spicer Primary Care Provider [phone] [facility], Nursing Unavailable [phone] Medications Medication SIG (Take, Route, Frequency, Duration) [...] Encounter Location Date Provider Diagnosis [facility] [address] [place] [address] 05/22/2024 Nursing [facility] Encounter for screening for COVID-19 Z11.52 [...] * Bello YUNGOB: [birth year] (44 yo F)Acc No.[id number]:05/22/2024 Progress Notes Patient: Claudia Connie DE LA ROSA Provider: Chavez giles [facility] :1980 A ge:43 Y S ex:Female Date:05/22/2024 Address:[address] [place], [place] [phone] Pcp:Vikki Spicer Subjective: * Chief Complaints: * [...] Codes: * Electronic signature of Buck jain [facility] on 04/28/2025 at 09:11 AM EDT Sign off status: Pending * Provider: Chavez giles [facility] Date: 1 Generated for Marilin johnson/Olivia/Beni on: 0 04/28/2025 09:11 AM EDT
--- OUTSIDE RECORDS SUMMARY | 2025-04-19 17:00 | XMS_ITS ---
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 Helper Name Role Phone ElierjuanVikki Primary Care Provider Migration, Provider Unavailable Unavailable Allergies Allergen (clinical drug ingredient) Drug/Non Drug Allergy documented on EMR Reaction Allergy Type Onset Date Status Keflex anaphylaxis Drug Allergy Activ e Shellfish SHELLFISH (uncoded) Unknown Allergy Active REASON FOR VISIT [facility] To [place] Conversion Encounter Medications Medication SIG (Take, Route, [...] Active Encounters Encounter Location Date Provider Diagnosis [address] [address] 04/19/2025 Provider Migration Plan Of Treatment No Information Progress Notes * Bello YUNGOB: [birth year] (44 yo F)Acc No.[id number]:04/19/2025 Patient: Claudia Connie DE LA ROSA Provider: :1980 A ge:44 Y S ex:Female Date:04/19/2025 Address:[address] [place], [place] [id number] Pcp:Vikki Spicer Subjective: * Chief [facility]s: * [facility] * Medical History: * Medications: [...] review and pick correct strength- formulation from [employer] options. If intended option is not shown, [...] Electronic signature of Prov ider Migration on 04/28/2025 at 09:11 AM EDT Sign off status: Pending * Provider: Date: 04/19/2025 Generated for Marilin johnson/Olivia/Beni on: 04/28/2025 09:11 AM EDT
--- NOTE | 2025-04-28 08:17 | MHC.OFFVIS ---
Vital Signs 04/28/25 08:20 Height 5 ft 3 in Weight 149 lb 0.52 oz BMI 26.4 BP 120/64 Blood Pressure Location Lt brachial Position Sitting Pulse 95 Pulse Source Monitor Intake Visit Reasons: [facility] [place] referral Medical Equipment Sales Required: No Accompanied by: Significant Other Allergies cephalexin (From Keflex) Allergy (Verified 04/24/25 16:22) Anaphylaxis sulfamethoxazole (From Bactrim) Allergy (Verified 04/24/25 16:22) Anaphylaxis trimethoprim (From Bactrim) Allergy (Verified 04/24/25 16:22) Anaphylaxis acetaminophen (From Vicodin) Adverse Reaction (Verified 04/24/25 16:22) Nausea and Vomiting hydrocodone (From Vicodin) Adverse Reaction (Verified 04/24/25 16:22) Nausea and Vomiting prochlorperazine (From Compazine) Adverse Reaction (Verified 04/24/25 16:22) swollen tongue Medication List - Last Reconciled 04/28/25 by Rigoberto Saeed MD acetaminophen 1,000 mg PO Q8H PRN buprenorphine-naloxone 2-0.5 mg (Suboxone) 1.5 film buccal DAILY diclofenac sodium 1% 4 grams topical QID hydroxyzine HCl 50 mg PO Q12H PRN levetiracetam 750 mg PO BID levothyroxine 25 mcg PO DAILY@0500 lidocaine 5% 1 patch topical DAILY PRN melatonin 10 mg PO BEDTIME mirtazapine 15 mg PO BEDTIME nicotine (polacrilex) 2 mg PO Q2H PRN omeprazole 20 mg PO DAILY@0630 promethazine 25 mg PO Q6H PRN propranolol 10 mg PO BID sucralfate 1 g PO QID sumatriptan succinate 50 mg PO Q2-4H PRN HPI Comments Details: The patient is a 44-year-old female presenting with heart palpitations and concerns about potential anxiety-related symptoms. The heart palpitations began approximately a week ago, characterized by sensations of skipped beats and occasional pauses, which were confirmed by her and a mental health assistant. An EKG at the hospital showed extra beats, and although anxiety was considered a potential cause, the palpitations were persistent and noticeable. The patient has a history of seizure disorder, managed with Keppra. She also takes Mirtazapine for sleep and has been on propranolol for anxiety, which she finds somewhat effective. The patient reports hyperhidrosis, experiencing excessive sweating even with minimal exertion, and has a family history of coronary artery disease, with her grandfather having had a triple bypass surgery. She also has osteoarthritis, which limits her physical activity, and she uses a vape but denies alcohol or drug use. She does not have any exertional angina type symptoms. No previous cardiac history. [facility] Family History Maternal Grandfather History of heart bypass surgery Maternal Grandmother Heart attack Social History Unable to assess alcohol history related to: Unknown Patient Tobacco Use Status: Current everyday Tobacco user Tobacco use type: Smokeless Tobacco e-Cigarette/Vaping Use: Currently Using Second Hand Smoke Exposure: Yes Substance Use Type: Marijuana Advance Directives Date on File: 04/15/25 Review of Systems Const Denies chills, Denies fatigue, Denies fever(s), Denies frequent falls, Denies weakness, Denies weight gain and Denies weight loss ENT Denies dizziness Card Reports chest pain, Reports diaphoresis, Denies leg edema, Denies lightheadedness, Reports palpitations, Denies dyspnea and Denies dyspnea on exertion Resp Denies cough, Denies dyspnea and Denies dyspnea on exertion GI Denies hematochezia Musc Denies abnormal gait, Denies muscle weakness, Denies numbness, Denies radiating pain into limb and Denies tingling Neuro Denies abnormal gait, Denies dizziness, Denies frequent falls, Denies numbness, Denies tingling and Denies weakness Endo Denies fatigue and Reports palpitations Physical Exam Vital Signs: Last Vital Signs Pulse 95 04/28/25 08:20 BP 120/64 04/28/25 08:20 BMI result Body Mass Index 26.4 Const General: comfortable and no acute distress Orientation/consciousness: patient oriented x3 HEENT Other: Unremarkable Head: Yes normal to inspection Neck Neck: Yes normal visual inspection Chest Chest palpation & inspection: normal inspection of the chest Resp Auscultation: clear to auscultation bilaterally Cardio Palpation: normal PMI Heart sounds: S1 normal heart sound present, S2 normal heart sound present, no gallops, no murmurs and no rubs GI Palpation (GI): Soft to palpation Back/Spine/Pelvis Other: unremarkable Skin General skin exam: no rashes or lesions noted Neuro General: patient oriented x3 Extrem General: Yes normal to inspection Psych Mental Status: mental status grossly normal Office Procedures EKG Details: EKG with sinus rhythm at 95/Min; supraventricular ectopy; [place] [address]-[id number], Complete Assessment & Plan Assessment & Plan (1) Palpitations: Code(s): R00.2 - Palpitations Category: Medical (2) Atrial arrhythmia: Code(s): I49.8 - Other specified cardiac arrhythmias Category: Medical Plan In the EKG from March 13, anterior T inversions. Again seen in the EKG from April 15. However, resolved in the next EKG from April. She has got no clear exertional angina but anterior T inversions as above. Otherwise, there is evidence of supraventricular ectopy on the EKG. That is probably the reason for the palpitations. We will get an echocardiogram for cardiac function assessment. Holter monitor to assess the atrial arrhythmias above. We will also ensure there was no atrial fibrillation. For the T inversions, unclear etiology. She has got no clear exertional angina. We will get a coronary CTA for further assessment. Follow-up after the above. For the time being, if she indeed feels more palpitations, advised her to take extra propranolol dose. She understands that. Discussion Notes I discussed with the patient the likely benign nature of her palpitations, emphasizing the importance of the Holter monitor to correlate symptoms with any potential arrhythmias. We reviewed the use of propranolol for anxiety and the option to adjust the dose based on symptom severity. The need for a coronary CT scan was explained due to her family history of coronary artery disease, and the patient was informed about the follow-up process after the diagnostic tests. Patient was informed and verbally consented to the use of an ambient scribe for clinic note documentation during this visit. Orders: Orders CA echo transthoracic complete Today R00.2 - Palpitations ECG holter monitor 48 hour Today R00.2 - Palpitations CT Cardiac Coronary Angio Today I25.10 - Atherosclerotic heart disease of [place] coronary artery without angina pectoris, R00.2 - Palpitations Patient Instructions: - Take propranolol as prescribed, with an extra dose if palpitations are bothersome. - Document any episodes of palpitations while wearing the Holter monitor. - Follow up after the coronary CT scan and Holter monitor results are available. Coding Level of Care Code New Pt Level 4 (12745) Complex EM visit Add On G2211 Diagnoses Palpitations R00.2 Atrial arrhythmia I49.8 CPT Codes EKG - CPT: 64397-[id number], Complete ([id number])
[2025-04-28 08:20] VITALS: BP 120/64; PULSE 95; BMI 26.4
--- OUTSIDE RECORDS SUMMARY | 2025-04-28 09:10 | XMS_ITS | Clinical Summary ---
Author Organization [employer] Address [address] [facility] [address] [place] [address] Care Team Providers Care Crm Marketing Analyst Name Role Phone Morteza Chaudhary MD Primary Care Prov ider Patrick Palacios RN Unavailable [phone] Camron Palacios Unavailable Allergies Active Allergy Reactions [...] FOR ANXIETY 90 tablet 04/22/20 25 Active hydrOXYzine HCl [...] SMOKE WHILE USING PATCH. 14 patch 03/10/20 025 Discontinued nicotine polacrilex (Commit) 2 MG [...] of pain on intercourse, will refer to admissions representative for evaluation Muscle pain 03/11/2025 Assessment [...] Encounters Date Type Department Care Team Description 04/28/2025 Patient Outreach [address] [address] Morteza Chaudhary MD 04/25/2025 Refill [facility] [address] [place] [address] Morteza Chaudhary MD 04/24/2025 Orders Only GENERIC EXTERNAL DATA DEPARTMENT Provider, Generic External Data 04/24/2025 Patient Outreach [address] [address] Morteza Chaudhary MD 04/20/2025 Refill [facility] [address] [place] [address] Morteza Chaudhary MD 04/15/2025 Orders Only GENERIC EXTERNAL DATA DEPARTMENT Provider, Generic External Data 04/14/2025 Patient Outreach [address] [address] Morteza Chaudhary MD Care Coordination ([facility]/W ZAID Kim#1- Attempt to R/S missed IA-LVM) 04/10/2025 Patient Outreach [address] [address] Morteza Chaudhary MD Care Management (C3[facility]- initial assessment/ enrollment. Not available.) 04/09/2025 Patient Outreach [address] [address] Morteza Chaudhary MD Care Coordination ([place]/ZAID Ibarra-LVM-CM Complex Care Initial Assessment Appt Reminder) 04/08/2025 Refill [facility] [address] [place] [address] Morteza Chaudhary MD 04/04/2025 Refill [facility] [address] [place] [address] Morteza Chaudhary MD 04/03/2025 Patient Outreach [address] [address] Morteza Chaudhary MD Care Coordination ([place]/ZAID Ibarra- Follow up on Neurology Appt) 03/27/2025 Patient Outreach [address] [address] Morteza Chaudhary MD Care Coordination ([place]/ZAID Ibarra-ADT Outreach-Agrees to participate in CM Complex Care Program) 03/25/2025 Telephone [facility] [address] [place] [address] Morteza Chaudhary MD Med Refill 03/24/2025 Refill [facility] [address] [place] [address] Mani Mojica MD 03/24/2025 Patient Outreach [address] [address] Morteza Chaudhary MD 03/18/2025 1:00 PM EDT Telemedicine [facility] [address] [place] [address] Yolanda Gutierrez RN Peptic ulcer disease [K27.9] 03/18/2025 Travel 03/14/2025 Patient Outreach [address] [address] Morteza Chaudhary MD Care Coordination ([facility] Camron Palacios, #1- ADT Outreach-[facility]) 03/14/2025 Patient Outreach [address] [address] Morteza Chaudhary MD Care Coordination ([facility] Camron Palacios, Chart Review) 03/14/2025 Patient Outreach [address] [address] Morteza Chaudhary MD 03/14/2025 Patient Outreach [address] [address] Morteza Chaudhary MD Care Management ([facility]- chart review) 03/14/2025 Patient Outreach [address] [address] Morteza Chaudhary MD 03/13/2025 Orders Only [facility] External Provider, [facility] 03/11/2025 1:30 PM EDT Office Visit [facility] [address] [place] [address] Morteza Chaudhary MD Migraine without status migrainosus, not intractable, unspecified migraine type (Primary Dx); Anxiety and depression; Peptic ulcer disease; Seizure disorder ([facility]); Pelvic pain; Muscle pain 03/11/2025 Travel 03/07/2025 Telephone [facility] [address] [place] [address] Morteza Chaudhary MD Med Refill 03/06/2025 Refill [facility] [address] [place] [address] Morteza Chaudhary MD 02/28/2025 Refill [facility] [address] [place] [address] Morteza Chaudhary MD 02/25/2025 Refill [facility] [address] [place] [address] Mani Mojica MD 02/14/2025 Refill [facility] [address] [place] [address] Morteza Chaudhary MD 02/12/2025 Refill [facility] [address] [address] Morteza Chaudhary MD 02/11/2025 Population Health Risk Score [facility] Department [address] [phone] Provider, Population Health Generic 02/10/2025 Refill [facility] [address] [place] [address] Morteza Chaudhary MD 02/10/2025 Refill [facility] [address] [place] [address] Elaine Holt MD 02/10/2025 Refill [facility] [address] [place] [address] Morteza Chaudhary MD 02/06/2025 Orders Only GENERIC EXTERNAL DATA DEPARTMENT Provider, Generic External Data 02/04/2025 Refill [facility] [address] [place] [address] Morteza Chaudhary MD 01/31/2025 Orders Only [facility] External Provider, [facility] from Last 3 Months Family History Medical [...] Procedure Name Priority Date/Time Associated Diagnosis Comments URINALYSIS WITH REFLEX MICROSCOPIC Routine 04/24/2025 5:01 PM EDT XR CHEST 1 VIEW Routine 04/24/2025 4:35 [...] EDT from Last 3 Months Results * Urinalysis w/reflex microscopic (04/24/2025 5:01 PM EDT) Only the most recent of2 resultswithin the time period is included. Color Urine Yellow [facility] Appearance Urine Clear [facility] PH 6.0 5.0 - 9.0 [facility] Glucose Urine UA Negative Negative mg/dL [facility] Urine Blood Negative Negative [facility] Specific [place] - Urine 1.010 1.005 - 1.025 [facility] Urine Protein Negative Neg-Trace mg/dL [facility] Urine Ketones Negative Negative mg/dL [facility] Nitrite Urine Negative Negative [facility] Leukocyte Esterase Urine Negative Negative [facility] 04/24/2025 5:01 PM EDT 04/24/2025 5:10 PM EDT Narrative [facility] - 04/24/2025 5:26 PM EDT [id number], Clean Catch us Generic External Data Provider LAB URINE ORDERAB LES Final Result [facility] [address] [place] [address] [phone] * XR Chest 1 View (04/24/2025 4:35 PM EDT) Anatomical Region Laterality Modality Chest Radiographic Kimberly ging 04/24/2025 4:35 PM EDT Narrative 04/24/2025 4:51 PM EDT [address] [address] XRay Report Signed Patient: Connie Valdez MR#: [id number] : 1980 Acct:[id number] Age/Sex: 44 / F ADM Date: 04/24/25 Loc: HO.ED Attending Dr: Ordering Physician: Suzi Bob MD Date of Service: 04/24/25 Procedure(s): XR chest 1V Accession Number(s): [id number] cc: Morteza Chaudhary MD; Suzi Bob MD Reason for Exam: palpitation EXAMINATION: XR CHEST CLINICAL INFORMATION palpitation COMPARISON: March 13, 2025 TECHNIQUE: Frontal views of the chest was obtained. FINDINGS: No significant abnormality is noted involving the heart, lungs, mediastinum, bony thorax or soft tissues. XR/XR chest 1V IMPRESSION: No acute disease Electronically signed by: Ray Beth MD 04/24/2025 04:48 PM EDT Dictated By: Ray Beth MD Signed By: <Electronically signed by Ray Beth MD in OV> 04/24/25 1648 DD/ 1635 TD/TT: 04/24/25 1645 Car Pilot: Procedure Note Donotuseinterpreter, Image - 04/24/[address] [address] XRay Report Signed Patient: Connie Valdez AMR#: [id number] : 1980Acct:[id number] Age/Sex: 44 / FADM Date: 04/24/25 Loc: .ED Attending Dr: Ordering Physician: Suzi Bob MD Date of Service: 04/24/25 Procedure(s): XR chest 1V Accession Number(s): [id number] cc: Morteza Chaudhary MD; Suzi Bob MD [...] OV> 04/24/25 1648 DD/ 1635 TD/TT: 04/24/25 164 Car Pilot: [facility] External Provider IMG XR PROCEDURES Final Result * (ABNORMAL) Drug Monitoring, Panel 1, Screen, Urine (04/15/2025 11:08 AM EDT) Opiate Screen Urine Not Detected Not Detect [facility] Comment:Opiate cut-off is 30 0 ng/mL.Positive results are unconfirmed and should not be used fornon-medical purposes. Barbiturates, Urine Not Detected Not Detect [facility] Comment:Barbiturate cut-off is 200 ng/mL.Positive results are unconfirmed and should not be used fornon-medical purposes. Phencyclidine Screen Urine Not Detected Not Detect [facility] Comment:Phencyclidine cut-of f is 25 ng/mL.Positive results are unconfirmed and should not be used fornon-medical purposes. Amphetamine Screen Urine Not Detected Not Detect [facility] Comment:Amphetamine cut-off is 1000 ng/mL.Positive results are unconfirmed and should not be used fornon-medical purposes. Benzodiazepines Screen Urine Not Detected Not Detect [facility] Comment:Benzodiazepine cut-o ff is 200 ng/mL.Positive results are unconfirmed and should not be used fornon-medical purposes. Cocaine Screen Urine Not Detected Not Detect [facility] Comment:Cocaine cut-off is 3 00 ng/mL.Positive results are unconfirmed and should not be used fornon-medical purposes. Cannabinoid Screen Urine POSITIVE(A) Not Detect [facility] Comment:Cannabinoid cut-off is 50 ng/mL.Positive results are unconfirmed and should not be used fornon-medical purposes. Methadone Screen, Urine Not Detected Not Detect ng/mL [facility] Comment:Methadone cut-off is 300 ng/mL.Positive results are unconfirmed and should not be used fornon-medical purposes. FENTANYL URINE Not Detected Not Detect [facility] Comment:Fentanyl cut-off is 1 ng/mL.Positive results are unconfirmed and should not be used fornon-medical purposes. Oxycodone Urine Screen Not Detected Not Detect ng/mL [facility] Comment:Oxycodone cut-off is 100 ng/mL.Positive results are unconfirmed and should not be used fornon-medical purposes. Buprenorphine Screen Positive(A) Not Detect ng/mL [facility] Comment:Buprenorphine cut-of f is 5 ng/mL.Positive results are unconfirmed and should not be used fornon-medical purposes. 04/15/2025 11:0 8 AM EDT 04/15/2025 11:12 AM EDT Generic External Data Provider LAB URINE ORDERAB LES Final Result [facility] [address] [place] [phone] * CT Abdomen Pelvis w/ Contrast (03/14/2025 1:34 AM EDT) Anatomical Region Laterality Modality Body, Pelvis, Abdomen Computed T omography 03/14/2025 1:34 AM EDT Narrative 03/14/2025 1:36 AM EDT [address] [address] [address] Scan Report Signed Patient: Connie Valdez MR#: [id number] : 1980 Acct:[id number] Age/Sex: 44 / F ADM Date: 03/13/25 Loc: HO.ED Attending Dr: Ordering Physician: Ginny Griffiths PA-C Date of Service: 03/14/25 Procedure(s): CT abdomen pelvis w IV con Accession Number(s): [id number] cc: Morteza Chaudhary MD; Ginny Griffiths PA-C Report Number: [id number]: Total DLP = 409.00 mGy-cm CLINICAL HISTORY: [...] in OV> 03/14/25134 DD/ 3 TD/TT: 03/14/25133 Car Pilot: Procedure Note Donotuseinterpreter, Image - 03/14/[address] [place] [address] [address] Scan Report Signed Patient: Connie Valdez [facility]#: [id number] : 1980Acct:[id number] Age/Sex: 44 / FADM Date: 03/13/25 Loc: HO.ED Attending Dr: Ordering Physician: Ginny Griffiths PA-C Date of Service: 03/14/25 Procedure(s): CT abdomen pelvis w IV con Accession Number(s): [id number] cc: Morteza Chaudhary MD; Ginny Griffiths PA-C Report Number: [id number]: Total DLP = 409.00 mGy-cm CLINICAL HISTORY: [...] in OV> 03/14/25134 DD/ 3 TD/TT: 03/14/25133 Car Pilot: [facility] External Provider IMG CT PROCEDURES Final Result * (ABNORMAL) CBC auto differential (02/06/2025 8:51 AM EDT) White Blood Count 5.1 4.8 - 10.8 X10*3/uL [facility] Red Blood Count 3.65(L) 4.20 - 5.50 X10*6/uL [facility] Hemoglobin 11.3(L) 12.0 - 16.0 g/dl [facility] Hematocrit 33.4(L) 37.0 - 47.0 % [facility] Mean Corpuscular Volume 91.5 80.0 - 98.0 fL [facility] Mean Corpuscular Hemoglobin 31.0 27.0 - 33.0 pg [facility] Mean Corpuscular HGB Conc 33.8 31.0 - 35.0 g/dl [facility] Red Cell Distribution Width 12.6 11.0 - 16.0 % [facility] Platelet Count 181 160 - 400 X10*3/uL [facility] Mean Platelet Volume 9.7 9.4 - 12.3 fL [facility] Neutrophils Percent Auto 49.2 45 - 73 % [facility] Imm Gran Pct Auto 0.0 0.0 - 0.4 % [facility] Lymphocytes Percent Auto 30.0 20 - 40 % [facility] Monocytes Percent Auto 5.8 2 - 11 % [facility] Eosinophils Percent Auto 13.8(H) 0 - 4 % [facility] Basophils Percent Auto 1.2 0 - 2 % [facility] NRBC Pct Auto 0.0 0.0 - 0.2 /100WBC [facility] Neutrophils Absolute Auto 2.5 2.0 - 8.3 x10*3/uL [facility] Imm Gran Abs Auto 0.00 0.00 - 0.03 X10*3/uL [facility] Lymphocytes Absolute Auto 1.5 1.2 - 4.9 X10*3/uL [facility] Monocytes Absolute Auto 0.3 0.1 - 1.2 X10*3/uL [facility] Eosinophils Absolute Auto 0.7(H) 0.0 - 0.4 X10*3/uL [facility] Basophils Absolute Auto 0.1 0.0 - 0.2 X10*3/uL [facility] NRBC Abs Auto 0.000 0.0 - 0.012 X10*3/uL [facility] 02/06/2025 8:51 AM EDT 02/06/2025 8:53 AM EDT us Generic External Data Provider LAB BLOOD ORDERAB LES Final Result [facility] [address] [place] [address] [phone] * (ABNORMAL) Comprehensive Metabolic Panel (02/06/2025 8:51 AM EDT) Sodium 140 135 - 145 mmol/L [facility] Potassium 4.3 3.3 - 5.1 mmol/L [facility] Chloride 114(H) 96 - 108 mmol/L [facility] Carbon Dioxide 23 22 - 29 mmol/L [facility] Anion Gap 7(L) 12 - 20 [facility] Urea Nitrogen (BUN) 16 9 - 16 mg/dL [facility] Creatinine, Serum 1.25 0.5 - 1.4 mg/dL [facility] Creatinine Clr Calc Pharmacy 52.9 [facility] Comment:Provided height and weight: 160.02 cm,65.771 kg.eGFR (calculated from the MDRD study equation) and eCrCl(calculated from the Cockcroft-Gault equation) are based ondifferent parameters and may not yield comparable results.If eCrCl result is absurd, please check patient'sheight/weight. Estimated Glomerular Filt Rate 47 [facility] Comment:Chronic Kidney Disea se: Estimated GFR < 60 mL/min/1.12x4Shykda Kidney Disease: Estimated GFR < 15 mL/min/1.73m2 Glucose 84 60 - 115 mg/dL [facility] Calcium 8.1(L) 8.4 - 10.2 mg/dL [facility] Bilirubin, Total 0.1 0.0 - 1.0 mg/dL [facility] Aspartate Amino Transferase 25 5 - 31 U/L [facility] Alanine Aminotransferase 20 0 - 31 U/L [facility] Total Protein 5.5(L) 6.5 - 8.0 g/dL [facility] Albumin Level 3.6 3.5 - 5.0 g/dL [facility] Alkaline Phosphatase 51 39 - 117 U/L [facility] 02/06/2025 8:51 AM EDT 02/06/2025 8:53 AM EDT us Generic External Data Provider LAB BLOOD ORDERAB LES Final Result [facility] [address] [place] [phone] * XR Hips Bilateral with Pelvis 1 view (01/31/2025 10:20 AM EDT) Anatomical Region Laterality Modality Lower Extremities, Hip Bilateral Radiograp hic Imaging 01/31/2025 10:2 0 AM EDT Narrative 01/31/2025 10:42 AM EDT [address] XRay Report Signed Patient: Connie Valdez MR#: [id number] : 1980 Acct:[id number] Age/Sex: 44 / F ADM Date: 01/31/25 Loc: HO.ED Attending Dr: Ordering Physician: Mimi Ayers NP Date of Service: 01/31/25 Procedure(s): XR hip BI w PEL1V Accession Number(s): [id number] cc: MANI MOJICA MD; Mimi Ayers NP [...] 01/31/25 1040 DD/ 1020 TD/TT: 01/31/25 1033 Car Pilot: Procedure Note Donotuseinterpreter, Image - 01/31/[address] [address] XRay Report Signed Patient: Connie Valdez AMR#: [id number] : 1980Acct:[id number] Age/Sex: 44 / FADM Date: 01/31/25 Loc: HO.ED Attending Dr: Ordering Physician: Mimi Ayers NP Date of Service: 01/31/25 Procedure(s): XR hip BI w PEL1V Accession Number(s): [id number] cc: MANI MOJICA MD; Mimi Ayers NP [...] 01/31/25 1040 DD/ 1020 TD/TT: 01/31/25 1033 Car Pilot: [facility] External Provider IMG XR PROCEDURES Edited Result - Final from Last 3 Months Insurance C3 Care Teams Crm Marketing Analyst Relationship Specialty Start Date End Date Morteza Chaudhary MD [address] [place] [address] PCP - General Internal Medicine 11/04/24 Patrick Palacios RN [address] [place] [address] Registered Nurse Family Medicine 03/14/25 Camron Palacios 03/14/25
--- OUTSIDE RECORDS SUMMARY | 2025-04-28 09:10 | XMS_ITS | Encounter Summary ---
Author Organization [employer] Address [address] [facility] [address] [place] [address] Care Team Providers Care Manufacturing Project Engineer Name Role Phone Morteza Chaudhary MD Primary Care Prov ider Patrick Palacios RN Unavailable [phone] Camron Palacios Unavailable Reason for Visit * Reason Comments Med Refill Encounter Details Date Type Department Care Team ([facility] st Contact Info) Description 04/25/2025 Refill [facility] [address] [place] [address] Morteza Chaudhary MD [address] [place], [place] [phone] Social History Tobacco Use Types Packs/Day Years [...] documented as of this encounter Care Teams Manufacturing Project Engineer Relationship Specialty Start Date End Date Morteza Chaudhary MD [address] [place] [address] PCP - General Internal Medicine 11/04/24 Patrick Palacios RN [address] [place] [address] Registered Nurse Family Medicine 03/14/25 Camron Palacios 03/14/25 documented as of this encounter
--- OUTSIDE RECORDS SUMMARY | 2025-04-28 09:10 | XMS_ITS | Encounter Summary ---
Author Organization [employer] Address [address] [facility] [facility] [address] [address] [place] [address] Care Team Providers Care Sales And Marketing Intern Name Role Phone Morteza Chaudhary MD Primary Care Prov ider Patrick Palacios RN Unavailable [phone] Camron Palacios Unavailable Encounter Details Date Type Department Care Team (Late st Contact Info) Description 04/28/2025 Patient Outreach [facility] [address] [place] [address] Morteza Chaudhary MD [address] [place] [address] Social History Tobacco Use Types Packs/Day Years [...] as of this encounter Care Teams Sales And Marketing Intern Relationship Specialty Start Date End Date MorganMorteza Orosco MD [address] [place] [address] PCP - General Internal Medicine 11/04/24 Patrick Palacios RN [address] [place] [address] Registered Nurse Family Medicine 03/14/25 Camron Palacios 03/14/25 documented as of this encounter
--- OUTSIDE RECORDS SUMMARY | 2025-04-28 09:10 | XMS_ITS | Encounter Summary ---
Author Organization [employer] Address [address] [facility] [address] [place] [address] Care Team Providers Care Button Sawyer Name Role Phone Morteza Chaudhary MD Primary Care Prov ider Patrick Palacios RN Unavailable [phone] Camron Palacios Unavailable Encounter Details Date Type Department Care Team (Late st Contact Info) Description 04/24/2025 Orders Only GENERIC EXTERNAL DATA DEPARTMENT Provider, Generic External Data Social History Tobacco Use Types Packs/Day Years [...] on file documented as of this encounter Procedures Procedure Name Priority Date/Time Associated Diagnosis Comments URINALYSIS WITH REFLEX MICROSCOPIC Routine 04/24/2025 5:01 PM EDT documented in this encounter Results * Urinalysis w/reflex microscopic (04/24/2025 5:01 PM EDT) Color Urine Yellow [facility] Appearance Urine Clear [facility] PH 6.0 5.0 - 9.0 [facility] Glucose Urine UA Negative Negative mg/dL [facility] Urine Blood Negative Negative [facility] Specific [place] - Urine 1.010 1.005 - 1.025 [facility] Urine Protein Negative Neg-Trace mg/dL [facility] Urine Ketones Negative Negative mg/dL [facility] Nitrite Urine Negative Negative [facility] Leukocyte Esterase Urine Negative Negative [facility] 04/24/2025 5:01 PM EDT 04/24/2025 5:10 PM EDT Narrative [facility] - 04/24/2025 5:26 PM EDT [id number], Clean Catch us Generic External Data Provider LAB URINE ORDERAB LES Final Result [facility] [address] [place] [phone] documented in this encounter Visit Diagnoses Not on filedocumented in this encounter Additional Health Concerns Assessment Noted Time PHQ-9 Depression Total Score: 18 025 8:44 AM EDT documented as of this encounter Care Teams Button Sawyer Relationship Specialty Start Date End Date Morteza Chaudhary MD [address] [place] [address] PCP - General Internal Medicine 11/04/24 Patrick Palacios, MIKE [address] [place] [address] Registered Nurse Family Medicine 03/14/25 Camron Palacios 03/14/25 documented as of this encounter
--- OUTSIDE RECORDS SUMMARY | 2025-04-28 09:10 | XMS_ITS ---
Author Organization [employer] Address [address] [facility] [address] [place] [address] Care Team Providers Care Special Education Professional Name Role Phone Morteza Chaudhary MD Primary Care Prov ider Patrick Palacios RN Unavailable [phone] Camron Palacios Unavailable CM Complex Status:Outreach In Progress (Enrolling) Start date:03/14/2025 Enrollment reason:ADT Feed Overview ED- Pt went to [facility] on 03/13/25. Case Team Name Relationship Phone Patrick Palacios RN(Responsible Staff) Registered Nurse [phone] Continued Care and Services Coordination
--- OUTSIDE RECORDS SUMMARY | 2025-04-28 09:10 | XMS_ITS | Encounter Summary ---
Author Organization [employer] Address [address] [place] [address] Care Team Providers Care Cylinder Die Machine Operator Name Role Phone Morteza Chaudhary MD Primary Care Prov ider Patrick Palacios RN Unavailable [phone] Camron Palacios Unavailable Reason for Visit * Reason Comments Med Refill Encounter Details Date Type Department Care Team ([facility] st Contact Info) Description 02/28/2025 Refill [facility] [address] [place] [address] Morteza Chaudhary MD [address] [place], [place] [phone] Social History Tobacco Use Types Packs/Day Years [...] documented as of this encounter Care Teams Cylinder Die Machine Operator Relationship Specialty Start Date End Date Morteza Chaudhary MD [address] [place] [address] PCP - General Internal Medicine 11/04/24 Patrick Palacios RN [address] [place] [address] Registered Nurse Family Medicine 03/14/25 Camron Palacios 03/14/25 documented as of this encounter
--- OUTSIDE RECORDS SUMMARY | 2025-04-28 09:10 | XMS_ITS | Encounter Summary ---
Author Organization [employer] Address [address] [place] [address] Care Team Providers Care Scow Captain Name Role Phone Morteza Chaudhary MD Primary Care Prov ider Patrick Palacios RN Unavailable [phone] Camron Palacios Unavailable Reason for Visit * Reason Comments Med Refill Encounter Details Date Type Department Care Team ([facility] st Contact Info) Description 02/14/2025 Refill [facility] [address] [place] [address] Morteza Chaudhary MD [address] [place], [place] [phone] Social History Tobacco Use Types Packs/Day Years [...] documented as of this encounter Care Teams Scow Captain Relationship Specialty Start Date End Date Morteza Chaudhary MD [address] [place] [address] PCP - General Internal Medicine 11/04/24 Patrick Palacios RN [address] [place] [address] Registered Nurse Family Medicine 03/14/25 Camron Palacios 03/14/25 documented as of this encounter
--- OUTSIDE RECORDS SUMMARY | 2025-04-28 09:10 | XMS_ITS ---
Author Organization [employer] Address [address] [facility] [address] 7t [place] [address] Care Team Providers Care Rate Engineer Name Role Phone Morteza Chaudhary MD Primary Care Prov ider Patrick Palacios RN Unavailable [phone] Camron Palacios Unavailable CHW Complex Status:Outreach In Progress (Enrolling) Start date:03/14/2025 Enrollment reason:ADT Feed Overview ED- Pt went to [facility] ED on 03/13/25 Please outreach for enrollment. Case Team Name Relationship Phone Camron Palacios(Responsible Staff) [phone] Continued Care and Services Coordination
--- OUTSIDE RECORDS SUMMARY | 2025-04-28 09:10 | XMS_ITS | Patient Health Record ---
Author Organization [facility] Address [address] [place] [address] Care Team Providers Care Home Assessment Nurse Name Role Phone Vikki Spicer Primary Care Provider Jessie Ferrera Unavailable [phone] [facility], Nursing Unavailable [phone] Migration, Provider Unavailable Unavailable Allergies Allergen (clinical drug ingredient) Drug/Non Drug Allergy documented on EMR Reaction Allergy Type Onset Date Status Keflex anaphylaxis Drug Allergy Activ e Shellfish SHELLFISH (uncoded) Unknown Allergy Active Reason For Referral No Information Medications Medication SIG (Take, Route, Frequency, Duration) Notes Start Date End Date Status hydrOXYzine HCl 50 MG 2 tabs orally twice a day PRN Not-Taking Keppra 750 MG 1 tab(s) orally 2 times a day for 90 days Active Pantoprazole Sodium 40 MG 1 tab(s) orally once a day for 90 days Active traZODone HCl 50 MG 1 tab orally at bedtime Not-Taking Imitrex 25 MG 1 tab(s) orally once for 30 days 02/16/2024 Active Levothyroxine Sodium 25 MCG 1 tab(s) orally once a day for 90 days Active Mirtazapine 15 MG 1 tab(s) orally once a day (at bedtime) Not-Taking NALOXONE 4 MG/0.1 ML 1 SPRAY(S) INTRANASALLY ONCE *Please review for potential replacement for e-prescription and drug interaction check* Not-Taking Omeprazole 20 MG 2 caps orally once a day pt states its BID Not-Taking Ondansetron HCl 4 MG 1 tab(s) orally twice a day PRN do not take more than 2 in a 24 hour period Not-Taking Lyrica 150 MG 1 cap(s) orally 2 times a day for 30 days 05/21/2024 Active Buprenorphine HCl-Naloxone HCl 8 MG-2 MG 2 FILM(S) SUBLINGUALLY DAILY *Please review and pick correct strength-formula tion from [employer] options. If intended option is not shown, discontinue and re-order from Quick Search* Active Propranolol HCl 10 MG 1 tab(s) orally 2 times a day for 90 days Active Melatonin 5 MG 2 caps orally once a day (at bedtime) pt states its 3 tabs Active Furosemide 20 MG 1 tab(s) orally twice a day Not-Taking Acetaminophen 500 MG 2 tab(s) orally every 8 hours Active Gabapentin 400 MG 1 cap(s) orally 3 times a day Not-Taking Diclofenac Sodium 3 % 1 amanda applied topically 2 times a day for 30 days 02/15/2024 Active Cyclobenzaprine HCl 10 MG 1 tab(s) orally every 8 hours PRN Not-Taking Immunizations Vaccine Route Administration Date Status [...] Status Risk Notes Problem Chronic hepatitis C (603981188) Chronic viral hepatitis C (B18.2) Active confirmed Problem Hypothyroidism (34764882) Hypothyroidism, unspecified (E03.9) Active confirmed Problem Overweight (239758302) Overweight (E66.3) Active confirmed Problem Tobacco user (363673551) Nicotine dependence, cigarettes, uncomplicated (F17.210) Active confirmed Problem Anxiety disorder (203453408) Anxiety disorder, unspecified (F41.9) Active confirmed Problem Insomnia (661960626) Insomnia, unspecified (G47.00) Active confirmed Problem Gastro-esophageal reflux disease without esophagitis (492312963) Gastro-esophagea l reflux disease without esophagitis (K21.9) Active confirmed Problem Localized, primary osteoarthritis of the pelvic region and thigh (487395496) Unilateral primary osteoarthritis, left hip (M16.12) Active confirmed Problem Pain of left knee joint (finding) (545457150584295) Pain in left knee (M25.562) Active confirmed Problem Fibromyalgia (652965119) Fibromyalgia (M79.7) Active confirmed Problem Abnormal uterine bleeding (61053506419679) Abnormal uterine and vaginal bleeding, unspecified (N93.9) Active confirmed Problem Seizure (98963436) Unspecified convulsions (R56.9) Active confirmed Problem Nondependent opioid abuse in remission (123906649) Opioid abuse, in remission (F11.11) Active confirmed Problem Headache (45573543) Headache, unspecified (R51.9) Active confirmed Problem Unsheltered homelessness (002582253547924) Unsheltered homelessness (Z59.02) Active confirmed Problem Pain of knee region (finding) (3050135879) Pain in unspecified knee (M25.569) Inactive confirmed Encounters Encounter Location Date Provider Diagnosis [address] [address] 04/19/2025 Provider Migration [address] [address] 05/16/2024 Eddielialanis Spicer Unspecified convulsions R56.9 ; Hypothyroidism, unspecified E03.9 and Gastro-esophageal reflux disease without esophagitis K21.9 Assessments Encounter Date Diagnosis (ICD Code) Assessment Notes Treatment Notes Treatment Clinical Notes Section Notes 05/16/2024 Unspecified convulsions (ICD-10 - R56.9) [...] End Date [place] Medicaid C3 [address] [place], [place] [id number] Connie Weiss i Self - patient is the insured 4 [...] Hospitalization History Reason Date(Month/Year) Psych admit - [facility] 2023 Multiple psych admits when younger detox x 2 - [facility] stomach issues? 01/2024
--- OUTSIDE RECORDS SUMMARY | 2025-04-28 09:10 | XMS_ITS | Encounter Summary ---
Author Organization [email or web address] Address [address] [place] [address] Care Team Providers Care Fur Finisher Tailor Name Role Phone Morteza Chaudhary MD Primary Care Prov ider Patrick Palacios RN Unavailable [phone] Camron Palacios Unavailable Encounter Details Date Type Department Care Team (Late st Contact Info) Description 04/24/2025 Patient Outreach [facility] [address] [place] [address] Morteza Chaudhary MD [address] [place] [address] Social History Tobacco Use Types Packs/Day Years [...] [facility]dule missed initial assessment appt on 04/10/2025 for CM/CHW program services. No answer at this time. CHW LVM introducing herself from [facility] CM Department with CHW's name, [...] documented as of this encounter Care Teams Fur Finisher Tailor Relationship Specialty Start Date End Date Morteza Chaudhary MD [address] [place] [address] PCP - General Internal Medicine 11/04/24 Patrick Palacios, RN [address] [place] [address] Registered Nurse Family Medicine 03/14/25 Camron Palacios 03/14/25 documented as of this encounter
--- OUTSIDE RECORDS SUMMARY | 2025-04-28 09:11 | XMS_ITS | Encounter Summary ---
Author Organization [employer] Address [address] [facility] 7t [place] [address] Care Team Providers Care Dipper And Baker Name Role Phone Morteza Chaudhary MD Primary Care Prov ider Patrick Palacios RN Unavailable [phone] Camron Palacios Unavailable Reason for Visit * Reason Onset Date Comments Med Refill 03/25/2025 Encounter Details Date Type Department Care Team ([facility] st Contact Info) Description 03/25/2025 Telephone [facility] [address] [place], [place] [phone] Morteza Chaudhary MD [address] [place], [place] [phone] Med Refill Social History Tobacco Use Types [...] soon for refill script was sent to [facility] #[id number] on 02/12/25 90 day supply. * Telephone Encounter - Evelyn Brantley - 03/25/2025 9:44 AM EDT TC from pt requesting medication refill. Medications needing refill : levETIRAcetam (Keppra) 750 MG tablet To be sent to: [id number] - [place]UZ [address] [facility] Pt stated has upcoming appointment with neurologist documented in this encounter Plan of Treatment Not on file documented as of this encounter Visit Diagnoses Not on filedocumented in this encounter Additional Health Concerns Assessment Noted Time PHQ-9 Depression Total Score: 18 025 8:44 AM EDT documented as of this encounter Care Teams Dipper And Baker Relationship Specialty Start Date End Date Morteza Chaudhary MD [address] [place] [address] PCP - General Internal Medicine 11/04/24 Patrick Palacios RN [address] [place] [address] Registered Nurse Family Medicine 03/14/25 Camron Palacios 03/14/25 documented as of this encounter
--- OUTSIDE RECORDS SUMMARY | 2025-04-28 09:11 | XMS_ITS | Encounter Summary ---
Author Organization [employer] Address [address] [place] [address] Care Team Providers Care Dope Maintenance Worker Name Role Phone Morteza Chaudhary MD Primary Care Prov ider Patrick Palacios RN Unavailable [phone] Camron Palacios Unavailable Reason for Visit * Reason Comments Med Refill Encounter Details Date Type Department Care Team (Late st Contact Info) Description 01/16/2025 Refill [facility] [address] [place], [place] [phone] Mani Mojica MD [address] [place], [place] [phone] Social History Tobacco Use Types Packs/Day Years [...] documented as of this encounter Care Teams Dope Maintenance Worker Relationship Specialty Start Date End Date MorganMorteza Orosco MD [address] [place] [address] PCP - General Internal Medicine 11/04/24 Patrick Palacios RN [address] [place] [address] Registered Nurse Family Medicine 03/14/25 Camron Palacios 03/14/25 documented as of this encounter
== END 2025-04-28 08:52 | disposition home or self-care (01) ==
LOC: HO.HCS 08:13
PROVIDERS: PCP Internal Medicine; Visit Provider Internal Medicine
DX: R00.2 Palpitations (principal); I49.8 Other specified cardiac arrhythmias
CPT/HCPCS: 93010; 99214

== ENCOUNTER → 2025-04-28 08:13 | Outpatient (BNVA) | payer MEDICAID, SELFPAY | PROVIDERS: PCP Internal Medicine; Visit Provider Internal Medicine | DX: R00.2 Palpitations (principal); I49.8 Other specified cardiac arrhythmias | CPT/HCPCS: 93005; 99212 ==

== ENCOUNTER → 2025-06-04 08:23 | Outpatient (REF) | payer MEDICAID, SELFPAY ==
--- OUTSIDE RECORDS SUMMARY | 2024-04-24 07:45 | XMS_ITS ---
Author Organization [facility] Address [address] [place] [address] Care Team Providers Care Men'S Custom Hair Piece Consultant Name Role Phone Vikki Spicer Primary Care Provider [phone] REASON FOR VISIT Office: [facility] paperwork Medications Medication SIG (Take, Route, Frequency, [...] Active Encounters Encounter Location Date Provider Diagnosis [address] [address] 04/24/2024 Vikki Spicer Chronic viral hepatitis C [...] * Bello YUNGOB: [birth year] (44 yo F)Acc No.[id number]:04/24/2024 Progress Notes Patient: Claudia ESTRELLA Connie Provider: NIKOS Saunders :1980 A ge:43 Y S ex:Female Date:04/24/2024 Address:[address] [place] [address] Subjective: * Chief Complaints: * 1 . Office: [facility] paperwork. * Medical History: * Medications: T [...] * Electronic signature of Zaire Spicer on 06/04/2025 at 08:50 AM EDT Sign off status: Pending * Provider: NIKOS Saunders Date: 0 04/24/2024 Generated for Marilin johnson/Olivia/Beni on: 1 08:50 AM EDT
--- OUTSIDE RECORDS SUMMARY | 2024-05-07 06:00 | XMS_ITS ---
Author Organization [facility] Address [address] [place] [address] Care Team Providers Care Box Strapper Name Role Phone Vikki Spicer Primary Care Provider REASON FOR VISIT [facility] paperwork Encounters Encounter Location Date Provider Diagnosis [facility] [address] [place], [place] [phone] 05/07/2024 Vikki Spicer Encounter for screening for [...] * Bello YUNGOB: [birth year] (44 yo F)Acc No.[id number]:05/07/2024 Progress Notes Patient: Connie MENDEZ Provider: NIKOS Saunders :1980 A ge:43 Y S ex:Female Date:05/07/2024 Address:[address] [place] [address] Subjective: * Chief Complaints: * 1 . [facility] paperwork. * HPI: G eneral: Symptom Screen: [...] signature of Zaire Spicer on 06/04/2025 at 08:51 AM EDT Sign off status: Pending * Provider: NIKOS Saunders Date: Generated for Marilin johnson/Olivia/Royasmedmund on: 08:51 AM EDT
--- OUTSIDE RECORDS SUMMARY | 2024-05-14 10:00 | XMS_ITS ---
Author Organization [facility] Address [address] [place] [address] Care Team Providers Care Cafe Attendant Name Role Phone Vikki Spicer Primary Care Provider Jessie Ferrera Unavailable [phone] REASON FOR VISIT BH: initial intake, Symptom screening by [facility] staff pre entrance to clinic Encounters Encounter Location Date Provider Diagnosis [facility] [address] [place] [address] 05/14/2024 Jessie Ferrera Encounter for screening for [...] * Bello YUNGOB: [birth year] (44 yo F)Acc No.[id number]:05/14/2024 Progress Notes Patient: Connie MENDEZ Provider: DANIEL MooreHNP-BC :1980 A ge:43 Y S ex:Female Date:05/14/2024 Address:[address] [place], [place] [phone] Pcp:Vikki Spicer Subjective: * Chief Complaints: * 1 . BH: initial intake. 2. Symptom screening by [facility] staff pre entrance to clinic. * HPI: [...] Mg Caps ule 60 30 Ed Jered [id number] Wal (26 05) 0/0 2.01 LMET Medicai d [place] .? Assessment: * Assessment: 1. E ncounter for screening for COVID-19 - Z11.52 (Primary) Plan: * Treatment: * Images: Billing Information: * Visit Code: * Procedure Codes: Care Plan Details* * Electronic signature of JENNIFER Corrales on 06/04/2025 at 08:50 AM EDT Sign off status: Pending * Provider: Evangelista Ferrera PMHNP-BC Date: 1 Generated for Marilin johnson/Olivia/Beni on: 1 08:50 AM EDT History and Physical Notes * Examination Category Sub-Category Detail Notes Category Not es Psychiatry Assessment Filled Written S old ID Drug QTY Days Prescriber RX # Dispenser Refill Daily Dose* Pymt Type FRONT ELEVATOR OPERATOR //57728Nyrtauinff 150 Mg [id number] (2605) [place]icaid[place]
--- OUTSIDE RECORDS SUMMARY | 2024-05-22 07:00 | XMS_ITS ---
Author Organization [facility] Address [address] [place] [address] Care Team Providers Care Social Studies Teacher Name Role Phone Vikki Spicer Primary Care Provider [facility], Nursing Unavailable [phone] Medications Medication SIG (Take, Route, Frequency, Duration) [...] Not-Taking Encounters Encounter Location Date Provider Diagnosis [facility] [address] [place] [address] 05/22/2024 Nursing [facility] Encounter for screening for COVID-19 Z11.52 [...] * Bello YUNGOB: [birth year] (44 yo F)Acc No.[id number]:05/22/2024 Progress Notes Patient: Claudia Connie DE LA ROSA Provider: Chavez giles [facility] :1980 A ge:43 Y S ex:Female Date:05/22/2024 Address:[address] [place], [place] [phone] Pcp:Vikki Spicer Subjective: * Chief Complaints: * [...] Codes: * Electronic signature of Buck jain [facility] on 06/04/2025 at 08:51 AM EDT Sign off status: Pending * Provider: Chavez giles [facility] Date: 1 Generated for Marilin johnson/Olivia/Beni on: 08:51 AM EDT
--- OUTSIDE RECORDS SUMMARY | 2025-04-19 17:00 | XMS_ITS ---
Author Organization [facility] Address [address] [place] [address] Care Team Providers Care Health Sciences Department Chair Name Role Phone ElierjuanVikki Primary Care Provider Migration, Provider Unavailable Unavailable Allergies Allergen (clinical drug ingredient) Drug/Non Drug Allergy documented on EMR Reaction Allergy Type Onset Date Status Keflex anaphylaxis Drug Allergy Activ e Shellfish SHELLFISH (uncoded) Unknown Allergy Active REASON FOR VISIT [facility] Conversion Encounter Medications Medication SIG [...] Active Encounters Encounter Location Date Provider Diagnosis [address] [address] 04/19/2025 Provider Migration Plan Of Treatment No Information Progress Notes * Bello YUNGOB: [birth year] (44 yo F)Acc No.[id number]:04/19/2025 Patient: Claudia Connie DE LA ROSA Provider: :1980 A ge:44 Y S ex:Female Date:04/19/2025 Address:[address] [place], [place] [id number] Pcp:Vikki Spicer Subjective: * Chief Complaints: * [facility] . [facility] * Medical History: * Medications: [...] review and pick correct strength- formulation from [employer] options. If intended option is not shown, [...] Electronic signature of Prov ider Migration on 06/04/2025 at 08:51 AM EDT Sign off status: Pending * Provider: Date: 04/19/2025 Generated for Marilin johnson/Olivia/Beni on: 08:51 AM EDT
--- NOTE | 2025-06-04 08:27 | CA_ITS ---
Transthoracic Echocardiogram Amended Patient (Last, First, Middle): Connie Valdez A Gender: Female Date of : 1980 Age: 44 Procedure Date: 06/04/2025 Procedure Type: Transthoracic Echocardiogram Location: OP Height: 162.56 cm Weight: 65.77 kg BSA: 1.71 m2 Heart Rate: bpm BP: 120 / 64 mmHg [employer] Physician: CP/KAYLA Referring MD: Rigoberto Saeed MD Symptoms: R00.2 - Palpitations Study Quality: Adequate ECG Rhythm: Sinus Conclusions: - The left ventricular systolic function is low normal. The visually estimated ejection fraction is between 50-55%. - No obvious valvular pathology seen on this study. Findings Left Ventricle Normal left ventricular cavity size. There is normal left ventricular wall thickness. The left ventricular systolic function is low normal. The visually estimated ejection fraction is between 50-55%. There is no evidence of regional wall motion abnormalities. Diastolic function is normal for age. Right Ventricle Normal right ventricular cavity size. There is low normal right ventricular systolic function. Atria Both atria are normal in size. Aortic Valve There is a normal trileaflet aortic valve. There is no aortic valve stenosis. There is no aortic valve regurgitation. Mitral Valve The mitral valve appears normal. There is no mitral valve regurgitation. There is no mitral valve stenosis. Pulmonic Valve The pulmonic valve is likely normal. Tricuspid Valve There is trace tricuspid valve regurgitation. There is no evidence of pulmonary hypertension. Great Vessels The asc aorta is normal in size. Venous The inferior vena cava is normal in size and collapses greater than 50% with inspiration. Translucent structure in liver, 9 x 3.5cm, uncertain etiology; venous structure vs cyst vs others. Correlate with prior CT. Pericardium/Pleural There is no evidence of pericardial effusion. Prior Study Comparison No prior study available for comparison. Recommendations, Care & Conclusions No obvious valvular pathology seen on this study. Measurements 2D Linear Measurements IVSd: 0.89 0.6-0.9/0.6-1.0 cm LVIDd: 4.08 3.9-5.3/4.2-5.9 cm LVIDd Index: 2.39 2.4-3.2/2.2-3.1 cm/m2 LVIDs: 2.90 2.0-3.6 cm LVPWd: 0.90 0.7-1.1 cm LA Diam: 3.30 2.7-3.8/3.0-4.0 cm LAIDs Index: 1.93 1.5-2.3 cm/m2 LV Mass: 139.18 67-162/88-224 g LV Mass Index: 81.39 43-95/49-115 g/m2 LVOT Diam: 2.10 3.0+(-)1.3 cm 2D Volumes LA Vol: 23.70 2D Systolic Function EF 4C: 50.60 >55% EF 2C: 51.80 >55% EF BiP: 51.00 >55% Mitral Valve MV Pk E: 0.68 MV PK A: 0.59 MV Decel Time: 166.00 E/A: 1.10 E'Lateral: 7.07 E'Medial: 5.98 E/E' Med: 11.30 E/E' Lat: 9.50 PHT: 49.00 MVA PHT: 4.49 Decel Coles: 4.06 Aortic Valve AoV Pk Koko: 0.89 AoV Mn Koko: 0.60 AoV VTI: 0.16 AoV Pk Grad: 3.00 Aov Mn Grad: 2.00 RYAN Cont.VTI: 2.78 LVOT LVOT Pk Koko: 0.65 LVOT Mn Koko: 0.44 LVOT VTI: 0.13 LVOT Pk Grad: 2.00 LVOT Mn Grad: 1.00 LVOT Diam: 2.10 LVOT Area: 3.46 Diastolic Function MV Pk E: 0.68 MV Pk A: 0.59 E/A: 1.10 E'Medial: 5.98 E/E' Med: 11.30 E' Laterial: 7.07 E/E' Lat: 9.50 Right Ventricle TAPSE (mm): 19.30 TVS' Koko: 9.46 Tricuspid Valve TR Pk Koko: 1.52 TR Pk Grad: 9.00 RA Press: 3.00 RVSP: 12.00 Great Vessels Aorta Sinus of Valsalva: 3.00 2.0-3.5 cm Ao Asc: 2.90 2.1-3.4 cm Pulmonary Veins Pulm Vein S/D 1.10 Pulmonary Valve PV Pk Koko: 0.71 Peak PV Grad: 2.00 Updated in Other Vendor System with Status of Final Rigoberto Saeed MD electronically signed on 06/08/2025 3:32:13 PM with status of Final
--- NOTE | 2025-06-04 08:27 | HM_ITS ---
* Total monitoring time 2 days. * Underlying rhythm is sinus with an average rate of 88/Min. * Rare supraventricular ectopy. * Rare ventricular ectopy. * No significant pauses or high-grade AV blocks. * Shortness of breath in patient diary associated with sinus tachycardia. MTDD
--- OUTSIDE RECORDS SUMMARY | 2025-06-04 08:50 | XMS_ITS ---
Author Organization [email or web address] Address [address] [facility] 7t [place] [address] Care Team Providers Care Cylinder Inspector And Tester Name Role Phone Morteza Chaudhary MD Primary Care Prov ider Patrick Palacios RN Unavailable [phone] Camron Palacios Unavailable CM Complex Status:Outreach In Progress (Enrolling) Start date:03/14/2025 Enrollment reason:ADT Feed Overview ED- Pt went to [facility] ED on 03/13/25. Case Team Name Relationship Phone Patrick Palaicos RN(Responsible Staff) Registered Nurse [phone] Continued Care and Services Coordination
--- OUTSIDE RECORDS SUMMARY | 2025-06-04 08:50 | XMS_ITS | Encounter Summary ---
Author Organization [employer] Address [address] [place] [address] Care Team Providers Care Spring Tacker Name Role Phone Morteza Chaudhary MD Primary Care Prov ider Patrick Palacios RN Unavailable [phone] Camron Palacios Unavailable Reason for Visit * Reason Comments Med Refill Encounter Details Date Type Department Care Team ([facility] st Contact Info) Description 02/14/2025 Refill [facility] [address] [place] [address] Morteza Chaudhary MD [address] [place], [place] [phone] Social History Tobacco Use Types Packs/Day Years [...] documented as of this encounter Care Teams Spring Tacker Relationship Specialty Start Date End Date Morteza Chaudhary MD [address] [place] [address] PCP - General Internal Medicine 11/04/24 Patrick Palacios RN [address] [place] [address] Registered Nurse Family Medicine 03/14/25 Camron Palacios 03/14/25 documented as of this encounter
--- OUTSIDE RECORDS SUMMARY | 2025-06-04 08:50 | XMS_ITS | Clinical Summary ---
Author Organization [employer] Address [address] [place] [address] Care Team Providers Care Parts Technician Name Role Phone Morteza Chaudhary MD Primary Care Prov ider Patrick Palacios RN Unavailable [phone] Camron Palacios Unavailable Allergies Active Allergy Reactions Criticality Noted Date Comments Sulfamethoxazole-Trimethoprim Anaphylaxis High 10/30 Throat swelling Cephalexin Anaphylaxis High 10/30/2024 Throat swelling Shellfish Protein-Containing Drug Products Itching 10/30/2024 Medications * This document contains information received [...] 180 tablet 3 11/05/19 25 026 Active Melatonin 5 MG capsule Take 2 [...] A DAY 180 tablet 03/31/20 25 Active cyclobenzaprin e (Flexeril) 10 MG tablet TAKE 1 TABLET BY MOUTH EVERY 8 HOURS NEEDED FOR MUSCLE SPASMS 30 tablet 04/05/20 25 Active hydrOXYzine HCl (Atarax) 50 MG tablet TAKE 1 TABLET BY MOUTH EVERY TWELVE HOURS NEEDED FOR ANXIETY 90 tablet 04/22/20 25 Active levothyroxine (Synthroid, Levoxyl) 25 MCG tablet TAKE 1 TABLET BY MOUTH EVERY DAY 90 tablet 1 05/23/20 25 Active mirtazapine (Remeron) 15 MG tablet TAKE 1 TABLET BY MOUTH EVERY DAY AT BEDTIME 30 tablet 05/27/20 25 Active nicotine polacrilex (Commit) 2 MG lozenge DISSOLVE 1 LOZENGE BY MOUTH EVERY 2 HOURS NEEDED FOR SMOKING CESSATION 72 lozenge 05/30/20 25 Active promethazine (Phenergan) 25 MG tablet TAKE 1 TABLET BY MOUTH EVERY 6 HOURS NEEDED FOR NAUSEA AND VOMITING 90 tablet 05/30/20 25 Active nicotine (Nicoderm, Step 3) 7 MG/24HR patch APPLY 1 PATCH TOPICALLY TO THE SKIN IN THE MORNING *DO NOT SMOKE WHILE USING PATCH* 14 patch 05/30/20 25 Active sucralfate (Carafate) 1 g tablet TAKE 1 TABLET BY MOUTH FOUR TIMES DAILY BEFORE BREAKFAST, BEFORE LUNCH, BEFORE SUPPER, AND AT BEDTIME FOR ABDOMINAL PAIN 120 tablet 05/27/20 25 Active SUMAtriptan (Imitrex) 50 MG tablet TAKE 1 TABLET BY MOUTH AT ONSET OF MIGRAINE. MAY REPEAT ONCE AFTER 2 HOURS IF NEEDED. DO NOT EXCEED 2 TABLETS PER 24 HOURS 9 tablet 05/30/20 25 Active levothyroxine (Synthroid, Levoxyl) 25 MCG tablet TAKE 1 TABLET BY MOUTH EVERY DAY 90 tablet 02/27/20 25 025 Discontinued sucralfate (Carafate) 1 g tablet TAKE 1 TABLET BY MOUTH FOUR TIMES DAILY BEFORE BREAKFAST, BEFORE LUNCH, BEFORE SUPPER FOR ABDOMINAL AT BEDTIME 120 tablet 04/09/20 25 025 Discontinued mirtazapine (Remeron) 15 MG tablet TAKE 1 TABLET BY MOUTH EVERY DAY AT BEDTIME 30 tablet 04/09/20 25 025 Discontinued promethazine (Phenergan) 25 MG tablet TAKE 1 TABLET BY MOUTH EVERY 6 HOURS NEEDED FOR NAUSEA AND VOMITING 90 tablet 04/22/20 025 Discontinued nicotine (Nicoderm, Step 3) 7 MG/24HR patch APPLY 1 PATCH TOPICALLY TO THE SKIN IN THE MORNING *DO NOT SMOKE WHILE USING PATCH* 14 patch 04/29/20 025 Discontinued nicotine polacrilex (Commit) 2 MG lozenge DISSOLVE 1 LOZENGE BY MOUTH EVERY 2 HOURS NEEDED SMOKING CESSATION 72 lozenge 04/29/20 025 Discontinued SUMAtriptan (Imitrex) 50 MG tablet TAKE 1 TABLET BY MOUTH AT ONSET OF MIGRAINE. MAY REPEAT ONCE AFTER 2 HOURS IF NEEDED NO MORE THAN 2 TABLETS PER 24 HOURS 9 tablet 05/02/20 025 Discontinued Active Problems Problem Noted Date Diagnosed Date Pelvic pain 03/11/2025 Assessment & Plan (03/11/2025 4:42 PM EDT): Chronic, patient followed due to uterine fibroid, complains of pain on intercourse, will refer to carpenter rough for evaluation Muscle pain 03/11/2025 Assessment & [...] All: keflex/septra/shellfish Meds: as above Seizure disorder ([facility]/HCC) 10/31/2024 Assessment & Plan (03/11/2025 4:40 PM [...] Encounters Date Type Department Care Team Description 05/27/2025 Refill [facility] [address] [place] [address] Morteza Chaudhary MD 05/27/2025 Refill [facility] [address] [place] [address] Rafael Lopez MD 05/20/2025 Refill [facility] [address] [place] [address] Lolis Ngo MD 05/15/2025 Patient Outreach [facility] [address] [place] [address] Morteza Chaudhary MD Care Coordination (C3/ZAID Ibarra#4- Attempt to R/S missed IA appointment-Unable to LVM) 05/14/2025 Patient Outreach [facility] [address] [place] [address] Morteza Chaudhary MD 05/02/2025 Patient Outreach [facility] [address] [place] [address] Morteza Chaudhary MD Care Coordination ([place]/ZAID Ibarra#3- Attempt to R/S Missed CM IA appt-Unable to LVM-Full) 05/02/[address] [address] Morteza Chaudhary MD No Show 05/01/2025 Refill [facility] [address] [place] [address] Morteza Chaudhary MD 04/30/2025 9:45 AM EDT Telemedicine [facility] [address] [place] [address] Yolanda Gutierrez RN Palpitations 04/30/2025 Travel 04/28/2025 Patient Outreach [address] [address] Morteza Chaudhary MD 04/25/2025 Refill [facility] [address] [place] [address] Morteza Chaudhary MD 04/24/2025 Orders Only GENERIC EXTERNAL DATA DEPARTMENT Provider, Generic External Data 04/24/2025 Patient Outreach [address] [address] Morteza Chaudhary MD 04/20/2025 Refill [facility] [address] [place] [address] oMrteza Chaudhary MD 04/15/2025 Orders Only GENERIC EXTERNAL DATA DEPARTMENT Provider, Generic External Data 04/14/2025 Patient Outreach [address] [address] Morteza Chaudhary MD Care Coordination ([facility]/ZAID Chowdhury#1- Attempt to R/S missed IA-LVM) 04/10/2025 Patient Outreach [address] [address] Morteza Chaudhary MD Care Management (C3- initial assessment/ enrollment. Not available.) 04/09/2025 Patient Outreach [address] [address] Morteza Chaudhary MD Care Coordination ([facility]/ZAID Ibarra-LVM-CM Complex Care Initial Assessment Appt Reminder) 04/08/2025 Refill [facility] [address] [place] [address] Morteza Chaudhary MD 04/04/2025 Refill [facility] [address] [place] [address] Morteza Chaudhary MD 04/03/2025 Patient Outreach [address] [address] Morteza Chaudhary MD Care Coordination (C3/ZAID Ibarra- Follow up on Neurology Appt) 03/27/2025 Patient Outreach [address] [address] Morteza Chaudhary MD Care Coordination (C3/ZAID Ibarra-ADT Outreach-Agrees to participate in CM Complex Care Program) 03/25/2025 Telephone [facility] [address] [place] [address] Morteza Chaudhary MD Med Refill 03/24/2025 Refill [facility] [address] [place] [address] Mani Mojica MD 03/24/2025 Patient Outreach [address] [address] Morteza Chaudhary MD 03/18/2025 1:00 PM EDT Telemedicine [facility] [address] [place] [address] Yolanda Gutierrez RN Peptic ulcer disease [K27.9] 03/18/2025 Travel 03/14/2025 Patient Outreach [address] [address] Morteza Chaudhary MD Care Coordination ([place]/ZAID Ibarra#1- ADT Outreach-LVM) 03/14/2025 Patient Outreach [address] [address] Morteza Chaudhary MD Care Coordination ([facility]/CHW Camron Palacios, Chart Review) 03/14/2025 Patient Outreach [facility] [address] [place] [address] Morteza Chaudhary MD 03/14/2025 Patient Outreach [facility] [address] [place] [address] Morteza Chaudhary MD Care Management ([facility]- chart review) 03/14/2025 Patient Outreach [facility] [address] [place] [address] Morteza Chaudhary MD 03/13/2025 Orders Only [facility] External Provider, [facility] 03/11/2025 1:30 PM EDT Office Visit [facility] [address] [place] [address] Morteza Chaudhary MD Migraine without status migrainosus, not intractable, unspecified migraine type (Primary Dx); Anxiety and depression; Peptic ulcer disease; Seizure disorder ([facility]); Pelvic pain; Muscle pain 03/11/2025 Travel 03/07/2025 Telephone [facility] [address] [place] [address] Morteza Chaudhary MD Med Refill 03/06/2025 Refill [facility] [address] [place] [address] Morteza Chaudhary MD from Last 3 Months [...] Vaccines (1 - 3-dose series) 1996 Hepatitis A Vaccines (1 of 2 - Risk 2-dose series) 2000 Hepatitis B Vaccines (1 of 3 - 19+ 3-dose series) 2000 Pap Smear 2002 Cervical Cancer Screening 11/28/2011 HPV/Cotest 11/28/2011 Mammogram 2021 DTaP/Tdap/Td Vaccines (2 - T d or Tdap) 09/04/2024 09/04/2014 COVID-19 Vaccine (3 - 2024-2 6 season) 2025 10/22/2020, 09/24/2020 Influenza Vaccine (#1) 2025 Depression Monitoring 05/06/2025 11/04/2024 , 11/04/2024 Alcohol/Substance Use Screening 11/04/2025 11/04/2024 Tobacco Screening 11/04/2025 11/04/2024 SDOH Screening 03/27/2026 03/27/2025 Zoster Vaccines (1 of 2) 11/28/2031 RSV Patients and Patients Aged 60 years or older (1 - 1-dose 75+ series) 2056 Pneumococcal Vaccine: Pediatrics (0 to 5 Years) and At-Risk Patients (6 to 49) Years Completed 03/06/2023, 08/04/2016 HIB Vaccines Aged Out No longer eligi [...] W CONTRAST Routine 03/14/2025 1:34 AM EDT from Last 3 Months Results * Urinalysis w/reflex microscopic (04/24/2025 5:01 PM EDT) Only the most recent of2 resultswithin the time period is included. Color Urine Yellow [facility] Appearance Urine Clear [facility] PH 6.0 5.0 - 9.0 [facility] Glucose Urine UA Negative Negative mg/dL [facility] Urine Blood Negative Negative [facility] Specific [place] - Urine 1.010 1.005 - 1.025 [facility] Urine Protein Negative Neg-Trace mg/dL [facility] Urine Ketones Negative Negative mg/dL [facility] Nitrite Urine Negative Negative [facility] Leukocyte Esterase Urine Negative Negative [facility] 04/24/2025 5:01 PM EDT 04/24/2025 5:10 PM EDT Narrative [facility] - 04/24/2025 5:26 PM EDT [id number], [employer] us Generic External Data Provider LAB URINE ORDERAB LES Final Result [facility] [address] [place] [phone] * XR Chest 1 View (04/24/2025 4:35 PM EDT) Anatomical Region Laterality Modality Chest Radiographic Kimberly ging 04/24/2025 4:35 PM EDT Narrative 04/24/2025 4:51 PM EDT [address] [address] XRay Report Signed Patient: Connie Valdez MR#: [id number] : 1980 Acct:[id number] Age/Sex: 44 / F ADM Date: 04/24/25 Loc: HO.ED Attending Dr: Ordering Physician: Suzi Bob MD Date of Service: 04/24/25 Procedure(s): XR chest 1V Accession Number(s): [id number] cc: Morteza Chaudhary MD; Suzi Bob MD [...] 04/24/25 1648 DD/ 1635 TD/TT: 04/24/25 164 Earring Maker: Procedure Note Donotuseinterpreter, Image - 04/24/2025 [place] [address] XRay Report Signed Patient: Connie Valdez AMR#: [id number] : 1980Acct:[id number] Age/Sex: 44 / FADM Date: 04/24/25 Loc: .ED Attending Dr: Ordering Physician: Suzi Bob MD Date of Service: 04/24/25 Procedure(s): XR chest 1V Accession Number(s): [id number] cc: Morteza Chaudhary MD; Suzi Bob MD [...] 04/24/25 1648 DD/ 1635 TD/TT: 04/24/25 1645 Earring Maker: [facility] External Provider IMG XR PROCEDURES Final Result * (ABNORMAL) Drug Monitoring, Panel 1, Screen, Urine (04/15/2025 11:08 AM EDT) Opiate Screen Urine Not Detected Not Detect [facility] Comment:Opiate cut-off is 30 0 ng/mL.Positive results are unconfirmed and should not be used fornon-medical purposes. Barbiturates, Urine Not Detected Not Detect [facility] Comment:Barbiturate cut-off is 200 ng/mL.Positive results are unconfirmed and should not be used fornon-medical purposes. Phencyclidine Screen Urine Not Detected Not Detect [facility] Comment:Phencyclidine cut-of f is 25 ng/mL.Positive results are unconfirmed and should not be used fornon-medical purposes. Amphetamine Screen Urine Not Detected Not Detect [facility] Comment:Amphetamine cut-off is 1000 ng/mL.Positive results are unconfirmed and should not be used fornon-medical purposes. Benzodiazepines Screen Urine Not Detected Not Detect [facility] Comment:Benzodiazepine cut-o ff is 200 ng/mL.Positive results are unconfirmed and should not be used fornon-medical purposes. Cocaine Screen Urine Not Detected Not Detect [facility] Comment:Cocaine cut-off is 3 00 ng/mL.Positive results are unconfirmed and should not be used fornon-medical purposes. Cannabinoid Screen Urine POSITIVE(A) Not Detect [facility] Comment:Cannabinoid cut-off is 50 ng/mL.Positive results are unconfirmed and should not be used fornon-medical purposes. Methadone Screen, Urine Not Detected Not Detect ng/mL [facility] Comment:Methadone cut-off is 300 ng/mL.Positive results are unconfirmed and should not be used fornon-medical purposes. FENTANYL URINE Not Detected Not Detect [facility] Comment:Fentanyl cut-off is 1 ng/mL.Positive results are unconfirmed and should not be used fornon-medical purposes. Oxycodone Urine Screen Not Detected Not Detect ng/mL [facility] Comment:Oxycodone cut-off is 100 ng/mL.Positive results are unconfirmed and should not be used fornon-medical purposes. Buprenorphine Screen Positive(A) Not Detect ng/mL [facility] Comment:Buprenorphine cut-of f is 5 ng/mL.Positive results are unconfirmed and should not be used fornon-medical purposes. 04/15/2025 11:0 8 AM EDT 04/15/2025 11:12 AM EDT us Generic External Data Provider LAB URINE ORDERAB LES Final Result Performing Organization Address City/State/[facility] Co de Phone Number [facility] [address] [place] [phone] * CT Abdomen Pelvis w/ Contrast (03/14/2025 1:34 AM EDT) Anatomical Region Laterality Modality Body, Pelvis, Abdomen Computed T omography 03/14/2025 1:34 AM EDT Narrative 03/14/2025 1:36 AM EDT [place] [address] CT Scan Report Signed Patient: Connie Valdez MR#: [id number] : 1980 Acct:[id number] Age/Sex: 44 / F ADM Date: 03/13/25 Loc: HO.ED Attending Dr: Ordering Physician: Ginny Griffiths PA-C Date of Service: 03/14/25 Procedure(s): CT abdomen pelvis w IV con Accession Number(s): [id number] cc: Morteza Chaudhary MD; Ginny Griffiths PA-C Report Number: [id number]: Total DLP = 409.00 mGy-cm CLINICAL HISTORY: [...] in OV> 03/14/25134 DD/ 3 TD/TT: 03/14/25133 Earring Maker: Procedure Note Donotuseinterpreter, Image - 03/14/[address] [address] [address] Scan Report Signed Patient: Connie Valdez [facility]#: [id number] : 1980Acct:[id number] Age/Sex: 44 / FADM Date: 03/13/25 Loc: HO.ED Attending Dr: Ordering Physician: Ginny Griffiths PA-C Date of Service: 03/14/25 Procedure(s): CT abdomen pelvis w IV con Accession Number(s): [id number] cc: Morteza Chaudhary MD; Ginny Griffiths PA-C Report Number: [id number]: Total DLP = 409.00 mGy-cm CLINICAL HISTORY: [...] in OV> 03/14/25134 DD/ 3 TD/TT: 03/14/25133 Earring Maker: [facility] External Provider IMG CT PROCEDURES Final Result from Last 3 Months [facility] Care Teams Parts Technician Relationship Specialty Start Date End Date Morteza hCaudhary MD [address] [place] [address] PCP - General Internal Medicine 11/04/24 Patrick Palacios, MIKE [address] [place] [address] Registered Nurse Family Medicine 03/14/25 Camron Palacios 03/14/25
--- OUTSIDE RECORDS SUMMARY | 2025-06-04 08:50 | XMS_ITS ---
Author Organization [employer] Address [address] [facility] [address] [place] [address] Care Team Providers Care Excel Expert Name Role Phone Morteza Chaudhary MD Primary Care Prov ider Patrick Palacios RN Unavailable [phone] Camron Palacios Unavailable CHW Complex Status:Outreach In Progress (Enrolling) Start date:03/14/2025 Enrollment reason:ADT Feed Overview ED- Pt went to [facility] ED on 03/13/25 Please outreach for enrollment. Case Team Name Relationship Phone Camron Palacios(Responsible Staff) [phone] Continued Care and Services Coordination
--- OUTSIDE RECORDS SUMMARY | 2025-06-04 08:51 | XMS_ITS | Patient Health Record ---
Author Organization [facility] Address [address] [place] [address] Care Team Providers Care Apartment Assistant Manager Name Role Phone Vikki Spicer Primary Care Provider Migration, Provider Unavailable Unavailable [...] days 02/16/2024 Active Levothyroxine Sodium 25 MCG TAKE 1 TABLET BY MOUTH EVERY DAY for 90 Active Mirtazapine 15 MG 1 tab(s) orally [...] review and pick correct strength-formula tion from [employer] options. If intended option is not shown, [...] Status Risk Notes Problem Chronic hepatitis C (360081969) Chronic viral hepatitis C (B18.2) Active confirmed Problem Hypothyroidism (81157928) Hypothyroidism, unspecified (E03.9) Active confirmed Problem Overweight (807921551) Overweight (E66.3) Active confirmed Problem Tobacco user (041727484) Nicotine dependence, cigarettes, uncomplicated (F17.210) Active confirmed Problem Anxiety disorder (625015004) Anxiety disorder, unspecified (F41.9) Active confirmed Problem Insomnia (720954771) Insomnia, unspecified (G47.00) Active confirmed Problem Gastro-esophageal reflux disease without esophagitis (929950159) Gastro-esophagea l reflux disease without esophagitis (K21.9) Active confirmed Problem Localized, primary osteoarthritis of the pelvic region and thigh (772690354) Unilateral primary osteoarthritis, left hip (M16.12) Active confirmed Problem Pain of left knee joint (finding) (456097363702473) Pain in left knee (M25.562) Active confirmed Problem Fibromyalgia (686609126) Fibromyalgia (M79.7) Active confirmed Problem Abnormal uterine bleeding (61257734712381) Abnormal uterine and vaginal bleeding, unspecified (N93.9) Active confirmed Problem Seizure (07219514) Unspecified convulsions (R56.9) Active confirmed Problem Nondependent opioid abuse in remission (508233116) Opioid abuse, in remission (F11.11) Active confirmed Problem Headache (05956996) Headache, unspecified (R51.9) Active confirmed Problem Unsheltered homelessness (246135320684040) Unsheltered homelessness (Z59.02) Active confirmed Problem Pain of knee region (finding) (1176880983) Pain in unspecified knee (M25.569) Inactive confirmed Encounters Encounter Location Date Provider Diagnosis [facility] [address] [place] [address] 04/19/2025 Provider Migration Plan Of Treatment Pending Test Test Name Order Date Homero Screening Digital 02/15/2024 HEPATITIS A,B,C PROFILE 02/15/2024 Insurance Providers Payer Name Payer Address Payer Phone Subscriber Number Group Number Insured Name Patient Relationship to Insured Coverage Start Date Coverage End Date [place] Medicaid C3 [address] [place], [place] [id number] Connie Weiss i Self - patient is [...] Hospitalization History Reason Date(Month/Year) Psych admit - [facility] 2023 Multiple psych admits when younger detox x 2 - [facility] stomach issues? 01/2024
--- OUTSIDE RECORDS SUMMARY | 2025-06-04 08:51 | XMS_ITS | Encounter Summary ---
Author Organization [employer] Address [address] [place] [address] Care Team Providers Care Municipal Firefighter Name Role Phone Morteza Chaudhary MD Primary Care Prov ider Patrick Palacios RN Unavailable [phone] Camron Palacios Unavailable Reason for Visit * Reason Comments Med Refill Encounter Details Date Type Department Care Team ([facility] st Contact Info) Description 05/27/2025 Refill [facility] [address] [place] [address] Morteza Chaudhary MD [address] [place], [place] [phone] Social History Tobacco Use Types Packs/Day Years [...] documented as of this encounter Care Teams Municipal Firefighter Relationship Specialty Start Date End Date Morteza Chaudhary MD [address] [place] [address] PCP - General Internal Medicine 11/04/24 Patrick Palacios RN [address] [place] [address] Registered Nurse Family Medicine 03/14/25 Camron Palacios 03/14/25 documented as of this encounter
--- OUTSIDE RECORDS SUMMARY | 2025-06-04 08:51 | XMS_ITS | Encounter Summary ---
Author Organization [employer] Address [address] [facility] [address] [place] [address] Care Team Providers Care Reservoir Engineering Advisor Name Role Phone Morteza Chaudhary MD Primary Care Prov ider Patrick Palacios RN Unavailable [phone] Camron Palacios Unavailable Reason for Visit * Reason Onset Date Comments Med Refill 03/25/2025 Encounter Details Date Type Department Care Team ([facility] st Contact Info) Description 03/25/2025 Telephone [facility] [address] [place], [place] [phone] Morteza Chaudhary MD [address] [place], [place] [phone] Med Refill Social History Tobacco Use Types [...] soon for refill script was sent to [id number] on 02/12/25 90 day supply. * Telephone Encounter - Evelyn Brantley - 03/25/2025 9:44 AM EDT TC from pt requesting medication refill. Medications needing refill : levETIRAcetam (Keppra) 750 MG tablet To be sent to: [id number] - [place]Z [id number] [facility] Pt stated has upcoming appointment with neurologist documented in this encounter Plan of Treatment Not on file documented as of this encounter Visit Diagnoses Not on filedocumented in this encounter Additional Health Concerns Assessment Noted Time PHQ-9 Depression Total Score: 18 025 8:44 AM EDT documented as of this encounter Care Teams Reservoir Engineering Advisor Relationship Specialty Start Date End Date Morteza Chaudhary MD [address] [place] [address] PCP - General Internal Medicine 11/04/24 Patrick Palacios RN [address] [place] [address] Registered Nurse Family Medicine 03/14/25 Camron Palacios 03/14/25 documented as of this encounter
--- OUTSIDE RECORDS SUMMARY | 2025-06-04 08:51 | XMS_ITS | Encounter Summary ---
Author Organization [employer] Address [address] [facility] [address] [place] [address] Care Team Providers Care Gauge Operator Name Role Phone Morteza Chaudhary MD Primary Care Prov ider Patrick Palacios RN Unavailable [phone] Camron Palacios Unavailable Reason for Visit * Reason Comments Med Refill Encounter Details Date Type Department Care Team ([facility] st Contact Info) Description 02/28/2025 Refill [facility] [address] [place] [address] Morteza Chaudhary MD [address] [place], [place] [phone] Social History Tobacco Use Types Packs/Day Years [...] documented as of this encounter Care Teams Gauge Operator Relationship Specialty Start Date End Date Morteza Chaudhary MD [address] [place] [address] PCP - General Internal Medicine 11/04/24 Patrick Palacios RN [address] [place] [address] Registered Nurse Family Medicine 03/14/25 Camron Palacios 03/14/25 documented as of this encounter
--- OUTSIDE RECORDS SUMMARY | 2025-06-04 08:51 | XMS_ITS | Encounter Summary ---
Author Organization [employer] Address [address] [place] [address] Care Team Providers Care Rabbit Fancier Name Role Phone Morteza Chaudhary MD Primary Care Prov ider Patrick Palacios RN Unavailable [phone] Camron Palacios Unavailable Reason for Visit * Reason Comments Med Refill Encounter Details Date Type Department Care Team (Late st Contact Info) Description 01/16/2025 Refill [facility] [address] [place], [place] [phone] Mani Mojica MD [address] [place], [place] [phone] Social History Tobacco Use Types Packs/Day Years [...] documented as of this encounter Care Teams Rabbit Fancier Relationship Specialty Start Date End Date MorganMorteza Orosco MD [address] [place] [address] PCP - General Internal Medicine 11/04/24 Patrick Palacios RN [address] [place] [address] Registered Nurse Family Medicine 03/14/25 Camron Palacios 03/14/25 documented as of this encounter
[2025-06-04 09:07] LABS: Hematocrit 43.9 % (37.0-47.0); Hemoglobin 14.3 g/dl (12.0-16.0); Imm Gran Abs Auto 0.03 X10*3/uL (0.00-0.03); Imm Gran Pct Auto 0.4 % (0.0-0.4); Lymphocytes Absolute Auto 2.1 X10*3/uL (1.2-4.9); MANUAL DIFF FLAG SCAN; Mean Corpuscular HGB Conc 32.6 g/dl (31.0-35.0); Mean Corpuscular Hemoglobin 29.0 pg (27.0-33.0); Mean Corpuscular Volume 89.0 fL (80.0-98.0); NRBC Abs Auto 0.000 X10*3/uL (0.0-0.012); NRBC Pct Auto 0.0 /100WBC (0.0-0.2); PLT CLUMP 1; Red Blood Count 4.93 X10*6/uL (4.20-5.50); SCAN SMEAR FLAG 1; White Blood Count 8.4 X10*3/uL (4.8-10.8)
[2025-06-04 09:30] LABS: Alanine Aminotransferase 40 U/L (0-31); Albumin Level 4.9 g/dL (3.5-5.0); Alkaline Phosphatase 73 U/L (39-117); Anion Gap 15 (12-20); Aspartate Amino Transferase 45 U/L (5-31); Blood Urea Nitrogen 23 mg/dL (9-16); Calcium 10.1 mg/dL (8.4-10.2); Carbon Dioxide 19 mmol/L (22-29); Chloride 109 mmol/L (96-108); Cholesterol 240 mg/dL (<200); Estimated Glomerular Filt Rate 54; HDL Cholesterol 59 mg/dL (>40); Potassium 3.9 mmol/L (3.3-5.1); Sodium 139 mmol/L (135-145); Total Protein 7.8 g/dL (6.5-8.0); Triglycerides 139 mg/dL (<150)
[2025-06-04 09:41] LABS: HIV Num 1 0.05 S/CO (0.00-0.99); ~HepC Num1 8.59 S/CO (0.00-0.79); ~Hepatitis C Antibody Reactive (Nonreactive)
[2025-06-04 10:02] LABS: Platelet Count 286 X10*3/uL (160-400)
[2025-06-05 14:39] LABS: HCV Log PCR 5.29 Log IU/mL (NOT DETECTED); HepC Viral Load 196000 IU/mL (NOT DETECTED)
== END ==
LOC: HO.CARD 08:23
PROVIDERS: PCP Internal Medicine; Visit Provider Internal Medicine
DX: R00.2 Palpitations (principal); G43.909 Migraine, unspecified, not intractable, without status migrainosus; F41.9 Anxiety disorder, unspecified; F32.A Depression, unspecified; Z11.59 Encounter for screening for other viral diseases; Z11.4 Encounter for screening for human immunodeficiency virus [HIV]; Z01.84 Encounter for antibody response examination
CPT/HCPCS: 36415; 80053; 80061; 83036; 84443; 85025; 86803; 87389; 87522; 93225; 93306

== ENCOUNTER → 2025-06-04 08:27 | Outpatient (BNV) | payer MEDICAID, SELFPAY | PROVIDERS: PCP Internal Medicine; Visit Provider Internal Medicine | DX: R00.2 Palpitations (principal); R93.1 Abnormal findings on diagnostic imaging of heart and coronary circulation | CPT/HCPCS: 93306 ==

== ENCOUNTER 2025-06-11 14:49 | Outpatient (REF) | payer MEDICAID, SELFPAY ==
--- OUTSIDE RECORDS SUMMARY | 2024-04-24 06:45 | XMS_ITS ---
Author Organization [facility] Address [address] [place] [address] Care Team Providers Care Lpn Private Duty Name Role Phone Vikki Spicer Primary Care Provider REASON FOR VISIT Office: [facility] paperwork Medications Medication SIG (Take, Route, Frequency, Duration) Notes Start Date End Date Status FUROSEMIDE 20 mg 1 tab(s) orally twice a day Not-Taking GABAPENTIN 400 mg 1 cap(s) orally 3 times a day Not-Taking CYCLOBENZAPRINE 10 mg 1 tab(s) orally every 8 hours PRN Not-Taking PROPRANOLOL 10 mg 1 tab(s) orally 2 times a day for 90 days Active LYRICA 150 mg 1 cap(s) orally 2 times a day for 30 days 02/29/2024 Active OMEPRAZOLE 20 mg 2 caps orally once a day pt states its BID Not-Taking ONDANSETRON 4 mg 1 tab(s) orally twice a day PRN do not take more than 2 in a 24 hour period Not-Taking MIRTAZAPINE 15 mg 1 tab(s) orally once a day (at bedtime) Not-Taking NALOXONE 4 mg/0.1 mL 1 spray(s) intranasally once Not-Taking HYDROXYZINE hydrochloride 50 mg 2 tabs orally twice a day PRN Not-Taking LEVOTHYROXINE 25 mcg (0.025 mg) 1 tab(s) orally once a day for 90 days Active IMITREX 25 mg 1 tab(s) orally once for 30 days As needed 02/16/2024 Active LYRICA 150 mg 1 cap(s) orally 2 times a day Not-Taking PANTOPRAZOLE 40 mg 1 tab(s) orally once a day for 90 days Active TRAZODONE 50 mg 1 tab orally at bedtime As needed Not-Taking KEPPRA 750 mg 1 tab(s) orally 2 times a day for 90 days Active ACETAMINOPHEN 500 mg 2 tab(s) orally every 8 hours As needed Active DICLOFENAC TOPICAL 3% 1 amanda applied topically 2 times a day for 30 days As needed 02/15/2024 Active BUPRENORPHINE-NALOXONE 8 mg-2 mg 2 film(s) sublingually daily Active MELATONIN 5 mg 2 caps orally once a day (at bedtime) pt states its 3 tabs Active Encounters Encounter Location Date Provider Diagnosis [address] [address] 04/24/2024 Vikki Spicer Chronic viral hepatitis C B18.2 Assessments Encounter Date Diagnosis (ICD Code) Assessment Notes Treatment Notes Treatment Clinical Notes Section Notes 04/24/2024 Chronic viral hepatitis C (ICD-10 - B18.2) Plan Of Treatment Pending Test Test Name Order Date CBC 04/24/2024 COMPREHENSIVE METABOLIC PANEL 04/24/2024 LIVER FIBROSIS PANEL 04/24/2024 HEP C VIRAL RNA GENOTYPE 04/24/2024 PT/INR 04/24/2024 Progress Notes * Bello YUNGOB: [birth year] (44 yo F)Acc No.[id number]:04/24/2024 Progress Notes Patient: Claudia ESTRELLA Connie Provider: NIKOS Saunders :1980 A ge:43 Y S ex:Female Date:04/24/2024 Address:[address] [place] [address] Subjective: * Chief Complaints: * 1 . Office: [facility] paperwork. * Medical History: * Medications: T aking DICLOFENAC TOPICAL 3% gel 1 amanda applied topically 2 times a day As needed, Taking ACETAMINOPHEN 500 mg tablet 2 tab(s) orally every 8 hours As needed, Taking MELATONIN 5 mg capsule 2 caps orally once a day (at bedtime) , Notes to Pharmacist: pt states its 3 tabs, Taking BUPRENORPHINE-NALOXONE 8 mg-2 mg film 2 film(s) sublingually daily , Taking KEPPRA 750 mg tablet 1 tab(s) orally 2 times a day , Taking LEVOTHYROXINE 25 mcg (0.025 mg) tablet 1 tab(s) orally once a day , Taking IMITREX 25 mg tablet 1 tab(s) orally once As needed, Taking PANTOPRAZOLE 40 mg delayed release tablet 1 tab(s) orally once a day , Taking LYRICA 150 mg capsule 1 cap(s) orally 2 times a day , Taking PROPRANOLOL 10 mg tablet 1 tab(s) orally 2 times a day , Not-Taking/PRN LYRICA 150 mg capsule 1 cap(s) orally 2 times a day , Not-Taking/PRN TRAZODONE 50 mg tablet 1 tab orally at bedtime As needed, Not-Taking/PRN HYDROXYZINE hydrochloride 50 mg tablet 2 tabs orally twice a day PRN , Not-Taking/PRN ONDANSETRON 4 mg tablet 1 tab(s) orally twice a day PRN do not take more than 2 in a 24 hour period , Not-Taking/PRN OMEPRAZOLE 20 mg delayed release capsule 2 caps orally once a day , Notes to Pharmacist: pt states its BID, Not-Taking/PRN NALOXONE 4 mg/0.1 mL spray 1 spray(s) intranasally once , Not-Taking/PRN MIRTAZAPINE 15 mg tablet 1 tab(s) orally once a day (at bedtime) , Not-Taking/PRN CYCLOBENZAPRINE 10 mg tablet 1 tab(s) orally every 8 hours PRN , Not-Taking/PRN GABAPENTIN 400 mg capsule 1 cap(s) orally 3 times a day , Not-Taking/PRN FUROSEMIDE 20 mg tablet 1 tab(s) orally twice a day Objective: * Vitals: Assessment: * Assessment: 1. C hronic viral hepatitis C - B18.2 Plan: * Treatment: * Images: Billing Information: * Visit Code: * Procedure Codes: Care Plan Details* * Electronic signature of Zaire Spicer on 06/11/2025 at 05:56 PM EST Sign off status: Pending * Provider: NIKOS Saunders Date: 0 04/24/2024 Generated for Marilin johnson/Olivia/Beni on: 1 08/11/2024 05:56 PM EST
--- OUTSIDE RECORDS SUMMARY | 2024-05-07 05:00 | XMS_ITS ---
Author Organization [facility] Address [address] [place] [address] Care Team Providers Care Banking Paralegal Name Role Phone Vikki Spicer Primary Care Provider [phone] REASON FOR VISIT [facility] paperwork Encounters Encounter Location Date Provider Diagnosis [facility] [address] [place], [place] [phone] 05/07/2024 Vikki Spicer Encounter for screening for [...] * Bello YUNGOB: [birth year] (44 yo F)Acc No.[id number]:05/07/2024 Progress Notes Patient: Connie MENDEZ Provider: NIKOS Saunders :1980 A ge:43 Y S ex:Female Date:05/07/2024 Address:[address] [place] [address] Subjective: * Chief Complaints: * 1 . [facility] * HPI: G eneral: Symptom Screen: [...] NIKOS Saunders Date: 1 Generated for Marilin johnson/Olivia/Royasmedmund on: 08/11/2024 05:56 PM EST
--- OUTSIDE RECORDS SUMMARY | 2024-05-14 09:00 | XMS_ITS ---
Author Organization [facility] Address [address] [place] [address] Care Team Providers Care Litigation Support Analyst Name Role Phone Vikki Spicer Primary Care Provider Jessie Ferrera Unavailable [phone] REASON FOR VISIT BH: initial intake, Symptom screening by [facility] staff pre entrance to clinic Encounters Encounter Location Date Provider Diagnosis [facility] [address] [place] [address] 05/14/2024 Jessie Ferrera Encounter for screening for COVID-19 Z11.52 Assessments Encounter Date Diagnosis (ICD Code) Assessment Notes Treatment Notes Treatment Clinical Notes Section Notes 05/14/2024 Encounter for screening for COVID-19 (ICD-10 - [...] you are having concerning symptoms for COVID-19. 05/14/2024 Other Plan Of Treatment Treatment Notes Assessment [...] * Bello YUNGOB: [birth year] (44 yo F)Acc No.[id number]:05/14/2024 Progress Notes Patient: Connie MENDEZ Provider: DANIEL MooreHNP-BC :1980 A ge:43 Y S ex:Female Date:05/14/2024 Address:[address] [place], [place] [phone] Pcp:Vikki Spicer Subjective: * Chief Complaints: * 1 . BH: initial intake. 2. Symptom screening by [facility] staff pre entrance to clinic. * HPI: G eneral: Symptom Screen: - [...] rashes. * Medical History: Objective: * Vitals: * Examination: P sychiatry: Assessment Filled Written Sold ID Drug QTY Days Prescriber RX # Dispenser Refill Daily Dose* Pymt Type 02/29/20 24 4 2 Preg abal in 150 Mg Caps ule 60 30 Ed Jered [id number] Wal (30 12) 0/0 2.01 LMET Medicai d [place] .? Assessment: * Assessment: 1. E ncounter for screening for COVID-19 - Z11.52 (Primary) Plan: * Treatment: * Images: Billing Information: * Visit Code: * Procedure Codes: Care Plan Details* * Electronic signature of JENNIFER Corrales on 06/11/2025 at 05:56 PM EST Sign off status: Pending * Provider: Evangelista Ferrera PMHNP-BC Date: Generated for Marilin johnson/Olivia/Beni on: 08/11/2024 05:56 PM EST History and Physical Notes * Examination Category Sub-Category Detail Notes Category Not es Psychiatry Assessment Filled Written S old ID Drug QTY Days Prescriber RX # Dispenser Refill Daily Dose* Pymt Type GIS ENGINEER //[id number] 150 Mg [id number] (2605) [place]icaid[place]
--- OUTSIDE RECORDS SUMMARY | 2024-05-22 06:00 | XMS_ITS ---
Author Organization [facility] Address [address] [place] [address] Care Team Providers Care Laboratory Technician Name Role Phone Vikki Spicer Primary Care Provider [facility], Nursing Unavailable [phone] Medications Medication SIG (Take, Route, Frequency, Duration) Notes Start Date End Date Status MELATONIN 5 mg 2 caps orally once a day (at bedtime) pt states its 3 tabs Active BUPRENORPHINE-NALOXONE 8 mg-2 mg 2 film(s) sublingually daily Active IMITREX 25 mg 1 tab(s) orally once for 30 days As needed 02/16/2024 Active DICLOFENAC TOPICAL 3% 1 amanda applied topically 2 times a day for 30 days As needed 02/15/2024 Active ACETAMINOPHEN 500 mg 2 tab(s) orally every 8 hours As needed Active PROPRANOLOL 10 mg 1 tab(s) orally 2 times a day for 90 days Active LEVOTHYROXINE 25 mcg (0.025 mg) 1 tab(s) orally once a day for 90 days Active PANTOPRAZOLE 40 mg 1 tab(s) orally once a day for 90 days Active KEPPRA 750 mg 1 tab(s) orally 2 times a day for 90 days Active LYRICA 150 mg 1 cap(s) orally 2 times a day for 30 days 05/21/2024 Active FUROSEMIDE 20 mg 1 tab(s) orally twice a day Not-Taking NALOXONE 4 mg/0.1 mL 1 spray(s) intranasally once Not-Taking MIRTAZAPINE 15 mg 1 tab(s) orally once a day (at bedtime) Not-Taking CYCLOBENZAPRINE 10 mg 1 tab(s) orally every 8 hours PRN Not-Taking GABAPENTIN 400 mg 1 cap(s) orally 3 times a day Not-Taking TRAZODONE 50 mg 1 tab orally at bedtime As needed Not-Taking HYDROXYZINE hydrochloride 50 mg 2 tabs orally twice a day PRN Not-Taking ONDANSETRON 4 mg 1 tab(s) orally twice a day PRN do not take more than 2 in a 24 hour period Not-Taking OMEPRAZOLE 20 mg 2 caps orally once a day pt states its BID Not-Taking Encounters Encounter Location Date Provider Diagnosis [facility] [address] [place] [address] 05/22/2024 Nursing [facility] Encounter for screening for COVID-19 Z11.52 Assessments Encounter Date Diagnosis (ICD Code) Assessment Notes Treatment Notes Treatment Clinical Notes Section Notes 05/22/2024 Encounter for screening for COVID-19 (ICD-10 - [...] you are having concerning symptoms for COVID-19. 05/22/2024 Other Plan Of Treatment Treatment Notes Assessment [...] * Bello YUNGOB: [birth year] (44 yo F)Acc No.[id number]:05/22/2024 Progress Notes Patient: Claudia Connie DE LA ROSA Provider: Chavez giles [facility] :1980 A ge:43 Y S ex:Female Date:05/22/2024 Address:[address] [place], [place] [phone] Pcp:Vikki Spicer Subjective: * Chief Complaints: * * HPI: G eneral: Symptom Screen: - [...] days? If so where and why?. * Medications: T aking DICLOFENAC TOPICAL 3% [...] film 2 film(s) sublingually daily , Taking IMITREX 25 mg tablet 1 tab(s) orally once As needed, Taking PROPRANOLOL 10 mg tablet 1 tab(s) orally 2 times a day , Taking LEVOTHYROXINE 25 mcg (0.025 mg) tablet 1 tab(s) orally once a day , Taking PANTOPRAZOLE 40 mg delayed release tablet 1 tab(s) orally once a day , Taking KEPPRA 750 mg tablet 1 tab(s) orally 2 times a day , Taking LYRICA 150 mg [...] Information: * Visit Code: * Procedure Codes: * Electronic signature of Buck jain [facility] on 06/11/2025 at 02:09 PM EST Sign off status: Pending * Provider: Chavez giles [facility] Date: 1 Generated for Marilin johnson/Olivia/Beni on: 08/11/2024 02:09 PM EST
--- OUTSIDE RECORDS SUMMARY | 2025-04-19 16:00 | XMS_ITS ---
Author Organization [facility] Address [address] [place] [address] Care Team Providers Care Micrographics Services Supervisor Name Role Phone ElierjuanVikki Primary Care Provider Migration, Provider Unavailable Unavailable Allergies Allergen (clinical drug ingredient) Drug/Non Drug Allergy documented on EMR Reaction Allergy Type Onset Date Status Keflex anaphylaxis Drug Allergy Activ e Shellfish SHELLFISH (uncoded) Unknown Allergy Active REASON FOR VISIT [facility] To [facility] Conversion Encounter Medications Medication SIG (Take, Route, Frequency, Duration) Notes Start Date End Date Status Levothyroxine Sodium 25 MCG 1 tab(s) orally once a day for 90 days Active Keppra 750 MG 1 tab(s) orally 2 times a day for 90 days Active Pantoprazole Sodium 40 MG 1 tab(s) orally once a day for 90 days Active Lyrica 150 MG 1 cap(s) orally 2 times a day for 30 days 05/21/2024 Active Propranolol HCl 10 MG 1 tab(s) orally 2 times a day for 90 days Active Mirtazapine 15 MG 1 tab(s) orally once a day (at bedtime) Not-Taking NALOXONE 4 MG/0.1 ML 1 SPRAY(S) INTRANASALLY ONCE *Please review for potential replacement for e-prescription and drug interaction check* Not-Taking Furosemide 20 MG 1 tab(s) orally twice a day Not-Taking Gabapentin 400 MG 1 cap(s) orally 3 times a day Not-Taking Cyclobenzaprine HCl 10 MG 1 tab(s) orally every 8 hours PRN Not-Taking traZODone HCl 50 MG 1 tab orally at bedtime Not-Taking Imitrex 25 MG 1 tab(s) orally once for 30 days 02/16/2024 Active hydrOXYzine HCl 50 MG 2 tabs orally twice a day PRN Not-Taking Omeprazole 20 MG 2 caps orally once a day pt states its BID Not-Taking Ondansetron HCl 4 MG 1 tab(s) orally twice a day PRN do not take more than 2 in a 24 hour period Not-Taking Buprenorphine HCl-Naloxone HCl 8 MG-2 MG 2 FILM(S) SUBLINGUALLY DAILY *Please review and pick correct strength-formula tion from Medispan options. If intended option is not shown, discontinue and re-order from Quick Search* Active Melatonin 5 MG 2 caps orally once a day (at bedtime) pt states its 3 tabs Active Acetaminophen 500 MG 2 tab(s) orally every 8 hours Active Diclofenac Sodium 3 % 1 amanda applied topically 2 times a day for 30 days 02/15/2024 Active Encounters Encounter Location Date Provider Diagnosis [address] [address] 04/19/2025 Provider Migration Plan Of Treatment No Information Progress Notes * Bello YUNGOB: [birth year] (44 yo F)Acc No.[id number]:04/19/2025 Patient: Claudia Connie DE LA ROSA Provider: :1980 A ge:44 Y S ex:Female Date:04/19/2025 Address:[address] [place], [place] [id number] Pcp:Vikki Spicer Subjective: * Chief Complaints: * [address] [address] [facility]. * Medical History: * Medications: T aking Diclofenac Sodium 3 % Gel 1 amanda applied topically 2 times a day , Taking Acetaminophen 500 MG Tablet 2 tab(s) orally every 8 hours , Taking Melatonin 5 MG Capsule 2 caps orally once a day (at bedtime) , Notes to Pharmacist: pt states its 3 tabs, Taking Buprenorphine HCl-Naloxone HCl 8 MG-2 MG FILM 2 FILM(S) SUBLINGUALLY DAILY , Notes to Pharmacist: *Please review and pick correct strength- formulation from linkedüspan options. If intended option is not shown, discontinue and re-order from Quick Search*, Taking Imitrex 25 MG Tablet 1 tab(s) orally once , Taking Propranolol HCl 10 MG Tablet 1 tab(s) orally 2 times a day , Taking Levothyroxine Sodium 25 MCG Tablet 1 tab(s) orally once a day , Taking Pantoprazole Sodium 40 MG Tablet Delayed Release 1 tab(s) orally once a day , Taking Keppra 750 MG Tablet 1 tab(s) orally 2 times a day , Taking Lyrica 150 MG Capsule 1 cap(s) orally 2 times a day , Not-Taking/PRN traZODone HCl 50 MG Tablet 1 tab orally at bedtime , Not- Taking/PRN hydrOXYzine HCl 50 MG Tablet 2 tabs orally twice a day PRN , Not-Taking/PRN Ondansetron HCl 4 MG Tablet 1 tab(s) orally twice a day PRN do not take more than 2 in a 24 hour period , Not-Taking/PRN Omeprazole 20 MG Capsule Delayed Release 2 caps orally once a day , Notes to Pharmacist: pt states its BID, Not-Taking/PRN NALOXONE 4 MG/0.1 ML SPRAY 1 SPRAY(S) INTRANASALLY ONCE , Notes to Pharmacist: *Please review for potential replacement for e-prescription and drug interaction check*, Not-Taking/PRN Mirtazapine 15 MG Tablet 1 tab(s) orally once a day (at bedtime) , Not-Taking/PRN Cyclobenzaprine HCl 10 MG Tablet 1 tab(s) orally every 8 hours PRN , Not-Taking/PRN Gabapentin 400 MG Capsule 1 cap(s) orally 3 times a day , Not-Taking/PRN Furosemide 20 MG Tablet 1 tab(s) orally twice a day * Allergies: K eflex: anaphylaxis, SHELLFISH. Objective: * Vitals: Assessment: Plan: * Treatment: * Images: Billing Information: * Visit Code: * Procedure Codes: * Electronic signature of Prov ider Migration on 06/11/2025 at 02:09 PM EST Sign off status: Pending * Provider: Date: 0 04/19/2025 Generated for Marilin johnson/Olivia/Beni on: 08/11/2024 02:09 PM EST
--- OUTSIDE RECORDS SUMMARY | 2025-06-11 14:40 | XMS_ITS | Encounter Summary ---
Author Organization [email or web address] Address [address] [place] [address] Care Team Providers Care Vest Front Presser Name Role Phone Morteza Chaudhary MD Primary Care Prov ider Patrick Palacios RN Unavailable [phone] Camron Palacios Unavailable Reason for Visit * Reason Comments Amenorrhea Encounter Details Date Type Department Care Team ([facility] st Contact Info) Description 06/11/2025 2:40 PM EST Office Visit [facility] [address] [place] [address] Amenorrhea (Primary Dx); Loss of menstrual periods; Hot flashes; Excessive sweating; Hepatitis C test positive Social History Tobacco Use Types Packs/Day Years [...] PM EDT documented as of this encounter Last Filed Vital Signs Vital Sign Reading Time Taken Comments Blood Pressure 111/76 06/11/2025 2:18 PM EST Pulse 107 06/11/2025 2:18 PM EST Temperature 36.6 C (97.8 F) 06/11/2025 2:18 PM EST Respiratory Rate 26 06/11/2025 2:18 PM EST Oxygen Saturation 97% 06/11/2025 2:18 PM EST Inhaled Oxygen Concentration - - Weight 72.5 kg (159 lb 12.8 oz) 06/11/2025 2:18 PM EST Height 160 cm (5' 3 ) 06/11/2025 2:18 PM EST Body Mass Index 28.31 06/11/2025 2:18 PM EST documented in this encounter Plan of Treatment Upcoming Encounters Date Type Department Care Team (Late st Contact Info) Description 06/16/2025 1:45 PM EST Telemedicine [facility] [address] [place] [address] Morteza Chaudhary MD [address] [place] [address] Scheduled Orders Name Type Priority Associated Diagnoses Orde r Schedule POCT , urine manually resulted Point of Care Testing Routine Amenorrhea Hot flashes Ordered: 06/11/2025 Prolactin Lab Routine Amenorrhea Hot flashes Expected: 06/11/2025 (Approximate), Expires: 06/11/2026 FSH Lab Routine Amenorrhea Hot flashes Expected: 06/11/2025, Expires: 06/11/2026 LH Lab Routine Amenorrhea Hot flashes Expected: 06/11/2025 (Approximate), Expires: 06/11/2026 Estradiol Lab Routine Amenorrhea Hot flashes Expected: 06/11/2025 (Approximate), Expires: 06/11/2026 T-SPOT .TB Lab Routine Excessive sweating Expected: 06/11/2025 (Approximate), Expires: 06/11/2026 documented as of this encounter Procedures Procedure Name Priority Date/Time Associated Diagnosis Comments POCT , URINE Routine 06/11/2025 2:41 PM EST Loss of menstrual periods documented in this encounter Results * POCT Urine (06/11/2025 2:41 PM EST) Preg Test, Ur Negative Negative, Indeterminate, None Detected, Invalid, Specimen unsatisfactory for evaluation, Weakly Positive, 2+ QC Media Lot # [id number] Lot# Expiration Date Urine 06/11/2025 2:41 PM EST Edith Ha DIRECTOR IT POINT OF CARE TEST ENTER/EDIT O RDERABLES Final Result documented in this encounter Visit Diagnoses Diagnosis Amenorrhea- Primary Absence of menstruation Loss of menstrual periods Hot flashes Excessive sweating Generalized hyperhidrosis Hepatitis C test positive documented in this encounter Additional Health Concerns Assessment Noted Time PHQ-9 Depression Total Score: 18 025 8:44 AM EDT documented as of this encounter Care Teams Vest Front Presser Relationship Specialty Start Date End Date Morteza Chaudhary MD [address] [place] [address] PCP - General Internal Medicine 11/04/24 Patrick Palacios RN [address] [place] [address] Registered Nurse Family Medicine 03/14/25 Camron Palacios 03/14/25 documented as of this encounter
--- OUTSIDE RECORDS SUMMARY | 2025-06-11 17:56 | XMS_ITS | Encounter Summary ---
Author Organization [employer] Address [address] [place] [address] Care Team Providers Care Banking Management Consulting Manager Name Role Phone Morteza Chaudhary MD Primary Care Prov ider Patrick Palacios RN Unavailable [phone] Camron Palacios Unavailable Reason for Visit * Reason Comments Med Refill Encounter Details Date Type Department Care Team ([facility] st Contact Info) Description 06/10/2025 Refill [facility] [address] [place] [address] Morteza Chaudhary MD [address] [place] [address] Social History Tobacco Use Types Packs/Day Years [...] as of this encounter Plan of Treatment Upcoming Encounters Date Type Department Care Team (Late st Contact Info) Description 06/16/2025 1:45 PM EST Telemedicine [facility] [address] [place] [address] Morteza Chaudhary MD [address] [place] [address] documented as of this encounter Visit Diagnoses Not on filedocumented in this encounter Additional Health Concerns Assessment Noted Time PHQ-9 Depression Total Score: 18 025 8:44 AM EDT documented as of this encounter Care Teams Banking Management Consulting Manager Relationship Specialty Start Date End Date Morteza Chaudhary MD [address] [place] [address] PCP - General Internal Medicine 11/04/24 Patrick Palacios, RN [address] [place] [address] Registered Nurse Family Medicine 03/14/25 Camron Palacios 03/14/25 documented as of this encounter
--- OUTSIDE RECORDS SUMMARY | 2025-06-11 17:56 | XMS_ITS | Encounter Summary ---
Author Organization [employer] Address [address] [place] [address] Care Team Providers Care Welder/Fabricator Name Role Phone Morteza Chaudhary MD Primary Care Prov ider Patrick Palacios RN Unavailable [phone] Camron Palacios Unavailable Reason for Visit * Reason Comments Med Refill Encounter Details Date Type Department Care Team ([facility] st Contact Info) Description 02/28/2025 Refill [facility] [address] [place] [address] Morteza Chaudhary MD [address] [place] [address] Social History Tobacco Use Types Packs/Day Years [...] Info) Description 06/16/2025 1:45 PM EST Telemedicine [facility] [address] [place] [address] Morteza Chaudhary MD [address] [place] [address] documented as of this encounter Visit Diagnoses Not on filedocumented in this encounter Additional Health Concerns Assessment Noted Time PHQ-9 Depression Total Score: 18 025 8:44 AM EDT documented as of this encounter Care Teams Welder/Fabricator Relationship Specialty Start Date End Date Morteza Chaudhary MD [address] [place] [address] PCP - General Internal Medicine 11/04/24 Patrick Palacios, RN [address] [place] [address] Registered Nurse Family Medicine 03/14/25 Camron Palacios 03/14/25 documented as of this encounter
--- OUTSIDE RECORDS SUMMARY | 2025-06-11 17:56 | XMS_ITS | Clinical Summary ---
Author Organization [employer] Address [address] [facility] [address] [place] [address] Care Team Providers Care Sander Wooden [employer]enc[employer] Name Role Phone Morteza Chaudhary MD Primary Care Prov ider Patrick Palacios RN Unavailable [phone] Camron Palacios Unavailable Allergies Active Allergy [...] MUSCLE SPASMS 30 tablet 04/05/20 25 Active levothyroxine (Synthroid, Levoxyl) 25 MCG tablet TAKE 1 TABLET BY MOUTH EVERY DAY 90 tablet 1 05/23/20 25 Active mirtazapine (Remeron) 15 MG tablet TAKE 1 TABLET BY MOUTH EVERY DAY AT BEDTIME 30 tablet 05/27/20 25 Active promethazine (Phenergan) 25 MG tablet [...] 24 HOURS 9 tablet 05/30/20 25 Active hydrOXYzine HCl (Atarax) 50 MG tablet TAKE 1 TABLET BY MOUTH EVERY TWELVE HOURS NEEDED FOR ANXIETY 90 tablet 06/10/20 25 Active nicotine polacrilex (Commit) 2 MG lozenge DISSOLVE 1 LOZENGE BY MOUTH EVERY 2 HOURS NEEDED FOR SMOKING CESSATION 72 lozenge 06/10/20 25 Active levothyroxine (Synthroid, Levoxyl) 25 MCG [...] NAUSEA AND VOMITING 90 tablet 04/22/20 25 025 Discontinued hydrOXYzine HCl (Atarax) 50 MG tablet TAKE 1 TABLET BY MOUTH EVERY TWELVE HOURS NEEDED FOR ANXIETY 90 tablet 04/22/20 25 025 Discontinued nicotine (Nicoderm, Step 3) 7 MG/24HR patch APPLY 1 PATCH TOPICALLY TO THE SKIN IN THE MORNING *DO NOT SMOKE WHILE USING PATCH* 14 patch 04/29/20 25 025 Discontinued nicotine polacrilex (Commit) 2 MG lozenge DISSOLVE 1 LOZENGE BY MOUTH EVERY 2 HOURS NEEDED SMOKING CESSATION 72 lozenge 04/29/20 25 025 Discontinued SUMAtriptan (Imitrex) 50 MG tablet TAKE 1 TABLET BY MOUTH AT ONSET OF MIGRAINE. MAY REPEAT ONCE AFTER 2 HOURS IF NEEDED NO MORE THAN 2 TABLETS PER 24 HOURS 9 tablet 05/02/20 025 Discontinued nicotine polacrilex (Commit) 2 MG lozenge DISSOLVE 1 LOZENGE BY MOUTH EVERY 2 HOURS NEEDED FOR SMOKING CESSATION 72 lozenge 05/30/20 25 025 Discontinued Active Problems Problem Noted Date Diagnosed Date Pelvic pain 03/11/2025 Assessment & Plan (03/11/2025 4:42 PM EDT): Chronic, patient followed due to uterine fibroid, complains of pain on intercourse, will refer to fabric normalizer for evaluation Muscle pain 03/11/2025 Assessment & [...] All: keflex/septra/shellfish Meds: as above Seizure disorder (CMS/HCC) 10/31/2024 Assessment & Plan (03/11/2025 4:40 PM EDT): On fredira, will refer to neurology for follow up [...] Encounters Date Type Department Care Team Description 06/11/2025 2:40 PM EST Office Visit [facility] [address] [place] [phone] Amenorrhea (Primary Dx); Loss of menstrual periods; Hot flashes; Excessive sweating; Hepatitis C test positive 06/11/2025 Travel 06/10/2025 Refill [facility] [address] [place] [phone] Morteza Chaudhary MD 06/09/2025 Refill [facility] [address] [place] [phone] Morteza Chaudhary MD 06/09/2025 Patient Outreach [facility] [address] [place] [phone] Morteza Chaudhary MD 06/04/2025 Orders Only [facility] [address] [place] [address] Morteza Chaudhary MD 05/27/2025 Refill [facility] [address] [place] [phone] Morteza Chaudhary MD 05/27/2025 Refill [facility] [address] [place] [address] Rafael Lopez MD 05/20/2025 Refill [facility] [address] [place] [phone] Lolis Ngo MD 05/15/2025 Patient Outreach [address] [address] Morteza Chaudhary MD Care Coordination (C3/ZAID Chowdhury#4- Attempt to R/S missed IA appointment-Unable to LVM) 05/14/2025 Patient Outreach [facility] [address] [place] [phone] Morteza Chaudhary MD 05/02/2025 Patient Outreach [address] [address] Morteza Chaudhary MD Care Coordination ([facility]/ZAID Chowdhury#3- Attempt to R/S Missed CM IA appt-Unable to LVM-Full) 05/02/[address] [address] Morteza Chaudhary MD No Show 05/01/2025 Refill [facility] [address] [place] [address] Morteza Chaudhary MD 04/30/2025 9:45 AM EDT Telemedicine [facility] [address] [place] [address] Yolanda Gutierrez RN Palpitations 04/30/2025 Travel 04/28/2025 Patient Outreach [address] [address] Morteza Chaudhary MD 04/25/2025 Refill [facility] [address] [place] [phone] Morteza Chaudhary MD 04/24/2025 Orders Only GENERIC EXTERNAL DATA DEPARTMENT Provider, Generic External Data 04/24/2025 Patient Outreach [address] [address] Morteza Chaudhary MD 04/20/2025 Refill [facility] [address] [address] Mortzea Chaudhary MD 04/15/2025 Orders Only GENERIC EXTERNAL DATA DEPARTMENT Provider, Generic External Data 04/14/2025 Patient Outreach [address] [address] Morteza Chaudhary MD Care Coordination (C3/ZAID Ibarra#1- Attempt to R/S missed IA-LVM) 04/10/2025 Patient Outreach [address] [address] Morteza Chaudhary MD Care Management (C3CM- initial assessment/ enrollment. Not available.) 04/09/2025 Patient Outreach [address] [address] Morteza Chaudhary MD Care Coordination ([place]/ZAID Ibarra-LVM-CM Complex Care Initial Assessment Appt Reminder) 04/08/2025 Refill [facility] [address] [place] [address] Morteza Chaudhary MD 04/04/2025 Refill [facility] [address] [place] [phone] Morteza Chaudhary MD 04/03/2025 Patient Outreach [address] [address] Morteza Chaudhary MD Care Coordination (C3LYUBOV/ZAID Ibarra- Follow up on Neurology Appt) 03/27/2025 Patient Outreach [address] [address] Morteza Chaudhary MD Care Coordination (C3CM/CHW ZAID Kim-ADT Outreach-Agrees to participate in CM Complex Care Program) 03/25/2025 Telephone [facility] [address] [place] [address] Morteza Chaudhary MD Med Refill 03/24/2025 Refill [facility] [address] [place] [address] Mani Mojica MD 03/24/2025 Patient Outreach [address] [address] Morteza Chaudhary MD 03/18/2025 1:00 PM EDT Telemedicine [facility] [address] [place] [phone] Yolanda Gutierrez RN Peptic ulcer disease [K27.9] 03/18/2025 Travel 03/14/2025 Patient Outreach [address] [address] Morteza Chaudhary MD Care Coordination (C3/W ZAID Kim#1- ADT Outreach-LV) 03/14/2025 Patient Outreach [address] [address] Morteza Chaudhary MD Care Coordination (C3/DONNA Palacios, Chart Review) 03/14/2025 Patient Outreach [address] [address] Morteza Chaudhary MD 03/14/2025 Patient Outreach [address] [phone] Morteaz Chaudhary MD Care Management (C3- chart review) 03/14/2025 Patient Outreach [address] [address] Morteza Chaudhary MD 03/13/2025 Orders Only [facility] External Provider, [facility] 03/11/2025 1:30 PM EDT Office Visit [facility] [address] [place] [phone] Morteza Chaudhary MD Migraine without status migrainosus, not intractable, unspecified migraine type (Primary Dx); Anxiety and depression; Peptic ulcer disease; Seizure disorder (CMS/HCC); Pelvic pain; Muscle pain 03/11/2025 Travel from Last 3 Months Family History Medical [...] Mass Index 28.31 06/11/2025 2:18 PM EST Plan of Treatment Upcoming Encounters Date Type Department Care Team (Late st Contact Info) Description 06/16/2025 1:45 PM EST Telemedicine [facility] [address] [place] [address] MorganMorteza Orosco MD [address] [place] [address] Health Maintenance Due Date Last Done Comments Disability Screening 1980 Family Planning (PISQ) 1996 [...] , 11/04/2024 Alcohol/Substance Use Screening 11/04/2025 11/04/2024 SDOH Screening 03/27/2026 03/27/2025 Tobacco Screening 06/11/2026 06/11/2025 Lipid Panel 06/04/2030 06/04/2025 Zoster Vaccines (1 of 2) 11/28/2031 RSV Patients and Patients Aged 60 years or older (1 - 1-dose 75+ series) 2056 Pneumococcal Vaccine: Pediatrics (0 to 5 Years) and At-Risk Patients (6 to 49) Years Completed 03/06/2023, 08/04/2016 HIV Screening Completed 06/04/2025 HIB Vaccines Aged Out No longer eligi [...] 2:41 PM EST Loss of menstrual periods HEPATITIS C VIRAL RNA, QUANTITATIVE, REAL-TIME PCR Routine 06/04/2025 8:45 AM EDT SLIDE REVIEW Routine 06/04/2025 8:45 AM EDT HEPATITIS C AB W/REFL TO HCV RNA, QN, PCR Routine 06/04/2025 8:45 AM EDT Migraine without status migrainosus, not intractable, unspecified migraine type Anxiety and depression HIV 1/2 ANTIGEN/ANTIBODY, FOURTH GENERATION W/RFL Routine 06/04/2025 8:45 AM EDT Migraine without status migrainosus, not intractable, unspecified migraine type Anxiety and depression HEMOGLOBIN A1C Routine 06/04/2025 8:45 AM EDT Migraine without status migrainosus, not intractable, unspecified migraine type Anxiety and depression TSH W/REFLEX TO FT4 Routine 06/04/2025 8 :45 AM EDT Migraine without status migrainosus, not intractable, unspecified migraine type Anxiety and depression LIPID PANEL, STANDARD Routine 06/04/2025 8:45 AM EDT Migraine without status migrainosus, not intractable, unspecified migraine type Anxiety and depression COMPREHENSIVE METABOLIC PANEL Routine 06/04/2025 8:45 AM EDT Migraine without status migrainosus, not intractable, unspecified migraine type Anxiety and depression CBC WITH AUTO DIFFERENTIAL Routine 06/04/2025 8:45 AM EDT Migraine without status migrainosus, not intractable, unspecified migraine type Anxiety and depression URINALYSIS WITH REFLEX MICROSCOPIC Routine 04/24/2025 5:01 PM EDT XR CHEST 1 VIEW Routine 04/24/2025 4:35 PM EDT DRUG MONITOR, PANEL 1, SCREEN, URINE Routine 04/15/2025 11:08 AM EDT URINALYSIS WITH REFLEX MICROSCOPIC Routine 04/15/2025 11:[address] ABDOMEN PELVIS W CONTRAST Routine 03/14/2025 1:34 AM EDT from Last 3 Months Results * POCT Urine (06/11/2025 2:41 PM EST) Preg Test, Ur Negative Negative, Indeterminate, None Detected, Invalid, Specimen unsatisfactory for evaluation, Weakly Positive, 2+ QC Media Lot # [id number] Lot# Expiration Date Urine 06/11/2025 2:41 PM EST us Edithshahriar Ham MEDICAL ASSISTANT SUPERVISOR POINT OF CARE TEST ENTER/EDIT O RDERABLES Final Result * Slide Review (06/04/2025 8:45 AM EDT) Slide Review VERIFIED [facility] 06/04/2025 8:45 AM EDT 06/04/2025 8:45 AM EDT Morteza Faust MD LAB BLOOD ORDERABL ES Final Result Performing Organization Address [facility] Co de Phone Number [facility] [address] [place] [phone] * TSH W/Reflex to FT4 (06/04/2025 8:45 AM EDT) TSH reflex Free T4 1.11 0.32 - 4.0 uIU/mL [facility] Blood Venous blood specimen / Unknown 06/04/2025 8:45 AM EDT 06/04/2025 8:45 AM EDT Morteza Fuast MD LAB BLOOD ORDERABL ES Final Result Performing Organization Address [facility] de Phone Number [facility] [address] [place] [phone] * (ABNORMAL) Hepatitis C Viral RNA, Quantitative, Real-Time PCR (06/04/2025 8:45 AM EDT) Pathologist [facility] Hepatitis C Viral Load 679389(A) NOT DETECTED IU/mL [facility] HCV Log PCR 5.29(A) NOT DETECTED Log IU/mL [facility] Comment:For additional infor mation, please refer [email or web address]/[email or web address](This link is being provided for informational/educational purposes only.)THIS TEST WAS PERFORMED AT:[facility] [place] [phone] GARCIA MD 06/04/2025 8:45 AM EDT 06/04/2025 10:47 AM EDT us Generic External Data Provider LAB BLOOD ORDERAB LES Final Result [facility] [address] [place] [address], [place] [phone] * CBC auto differential (06/04/2025 8:45 AM EDT) White Blood Count 8.4 4.8 - 10.8 X10*3/uL [facility] Red Blood Count 4.93 4.20 - 5.50 X10*6/uL [facility] Hemoglobin 14.3 12.0 - 16.0 g/dl [facility] Hematocrit 43.9 37.0 - 47.0 % [facility] Mean Corpuscular Volume 89.0 80.0 - 98.0 fL [facility] Mean Corpuscular Hemoglobin 29.0 27.0 - 33.0 pg [facility] Mean Corpuscular HGB Conc 32.6 31.0 - 35.0 g/dl [facility] Red Cell Distribution Width 12.6 11.0 - 16.0 % [facility] Platelet Count 286 160 - 400 X10*3/uL [facility] Mean Platelet Volume 9.9 9.4 - 12.3 fL [facility] Neutrophils Percent Auto 63.8 45 - 73 % [facility] Imm Gran Pct Auto 0.4 0.0 - 0.4 % [facility] Lymphocytes Percent Auto 24.8 20 - 40 % [facility] Monocytes Percent Auto 6.4 2 - 11 % [facility] Eosinophils Percent Auto 3.8 0 - 4 % [facility] Basophils Percent Auto 0.8 0 - 2 % [facility] NRBC Pct Auto 0.0 0.0 - 0.2 /100WBC [facility] Neutrophils Absolute Auto 5.4 2.0 - 8.3 x10*3/uL [facility] Imm Gran Abs Auto 0.03 0.00 - 0.03 X10*3/uL [facility] Lymphocytes Absolute Auto 2.1 1.2 - 4.9 X10*3/uL [facility] Monocytes Absolute Auto 0.5 0.1 - 1.2 X10*3/uL [facility] Eosinophils Absolute Auto 0.3 0.0 - 0.4 X10*3/uL [facility] Basophils Absolute Auto 0.1 0.0 - 0.2 X10*3/uL [facility] NRBC Abs Auto 0.000 0.0 - 0.012 X10*3/uL [facility] Blood Venous blood specimen / Unknown 06/04/2025 8:45 AM EDT 06/04/2025 8:45 AM EDT Morteza Faust MD LAB BLOOD ORDERABL ES Edited Result - Final Performing Organization Address [facility]/ZIP Co de Phone Number [facility] [address] [place] [phone] * (ABNORMAL) Hepatitis C Antibody with Reflex to HCV, RNA, Quantitative, Real- Time PCR (06/04/2025 8:45 AM EDT) Pathologist [facility] Hepatitis C Antibody Reactive( A) Nonreactive [facility] Comment:Presumptive evidence of antibodies to HCV. Blood Venous blood specimen / Unknown 06/04/2025 8:45 AM EDT 06/04/2025 8:45 AM EDT Morteza Faust MD LAB BLOOD ORDERABL ES Final Result Performing Organization Address [facility] Co de Phone Number [facility] [address] [place] [phone] * HIV-1/2 Antigen and Antibodies, Fourth Generation, with Reflexes (06/04/2025 8:45 AM EDT) HIV AB/AG Nonreactive Nonreactive [facility] Comment:HIV-1 p24 Ag and/or HIV-1/HIV-2 Ab not detected.A test result that is nonreactive does not exclude thepossibility of exposure to or infection with HIV-1 and/orHIV-2. Nonreactive results in this assay for individualswith prior exposure to HIV-1 and/or HIV-2 may be due toantigen and antibody levels that are below the limit ofdetection of this assay.The [employer] HIV Ag/Ab Combo assay result andsupplemental assay results should be interpreted inconjunction with the patient's clinical presentation,history and other laboratory results. If the results areinconsistent with clinical evidence, additional testing issuggested to confirm the result. Blood Venous blood specimen / Unknown 06/04/2025 8:45 AM EDT 06/04/2025 8:45 AM EDT Morteza Faust MD LAB BLOOD ORDERABL ES Final Result Performing Organization Address [facility] Co de Phone Number [facility] [address] [place] [phone] * Hemoglobin A1c (06/04/2025 8:45 AM EDT) Hemoglobin A1c 5.2 <6.0 % [facility] Comment:Hemoglobin A1C Refer ence Range Adults: 4.8 - 6.0 % Non diabetic: < 6.0 % Goal: < 7.0 %Additional Action Suggested: > 8.0 %Note: Hemoglobin A1c results are invalid for patients with abnormal amounts of HbF. Blood transfusions may impact the HbA1c concentration in the patient sample. Estimated Average Glucose 103 mg/dL [facility] Comment:eAG = Estimated ave rage glucose which is %A1C expressed asaverage glucose, using the formula of the F5Y-FpwfyoqXpzlmel Glucose study (ADAG), Diabetes Care, Vol.31,#8,Mar. 2007 Blood Venous blood specimen / Unknown 06/04/2025 8:45 AM EDT 06/04/2025 8:45 AM EDT Morteza Faust MD LAB BLOOD ORDERABL ES Final Result Performing Organization Address [facility] Co de Phone Number [facility] [address] [place] [phone] * (ABNORMAL) Lipid Panel, Standard (06/04/2025 8:45 AM EDT) Triglycerides 139 <150 mg/dL [facility] Comment:Desirable Triglyceri de: less than 150 mg/dLBorderline High Triglyceride 150-199 mg/dLHigh Triglyceride: 200-499 mg/dLVery High Triglyceride: greater than or equal to 5OO mg/dL Cholesterol 240(H) <200 mg/dL [facility] Comment:Desirable Cholestero l: less than 200 mg/dLBorderline High Cholesterol: 200-239 mg/dLHigh Cholesterol: greater than 239 mg/dL LDL Cholesterol Calculated 154(H) <100 mg/dL [facility] Comment:Desirable LDL: less than 100 mg/dLNear Optimal/Above Optimal LDL: 110- 129 mg/dLBorderline High LDL: 130-159 mg/dLHigh LDL: 160-189 mg/dLVery High LDL: greater than or equal to 190 mg/dL HDL Cholesterol 59 >40 mg/dL [facility] Comment:Desirable HDL: great er than 40 mg/dL Note: This HDL assay may give artificially low results in patients with liver disease. Blood Venous blood specimen / Unknown 06/04/2025 8:45 AM EDT 06/04/2025 8:45 AM EDT us Morteza Faust MD LAB BLOOD ORDERABL ES Final Result [facility] [address] [place] [phone] * (ABNORMAL) Comprehensive Metabolic Panel (06/04/2025 8:45 AM EDT) Sodium 139 135 - 145 mmol/L [facility] Potassium 3.9 3.3 - 5.1 mmol/L [facility] Chloride 109(H) 96 - 108 mmol/L [facility] Carbon Dioxide 19(L) 22 - 29 mmol/L [facility] Anion Gap 15 12 - 20 [facility] Urea Nitrogen (BUN) 23(H) 9 - 16 mg/dL [facility] Creatinine, Serum 1.11 0.5 - 1.4 mg/dL [facility] Estimated Glomerular Filt Rate 54 [facility] Comment:Chronic Kidney Disea se: Estimated GFR < 60 mL/min/[id number] Kidney Disease: Estimated GFR < 15 mL/min/1.73m2 Glucose 117(H) 60 - 115 mg/dL [facility] Calcium 10.1 8.4 - 10.2 mg/dL [facility] Bilirubin, Total 0.4 0.0 - 1.0 mg/dL [facility] Aspartate Amino Transferase 45(H) 5 - 31 U/L [facility] Alanine Aminotransferase 40(H) 0 - 31 U/L [facility] Total Protein 7.8 6.5 - 8.0 g/dL [facility] Albumin Level 4.9 3.5 - 5.0 g/dL [facility] Alkaline Phosphatase 73 39 - 117 U/L [facility] Blood Venous blood specimen / Unknown 06/04/2025 8:45 AM EDT 06/04/2025 8:45 AM EDT us Morteza Faust MD LAB BLOOD ORDERABL ES Final Result [facility] [address] [place] [phone] * Urinalysis w/reflex microscopic (04/24/2025 5:01 PM EDT) Only the most recent of2 resultswithin the time period is included. Color Urine Yellow [facility] Appearance Urine Clear [facility] PH 6.0 5.0 - 9.0 [facility] Glucose Urine UA Negative Negative mg/dL [facility] Urine Blood Negative Negative [facility] Specific [place] - Urine 1.010 1.005 - 1.025 [facility] Urine Protein Negative Neg-Trace mg/dL [facility] Urine Ketones Negative Negative mg/dL [facility] Nitrite Urine Negative Negative [facility] Leukocyte Esterase Urine Negative Negative [facility] 04/24/2025 5:01 PM EDT 04/24/2025 5:10 PM EDT Narrative [facility] - 04/24/2025 5:26 PM EDT [id number], Clean Catch us Generic External Data Provider LAB URINE ORDERAB LES Final Result Performing Organization Address City/State/[facility] Co de Phone Number [facility] [address] [place] [phone] * XR Chest 1 View (04/24/2025 4:35 PM EDT) Anatomical Region Laterality Modality Chest Radiographic Kimberly ging 04/24/2025 4:35 PM EDT Narrative 04/24/2025 4:51 PM EDT [address] [address] XRay Report Signed Patient: Connie Valdez MR#: [id number] : 1980 Acct:[id number] Age/Sex: 44 / F ADM Date: 04/24/25 Loc: .ED Attending Dr: Ordering Physician: Suzi Bob MD Date of Service: 04/24/25 Procedure(s): XR chest 1V Accession Number(s): [id number] cc: Morteza Chaudhary MD; Suzi Bob MD [...] 04/24/25 1648 DD/ 1635 TD/TT: 04/24/25 1645 Ultrasound Specialist: Procedure Note Donotuseinterpreter, Image - 04/24/[address] [address] XRay Report Signed Patient: Connie Valdez AMR#: [id number] : 1980Acct:[id number] Age/Sex: 44 / FADM Date: 04/24/25 Loc: HO.ED Attending Dr: Ordering Physician: Suzi Bob MD Date of Service: 04/24/25 Procedure(s): XR chest 1V Accession Number(s): [id number] cc: Morteza Chaudhary MD; Suzi Bob MD [...] in OV> 04/24/25 1648 DD/ 1635 TD/TT: 04/24/251644 Ultrasound Specialist: [facility] External Provider IMG XR PROCEDURES Final Result * (ABNORMAL) Drug Monitoring, Panel 1, Screen, Urine (04/15/2025 11:08 AM EDT) Opiate Screen Urine Not Detected Not Detect [facility] Comment:Opiate cut-off is 30 0 ng/mL.Positive results are unconfirmed and should not be used fornon-medical purposes. Barbiturates, Urine Not Detected Not Detect [facility] Comment:Barbiturate cut-off is 200 ng/mL.Positive results are unconfirmed and should not be used fornon-medical purposes. Phencyclidine Screen Urine Not Detected Not Detect [facility] Comment:Phencyclidine cut-of f is 25 ng/mL.Positive results are unconfirmed and should not be used fornon-medical purposes. Amphetamine Screen Urine Not Detected Not Detect [facility] Comment:Amphetamine cut-off is 1000 ng/mL.Positive results are unconfirmed and should not be used fornon-medical purposes. Benzodiazepines Screen Urine Not Detected Not Detect [facility] Comment:Benzodiazepine cut-o ff is 200 ng/mL.Positive results are unconfirmed and should not be used fornon-medical purposes. Cocaine Screen Urine Not Detected Not Detect [facility] Comment:Cocaine cut-off is 3 00 ng/mL.Positive results are unconfirmed and should not be used fornon-medical purposes. Cannabinoid Screen Urine POSITIVE(A) Not Detect [facility] Comment:Cannabinoid cut-off is 50 ng/mL.Positive results are unconfirmed and should not be used fornon-medical purposes. Methadone Screen, Urine Not Detected Not Detect ng/mL [facility] Comment:Methadone cut-off is 300 ng/mL.Positive results are unconfirmed and should not be used fornon-medical purposes. FENTANYL URINE Not Detected Not Detect [facility] Comment:Fentanyl cut-off is 1 ng/mL.Positive results are unconfirmed and should not be used fornon-medical purposes. Oxycodone Urine Screen Not Detected Not Detect ng/mL [facility] Comment:Oxycodone cut-off is 100 ng/mL.Positive results are unconfirmed and should not be used fornon-medical purposes. Buprenorphine Screen Positive(A) Not Detect ng/mL [facility] Comment:Buprenorphine cut-of f is 5 ng/mL.Positive results are unconfirmed and should not be used fornon-medical purposes. 04/15/2025 11:0 8 AM EDT 04/15/2025 11:12 AM EDT us Generic External Data Provider LAB URINE ORDERAB LES Final Result [facility] [address] [place] [address] [phone] * CT Abdomen Pelvis w/ Contrast (03/14/2025 1:34 AM EDT) Anatomical Region Laterality Modality Body, Pelvis, Abdomen Computed T omography 03/14/2025 1:34 AM EDT Narrative 03/14/2025 1:36 AM EDT [address] [address] [address] Scan Report Signed Patient: Connie Valdez MR#: [id number] : 1980 Acct:[id number] Age/Sex: 44 / F ADM Date: 03/13/25 Loc: HO.ED Attending Dr: Ordering Physician: Ginny Griffiths PA-C Date of Service: 03/14/25 Procedure(s): CT abdomen pelvis w IV con Accession Number(s): [id number] cc: Morteza Chaudhary MD; Ginny Griffiths PA-C Report Number: [id number]: Total DLP = 409.00 mGy-cm CLINICAL HISTORY: [...] in OV> 03/14/25134 DD/ 3 TD/TT: 03/14/25133 Ultrasound Specialist: Procedure Note Donotuseinterpreter, Image - 03/14/[address] [place] [address] [address] Scan Report Signed Patient: Connie Valdez AMR#: [id number] : 1980Acct:[id number] Age/Sex: 44 / FADM Date: 03/13/25 Loc: HO.ED Attending Dr: Ordering Physician: Ginny Griffiths PA-C Date of Service: 03/14/25 Procedure(s): CT abdomen pelvis w IV con Accession Number(s): [id number] cc: Morteza Chaudhary MD; Ginny Griffiths PA-C Report Number: [id number]: Total DLP = 409.00 mGy-cm CLINICAL HISTORY: [...] in OV> 03/14/25134 DD/ 3 TD/TT: 03/14/25133 Ultrasound Specialist: [facility] External Provider IMG CT PROCEDURES Final Result from Last 3 Months Insurance [facility] C3 Care Teams Sander Wooden Pencils Relationship Specialty Start Date End Date Morteza Chaudhary MD [address] [place] [address] PCP - General Internal Medicine 11/04/24 Patrick Palacios RN [address] [place] [address] Registered Nurse Family Medicine 03/14/25 Camron Palacios 03/14/25
--- OUTSIDE RECORDS SUMMARY | 2025-06-11 17:56 | XMS_ITS | Encounter Summary ---
Author Organization [employer] Address [address] [place] [address] Care Team Providers Care Front Office Secretary Name Role Phone Morteza Chaudhary MD Primary Care Prov ider Patrick Palacios RN Unavailable [phone] Camron Palacios Unavailable Encounter Details Date Type Department Care Team ([facility] st Contact Info) Description 06/09/2025 Patient Outreach [facility] [address] [place] [address] Morteza Chaudhary MD [address] [place] [address] Social History Tobacco Use Types Packs/Day Years [...] your housing situation today? I have bethanie sing 11/04/[address] you li [...] encounter Progress Notes * Camron Palacios - 06/09/2025 4:52 PM EST CHW Camron Palacios placed outbound call to patient for follow up call/R/S missed CM initial assessment appointment on 04/10/2025. No answer at this time. CHW was unable to LVM as VM is full. CHW will attempt another follow up call within 10 days. and address not confirmed. documented in this encounter Plan of Treatment Upcoming Encounters Date Type Department Care Team (Late st Contact Info) Description 06/16/2025 1:45 PM EST Telemedicine [facility] MED & PEDS [address] [place] [address] Morteza Chaudhary MD [address] [place] [address] documented as of this encounter Visit Diagnoses Not on filedocumented in this encounter Additional Health Concerns Assessment Noted Time PHQ-9 Depression Total Score: 18 025 8:44 AM EDT documented as of this encounter Care Teams Front Office Secretary Relationship Specialty Start Date End Date Morteza Chaudhary MD [address] [place] [address] PCP - General Internal Medicine 11/04/24 Patrick Palacios RN [address] [place] [address] Registered Nurse Family Medicine 03/14/25 Camron Palacios 03/14/25 documented as of this encounter
--- OUTSIDE RECORDS SUMMARY | 2025-06-11 17:56 | XMS_ITS | Encounter Summary ---
Author Organization [employer] Address [address] [place] [address] Care Team Providers Care Aluminum Boat Assembly Supervisor Name Role Phone Morteza Chaudhary MD Primary Care Prov ider Patrick Palacios RN Unavailable [phone] Camron Palacios Unavailable Reason for Visit * Reason Comments Med Refill Encounter Details Date Type Department Care Team ([facility] st Contact Info) Description 06/09/2025 Refill [facility] [address] [place] [address] Morteza Chaudhary MD [address] [place] [address] Social History Tobacco Use Types Packs/Day Years [...] Info) Description 06/16/2025 1:45 PM EST Telemedicine [facility] & PEDS [address] [place] [address] Morteza Chaudhary MD [address] [place] [address] documented as of this encounter Visit Diagnoses Not on filedocumented in this encounter Additional Health Concerns Assessment Noted Time PHQ-9 Depression Total Score: 18 025 8:44 AM EDT documented as of this encounter Care Teams Aluminum Boat Assembly Supervisor Relationship Specialty Start Date End Date Morteza Chaudhary MD [address] [place] [address] PCP - General Internal Medicine 11/04/24 Patrick Palacios, RN [address] [place] [address] Registered Nurse Family Medicine 03/14/25 Camron Palacios 03/14/25 documented as of this encounter
--- OUTSIDE RECORDS SUMMARY | 2025-06-11 17:56 | XMS_ITS ---
Author Organization [employer] Address [address] [facility] 7t [place] [address] Care Team Providers Care Leather Currier Name Role Phone Morteza Chaudhary MD Primary Care Prov ider Patrick Palacios RN Unavailable [phone] Camron Palacios Unavailable CM Complex Status:Outreach In Progress (Enrolling) Start date:03/14/2025 Enrollment reason:ADT Feed Overview ED- Pt went [place] [facility] [place] on 03/13/25. Case Team Name Relationship Phone Patrick Palacios RN(Responsible Staff) Registered Nurse [phone] Continued Care and Services Coordination
--- OUTSIDE RECORDS SUMMARY | 2025-06-11 17:56 | XMS_ITS | Encounter Summary ---
Author Organization [employer] Address [address] [place] [address] Care Team Providers Care Vegetable Trimmer Name Role Phone Morteza Chaudhary MD Primary Care Prov ider Patrick Palacios RN Unavailable [phone] Camron Palacios Unavailable Encounter Details Date Type Department Care Team (Latest Contact Info) Description 06/11/2025 Travel Social History Tobacco Use Types Packs/Day Years [...] Info) Description 06/16/2025 1:45 PM EST Telemedicine [facility] MED & PEDS [address] [place] [address] Morteza Chaudhary MD [address] [place] [address] documented as of this encounter Visit Diagnoses Not on filedocumented in this encounter Additional Health Concerns Assessment Noted Time PHQ-9 Depression Total Score: 18 025 8:44 AM EDT documented as of this encounter Care Teams Vegetable Trimmer Relationship Specialty Start Date End Date Morteza Chaudhary MD [address] [place] [address] PCP - General Internal Medicine 11/04/24 Patrick Palacios, MIKE [address] [place] [address] Registered Nurse Family Medicine 03/14/25 Camron Palacios 03/14/25 documented as of this encounter
--- OUTSIDE RECORDS SUMMARY | 2025-06-11 17:56 | XMS_ITS | Encounter Summary ---
Author Organization [employer] Address [address] [place] [address] Care Team Providers Care Voice And Data Technician Name Role Phone Morteza Chaudhary MD Primary Care Prov ider Patrick Palacios RN Unavailable [phone] Camron Palacios Unavailable Reason for Visit * Reason Comments Med Refill Encounter Details Date Type Department Care Team ([facility] st Contact Info) Description 02/14/2025 Refill [facility] [address] [place] [address] Morteza Chaudhary MD [address] [place] [address] Social History Tobacco Use Types Packs/Day Years [...] Description 06/16/2025 1:45 PM EST Telemedicine [facility] MED & PEDS [address] [place] [address] Morteza Chaudhary MD [address] [place] [address] documented as of this encounter Visit Diagnoses Not on filedocumented in this encounter Additional Health Concerns Assessment Noted Time PHQ-9 Depression Total Score: 18 025 8:44 AM EDT documented as of this encounter Care Teams Voice And Data Technician Relationship Specialty Start Date End Date Morteza Chaudhary MD [address] [place] [address] PCP - General Internal Medicine 11/04/24 Patrick Palacios, RN [address] [place] [address] Registered Nurse Family Medicine 03/14/25 Camron Palacios 03/14/25 documented as of this encounter
--- OUTSIDE RECORDS SUMMARY | 2025-06-11 17:56 | XMS_ITS ---
Author Organization [employer] Address [address] [facility] 7t [place] [address] Care Team Providers Care Donations Attendant Name Role Phone Morteza Chaudhary MD Primary Care Prov ider Patrick Palacios RN Unavailable [phone] Camron Palacios Unavailable CHW Complex Status:Outreach In Progress (Enrolling) Start date:03/14/2025 Enrollment reason:ADT Feed Overview ED- Pt went [facility] on 03/13/25 Please outreach for enrollment. Case Team Name Relationship Phone Camron Palacios(Responsible Staff) [phone] Continued Care and Services Coordination
--- OUTSIDE RECORDS SUMMARY | 2025-06-11 17:56 | XMS_ITS | Patient Health Record ---
Author Organization [facility] Address [address] [place] [address] Care Team Providers Care Rn Home Health Name Role Phone Vikki Spicer Primary Care [...] review and pick correct strength-formula tion from [facility] options. If intended option is not shown, [...] Status Risk Notes Problem Chronic hepatitis C (994381374) Chronic viral hepatitis C (B18.2) Active confirmed Problem Hypothyroidism (02729493) Hypothyroidism, unspecified (E03.9) Active confirmed Problem Overweight (277361710) Overweight (E66.3) Active confirmed Problem Tobacco user (319567809) Nicotine dependence, cigarettes, uncomplicated (F17.210) Active confirmed Problem Anxiety disorder (952324222) Anxiety disorder, unspecified (F41.9) Active confirmed Problem Insomnia (213193263) Insomnia, unspecified (G47.00) Active confirmed Problem Gastro-esophageal reflux disease without esophagitis (863455679) Gastro-esophagea l reflux disease without esophagitis (K21.9) Active confirmed Problem Localized, primary osteoarthritis of the pelvic region and thigh (709705738) Unilateral primary osteoarthritis, left hip (M16.12) Active confirmed Problem Pain of left knee joint (finding) (804291781562232) Pain in left knee (M25.562) Active confirmed Problem Fibromyalgia (877350542) Fibromyalgia (M79.7) Active confirmed Problem Abnormal uterine bleeding (72034273844913) Abnormal uterine and vaginal bleeding, unspecified (N93.9) Active confirmed Problem Seizure (07588288) Unspecified convulsions (R56.9) Active confirmed Problem Nondependent opioid abuse in remission (955320606) Opioid abuse, in remission (F11.11) Active confirmed Problem Headache (51974536) Headache, unspecified (R51.9) Active confirmed Problem Unsheltered homelessness (207800142772594) Unsheltered homelessness (Z59.02) Active confirmed Problem Pain of knee region (finding) (5020550100) Pain in unspecified knee (M25.569) Inactive confirmed Encounters Encounter Location Date Provider Diagnosis [facility] [address] [place] [address] 04/19/2025 Provider Migration Plan Of Treatment Pending Test Test Name Order Date Homero Screening Digital 02/15/2024 HEPATITIS A,B,C PROFILE 02/15/2024 Insurance Providers Payer Name Payer Address Payer Phone Subscriber Number Group Number Insured Name Patient Relationship to Insured Coverage Start Date Coverage End Date [place] Medicaid C3 [address] [place], [place] [id number] [phone] [id number] Connie Weiss i Self - patient is [...] Hospitalization History Reason Date(Month/Year) Psych admit - [facility] 2023 Multiple psych admits when younger detox x 2 - [facility] stomach issues? 01/2024
--- OUTSIDE RECORDS SUMMARY | 2025-06-11 17:57 | XMS_ITS | Encounter Summary ---
Author Organization [employer] Address [address] [place] [address] Care Team Providers Care Auto Body Estimator Name Role Phone Morteza Chaudhary MD Primary Care Prov ider Patrick Palacios RN Unavailable [phone] Camron Palacios Unavailable Reason for Visit * Reason Onset Date Comments Med Refill 03/25/2025 Encounter Details Date Type Department Care Team ([facility] st Contact Info) Description 03/25/2025 Telephone [facility] MED & PEDS [address] [place], [place] [phone] Morteza Chaudhary MD [address] [place], [place] [phone] Med Refill Social History Tobacco Use Types [...] soon for refill script was sent to [id number] on 02/12/25 90 day supply. * Telephone Encounter - Evelyn Brantley - 03/25/2025 9:44 AM EDT TC from pt requesting medication refill. Medications needing refill : levETIRAcetam (Keppra) 750 MG tablet To be sent to: [id number] - [place] - [address] [facility] [facility] [facility] Pt stated has upcoming appointment with neurologist documented in this encounter Plan of Treatment Upcoming Encounters Date Type Department Care Team ([facility] st Contact Info) Description 06/16/2025 1:45 PM EST Telemedicine [facility] MED & PEDS [address] [facility] [place] [facility] [place] [address] Morteza Chaudhary MD [address] [place] [address] documented as of this encounter Visit Diagnoses Not on filedocumented in this encounter Additional Health Concerns Assessment Noted Time PHQ-9 Depression Total Score: 18 025 8:44 AM EDT documented as of this encounter Care Teams Auto Body Estimator Relationship Specialty Start Date End Date Morteza Chaudhary MD [address] [place] [address] PCP - General Internal Medicine 11/04/24 Patrick Palacios RN [address] [place] [address] Registered Nurse Family Medicine 03/14/25 Camron Palacios 03/14/25 documented as of this encounter
--- OUTSIDE RECORDS SUMMARY | 2025-06-11 17:57 | XMS_ITS | Encounter Summary ---
Author Organization [employer] Address [address] [place] [address] Care Team Providers Care Canary Breeder Name Role Phone Morteza Chaudhary MD Primary Care Prov ider Patrick Palacios RN Unavailable [phone] Camron Palacios Unavailable Reason for Visit * Reason Comments Med Refill Encounter Details Date Type Department Care Team (Late st Contact Info) Description 01/16/2025 Refill [facility] [address] [place] [address] Mani Mojica MD [address] [place] [address] Social History Tobacco Use Types Packs/Day Years [...] Info) Description 06/16/2025 1:45 PM EST Telemedicine [facility] MED & PEDS [address] [place] [address] Morteza Chaudhary MD [address] [place] [address] documented as of this encounter Visit Diagnoses Not on filedocumented in this encounter Additional Health Concerns Assessment Noted Time PHQ-9 Depression Total Score: 18 025 8:44 AM EDT documented as of this encounter Care Teams Canary Breeder Relationship Specialty Start Date End Date Morteza Chaudhary MD [address] [place] [address] PCP - General Internal Medicine 11/04/24 Patrick Palacios, RN [address] [place] [address] Registered Nurse Family Medicine 03/14/25 Camron Palacios 03/14/25 documented as of this encounter
[2025-06-12 02:48] LABS: Follicle Stimulating Hormone 126.1 mIU/mL
[2025-06-14 17:48] LABS: TS Negative Control Passed; TS Panel A 0; TS Panel B 0; TS Positive Control Passed; TSpotTB Negative (Negative)
[2025-06-24 07:49] LABS: Estradiol Ultra Sensitive 2 pg/mL
== END 2025-06-11 14:50 | disposition home or self-care (01) ==
LOC: HO.HHCL 14:49
PROVIDERS: PCP Internal Medicine; Visit Provider Nurse Practitioner
DX: Z11.1 Encounter for screening for respiratory tuberculosis (principal); N91.2 Amenorrhea, unspecified; R23.2 Flushing; R61 Generalized hyperhidrosis
CPT/HCPCS: 36415; 82670; 83001; 83002; 84146; 86481

== ENCOUNTER 2025-06-18 09:51 | Outpatient (REF) | payer MEDICAID, SELFPAY ==
--- OUTSIDE RECORDS SUMMARY | 2024-04-24 06:45 | XMS_ITS ---
Author Organization [facility] Address [address] [place] [address] Care Team Providers Care Car Driver Name Role Phone Vikki Spicer Primary Care Provider REASON FOR VISIT Office: [facility] paperwork Medications Medication SIG (Take, Route, Frequency, [...] Active Encounters Encounter Location Date Provider Diagnosis [address] [address] 04/24/2024 Vikki Spicer Chronic viral hepatitis C [...] * Bello YUNGOB: [birth year] (44 yo F)Acc No.[id number]:04/24/2024 Progress Notes Patient: Claudia ESTRELLA Connie Provider: NIKOS Saunders :1980 A ge:43 Y S ex:Female Date:04/24/2024 Address:[address] [place] [address] Subjective: * Chief Complaints: * 1 . Office: [facility] paperwork. * Medical History: * Medications: T [...] * Electronic signature of Zaire Spicer on 06/18/2025 at 11:17 AM EST Sign off status: Pending * Provider: NIKOS Saunders Date: 0 04/24/2024 Generated for Marilin johnson/Olivia/Beni on: 08/18/2024 11:17 AM EST
--- OUTSIDE RECORDS SUMMARY | 2024-05-07 05:00 | XMS_ITS ---
Author Organization [facility] Address [address] [place] [address] Care Team Providers Care Steel Engraver Name Role Phone Vikki Spicer Primary Care Provider REASON FOR VISIT [facility] paperwork Encounters Encounter Location Date Provider Diagnosis [facility] [address] [place], [place] [id number] 05/07/2024 Vikki Spicer Encounter for screening for COVID-19 Z11.52 Assessments Encounter Date Diagnosis (ICD Code) Assessment Notes Treatment Notes Treatment Clinical Notes Section Notes 05/07/2024 Encounter for screening for COVID-19 (ICD-10 - Z11.52) Covid screening is negative. Discussed in detail with patient how to practice social distancing by avoiding public spaces and crowds now, wearing a mask in public to keep nose and mouth covered, and washing hands frequently especially before eating and after using the bathroom. Return to clinic if you develop any symtpoms of concern to be rescreened or go to the emergency room if you are having concerning symptoms for COVID-19. 05/07/2024 Other Plan Of Treatment Treatment Notes Assessment Notes Encounter for screening for COVID-19 Cov id screening is negative. Discussed in detail with patient how to practice social distancing by avoiding public spaces and crowds now, wearing a mask in public to keep nose and mouth covered, and washing hands frequently especially before eating and after using the bathroom. Return to clinic if you develop any symtpoms of concern to be rescreened or go to the emergency room if you are having concerning symptoms for COVID-19. Progress Notes * Bello YUNGOB: [birth year] (44 yo F)Acc No.[id number]:05/07/2024 Progress Notes Patient: Connie MENDEZ Provider: NIKOS Saunders :1980 A ge:43 Y S ex:Female Date:05/07/2024 Address:[address] [place] [address] Subjective: * Chief Complaints: * 1 . [facility] paperwork. * HPI: G eneral: Symptom Screen: - Fever in the last 1 week? Patient denies - New or worsening cough in the last 1 week? Patient denies. - Contact will known COVID exposure in last 5 days? Patient denies -new rash within last 3 weeks? Patient denies RN/MA: - Have you received the COVID-19 vaccine? - Have you received COVID-19 booster? - Have you been tested positive for COVID -19 in the last 7 days? If so where and why?. * ROS: N o acute C/P no acute SOB, No problem with urine, No heartburn or abdominal pain. Endorses being able to climb one fight of stairs without stopping due to SOB, Mood: stable, appetite: good, sleeping well. Denies new skin rashes. * Medical History: Objective: * Vitals: Assessment: * Assessment: 1. E ncounter for screening for COVID-19 - Z11.52 (Primary) Plan: * Treatment: * Images: Billing Information: * Visit Code: * Procedure Codes: Care Plan Details* * Electronic signature of Zaire Spicer on 06/18/2025 at 11:18 AM EST Sign off status: Pending * Provider: NIKOS Saunders Date: 1 Generated for Marilin johnson/Olivia/Royasmitting on: 08/18/2024 11:18 AM EST
--- OUTSIDE RECORDS SUMMARY | 2024-05-14 09:00 | XMS_ITS ---
Author Organization [facility] Address [address] [place] [address] Care Team Providers Care Telecom Specialist Name Role Phone Vikki Spicer Primary Care Provider Jessie Ferrera Unavailable [phone] REASON FOR VISIT BH: initial intake, Symptom screening by [facility] staff pre entrance to clinic Encounters Encounter Location Date Provider Diagnosis [facility] [address] [place] [address] 05/14/2024 Jessie Ferrera Encounter for screening for [...] * Bello YUNGOB: [birth year] (44 yo F)Acc No.[id number]:05/14/2024 Progress Notes Patient: Connie MENDEZ Provider: DANIEL MooreHNP-BC :1980 A ge:43 Y S ex:Female Date:05/14/2024 Address:[address] [place], [place] [phone] Pcp:Vikki Spicer Subjective: * Chief Complaints: * 1 . BH: initial intake. 2. Symptom screening by [facility] staff pre entrance to clinic. * HPI: [...] Mg Caps ule 60 30 Ed Jered [id number] Wal (26 05) 0/0 2.01 LMET Medicai d [place] .? Assessment: * Assessment: 1. E ncounter for screening for COVID-19 - Z11.52 (Primary) Plan: * Treatment: * Images: Billing Information: * Visit Code: * Procedure Codes: Care Plan Details* * Electronic signature of JENNIFER Corrales on 06/18/2025 at 11:17 AM EST Sign off status: Pending * Provider: Evangelista Ferrera PMHNP-BC Date: 1 Generated for Marilin johnson/Olivia/Beni on: 08/18/2024 11:17 AM EST History and Physical Notes * Examination Category Sub-Category Detail Notes Category Not es Psychiatry Assessment Filled Written S old ID Drug QTY Days Prescriber RX # Dispenser Refill Daily Dose* Pymt Type POLICE LIEUTENANT PRECINCT //62354Tubpehzgdw 150 Mg [id number] (2605) [place]MedicaidMA
--- OUTSIDE RECORDS SUMMARY | 2024-05-22 06:00 | XMS_ITS ---
Author Organization [facility] Address [address] [place] [address] Care Team Providers Care Extermination Supervisor Name Role Phone Vikki Spicer Primary Care Provider [phone] [facility], Nursing Unavailable [phone] Medications Medication SIG (Take, Route, Frequency, Duration) [...] Not-Taking Encounters Encounter Location Date Provider Diagnosis [facility] [address] [place] [address] 05/22/2024 Nursing [facility] Encounter for screening for COVID-19 Z11.52 [...] * Bello YUNGOB: [birth year] (44 yo F)Acc No.[id number]:05/22/2024 Progress Notes Patient: Claudia Connie DE LA ROSA Provider: Chavez giles [facility] :1980 A ge:43 Y S ex:Female Date:05/22/2024 Address:[address] [place], [place] [id number] Pcp:Vikki Spicer Subjective: * Chief Complaints: * [...] Codes: * Electronic signature of Buck jain [facility] on 06/18/2025 at 11:17 AM EST Sign off status: Pending * Provider: Chavez giles [facility] Date: 1 Generated for Marilin johnson/Olivia/Beni on: 08/18/2024 11:17 AM EST
--- OUTSIDE RECORDS SUMMARY | 2025-04-19 16:00 | XMS_ITS ---
Author Organization [facility] Address [address] [place] [address] Care Team Providers Care Auto Body Man Name Role Phone ElierjuanVikki Primary Care Provider [phone] Migration, Provider Unavailable Unavailable Allergies Allergen (clinical drug ingredient) Drug/Non Drug Allergy documented on EMR Reaction Allergy Type Onset Date Status Keflex anaphylaxis Drug Allergy Activ e Shellfish SHELLFISH (uncoded) Unknown Allergy Active REASON FOR VISIT [facility] To [facility] Conversion Encounter Medications Medication SIG (Take, [...] Active Encounters Encounter Location Date Provider Diagnosis [address] [address] 04/19/2025 Provider Migration Plan Of Treatment No Information Progress Notes * Bello YUNGOB: [birth year] (44 yo F)Acc No.[id number]:04/19/2025 Patient: Claudia Connie DE LA ROSA Provider: :1980 A ge:44 Y S ex:Female Date:04/19/2025 Address:[address] [place], [place] [id number] Pcp:Vikki Spicer Subjective: * Chief Complaints: * 1 . [facility] En[facility]. * Medical History: * Medications: [...] review and pick correct strength- formulation from Soufunspan options. If intended option is not shown, [...] Electronic signature of Prov ider Migration on 06/18/2025 at 11:17 AM EST Sign off status: Pending * Provider: Date: 0 04/19/2025 Generated for Marilin johnson/Olivia/Beni on: 08/18/2024 11:17 AM EST
--- OUTSIDE RECORDS SUMMARY | 2025-06-16 13:45 | XMS_ITS | Encounter Summary ---
Author Organization [employer] Address [address] [place] [address] 7t [place] [address] Care Team Providers Care Change Number Operator Name Role Phone Morteza Chaudhary MD Primary Care Prov ider Patrick Palacios RN Unavailable [phone] Camron Palacios Unavailable Reason for Referral * Consultation (Routine) - Closed Specialty Diagnoses / Procedures Referred By Nahum doe Referred To Contact Family Medicine Diagnoses Chronic hepatitis C without hepatic coma (HCC) Morteza Chaudhary MD [address] [place] [address] Phone: tel: fax: Referral ID Status Reason Start Date Expiration Date V isits Requested Visits Authorized [id number] Closed Specialty Services Required 06/16/2025 06/16/2026 1 1 * PFT (Routine) - Authorized Specialty Diagnoses / Procedures Referred By Nahum doe Referred To Contact Diagnoses Shortness of breath Procedures Pulmonary Function Test Morteza Chaudhary MD [address] [place] [address] Phone: tel: fax: [address] Phone: tel: fax: Referral ID Status Reason Start Date Expiration Date V isits Requested Visits Authorized [id number] Authorized 06/16/2025 06/16/2026 1 1 Encounter Details Date Type Department Care Team (Late st Contact Info) Description 06/16/2025 1:45 PM EST Telemedicine [facility] MED & PEDS [address] [place] [address] Morteza Chaudhary MD [address] [place] [address] Shortness of breath (Primary Dx); Chronic hepatitis C without hepatic coma (HCC) Social History Tobacco Use Types Packs/Day Years Used Date Smoking Tobacco: Every Day Smokeless Tobacco: Never Alcohol Use Standard Drinks/Week Comments Never 0 (1 standard drink = 0.6 oz pur e alcohol) Depression Answer Date Recorded Patient Health Questionnaire-9 Score 2 06/16/2025 Patient Health Questionnaire-9 Score 2 06/16/2025 Last PHQ-9: Questionnaire Data Not on file 1 08/16/2024 Housing Stability Answer Date Recorded What is [...] Answer Date Recorded Patient Health Questionnaire-2 Score 2 06/16/2025 Internet Access Answer Date Recorded Internet Access Q1 Yes 11/04/2024 Internet Access Q2 Not on file 11/04/2024 Comments Unknown Sex and Gender Information Value Date Recorded Sex Assigned at Female 10/30/2024 1:14 PM EDT Legal Sex Female 9:26 AM EDT Gender Identity Female 10/30/2024 1:14 PM EDT Sexual Orientation Straight 10/30/2024 1: 58 PM EDT documented as of this encounter Functional Status * Over the past 2 weeks, how often have you been bothered by any of the following problems? Question Answer Date of Assessment Author Patient Health Questionnaire-2 Score 2 06/07 1:36 PM Janeth Reid MA * Little interest or pleasure in doing things Answer Date of Assessment Author Several days 06/16/2025 1:36 PM Jyoti Reid MA * Feeling down, depressed, or hopeless Answer Date of Assessment Author Several days 06/16/2025 1:36 PM Jyoti Reid MA * Trouble falling or staying asleep, or sleeping too much Answer Date of Assessment Author Not at all 06/16/2025 1:36 PM Jyoti Reid MA * Feeling tired or having little energy Answer Date of Assessment Author Not at all 06/16/2025 1:36 PM Jyoti Reid MA * Poor appetite or overeating Answer Date of Assessment Author Not at all 06/16/2025 1:36 PM Jyoti Reid MA * Feeling bad about yourself - or that you are a failure or have let yourself or your family down Answer Date of Assessment Author Not at all 06/16/2025 1:36 PM Jyoti Reid MA * Trouble concentrating on things, such as reading the newspaper or watching television Answer Date of Assessment Author Not at all 06/16/2025 1:36 PM Jyoti Reid MA * Moving or speaking so slowly that other people could have noticed? Or the opposite - being so fidgety or restless that you have been moving around a lot more than usual. Answer Date of Assessment Author Not at all 06/16/2025 1:36 PM Jyoti Reid MA * Thoughts that you would be better off or hurting yourself in some way Answer Date of Assessment Author Not at all 06/16/2025 1:36 PM Jyoti Reid MA * Patient Health Questionnaire-9 Score Answer Date of Assessment Author 2 06/16/2025 1:36 PM Jyoti Reid MA * How difficult have these problems made it for you to do your work, take care of things at home, or get along with other people? Answer Date of Assessment Author Somewhat difficult 06/16/2025 1:36 PM Janeth Reid MA documented as of this encounter Plan of Treatment Scheduled Orders Name Type Priority Associated Diagnoses Orde r Schedule Pulmonary Function Test PFT Routine Shortness of breath Expected: 06/16/2025, Expires: 12/14/2025 Scheduled Referrals Name Type Priority Associated Diagnoses Order Schedule Referral to [facility] Infectious Disease (HIV & Hep C) Outpatient Referral Routine Chronic hepatitis C without hepatic coma (HCC) Expected: 06/16/2025 (Approximate), Expires: 06/16/2026 documented as of this encounter Visit Diagnoses Diagnosis Shortness of breath- Primary Chronic hepatitis C without hepatic coma (HCC) documented in this encounter Additional Health Concerns Assessment Noted Time PHQ-9 Depression Total Score: 2 06/16/20 1:36 PM EST documented as of this encounter Care Teams Change Number Operator Relationship Specialty Start Date End Date Morteza Chaudhary MD [address] [place] [address] PCP - General Internal Medicine 11/04/24 Patrick Palacios RN [address] [place] [address] Registered Nurse Family Medicine 03/14/25 Camron Palacios 03/14/25 documented as of this encounter
--- OUTSIDE RECORDS SUMMARY | 2025-06-18 11:17 | XMS_ITS | Encounter Summary ---
Author Organization [employer] Address [address] [facility] [address] [place] [address] Care Team Providers Care Community Dietitian Name Role Phone Morteza Chaudhary MD Primary Care Prov ider Patrick Palacios RN Unavailable [phone] Camron Palacios Unavailable Encounter Details Date Type Department Care Team ([facility] st Contact Info) Description 06/17/2025 Orders Only [facility] MED[facility]INE [address] [place] [address] Monique Dorado, RN [address] [place] [address] Chronic hepatitis C without hepatic coma (HCC) [...] Type Priority Associated Diagnoses Orde r Schedule CBC auto differential Lab Routine Chronic hepatitis C without hepatic coma (HCC) Expected: 06/17/2025 (Approximate), Expires: 06/17/2026 Prothrombin Time-INR Lab Routine Chronic hepatitis C without hepatic coma (HCC) Expected: 06/17/2025 (Approximate), Expires: 06/17/2026 Comprehensive Metabolic Panel Lab Routine Chronic hepatitis C without hepatic coma (HCC) Expected: 06/17/2025 (Approximate), Expires: 06/17/2026 Hepatic Function Panel Lab Routine Chronic hepatitis C without hepatic coma (HCC) Expected: 06/17/2025 (Approximate), Expires: 06/17/2026 Hepatitis C Viral RNA, Genotype, LiPA Lab Routine Chronic hepatitis C without hepatic coma (HCC) Expected: 06/17/2025 (Approximate), Expires: 06/17/2026 Liver Fibrosis (HCV), FibroTest-ActiTest Panel Lab Routine Chronic hepatitis C without hepatic coma (HCC) Expected: 06/17/2025 (Approximate), Expires: 06/17/2026 Hepatitis A Antibody, Total Lab Routine Chronic hepatitis C without hepatic coma (HCC) Expected: 06/17/2025 (Approximate), Expires: 06/17/2026 Hepatitis B Core Antibody, Total Lab Routine Chronic hepatitis C without hepatic coma (HCC) Expected: 06/17/2025 (Approximate), Expires: 06/17/2026 Hepatitis B Surface Antibody, Qualitative Lab Routine Chronic hepatitis C without hepatic coma (HCC) Expected: 06/17/2025 (Approximate), Expires: 06/17/2026 Hepatitis B surface antigen, EIA Lab Routine Chronic hepatitis C without hepatic coma (HCC) Expected: 06/17/2025 (Approximate), Expires: 06/17/2026 documented as of this encounter Visit Diagnoses Diagnosis Chronic hepatitis C without hepatic coma (HCC) documented in this encounter Additional Health Concerns Assessment Noted Time PHQ-9 Depression Total Score: 2 06/16/20 25 1:36 PM EST documented as of this encounter Care Teams Community Dietitian Relationship Specialty Start Date End Date Morteza Chaudhary MD [address] [place] [address] PCP - General Internal Medicine 11/04/24 Patrick Palacios RN [address] [place] [address] Registered Nurse Family Medicine 03/14/25 Camron Palacios 03/14/25 documented as of this encounter
--- OUTSIDE RECORDS SUMMARY | 2025-06-18 11:17 | XMS_ITS | Encounter Summary ---
Author Organization [employer] Address [address] [facility] [address] [place] [address] Care Team Providers Care Microfiche Duplicator Name Role Phone Morteza Chaudhary MD Primary Care Prov ider Patrick Palacios RN Unavailable [phone] Camron Palacios Unavailable Reason for Visit * Reason Onset Date Comments chart prep 06/13/2025 Encounter Details Date Type Department Care Team ([facility] Contact Info) Description 06/13/2025 Telephone [facility] [address] [place], [place] [phone] Morteza Chaudhary MD [address] [place], [place] [id number] chart prep Social History Tobacco Use Types Packs/Day Years [...] encounter Miscellaneous Notes * Telephone Encounter - Janeth Nagy MA - 06/13/2025 9:58 AM EST Chart Prep Labs: done Images: done Referrals: appointment pending Vaccines due: Covid, Flu, Tdap, Hep B, Hep A, and HPV Screenings: mammogram and pap smear Overdue care gaps: PHQ-9 and Disability screen documented in this encounter Plan of Treatment Not on file documented as of this encounter Visit Diagnoses Not on filedocumented in this encounter Additional Health Concerns Assessment Noted Time PHQ-9 Depression Total Score: 18 025 8:44 AM EDT documented as of this encounter Care Teams Microfiche Duplicator Relationship Specialty Start Date End Date Morteza Chaudhary MD [address] [place] [address] PCP - General Internal Medicine 11/04/24 Patrick Palacios RN 505 [place] [address] Registered Nurse Family Medicine 03/14/25 Camron Palacios 03/14/25 documented as of this encounter
--- OUTSIDE RECORDS SUMMARY | 2025-06-18 11:17 | XMS_ITS | Encounter Summary ---
Author Organization [employer] Address [address] [facility] [address] 7[address] [place] [address] Care Team Providers Care Hospice Care Sales Consultant Name Role Phone Morteza Chaudhary MD Primary Care Prov ider Patrick Palacios RN Unavailable [phone] Camron Palacios Unavailable Reason for Visit * Reason Comments Med Refill Encounter Details Date Type Department Care Team ([facility] st Contact Info) Description 06/10/2025 Refill [facility] 230 [place] [address] Morteza Chaudhary MD 505 [place] [address] Social History Tobacco Use Types Packs/Day Years [...] documented as of this encounter Care Teams Hospice Care Sales Consultant Relationship Specialty Start Date End Date Morteza Chaudhary MD [address] [place] [address] PCP - General Internal Medicine 11/04/24 Patrick Palacios RN 505 [place] [address] Registered Nurse Family Medicine 03/14/25 Camron Palacios 03/14/25 documented as of this encounter
--- OUTSIDE RECORDS SUMMARY | 2025-06-18 11:17 | XMS_ITS | Encounter Summary ---
Author Organization [employer] Address [address] [facility] [address] [place] [address] Care Team Providers Care Plater Apprentice Name Role Phone Morteza Chaudhary MD Primary Care Prov ider Patrick Palacios RN Unavailable [phone] Camron Palacios Unavailable Reason for Visit * Reason Onset Date Comments Hep C Tx 06/17/2025 Encounter Details Date Type Department Care Team ([facility] st Contact Info) Description 06/17/2025 Telephone [facility] MEDICINE [address] [place] [address] Monique Dorado RN [address] [place] [address] Hep C Tx Social History Tobacco Use Types Packs/Day Years [...] encounter Miscellaneous Notes * Telephone Encounter - Monique Dorado RN - 06/17/2025 11:11 AM EST RN received referral for Hep C treatment. 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 Pt agrees to POC. documented in this encounter Plan of Treatment Not on file documented as of this encounter Visit Diagnoses Not on filedocumented in this encounter Additional Health Concerns Assessment Noted Time PHQ-9 Depression Total Score: 2 06/16/20 25 1:36 PM EST documented as of this encounter Care Teams Plater Apprentice Relationship Specialty Start Date End Date Morteza Chaudhary MD 505 [place] [address] PCP - General Internal Medicine 11/04/24 Patrick Palacios RN 505 [place] [address] Registered Nurse Family Medicine 03/14/25 Camron Palacios 03/14/25 documented as of this encounter
--- OUTSIDE RECORDS SUMMARY | 2025-06-18 11:17 | XMS_ITS | Encounter Summary ---
Author Organization [employer] Address [address] [facility] [address] [place] [address] Care Team Providers Care Deaf And Hard Of Hearing Teacher Name Role Phone Morteza Chaudhary MD Primary Care Prov ider Patrick Palacios RN Unavailable [phone] Camron Palacios Unavailable Reason for Visit * Reason Comments Med Refill Encounter Details Date Type Department Care Team ([facility] Contact Info) Description 06/15/2025 Refill [facility] [address] [place] [address] Morteza Chaudhary MD 505 [place] [address] Social History Tobacco Use Types Packs/Day Years [...] documented as of this encounter Care Teams Deaf And Hard Of Hearing Teacher Relationship Specialty Start Date End Date Morteza Chaudhary MD 505 [place] [address] PCP - General Internal Medicine 11/04/24 Patrick Palacios RN [address] [place] [address] Registered Nurse Family Medicine 03/14/25 Camron Palacios 03/14/25 documented as of this encounter
--- OUTSIDE RECORDS SUMMARY | 2025-06-18 11:17 | XMS_ITS | Encounter Summary ---
Author Organization [employer] Address [address] [facility] [facility] [address] [place] [address] Care Team Providers Care Histologist Name Role Phone Morteza Chaudhary MD Primary Care Prov ider Patrick Palacios RN Unavailable [phone] Camron Palacios Unavailable Encounter Details Date Type Department Care Team (Latest Contact Info) Description 06/16/2025 Travel Social History Tobacco Use Types Packs/Day [...] documented as of this encounter Care Teams Histologist Relationship Specialty Start Date End Date Morteza Chaudhary MD 505 [place] [address] PCP - General Internal Medicine 11/04/24 Patrick Palacios RN [address] [place] [address] Registered Nurse Family Medicine 03/14/25 Camron Palacios 03/14/25 documented as of this encounter
--- OUTSIDE RECORDS SUMMARY | 2025-06-18 11:17 | XMS_ITS | Encounter Summary ---
Author Organization [employer] Address [address] [facility] [address] [place] [address] Care Team Providers Care Radiology Receptionist Name Role Phone Morteza Chaudhary MD Primary Care Prov ider Patrick Palacios RN Unavailable [phone] Camron Palacios Unavailable Encounter Details Date Type Department Care Team ([facility] st Contact Info) Description 06/16/2025 Orders Only [facility] MEDICINE [address] [place] [address] Edith Rivas NP [address] [place] [address] Perimenopausal vasomotor symptoms (Primary Dx) Social History Tobacco Use Types Packs/Day Years [...] as of this encounter Visit Diagnoses Diagnosis Perimenopausal vasomotor symptoms- Primary documented in this encounter Additional Health Concerns Assessment Noted Time PHQ-9 Depression Total Score: 2 06/16/20 1:36 PM EST documented as of this encounter Care Teams Radiology Receptionist Relationship Specialty Start Date End Date Morteza Chaudhary MD [address] [place] [address] PCP - General Internal Medicine 11/04/24 Patrick Palacios RN [address] [place] [address] Registered Nurse Family Medicine 03/14/25 Camron Palacios 03/14/25 documented as of this encounter
--- OUTSIDE RECORDS SUMMARY | 2025-06-18 11:17 | XMS_ITS | Encounter Summary ---
Author Organization [employer] Address [address] [facility] [address] [place] [address] Care Team Providers Care Weight Checker Name Role Phone Morteza Chaudhary MD Primary Care Prov ider Patrick Palacios RN Unavailable [phone] Camron Palacios Unavailable Encounter Details Date Type Department Care Team ([facility] st Contact Info) Description 06/16/2025 Results Follow-Up [facility] MEDICINE [address] [place] [address] Edith Rivas NP [address] [place] [address] POCT Urine , Prolactin, FSH, Additional followed-up results: 2 Social History Tobacco Use Types Packs/Day Years [...] Author Somewhat difficult 06/16/2025 1:36 PM Janeth Redi MA documented as of this encounter Miscellaneous Notes * Telephone Encounter - Sharon Benton RN - 06/16/2025 1:39 PM EST Tc ton pt to let them know per covering Medication sent. Thanks . Pt advised to call our office back for any side effects . Pt verbalized understanding and no further questions or concerns at this time. * Telephone Encounter - Sharon Benton RN - 06/16/2025 1:39 PM EST ----- Message from Edith Rivas sent at 06/16/2025 1:07 PM EST ----- Medication sent. Thanks ----- Message ----- From: Sharon Benton RN Sent: 06/16/2025 12:31 PM EST To: Edith Rivas NP ----- Message from Sharon Benton RN sent at 06/16/2025 12:31 PM EST ----- FYI pt agrees to start paroxetine and would like the medication sent to [facility]. 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 ----- Message ----- From: Edith Rivas NP Sent: 06/16/2025 9:18 AM EST To: [facility] Team Nurses Please call and inform the patient of labs results which in addition to her described symptoms are suggestive of perimenopause. As she requested during the visit, I can send paroxetine to help with her symptoms, but she should know with this, medication she will need to have close monitoring of thyroid function and the levothyroxine dose may require adjustments. Alternatively, she can try Ashwaganda supplement for her symptoms. Please let me know how she would like to proceed. Thanks ----- Message ----- From: Onur Vazquez MA Sent: 06/11/2025 2:41 PM EST To: Edith Rivas NP * Result Encounter Note - Edith Rivas NP - 06/16/2025 1:07 PM EST Medication sent. Thanks * Telephone Encounter - Sharon Benton RN - 06/16/2025 12:21 PM EST Tc to pt to let them know per covering provider Please call and inform the patient of labs results which in addition to her described symptoms are suggestive of perimenopause. As she requested during the visit, I can send paroxetine to help with her symptoms, but she should know with this, medication she will need to have close monitoring of thyroid function and the levothyroxine dose may require adjustments. Alternatively, she can try Ashwaganda supplement for her symptoms. Please let me know how she would like to proceed. Thanks . Pt is in agreement to start paroxetine and would like to pick it it up today Pt wanted to know of any other major effects they should be aware of before starti ng medication. Pt advised of , nausea, vomiting, fatigue and headaches. Pt advised a message will be sent to the provider but mainly the focus would be monitoring their thyroid levels. Pt reports compliance with their levothyroxine. Pt advised that we'll call them back to let them know when the medication has been sent to the pharmacy. Pt advised any further questions about the medication can be discussed with the pharmacist and pt verbalized understanding. * Telephone Encounter - Sharon Benton RN - 06/16/2025 12:20 PM EST ----- Message from Edith Rivas sent at 06/16/2025 9:18 AM EST ----- Please call and inform the patient of labs results which in addition to her described symptoms are suggestive of perimenopause. As she requested during the visit, I can send paroxetine to help with her symptoms, but she should know with this, medication she will need to have close monitoring of thyroid function and the levothyroxine dose may require adjustments. Alternatively, she can try Ashwaganda supplement for her symptoms. Please let me know how she would like to proceed. Thanks ----- Message ----- From: Onur Vazquez MA Sent: 06/11/2025 2:41 PM EST To: Edith Rivas NP documented in this encounter Plan of Treatment Not on file documented as of this encounter Visit Diagnoses Not on filedocumented in this encounter Additional Health Concerns Assessment Noted Time PHQ-9 Depression Total Score: 2 06/16/20 1:36 PM EST documented as of this encounter Care Teams Weight Checker Relationship Specialty Start Date End Date Morteza Chaudhary MD [address] [place] [address] PCP - General Internal Medicine 11/04/24 Patrick Palacios RN [address] [place] [address] Registered Nurse Family Medicine 03/14/25 Camron Palacios 03/14/25 documented as of this encounter
--- OUTSIDE RECORDS SUMMARY | 2025-06-18 11:18 | XMS_ITS | Encounter Summary ---
Author Organization [employer] Address [address] [facility] [address] [place] [address] Care Team Providers Care Showroom Consultant Name Role Phone Morteza Chaudhary MD Primary Care Prov ider Patrick Palacios RN Unavailable [phone] Camron Palacios Unavailable Reason for Visit * Reason Comments Med Refill Encounter Details Date Type Department Care Team (Late st Contact Info) Description 01/16/2025 Refill [facility] 230 [place] [address] Mani Mojica MD [address] [place] [address] Social History Tobacco Use Types Packs/Day Years [...] documented as of this encounter Care Teams Showroom Consultant Relationship Specialty Start Date End Date Morteza Chaudhary MD 505 [place] [address] PCP - General Internal Medicine 11/04/24 Patrick Palacios RN [address] [place] [address] Registered Nurse Family Medicine 03/14/25 Camron Palacios 03/14/25 documented as of this encounter
--- OUTSIDE RECORDS SUMMARY | 2025-06-18 11:18 | XMS_ITS ---
Author Organization [employer] Address [address] [facility] 7t [place] [address] Care Team Providers Care Risk Assessment Consultant Name Role Phone Morteza Chaudhary MD Primary Care Prov ider Patrick Palacios RN Unavailable [phone] Camron Palacios Unavailable CM Complex Status:Outreach In Progress (Enrolling) Start date:03/14/2025 Enrollment reason:ADT Feed Overview ED- [place] [facility] [place]. Case Team Name Relationship Phone Patrick Palacios RN(Responsible Staff) Registered Nurse [phone] Continued Care and Services Coordination
--- OUTSIDE RECORDS SUMMARY | 2025-06-18 11:18 | XMS_ITS ---
Author Organization [employer] Address [address] [facility] 7t [place] [address] Care Team Providers Care Therapist Occupational Name Role Phone Morteza Chaudhary MD Primary Care Prov ider Patrick Palacios RN Unavailable [phone] Camron Palacios Unavailable CHW Complex Status:Outreach In Progress (Enrolling) Start date:03/14/2025 Enrollment reason:ADT Feed Overview ED- [place] [facility] [place] Please outreach for enrollment. Case Team Name Relationship Phone Camron Palacios(Responsible Staff) [phone] Continued Care and Services Coordination
--- OUTSIDE RECORDS SUMMARY | 2025-06-18 11:18 | XMS_ITS | Patient Health Record ---
Author Organization [facility] Address [address] [place] [address] Care Team Providers Care Net Software Engineer Name Role Phone Vikki Spicer Primary Care [...] review and pick correct strength-formula tion from Instilling Values options. If intended option is not shown, [...] Status Risk Notes Problem Chronic hepatitis C (752161979) Chronic viral hepatitis C (B18.2) Active confirmed Problem Hypothyroidism (32745171) Hypothyroidism, unspecified (E03.9) Active confirmed Problem Overweight (746773409) Overweight (E66.3) Active confirmed Problem Tobacco user (988104944) Nicotine dependence, cigarettes, uncomplicated (F17.210) Active confirmed Problem Anxiety disorder (443044891) Anxiety disorder, unspecified (F41.9) Active confirmed Problem Insomnia (261551769) Insomnia, unspecified (G47.00) Active confirmed Problem Gastro-esophageal reflux disease without esophagitis (627239789) Gastro-esophagea l reflux disease without esophagitis (K21.9) Active confirmed Problem Localized, primary osteoarthritis of the pelvic region and thigh (189403785) Unilateral primary osteoarthritis, left hip (M16.12) Active confirmed Problem Pain of left knee joint (finding) (305906895978792) Pain in left knee (M25.562) Active confirmed Problem Fibromyalgia (474934543) Fibromyalgia (M79.7) Active confirmed Problem Abnormal uterine bleeding (98185720804528) Abnormal uterine and vaginal bleeding, unspecified (N93.9) Active confirmed Problem Seizure (22317683) Unspecified convulsions (R56.9) Active confirmed Problem Nondependent opioid abuse in remission (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) Opioid abuse, in remission (F11.11) Active confirmed Problem Headache (15861124) Headache, unspecified (R51.9) Active confirmed Problem Unsheltered homelessness (527789235095983) Unsheltered homelessness (Z59.02) Active confirmed Problem Pain of knee region (finding) (1373521393) Pain in unspecified knee (M25.569) Inactive confirmed Encounters Encounter Location Date Provider Diagnosis [facility] [address] [place] [address] 04/19/2025 Provider Migration Plan Of Treatment Pending Test Test Name Order Date Homero Screening Digital 02/15/2024 HEPATITIS A,B,C PROFILE 02/15/2024 Insurance Providers Payer Name Payer Address Payer Phone Subscriber Number Group Number Insured Name Patient Relationship to Insured Coverage Start Date Coverage End Date [place] Medicaid C3 [address] [place], [place] [id number] Connie Weiss i Self - patient is [...] Hospitalization History Reason Date(Month/Year) Psych admit - [facility] 2023 Multiple psych admits when younger detox x 2 - [facility] stomach issues? 01/2024
--- OUTSIDE RECORDS SUMMARY | 2025-06-18 11:18 | XMS_ITS | Encounter Summary ---
Author Organization [employer] Address [address] [facility] [address] [place] [address] Care Team Providers Care Accounts Supervisor Name Role Phone Morteza Chaudhary MD Primary Care Prov ider Patrick Palacios RN Unavailable [phone] Camron Palacios Unavailable Reason for Visit * Reason Comments Med Refill Encounter Details Date Type Department Care Team ([facility] st Contact Info) Description 02/28/2025 Refill [facility] [address] [place] [address] Morteza Chaudhary MD [address] [place] [address] Social History Tobacco Use Types Packs/Day Years [...] documented as of this encounter Care Teams Accounts Supervisor Relationship Specialty Start Date End Date Morteza Chaudhary MD [address] [place] [address] PCP - General Internal Medicine 11/04/24 Patrick Palacios RN [address] [place] [address] Registered Nurse Family Medicine 03/14/25 Camron Palacios 03/14/25 documented as of this encounter
--- OUTSIDE RECORDS SUMMARY | 2025-06-18 11:18 | XMS_ITS | Encounter Summary ---
Author Organization [employer] Address [address] [facility] [address] [place] [address] Care Team Providers Care Superintendent Pipelines Name Role Phone Morteza Chaudhary MD Primary Care Prov ider Patrick Palacios RN Unavailable [phone] Camron Palacios Unavailable Reason for Visit * Reason Comments Med Refill Encounter Details Date Type Department Care Team ([facility] st Contact Info) Description 02/14/2025 Refill [facility] [address] [place] [address] Morteza Chaudhary MD [address] [place] [address] Social History Tobacco Use Types Packs/Day Years [...] documented as of this encounter Care Teams Superintendent Pipelines Relationship Specialty Start Date End Date Morteza Chaudhary MD [address] [place] [address] PCP - General Internal Medicine 11/04/24 Patrick Palacios RN [address] [place] [address] Registered Nurse Family Medicine 03/14/25 Camron Palacios 03/14/25 documented as of this encounter
--- OUTSIDE RECORDS SUMMARY | 2025-06-18 11:18 | XMS_ITS | Encounter Summary ---
Author Organization [employer] Address [address] [place] [address] Care Team Providers Care Sustainability Engineer Name Role Phone Morteza Chaudhary MD Primary Care Prov ider Patrick Palacios RN Unavailable [phone] Camron Palacios Unavailable Reason for Visit * Reason Onset Date Comments Med Refill 03/25/2025 Encounter Details Date Type Department Care Team ([facility] st Contact Info) Description 03/25/2025 Telephone [facility] [address] [place], [place] [phone] Morteza Chaudhary MD [address] [place], [place] [phone] Med Refill Social History Tobacco Use Types [...] soon for refill script was sent to [facility] #[id number] on 02/12/25 90 day supply. * Telephone Encounter - Evelyn Brantley - 03/25/2025 9:44 AM EDT TC from pt requesting medication refill. Medications needing refill : levETIRAcetam (Keppra) 750 MG tablet To be sent to: [facility] #[id number] - [place] - [id number] [facility] Pt stated has upcoming appointment with neurologist documented in this encounter Plan of Treatment Not on file documented as of this encounter Visit Diagnoses Not on filedocumented in this encounter Additional Health Concerns Assessment Noted Time PHQ-9 Depression Total Score: 18 025 8:44 AM EDT documented as of this encounter Care Teams Sustainability Engineer Relationship Specialty Start Date End Date Morteza Chaudhary MD [address] [place] [address] PCP - General Internal Medicine 11/04/24 Patrick Palacios RN [address] [place] [address] Registered Nurse Family Medicine 03/14/25 Camron Palacios 03/14/25 documented as of this encounter
--- OUTSIDE RECORDS SUMMARY | 2025-06-18 11:18 | XMS_ITS | Clinical Summary ---
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 30 tablet 1 06/16/20 25 026 Active Diclofenac Sodium (Voltaren) 1 % gel Apply 2 g topically 2 times daily. 350 g 06/16/20 25 Active lidocaine (Lidoderm) 5 % patch Apply 1 patch topically Once per day. Remove & discard patch within 12 hours or as directed by MD. 30 patch 3 06/16/20 25 Active levothyroxine (Synthroid, Levoxyl) 25 MCG [...] TABLETS PER 24 HOURS 9 tablet 05/02/20 25 025 Discontinued nicotine polacrilex (Commit) 2 MG lozenge DISSOLVE 1 LOZENGE BY MOUTH EVERY 2 HOURS NEEDED FOR SMOKING CESSATION 72 lozenge 05/30/20 25 025 Discontinued promethazine (Phenergan) 25 MG tablet TAKE 1 TABLET BY MOUTH EVERY 6 HOURS NEEDED FOR NAUSEA AND VOMITING 90 tablet 05/30/20 25 025 Discontinued Active Problems Problem Noted Date Diagnosed Date Pelvic pain 03/11/2025 Assessment & Plan (03/11/2025 4:42 PM EDT): Chronic, patient followed due to uterine fibroid, complains of pain on intercourse, 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 Muscle pain 03/11/2025 Assessment & [...] All: keflex/septra/shellfish Meds: as above Seizure disorder ([facility]) 10/31/2024 Assessment & Plan (03/11/2025 4:40 PM [...] Encounters Date Type Department Care Team Description 06/17/2025 Telephone [facility] [address] [place] [phone] Monique Dorado, MIKE Hep C Tx 06/17/2025 Orders Only [facility] [address] [place] [address] Monique Dorado RN Chronic hepatitis C without hepatic coma (HCC) 06/16/2025 1:45 PM EST Telemedicine [facility] [address] [place] [address] Morteza Chaudhary MD Shortness of breath (Primary Dx); Chronic hepatitis C without hepatic coma (HCC) 06/16/2025 Orders Only [address] [address] Edith Rivas NP Perimenopausal vasomotor symptoms (Primary Dx) 06/16/2025 Travel 06/16/2025 Results Follow-Up [address] [address] Edith Rivas NP POCT Urine , Prolactin, FSH, Additional followed-up results: 2 06/15/2025 Refill [facility] [address] [place] [phone] Morteza Chaudhary MD 06/13/2025 Telephone [facility] [address] [place] [phone] Morteza Chaudhary MD chart prep 06/11/2025 2:40 PM EST Office Visit [facility] [address] [place] [phone] Edith Rivas NP Amenorrhea (Primary Dx); Loss of menstrual periods; Hot flashes; Hyperhidrosis; Hepatitis C test positive 06/11/2025 Travel 06/10/2025 Refill [facility] [address] [place] [phone] Morteza Chaudhary MD 06/09/2025 Refill [facility] [address] [place] [phone] Morteza Chaudhary MD 06/09/2025 Patient Outreach [address] [address] Morteza Chaudhary MD 06/04/2025 Orders Only [facility] [address] [place] [address] Morteza Chaudhary MD 05/27/2025 Refill [facility] [address] [place] [phone] Morteza Chaudhary MD 05/27/2025 Refill [facility] [address] [place] [address] Rafael Lopez MD 05/20/2025 Refill [facility] [address] [place] [phone] Lolis Ngo MD 05/15/2025 Patient Outreach [facility] [address] [place] [phone] Morteza Chaudhary MD Care Coordination ([facility]/José Miguel Palacios TC#4- Attempt to R/S missed IA appointment-Unable to LVM) 05/14/2025 Patient Outreach [facility] [address] [place] [phone] Morteza Chaudhary MD 05/02/2025 Patient Outreach [facility] [address] [place] [phone] Morteza Chaudhary MD Care Coordination ([facility]/ZAID Chowdhury#3- Attempt to R/S Missed CM IA appt-Unable to LVM-Full) 05/02/[address] [address] Morteza Chaudhary MD No Show 05/01/2025 Refill [facility] [address] [place] [phone] Morteza Chaudhary MD 04/30/2025 9:45 AM EDT Telemedicine [facility] [address] [place] [address] Yolanda Gutierrez RN Palpitations 04/30/2025 Travel 04/28/2025 Patient Outreach [address] [address] Morteza Chaudhary MD 04/25/2025 Refill [facility] [address] [place] [phone] Morteza Chaudhary MD 04/24/2025 Orders Only GENERIC EXTERNAL DATA DEPARTMENT Provider, Generic External Data 04/24/2025 Patient Outreach [address] [address] Morteza Chaudhary MD 04/20/2025 Refill [facility] [address] [place] [phone] Morteza Chaudhary MD 04/15/2025 Orders Only GENERIC EXTERNAL DATA DEPARTMENT Provider, Generic External Data 04/14/2025 Patient Outreach [address] [address] Morteza Chaudhary MD Care Coordination (C3LYUBOV/ZAID Ibarra#1- Attempt to R/S missed IA-LVM) 04/10/2025 Patient Outreach [address] [address] Morteza Chaudhary MD Care Management (C3CM- initial assessment/ enrollment. Not available.) 04/09/2025 Patient Outreach [address] [address] Morteza Chaudhary MD Care Coordination ([place]/ZAID Ibarra-LVM-CM Complex Care Initial Assessment Appt Reminder) 04/08/2025 Refill [facility] [address] [place] [address] Morteza Chaudhary MD 04/04/2025 Refill [facility] [address] [place] [phone] Morteza Chaudhary MD 04/03/2025 Patient Outreach [address] [address] Morteza Chaudhary MD Care Coordination (C3LYUBOV/ZAID Ibarra- Follow up on Neurology Appt) 03/27/2025 Patient Outreach [address] [address] Morteza Chaudhary MD Care Coordination (C3CM/CHW ZAID Kim-ADT Outreach-Agrees to participate in CM Complex Care Program) 03/25/2025 Telephone [facility] [address] [place] [address] Morteza Chaudhary MD Med Refill 03/24/2025 Refill [facility] [address], [place] [phone] Mani Mojica MD 03/24/2025 Patient Outreach [facility] [address], [place] [phone] Morteza Chaudhary MD 03/18/2025 1:00 PM EDT Telemedicine [facility] [address] [place] [address] Yolanda Gutierrez RN Peptic ulcer disease [K27.9] 03/18/2025 Travel from Last 3 Months Family History [...] 06/11/2025 2:18 PM EST Plan of Treatment Health Maintenance Due Date Last Done Comments Family Planning (PISQ) 1996 HPV Vaccines (1 [...] 2025 10/22/2020, 09/24/2020 Influenza Vaccine (#1) 2025 Alcohol/Substance Use Screening 11/04/2025 11/04/2024 SDOH Screening 03/27/2026 03/27/2025 Tobacco Screening 06/11/2026 06/11/2025 Depression Screening 06/16/2026 06/16/2025, 06/16/2025 Disability Screening 06/16/2026 06/16/2025 Lipid Panel 06/04/2030 06/04/2025 Zoster Vaccines (1 [...] Procedure Name Priority Date/Time Associated Diagnosis Comments T-SPOT(R).TB Routine 06/11/2025 2:52 PM EST Hyperhidrosis LH Routine 06/11/2025 2:52 PM EST Amenorrhea Hot flashes FSH Routine 06/11/2025 2:52 PM EST Amenorrhea Hot flashes PROLACTIN Routine 06/11/2025 2:52 PM EST Amenorrhea Hot flashes POCT , URINE Routine 06/11/2025 2:41 PM [...] REFLEX MICROSCOPIC Routine 04/15/2025 11:08 AM EDT from Last 3 Months Results * T-SPOT??.TB (06/11/2025 2:52 PM EST) T Spot TB Negative Negative [facility] Comment:A negative test resu lt does not exclude the possibilityof exposure to or infection with Mycobacteriumtuberculosis (M. tuberculosis). Patients with recentexposure to TB infected individuals exhibiting anegative T-SPOT.TB result should be considered forretesting within 6 weeks or if other relevant clinicalsymptoms indicate. Results from T-SPOT.TB testing mustbe used in conjunction with each individual'sepidemiological history, current medical status,and results of other diagnostic evaluations.The T-SPOT.TB test is qualitative and results arereported as positive, borderline, or negative, giventhat the test controls perform as expected. In linewith the Centers for Disease Control and Prevention's2010 recommendation to report quantitative measurementsalongside the qualitative result, the laboratoryprovides spot counts for informational purposes only.The T-SPOT.TB test should not be interpreted as aquantitative test. TS PANEL A 0 [facility] TS PANEL B 0 [facility] Negative Control Passed [facility] Positive Control Passed [facility] Comment:For additional infor megan, please refer tohttp://education.Conject/faq/RTT731(This link is being provided for informational/educational purposes only.)THIS TEST WAS PERFORMED AT:[employer] [id number] [place] [id number] JIMENEZ MD,PHD 06/11/2025 2:52 PM EST 06/11/2025 4:02 PM EST us Edith Rivas [employer]CE[employer] LAB BLOOD ORDERABLES Final Resu lt [facility] [address] [place] [address] [phone] * POCT Urine (06/11/2025 2:41 PM EST) Preg Test, Ur Negative Negative, Indeterminate, None Detected, Invalid, Specimen unsatisfactory for evaluation, Weakly Positive, 2+ QC Media Lot # [id number] Lot# Expiration Date Urine 06/11/2025 2:41 PM EST Edith Rivas NP POINT OF CARE TEST ENTER/EDIT O RDERABLES Final Result * Slide Review (06/04/2025 8:45 AM EDT) Slide Review VERIFIED [facility] 06/04/2025 8:45 AM EDT 06/04/2025 8:45 AM EDT Morteza Faust MD LAB BLOOD ORDERABL ES Final Result Performing Organization Address [facility] Co de Phone Number [facility] [address] [place] [phone] * TSH W/Reflex to FT4 (06/04/2025 8:45 AM EDT) TSH reflex Free T4 1.11 0.32 - 4.0 uIU/mL [facility] Blood Venous blood specimen / Unknown 06/04/2025 8:45 AM EDT 06/04/2025 8:45 AM EDT Morteza Faust MD LAB BLOOD ORDERABL ES Final Result Performing Organization Address [facility] Co de Phone Number [facility] [address] [place] [phone] * (ABNORMAL) Hepatitis C Viral RNA, Quantitative, Real-Time PCR (06/04/2025 8:45 AM EDT) Hepatitis C Viral Load 457799(A) NOT DETECTED IU/mL [facility] HCV Log PCR 5.29(A) NOT DETECTED Log IU/mL [facility] Comment:For additional infor megan, please refer tohttp://education.[employer] [place]/faq/HZS67w1(This link is being provided for informational/educational purposes only.)THIS TEST WAS PERFORMED AT:[employer] [place] [id number] GARCIA MD 06/04/2025 8:45 AM EDT 06/04/2025 10:47 AM EDT us Generic External Data Provider LAB BLOOD ORDERAB LES Final Result [facility] [address] [place] [phone] [phone] * CBC auto differential (06/04/2025 8:45 AM EDT) White Blood Count 8.4 4.8 - 10.8 X10*3/uL [facility] Red Blood Count 4.93 4.20 - 5.50 X10*6/uL [facility] Hemoglobin 14.3 12.0 - 16.0 g/dl [facility] Hematocrit 43.9 37.0 - 47.0 % [facility] Mean Corpuscular Volume 89.0 80.0 - 98.0 fL [facility] Mean Corpuscular Hemoglobin 29.0 27.0 - 33.0 pg [facility] Mean Corpuscular HGB Conc 32.6 31.0 - 35.0 g/dl [facility] Red Cell Distribution Width 12.6 11.0 - 16.0 % [facility] Platelet Count 286 160 - 400 X10*3/uL [facility] Mean Platelet Volume 9.9 9.4 - 12.3 fL [facility] Neutrophils Percent Auto 63.8 45 - 73 % [facility] Imm Gran Pct Auto 0.4 0.0 - 0.4 % [facility] Lymphocytes Percent Auto 24.8 20 - 40 % [facility] Monocytes Percent Auto 6.4 2 - 11 % [facility] Eosinophils Percent Auto 3.8 0 - 4 % [facility] Basophils Percent Auto 0.8 0 - 2 % [facility] NRBC Pct Auto 0.0 0.0 - 0.2 /100WBC [facility] Neutrophils Absolute Auto 5.4 2.0 - 8.3 x10*3/uL [facility] Imm Gran Abs Auto 0.03 0.00 - 0.03 X10*3/uL [facility] Lymphocytes Absolute Auto 2.1 1.2 - 4.9 X10*3/uL [facility] Monocytes Absolute Auto 0.5 0.1 - 1.2 X10*3/uL [facility] Eosinophils Absolute Auto 0.3 0.0 - 0.4 X10*3/uL [facility] Basophils Absolute Auto 0.1 0.0 - 0.2 X10*3/uL [facility] NRBC Abs Auto 0.000 0.0 - 0.012 X10*3/uL [facility] Blood Venous blood specimen / Unknown 06/04/2025 8:45 AM EDT 06/04/2025 8:45 AM EDT Morteza Faust MD LAB BLOOD ORDERABL ES Edited Result - Final Performing Organization Address City/[facility]/ZIP Co de Phone Number [facility] [address] [place] [phone] * (ABNORMAL) Hepatitis C Antibody with Reflex to HCV, RNA, Quantitative, Real- Time PCR (06/04/2025 8:45 AM EDT) Hepatitis C Antibody Reactive( A) Nonreactive [facility] Comment:Presumptive evidence of antibodies to HCV. Blood Venous blood specimen / Unknown 06/04/2025 8:45 AM EDT 06/04/2025 8:45 AM EDT Morteza Faust MD LAB BLOOD ORDERABL ES Final Result Performing Organization Address [facility]/ZIP Co de Phone Number [facility] [address] [place] [phone] * HIV-1/2 Antigen and Antibodies, Fourth Generation, with Reflexes (06/04/2025 8:45 AM EDT) HIV AB/AG Nonreactive Nonreactive [facility] Comment:HIV-1 p24 Ag and/or HIV-1/HIV-2 Ab not detected.A test result that is nonreactive does not exclude thepossibility of exposure to or infection with HIV-1 and/orHIV-2. Nonreactive results in this assay for individualswith prior exposure to HIV-1 and/or HIV-2 may be due toantigen and antibody levels that are below the limit ofdetection of this assay.The [employer] HIV Ag/Ab Combo assay result andsupplemental assay results should be interpreted inconjunction with the patient's clinical presentation,history and other laboratory results. If the results areinconsistent with clinical evidence, additional testing issuggested to confirm the result. Blood Venous blood specimen / Unknown 06/04/2025 8:45 AM EDT 06/04/2025 8:45 AM EDT Morteza Faust MD LAB BLOOD ORDERABL ES Final Result [facility] [address] [place] [phone] * Hemoglobin A1c (06/04/2025 8:45 AM EDT) Hemoglobin A1c 5.2 <6.0 % [facility] Comment:Hemoglobin A1C Refer ence Range Adults: 4.8 - 6.0 % Non diabetic: < 6.0 % Goal: < 7.0 %Additional Action Suggested: > 8.0 %Note: Hemoglobin A1c results are invalid for patients with abnormal amounts of HbF. Blood transfusions may impact the HbA1c concentration in the patient sample. Estimated Average Glucose 103 mg/dL [facility] Comment:eAG = Estimated ave rage glucose which is %A1C expressed asaverage glucose, using the formula of the A6J-HkqedbfLpyqbts Glucose study (ADAG), Diabetes Care, Vol.31,#8,2007 Blood Venous blood specimen / Unknown 06/04/2025 8:45 AM EDT 06/04/2025 8:45 AM EDT us Morteza Faust MD LAB BLOOD ORDERABL ES Final Result Performing Organization Address [facility]/ZIP Co de Phone Number [facility] [address] [place] [phone] * (ABNORMAL) Lipid Panel, Standard (06/04/2025 8:45 AM EDT) Triglycerides 139 <150 mg/dL [facility] Comment:Desirable Triglyceri de: less than 150 mg/dLBorderline High Triglyceride 150-199 mg/dLHigh Triglyceride: 200-499 mg/dLVery High Triglyceride: greater than or equal to 5OO mg/dL Cholesterol 240(H) <200 mg/dL [facility] Comment:Desirable Cholestero l: less than 200 mg/dLBorderline High Cholesterol: 200-239 mg/dLHigh Cholesterol: greater than 239 mg/dL LDL Cholesterol Calculated 154(H) <100 mg/dL [facility] Comment:Desirable LDL: less than 100 mg/dLNear Optimal/Above Optimal LDL: 110- 129 mg/dLBorderline High LDL: 130-159 mg/dLHigh LDL: 160-189 mg/dLVery High LDL: greater than or equal to 190 mg/dL HDL Cholesterol 59 >40 mg/dL [facility] Comment:Desirable HDL: great er than 40 mg/dL Note: This HDL assay may give artificially low results in patients with liver disease. Blood Venous blood specimen / Unknown 06/04/2025 8:45 AM EDT 06/04/2025 8:45 AM EDT us Morteza Faust MD LAB BLOOD ORDERABL ES Final Result Performing Organization Address City/[facility]/ZIP Co de Phone Number [facility] [address] [place] [phone] * (ABNORMAL) Comprehensive Metabolic Panel (06/04/2025 8:45 AM EDT) Sodium 139 135 - 145 mmol/L [facility] Potassium 3.9 3.3 - 5.1 mmol/L [facility] Chloride 109(H) 96 - 108 mmol/L [facility] Carbon Dioxide 19(L) 22 - 29 mmol/L [facility] Anion Gap 15 12 - 20 [facility] Urea Nitrogen (BUN) 23(H) 9 - 16 mg/dL [facility] Creatinine, Serum 1.11 0.5 - 1.4 mg/dL [facility] Estimated Glomerular Filt Rate 54 [facility] Comment:Chronic Kidney Disea se: Estimated GFR < 60 mL/min/1.51j4Oisngt Kidney Disease: Estimated GFR < 15 mL/min/1.73m2 Glucose 117(H) 60 - 115 mg/dL [facility] Calcium 10.1 8.4 - 10.2 mg/dL [facility] Bilirubin, Total 0.4 0.0 - 1.0 mg/dL [facility] Aspartate Amino Transferase 45(H) 5 - 31 U/L [facility] Alanine Aminotransferase 40(H) 0 - 31 U/L [facility] Total Protein 7.8 6.5 - 8.0 g/dL [facility] Albumin Level 4.9 3.5 - 5.0 g/dL [facility] Alkaline Phosphatase 73 39 - 117 U/L [facility] Blood Venous blood specimen / Unknown 06/04/2025 8:45 AM EDT 06/04/2025 8:45 AM EDT us Morteza Faust MD LAB BLOOD ORDERABL ES Final Result [facility] [address] [place], [place] [phone] * Urinalysis w/reflex microscopic (04/24/2025 5:01 PM EDT) Only the most recent of2 resultswithin the time period is included. Color Urine Yellow [facility] Appearance Urine Clear [facility] PH 6.0 5.0 - 9.0 [facility] Glucose Urine UA Negative Negative mg/dL [facility] Urine Blood Negative Negative [facility] Specific [place] - Urine 1.010 1.005 - 1.025 [facility] Urine Protein Negative Neg-Trace mg/dL [facility] Urine Ketones Negative Negative mg/dL [facility] Nitrite Urine Negative Negative [facility] Leukocyte Esterase Urine Negative Negative [facility] 04/24/2025 5:01 PM EDT 04/24/2025 5:10 PM EDT Narrative [facility] - 04/24/2025 5:26 PM EDT [id number], [employer] us Generic External Data Provider LAB URINE ORDERAB LES Final Result Performing Organization Address City/State/[facility] Co de Phone Number [facility] [address] [place] [phone] * XR Chest 1 View (04/24/2025 4:35 PM EDT) Anatomical Region Laterality Modality Chest Radiographic Kimberly ging 04/24/2025 4:35 PM EDT Narrative 04/24/2025 4:51 PM EDT [address] [address] XRay Report Signed Patient: Connie Valdez MR#: [id number] : 1980 Acct:[id number] Age/Sex: 44 / F ADM Date: 04/24/25 Loc: HO.ED Attending Dr: Ordering Physician: Suzi Bob MD Date of Service: 04/24/25 Procedure(s): XR chest 1V Accession Number(s): [id number] cc: Morteza Chaudhary MD; Suzi Bob MD [...] OV> 04/24/25 1648 DD/ 1635 TD/TT: 04/24/251644 Administrator: Procedure Note Donothemanthinterpreter, Image - 04/24/[address] [address] XRay Report Signed Patient: Connie Valdez AMR#: [id number] : 1980Acct:[id number] Age/Sex: 44 / FADM Date: 04/24/25 Loc: .ED Attending Dr: Ordering Physician: Suzi Bob MD Date of Service: 04/24/25 Procedure(s): XR chest 1V Accession Number(s): [id number] cc: Morteza Chaudhary MD; Suzi Bob MD [...] 04/24/25 1648 DD/ 1635 TD/TT: 04/24/25 164 Administrator: [facility] External Provider IMG XR PROCEDURES Final Result * (ABNORMAL) Drug Monitoring, Panel 1, Screen, Urine (04/15/2025 11:08 AM EDT) Opiate Screen Urine Not Detected Not Detect [facility] Comment:Opiate cut-off is 30 0 ng/mL.Positive results are unconfirmed and should not be used fornon-medical purposes. Barbiturates, Urine Not Detected Not Detect [facility] Comment:Barbiturate cut-off is 200 ng/mL.Positive results are unconfirmed and should not be used fornon-medical purposes. Phencyclidine Screen Urine Not Detected Not Detect [facility] Comment:Phencyclidine cut-of f is 25 ng/mL.Positive results are unconfirmed and should not be used fornon-medical purposes. Amphetamine Screen Urine Not Detected Not Detect [facility] Comment:Amphetamine cut-off is 1000 ng/mL.Positive results are unconfirmed and should not be used fornon-medical purposes. Benzodiazepines Screen Urine Not Detected Not Detect [facility] Comment:Benzodiazepine cut-o ff is 200 ng/mL.Positive results are unconfirmed and should not be used fornon-medical purposes. Cocaine Screen Urine Not Detected Not Detect [facility] Comment:Cocaine cut-off is 3 00 ng/mL.Positive results are unconfirmed and should not be used fornon-medical purposes. Cannabinoid Screen Urine POSITIVE(A) Not Detect [facility] Comment:Cannabinoid cut-off is 50 ng/mL.Positive results are unconfirmed and should not be used fornon-medical purposes. Methadone Screen, Urine Not Detected Not Detect ng/mL [facility] Comment:Methadone cut-off is 300 ng/mL.Positive results are unconfirmed and should not be used fornon-medical purposes. FENTANYL URINE Not Detected Not Detect [facility] Comment:Fentanyl cut-off is 1 ng/mL.Positive results are unconfirmed and should not be used fornon-medical purposes. Oxycodone Urine Screen Not Detected Not Detect ng/mL [facility] Comment:Oxycodone cut-off is 100 ng/mL.Positive results are unconfirmed and should not be used fornon-medical purposes. Buprenorphine Screen Positive(A) Not Detect ng/mL [facility] Comment:Buprenorphine cut-of f is 5 ng/mL.Positive results are unconfirmed and should not be used fornon-medical purposes. 04/15/2025 11:0 8 AM EDT 04/15/2025 11:12 AM EDT us Generic External Data Provider LAB URINE ORDERAB LES Final Result [facility] [address] [place] [address] [phone] from Last 3 Months Insurance [email or web address] Care Teams [employer] Relationship Specialty Start Date End Date Morteza Chaudhary MD [address] [place] [address] PCP - General Internal Medicine 11/04/24 Patrick Palacios RN [address] [place] [address] Registered Nurse Family Medicine 03/14/25 Camron Palacios 03/14/25
[2025-06-18 12:06] LABS: MANUAL DIFF FLAG NO
[2025-06-18 12:11] LABS: Hematocrit 40.2 % (37.0-47.0); Hemoglobin 13.1 g/dl (12.0-16.0); Imm Gran Abs Auto 0.01 X10*3/uL (0.00-0.03); Imm Gran Pct Auto 0.2 % (0.0-0.4); Lymphocytes Absolute Auto 2.4 X10*3/uL (1.2-4.9); Mean Corpuscular HGB Conc 32.6 g/dl (31.0-35.0); Mean Corpuscular Hemoglobin 28.9 pg (27.0-33.0); Mean Corpuscular Volume 88.7 fL (80.0-98.0); NRBC Abs Auto 0.000 X10*3/uL (0.0-0.012); NRBC Pct Auto 0.0 /100WBC (0.0-0.2); Platelet Count 341 X10*3/uL (160-400); Red Blood Count 4.53 X10*6/uL (4.20-5.50); White Blood Count 6.6 X10*3/uL (4.8-10.8)
[2025-06-18 12:16] LABS: INTERNATIONAL NORM RATIO 1.0 (0.9-1.1); Prothrombin Time 11.8 SEC (11.2-13.5)
[2025-06-18 12:36] LABS: Alanine Aminotransferase 44 U/L (0-31); Albumin Level 4.5 g/dL (3.5-5.0); Alkaline Phosphatase 84 U/L (39-117); Anion Gap 13 (12-20); Aspartate Amino Transferase 41 U/L (5-31); Blood Urea Nitrogen 13 mg/dL (9-16); Calcium 9.6 mg/dL (8.4-10.2); Carbon Dioxide 23 mmol/L (22-29); Chloride 108 mmol/L (96-108); Estimated Glomerular Filt Rate > 60; Potassium 3.8 mmol/L (3.3-5.1); Sodium 140 mmol/L (135-145); Total Protein 7.2 g/dL (6.5-8.0)
[2025-06-18 13:03] LABS: HBS Num1 729.32 mIU/mL (0-7.99); HBc Num1 0.06 S/CO (0.00-0.79); HBsAGNum1 0.41 S/CO (0.00-0.99); Hepatitis B Surface Antigen Negative (Negative); ~Hepatitis B Surface Antibody REACTIVE (Nonreactive)
[2025-06-20 03:32] LABS: ~Hepatitis A Antibody IgG 0.39 S/CO (0.00-0.99)
[2025-06-25 16:39] LABS: FIB-ALT 31 U/L (6-29); FIB-Alpha-2-Macroglobulin 304 mg/dL (106-279); FIB-Apolipoprotein A1 194 mg/dL (101-198); FIB-GGT 24 U/L (3-55); FIB-Haptoglobin 193 mg/dL (43-212); FIB-Total Bilirubin 0.2 mg/dL (0.2-1.2); Liver Fibrosis Score 0.08; Liver Fibrosis Stage F0; Nec Inflam Act Grade A0; Nec Inflam Act Score 0.11
== END 2025-06-18 09:52 | disposition home or self-care (01) ==
LOC: HO.HHCL 09:51
PROVIDERS: PCP Internal Medicine; Referring Provider Internal Medicine; Visit Provider Family Medicine
DX: Z11.59 Encounter for screening for other viral diseases (principal); B18.2 Chronic viral hepatitis C
CPT/HCPCS: 36415; 80053; 81596; 82248; 85025; 85610; 86704; 86706; 86708; 87340; 87902

== ENCOUNTER 2025-07-15 12:03 | Outpatient (REF) | payer MEDICAID, SELFPAY ==
[2025-07-15 15:00] LABS: Alanine Aminotransferase 42 U/L (0-31); Albumin Level 4.4 g/dL (3.5-5.0); Alkaline Phosphatase 78 U/L (39-117); Anion Gap 8 (12-20); Aspartate Amino Transferase 39 U/L (5-31); Blood Urea Nitrogen 17 mg/dL (9-16); Calcium 9.2 mg/dL (8.4-10.2); Carbon Dioxide 24 mmol/L (22-29); Chloride 109 mmol/L (96-108); Estimated Glomerular Filt Rate 55; Potassium 3.5 mmol/L (3.3-5.1); Sodium 137 mmol/L (135-145); Total Protein 6.9 g/dL (6.5-8.0)
[2025-07-16 02:33] LABS: Follicle Stimulating Hormone 74.6 mIU/mL
[2025-07-18 02:43] LABS: Levetiracetam Keppra 44.8 mcg/mL (10.0-40.0)
== END 2025-07-15 12:04 | disposition home or self-care (01) ==
LOC: HO.HHCL 12:03
PROVIDERS: Nurse Practitioner; PCP Internal Medicine; Visit Provider Advanced Practice Midwife
DX: R29.898 Other symptoms and signs involving the musculoskeletal system (principal); N91.2 Amenorrhea, unspecified
CPT/HCPCS: 36415; 80053; 80177; 81244; 82550; 83001; 84443